=== PATIENT | female | born 1980 | race Two or more races ===

== ENCOUNTER 2024-12-07 09:32 | Emergency (ER) | payer MEDICAID, SELFPAY ==
[2024-12-07 10:05] VITALS: BP 168/99; PULSE 98; RESP 17; TEMP 36.9; O2SAT 98
--- NOTE | 2024-12-07 10:10 | EKG_ITS ---
[facility] Test Date: 2024-12-07 Pat Name: LAURA RODRIGUEZ Department: Room: - Gender: Female Hand Weaver: : 1980 Requested By: Socorro Conrad ([facility]) Sadiq Order Number: [id number] Reading MD: Socorro Conrad ([facility]) Sadiq Measurements Intervals [place] Rate: 89 P: 44 OK: 165 QRS: 20 QRSD: 88 T: 19 QT: 363 QTc: 442 Interpretive Statements SINUS RHYTHM Compared to ECG 07/22/2021 14:41:08 No significant changes /store/S0/[id number].pdf
--- NOTE | 2024-12-07 10:10 | PD.EDRME ---
Rapid Medical Screening Exam RME Arrival date/time: 12/07/24 09:32 This is a 44-year-old female history of liver cirrhosis presents to the emergency department with nausea vomiting bruising abdominal pain. History of alcohol relapse. I have greeted and performed a focused initial assessment of this patient. Initial appropriate labs ordered at this time. A comprehensive ED assessment and evaluation of the patient and analysis of all test and completion of medical decision making process will be conducted by additional ED provider. Chief Complaint: GI Bleed Time Seen by Provider: 12/07/24 09:51 Vital signs: Vital Signs Temperature 98.4 F 12/07/24 10:05 Pulse Rate 98 12/07/24 10:05 Respiratory Rate 17 12/07/24 10:05 Blood Pressure 168/99 H 12/07/24 10:05 Pulse Oximetry (%) 98 12/07/24 10:05 Oxygen Delivery Method Room Air 12/07/24 10:05
[2024-12-07] MEDS: ONDANSETRON ODT 4 MG TABRAP PO (10:16)
[2024-12-07 10:45] LABS: Basophils % (Auto) 1 % (0-2.5); Eosinophils # (Auto) 0.1 Thou/mm3 (0.0-0.5); Eosinophils % (Auto) 2 % (0-10); Hematocrit 36.6 % (36.0-46.0); Hemoglobin 12.5 g/dL (12.0-16.0); Immature Granulocytes % (Auto) 0 % (0-0); Immature Granulocytes Auto 0.01 Thou/mm3 (0.00-0.00); Lymphocytes # (Auto) 0.6 Thou/mm3 (1.0-4.8); Lymphocytes % (Auto) 15 % (10-50); Mean Corpuscular HGB Conc 34.2 g/dl (31.0-37.0); Mean Corpuscular Volume 94 fL (80-100); Monocytes # (Auto) 0.3 Thou/mm3 (0.0-0.8); Monocytes % (Auto) 8 % (0-12); Neutrophils # (Auto) 3.1 Thou/mm3 (1.8-7.7); Neutrophils % (Auto) 75 % (37-80); Nucleated Red Blood Cell % 0 /100 WBC (0); Platelet Count 94 Thou/mm3 (140-440); RDW Standard Deviation 49.6 fL (36.4-46.3); Red Blood Count 3.91 Miln/mm3 (4.00-5.20); White Blood Count 4.1 Thou/mm3 (3.6-11.0)
[2024-12-07 11:03] LABS: Alanine Aminotransferase 40 U/L (10-49); Albumin, Serum 3.8 gm/dL (3.5-5.0); Albumin/Globulin Ratio 1.1 (1.2-2.2); Alkaline Phosphatase 175 U/L (46-116); Anion Gap 12 (7-16); Aspartate Amino Transferase 85 U/L (0-34); BUN/Creatinine Ratio 8 Ratio (12-20); Bilirubin,Total 3.3 mg/dL (0.3-1.2); Blood Urea Nitrogen 6 mg/dL (9-23); Calcium 12.5 mg/dL (8.3-10.6); Calcium (Corrected) 12.7 mg/dL (8.5-10.1); Carbon Dioxide 22.4 mMol/L (20.0-31.0); Chloride 111 mMol/L (98-107); Creatinine (Component) 0.8 mg/dL (0.6-1.3); Globulin 3.4 gm/dL (2.3-3.5); Glucose 103 mg/dL (74-106); INR 1.3 (0.9-1.3); Lipase 23 U/L (12-53); Magnesium 1.6 mg/dL (1.6-2.6); Osmolality,Calculated 286 (275-295); Prothrombin Time 14.4 Seconds (9.0-12.2); Sodium 145 mMol/L (136-145); Total Protein 7.2 gm/dL (5.7-8.2); Troponin I < 0.020 ng/mL (0.0-0.045); eGFR > 60 See Note
[2024-12-07 11:25] LABS: Collection Type, Urine Clean Catch
[2024-12-07 11:38] LABS: HCG Qualitative,Urine Negative
[2024-12-07 11:39] LABS: Bacteria,Urine Rare; Bilirubin,Urine Negative (Negative); Blood,Urine Trace (Negative); Color,Urine Yellow (Lt Yel-Yel); Glucose, Urine Negative (Negative); Ketones,Urine Negative (Negative); Leukocyte Esterase,Urine Positive (Negative); Nitrite,Urine Negative (Negative); PH,Urine 7.5 (5.0-7.0); Protein,Urine Negative (Neg - Trace); RBC,Urine 6 /hpf (0-3); Specific Gravity,Urine 1.013 (1.001-1.035); Squamous Epithelial Cell,Urine 5 /hpf (0-5); WBC,Urine 6 /hpf (0-5)
[2024-12-07 11:44] LABS: Clarity,Urine Hazy (Clear/Hazy)
[2024-12-07 12:04] LABS: Amphetamine/Methamp Scrn,U Negative (Negative); Barbiturate Screen,Urine Negative (Negative); Benzodiazepines Screen,Urine Negative (Negative); Benzoylecgonine Screen, Ur Negative (Negative); Fentanyl Screen,Urine Negative (Negative); Opiate Screen,Urine Negative (Negative); THC Screen,Urine Positive (Negative)
[2024-12-07 13:03] VITALS: BP 169/92; PULSE 93; RESP 18; TEMP 37.1; O2SAT 99
--- NOTE | 2024-12-07 13:12 | PD.EDADULT ---
ED General RME/HPI General Chief complaint: GI Bleed Stated complaint: BLACK STOOL, FEELS SICK Time Seen by Provider: 12/07/24 09:51 Arrival date/time: 12/07/24 09:32 RME / HPI RME / HPI narrative: 44-year-old female patient with significant history of liver cirrhosis, currently drinking hard liquor, last drink was 4 5 days ago, came in for evaluation regarding nosebleeding. Patient has been having nosebleeding last week, last bleeding 2 days ago, severity mild. Patient told me that she might swallowed some of the blood while sleeping. Noticed dark-colored stool few days ago but not today. Patient is also complaining of on and off abdominal cramping. Patient denies any other complaints. Related Data Home Medications ?Medication ?Instructions ?Recorded ?Confirmed ferrous sulfate 325 mg (65 mg 325 mg PO QDAY 07/21/21 12/13/23 iron) tablet albuterol sulfate 90 mcg/actuation 2 puff inhalation Q6H PRN Wheezing 07/28/21 12/13/23 aerosol inhaler benzalkonium chloride 0.13 % 1 applic topical QD-BID PRN 10/11/23 12/13/23 topical solution (Merthiolate (benzalkonium)) bisacodyl 10 mg rectal suppository 10 mg OR QDAY PRN 10/11/23 12/13/23 (Dulcolax (bisacodyl)) magnesium hydroxide 400 mg/5 mL 5 ml PO QDAY PRN 10/11/23 12/13/23 oral suspension (Milk of Magnesia) montelukast 10 mg tablet 10 mg PO QDAY 10/11/23 12/13/23 (Singulair) oxycodone-acetaminophen 5 mg-325 5 ml PO QDAY 10/11/23 12/13/23 mg/5 mL oral solution paroxetine HCl 30 mg tablet (Paxil) 30 mg PO QDAY 10/11/23 12/13/23 sodium phosphates 19 gram-7 118 ml OR QDAY PRN 10/11/23 12/13/23 gram/118 mL enema (Fleet Enema) tuberculin PPD 5 tub. unit/0.1 mL intradermal 10/11/23 12/13/23 intradermal injection solution (Tubersol) Previous Rx's ?Medication ?Instructions ?Recorded meloxicam 7.5 mg tablet 7.5 mg PO QDAY #45 tabs 11/08/23 ondansetron HCl 4 mg tablet 4 mg PO Q8H PRN nausea and 12/07/24 vomiting 4 days #20 tabs pantoprazole 40 mg tablet,delayed 40 mg PO QDAY #30 tabs 12/07/24 release (Protonix) Allergies Allergy/AdvReac Type Severity Reaction Status Date / Time hydrocortisone Allergy Intermediate Swelling Verified 12/07/24 09:37 of the Eye Review of Systems Review of Systems Narrative Review of Systems: Review of system reviewed and within normal limits except mentioned in HPI ED Exam Narrative Physical exam: VITAL SIGNS: Reviewed. GENERAL APPEARANCE: Alert and interactive, follows commands, no acute distress, HEAD AND FACE: Non-traumatic. ENT: PERRL, pink conjunctivitis, eyelid no trauma, Mucous membrane moist. NECK: Supple, nontender, no nuchal rigidity. CHEST: No tenderness, no crepitus, no paradoxical movement, no retractions. LUNGS: Clear, well ventilated, symmetric, no rales, no wheezing, no ronchi, no stridor, good breath sounds bilaterally. HEART: Regular rate, regular rhythm, no murmur, no gallops. ABDOMEN: Soft, positive bowel sounds, nondistended, no guarding, nontender, no rebound, no masses, RECTAL: Deferred. GENITAL: Deferred. NEUROLOGICAL: Gross motor function intact sensory function intact, Appropriate for age. MUSCULOSKELETAL: low back nontender, full range of motion. EXTREMITIES: Nontender, full range of motion. SKIN: Color pink, dry, no rash, no lacerations, no abrasions, no contusions. LYMPHATICS: Deferred. Course Quality Measures none Orders Category Date Time Status EKG (ED ONLY) *Do not use* NOW Care 12/07/24 10:10 Completed NPO STAT Care 12/07/24 10:10 Active EKG (ED Only) Stat Exams 12/07/24 10:10 Draft CBC Stat Lab 12/07/24 10:35 Completed Comprehensive Metabolic Panel Stat Lab 12/07/24 10:35 Completed Drug Screen,Urine Stat Lab 12/07/24 11:06 Completed HCG Qualitative,Urine Stat Lab 12/07/24 11:06 Completed Lipase Stat Lab 12/07/24 10:35 Completed Magnesium Stat Lab 12/07/24 10:35 Completed Prothrombin Time with INR Stat Lab 12/07/24 10:35 Completed Troponin I Stat Lab 12/07/24 10:35 Completed Urinalysis Stat Lab 12/07/24 11:06 Completed HYDROcodone*/APAP 5/325 [[place] 5/325] Med 12/07/24 13:11 Once 1 tab PO X1 ONE Ondansetron Odt [Zofran Odt] Med 12/07/24 10:12 Discontinued 4 mg PO X1 ONE Pantoprazole [Protonix] Med 12/07/24 13:16 Discontinued 40 mg PO X1 ONE Potassium Chloride [K-Dur] Med 12/07/24 13:16 Discontinued 40 meq PO X1 ONE Vital Signs Vital signs: Vital Signs Temperature 98.4 F 12/07/24 10:05 Pulse Rate 98 12/07/24 10:05 Respiratory Rate 17 12/07/24 10:05 Blood Pressure 168/99 H 12/07/24 10:05 Pulse Oximetry (%) 98 12/07/24 10:05 Oxygen Delivery Method Room Air 12/07/24 10:05 [facility] Patient data External records reviewed:: None Clinical information provided by:: patient Social determinants that could affect healthcare access:: none Patient has the following chronic illnesses:: Alcohol liver cirrhosis How is presenting disease/condition affected by chronic disease/condition?: exacerbated by Evaluation data The following diagnostics were reviewed and interpreted by me:: lab results and EKG tracing(s) Lab and/or radiology exams considered but not ordered:: None Interpretation Summary: See results in [facility] Medications Medications considered but not ordered:: None Medication administrations:: Medication Administration History Discontinued Medications Hydrocodone Bitart/Acetaminophen (Hydrocodone/Apap 5/325 Tablet) 1 tab PO X1 ONE Stop: 12/07/24 13:12 Ondansetron HCl (Ondansetron Odt 4 Mg Tabrap) 4 mg PO X1 ONE; Protocol Stop: 12/07/24 10:13 Last Admin: 12/07/24 10:16 Dose: 4 mg Documented By: GM Pantoprazole Sodium (Pantoprazole 40 Mg Tablet) 40 mg PO X1 ONE Stop: 12/07/24 13:17 Potassium Chloride (Potassium Chloride 20 Meq Tabcr) 40 meq PO X1 ONE Stop: 12/07/24 13:17 [place] Zofran Protonix and potassium Consultations Consultation(s) initiated? (list below): No Diagnosis Differential Diagnosis ED Complaint MDM: Nosebleeding, liver cirrhosis, anemia, upper GI bleed Most likely diagnosis given after review of the tests above:: Nosebleeding, history of liver cirrhosis Admission Indicated Admission indicated?: not indicated Explain why admission is indicated or not indicated:: None Admission Request Was there a request for admission?: No Disposition Plan Disposition Plan: Discharge Discharge Attestation Discharge Attestation: The patient and all family members were given an opportunity to ask questions and understood the discharge instructions. Discharge instructions specifically effects, indications for sooner follow up or return to the emergency department, and the expected course of current diagnosis. Patient condition: Stable Medical Decision Making MDM Narrative MDM Narrative: 44-year-old female patient with significant history of liver cirrhosis, currently drinking hard liquor, last drink was 4 5 days ago, came in for evaluation regarding nosebleeding. Patient has been having nosebleeding last week, last bleeding 2 days ago, severity mild. Patient told me that she might swallowed some of the blood while sleeping. Noticed dark-colored stool few days ago but not today. Patient is also complaining of on and off abdominal cramping. Patient denies any other complaints. Patient's CBC today did not show any anemia, hemoglobin of 12.5. Except for a platelet of 94. Patient's CMP is significant for total bili of 3.3 AST of 85 alkaline phos of 175. Potassium was noted to be 3.0. Urinalysis no UTI positive for marijuana. EKG showed normal sinus rhythm, ventricular rate of 89 bpm, no ST segment elevation or depression noted. Patient's last nosebleeding was more than 2 days ago. Currently patient is not having any bleeding. Patient was advised to stop drinking alcohol and closely follow-up with liver specialist. Patient agrees with the plan. Differential Diagnosis Differential Diagnosis: Nosebleeding, liver cirrhosis, anemia, upper GI bleed Lab Data 12/07/24 10:35 12/07/24 10:35 Labs: Lab Results 12/07/24 12/07/24 Range/Units 10:35 11:06 WBC 4.1 (3.6-11.0) Thou/mm3 RBC 3.91 L (4.00-5.20) Miln/mm3 Hgb 12.5 (12.0-16.0) g/dL Hct 36.6 (36.0-46.0) % MCV 94 (80-100) fL MCH 32.0 (25.0-35.0) pg MCHC 34.2 (31.0-37.0) g/dl RDW Std Deviation 49.6 H (36.4-46.3) fL Plt Count 94 L (140-440) Thou/mm3 Neut % (Auto) 75 (37-80) % Lymph % (Auto) 15 (10-50) % [place] % (Auto) 8 (0-12) % Eos % (Auto) 2 (0-10) % Baso % (Auto) 1 (0-2.5) % Neut # (Auto) 3.1 (1.8-7.7) Thou/mm3 Lymph # (Auto) 0.6 L (1.0-4.8) Thou/mm3 [place] # (Auto) 0.3 (0.0-0.8) Thou/mm3 Eos # (Auto) 0.1 (0.0-0.5) Thou/mm3 Baso # (Auto) 0.0 (0.0-0.2) Thou/mm3 Immature Gran # (Auto) 0.01 H (0.00-0.00) Thou/mm3 Absolute Nucleated RBC 0.00 (0.00-0.00) Thou/mm3 Immature Gran % 0 (0-0) % Nucleated RBC % 0 (0) /100 WBC PT 14.4 H (9.0-12.2) Seconds INR 1.3 (0.9-1.3) Sodium 145 (136-145) mMol/L Potassium 3.0 L (3.4-5.1) mMol/L Chloride 111 H (98-107) mMol/L Carbon Dioxide 22.4 (20.0-31.0) mMol/L Anion Gap 12 (7-16) BUN 6 L (9-23) mg/dL Creatinine 0.8 (0.6-1.3) mg/dL Estim Creat Clear Calc Not Performed. eGFR > 60 (60 - ) See Note BUN/Creatinine Ratio 8 L (12-20) Ratio Glucose 103 (74-106) mg/dL Calculated Osmolality 286 (275-295) Calcium 12.5 H (8.3-10.6) mg/dL Corrected Calcium 12.7 H (8.5-10.1) mg/dL Magnesium 1.6 (1.6-2.6) mg/dL Total Bilirubin 3.3 H (0.3-1.2) mg/dL AST 85 H (0-34) U/L ALT 40 (10-49) U/L Alkaline Phosphatase 175 H (46-116) U/L Troponin I < 0.020 (0.0-0.045) ng/mL Total Protein 7.2 (5.7-8.2) gm/dL Albumin 3.8 (3.5-5.0) gm/dL Globulin 3.4 (2.3-3.5) gm/dL Albumin/Globulin Ratio 1.1 L (1.2-2.2) Lipase 23 (12-53) U/L Ur Collection Type Clean Catch Urine Color Yellow (Lt Yel-Yel) Urine Clarity Hazy (Clear/Hazy) Urine pH 7.5 H (5.0-7.0) Ur Specific [place] 1.013 (1.001-1.035) Urine Protein Negative (Neg - Trace) Urine Glucose (UA) Negative (Negative) Urine Ketones Negative (Negative) Urine Blood Trace (Negative) Urine Nitrite Negative (Negative) Urine Bilirubin Negative (Negative) Urine Urobilinogen (Auto) 8.0 (0.0-1.0) mg/dL Ur Leukocyte Esterase Positive (Negative) Urine RBC 6 H (0-3) /hpf Urine WBC 6 H (0-5) /hpf Ur Squamous Epith Cells 5 (0-5) /hpf Urine Bacteria Rare (None) Urine HCG, Qual Negative Urine Opiates Screen Negative (Negative) Urine Fentanyl Screen Negative (Negative) Ur Barbiturates Screen Negative (Negative) U Amphetamin/Meth Scrn Negative (Negative) U Benzodiazepines Scrn Negative (Negative) U Cocaine Metab Screen Negative (Negative) U Marijuana (THC) Screen Positive A (Negative) Discharge Plan Plan Patient Disposition: HOME (Self Care) Disposition Comment: Stable Prescriptions/Referrals Prescriptions/Med Rec: New pantoprazole [Protonix] 40 mg tablet,delayed release (DR/EC) 40 mg PO QDAY Qty: 30 0RF ondansetron HCl 4 mg tablet 4 mg PO Q8H PRN (Reason: nausea and vomiting) 4 Days Qty: 20 0RF No Action bisacodyl [Dulcolax (bisacodyl)] 10 mg suppository 10 mg OR QDAY PRN Fleet Enema 19-7 gram/118 mL enema 118 ml OR QDAY PRN Merthiolate (benzalkonium) 0.13 % solution 1 applic topical QD-BID PRN magnesium hydroxide [Milk of Magnesia] 400 mg/5 mL suspension 5 ml PO QDAY PRN oxycodone-acetaminophen 5-325 mg/5 mL solution 5 ml PO QDAY paroxetine HCl [Paxil] 30 mg tablet 30 mg PO QDAY montelukast [Singulair] 10 mg tablet 10 mg PO QDAY Tubersol 5 tub. unit /0.1 mL solution intradermal meloxicam 7.5 mg tablet 7.5 mg PO QDAY Qty: 45 3RF albuterol sulfate 90 mcg/actuation Hfa Aerosol Inhaler 2 puff INHALATION Q6H PRN (Reason: Wheezing) ferrous sulfate 325 mg (65 mg iron) Tablet 325 mg PO QDAY Referrals: No Primary/Family,Physician [Primary Care Provider] - In 1 week Problem List Clinical Impression: Liver cirrhosis, alcoholic, Bleeding nose Patient/Caregiver Discharge Instructions Discharge Activity: activity as tolerated Education Materials: ED Cirrhosis, ED Epistaxis (Adult) Additional Instructions: Thank you for the opportunity for serving you today. You are stable for discharged . You are advised to: Follow-up with your PCP in 1 to 2 days Return to ED for worsening of symptoms Increase oral fluids Take medication as prescribed As your PCP to refer you to a liver specialist or GI specialist. Please stop drinking alcohol. Print Language: Macanese Stand Alone Forms: Nicole Award Info., Patient Portal Info Letter
[2024-12-07] MEDS: POTASSIUM CHLORIDE 20 mEq TABCR 40 MEQ PO (13:51)
[2024-12-07] MEDS: HYDROcodone/APAP 5/325 TABLET 1 TAB PO (13:52)
[2024-12-07] MEDS: PANTOPRAZOLE 40 MG TABLET PO (13:53)
[2024-12-07 13:56] VITALS: BP 161/90; PULSE 100; RESP 18; TEMP 36.9; O2SAT 96
== END 2024-12-07 13:58 | disposition home or self-care (01) ==
PROVIDERS: Nurse Practitioner Primary Care; Emergency Provider Emergency Medicine
DX: K70.30 Alcoholic cirrhosis of liver without ascites (principal); R04.0 Epistaxis
CPT/HCPCS: 36415; 80053; 80307; 81001; 81025; 83690; 83735; 84484; 85025; 85610; 93005; 99283; Q0162; A9270

== ENCOUNTER 2025-02-12 09:54 | Inpatient (IN) | payer MEDICAID, SELFPAY ==
[2025-02-12 09:55] VITALS: BMI 35.9
[2025-02-12 10:13] VITALS: BP 149/87; PULSE 119; RESP 18; TEMP 36.8; O2SAT 98
--- NOTE | 2025-02-12 10:24 | XR_ITS ---
Examination: CT abdomen and pelvis without contrast. Coronal 3-D reconstructions. Sagittal 2-D reconstructions. Date and time of exam:February 12, 2025 1247 hours Comparison July 08, 2018 INDICATIONS: Diagnosis cirrhosis with abdominal pain nausea vomiting one month CTDI: vol (mGy): 12.7 DLP: (mGycm): 720 Technique: Axial images of the abdomen have been obtained, 3 mm slice thickness Intravenous contrast material has not been administered. Low dose protocols were performed. One or more of the following dose reduction techniques were used; automated exposure control, adjustment of the mA and/or KV according to patient size, use of iterative reconstruction technique. Findings: Cirrhosis, liver nodular in contour Significant splenomegaly Cholelithiasis, gallbladder is contracted with mild gallbladder wall thickening No pancreatic mass 1 mm nonobstructing right renal calculus There is mild inflammation in the right abdomen, axial image 143 without definite enlarged appendix No bowel obstruction Urinary bladder intact IMPRESSION: Cirrhosis Significant splenomegaly Recommend hepatobiliary sonography follow-up to exclude gallbladder wall thickening There is inflammation in the right abdomen without definite enlarged appendix, if appendicitis is a clinical consideration recommend repeat CT scan abdomen pelvis post intravenous contrast
--- NOTE | 2025-02-12 10:24 | PD.EDRME ---
Rapid Medical Screening Exam E Arrival date/time: 02/12/25 09:54 44-year-old female with a history of liver cirrhosis, anemia presents to the emergency room with a chief complaint of 10 out of 10 diffuse abdominal pain, bruising to her abdomen and lower extremities, and fatigue that has progressively gotten worse this last week. \I have greeted and performed a focused initial assessment of this patient. A comprehensive ED assessment and evaluation of the patient, analysis of all test results, and completion of the medical decision making process will be conducted by additional ED providers. Chief Complaint: Nausea/Vomiting/Diarrhea Time Seen by Provider: 02/12/25 11:21 Vital signs: Vital Signs Temperature 98.2 F 02/12/25 10:13 Pulse Rate 119 H 02/12/25 10:13 Respiratory Rate 18 02/12/25 10:13 Blood Pressure 149/87 H 02/12/25 10:13 Pulse Oximetry (%) 98 02/12/25 10:13 Oxygen Delivery Method Room Air 02/12/25 10:13 Vital signs reviewed by provider: Yes
[2025-02-12 10:53] LABS: Basophils # (Auto) 0.1 Thou/mm3 (0.0-0.2); Basophils % (Auto) 1 % (0-2.5); Eosinophils # (Auto) 0.1 Thou/mm3 (0.0-0.5); Eosinophils % (Auto) 2 % (0-10); Hematocrit 35.4 % (36.0-46.0); Immature Granulocytes % (Auto) 0 % (0-0); Immature Granulocytes Auto 0.01 Thou/mm3 (0.00-0.00); Lymphocytes # (Auto) 1.1 Thou/mm3 (1.0-4.8); Lymphocytes % (Auto) 21 % (10-50); Mean Corpuscular HGB Conc 33.9 g/dl (31.0-37.0); Mean Corpuscular Hemoglobin 31.5 pg (25.0-35.0); Mean Corpuscular Volume 93 fL (80-100); Monocytes # (Auto) 0.6 Thou/mm3 (0.0-0.8); Monocytes % (Auto) 10 % (0-12); Neutrophils # (Auto) 3.4 Thou/mm3 (1.8-7.7); Neutrophils % (Auto) 65 % (37-80); Nucleated Red Blood Cell % 0 /100 WBC (0); Platelet Count 105 Thou/mm3 (140-440); RDW Standard Deviation 51.3 fL (36.4-46.3); Red Blood Count 3.81 Miln/mm3 (4.00-5.20); White Blood Count 5.3 Thou/mm3 (3.6-11.0)
[2025-02-12 12:04] LABS: Collection Type, Urine Clean Catch
[2025-02-12 12:06] LABS: Alanine Aminotransferase 44 U/L (10-49); Albumin/Globulin Ratio 1.2 (1.2-2.2); Alkaline Phosphatase 158 U/L (46-116); Anion Gap 13 (7-16); Aspartate Amino Transferase 79 U/L (0-34); BUN/Creatinine Ratio 6 Ratio (12-20); Bilirubin,Total 3.5 mg/dL (0.3-1.2); Blood Urea Nitrogen 5 mg/dL (9-23); Calcium 11.4 mg/dL (8.3-10.6); Calcium (Corrected) 11.4 mg/dL (8.5-10.1); Carbon Dioxide 23.2 mMol/L (20.0-31.0); Chloride 107 mMol/L (98-107); Creatinine (Component) 0.8 mg/dL (0.6-1.3); Estimated Creatinine Clearance 89.5 mL/min (>60); Globulin 3.3 gm/dL (2.3-3.5); Glucose 102 mg/dL (74-106); Lipase 26 U/L (12-53); Osmolality,Calculated 282 (275-295); Potassium 2.8 mMol/L (3.4-5.1); Sodium 143 mMol/L (136-145); Total Protein 7.3 gm/dL (5.7-8.2); eGFR > 60 See Note
[2025-02-12 12:16] LABS: HCG Qualitative,Urine Negative
[2025-02-12 12:21] LABS: Bacteria,Urine Rare; Bilirubin,Urine Negative (Negative); Blood,Urine 1+ (Negative); Color,Urine Yellow (Lt Yel-Yel); Glucose, Urine Negative (Negative); Hyaline Casts,Urine < 1 /hpf (0-1); Ketones,Urine Negative (Negative); Leukocyte Esterase,Urine Negative (Negative); Nitrite,Urine Negative (Negative); PH,Urine 6.5 (5.0-7.0); Protein,Urine Trace (Neg - Trace); RBC,Urine 2 /hpf (0-3); Specific Gravity,Urine 1.017 (1.001-1.035); Squamous Epithelial Cell,Urine < 1 /hpf (0-5); WBC,Urine 3 /hpf (0-5)
[2025-02-12 12:25] LABS: Clarity,Urine Hazy (Clear/Hazy)
--- NOTE | 2025-02-12 12:36 | EDNOTE_ITS ---
ED Abdominal Pain RME/HPI General Chief Complaint: Nausea/Vomiting/Diarrhea Stated complaint: N/V, BODY ACHES [id number] HX CIRRHOSIS Time seen by provider: 02/12/25 11:21 Arrival date/time: 02/12/25 09:54 This is a case of 44-year-old female with a history of liver cirrhosis, anemia presents to the emergency room with a chief complaint of 10 out of 10 diffuse abdominal pain, bruising to her abdomen and lower extremities, and fatigue that has progressively gotten worse this last week. Limitations: no limitations RME / HPI RME / HPI narrative: 02/12/25 09:54 44-year-old female with a history of liver cirrhosis, anemia presents to the emergency room with a chief complaint of 10 out of 10 diffuse abdominal pain, bruising to her abdomen and lower extremities, and fatigue that has progressively gotten worse this last week. \I have greeted and performed a focused initial assessment of this patient. A comprehensive ED assessment and evaluation of the patient, analysis of all test results, and completion of the medical decision making process will be conducted by additional ED providers. Related Data Home Medications ?Medication ?Instructions ?Recorded ?Confirmed ferrous sulfate 325 mg (65 mg 325 mg PO QDAY 07/21/21 12/13/23 iron) tablet albuterol sulfate 90 mcg/actuation 2 puff inhalation Q 6H PRN Wheezing 07/28/21 12/13/23 aerosol inhaler benzalkonium chloride 0.13 % 1 applic topical QD-BID P RN 10/11/23 12/13/23 topical solution (Merthiolate (benzalkonium)) bisacodyl 10 mg rectal suppository 10 mg SD QDAY PRN 0 10/11/23 12/13/23 (Dulcolax (bisacodyl)) magnesium hydroxide 400 mg/5 mL 5 ml PO QDAY PRN 10/1112/13/23 oral suspension (Milk of Magnesia) montelukast 10 mg tablet 10 mg PO QDAY 10/11/2312/12 (Singulair) oxycodone-acetaminophen 5 mg-325 5 ml PO QDAY 10/11/23 12/13/23 mg/5 mL oral solution paroxetine HCl 30 mg tablet (Paxil) 30 mg PO QDAY 09/2012/13/23 sodium phosphates 19 gram-7 118 ml SD QDAY PRN 4 12/13/23 gram/118 mL enema (Fleet Enema) tuberculin PPD 5 tub. unit/0.1 mL intradermal 10/11/23 12/13/23 intradermal injection solution (Tubersol) Previous Rx's ?Medication ?Instructions ?Recorded meloxicam 7.5 mg tablet 7.5 mg PO QDAY #45 tabs 10/21 pantoprazole 40 mg tablet,delayed 40 mg PO QDAY #30 ta bs 12/07/24 release (Protonix) Allergies Allergy/AdvReac Type Severity Reaction Status Date / Time hydrocortisone Allergy Intermediate Swelling Verified 02/12/25 09:59 of the Eye Review of Systems Review of Systems Systems Reviewed: All systems reviewed, normal except as documented Constitutional Constitutional: Reports system reviewed and no additional complaints, except as documented and Reports as per HPI Cardiovascular Cardiovascular: Reports system reviewed and no additional complaints, except as documented and Reports as per HPI Gastrointestinal Gastrointestinal: Reports system reviewed and no additional complaints, except as documented, Reports as per HPI, Reports abdominal pain, Denies change in bowel habits, Denies change in stool character, Denies constipation, Denies cramping, Denies diarrhea, Denies hematemesis, Denies loose stools, Reports nausea and Reports vomiting Genitourinary Genitourinary: Reports system reviewed and no additional complaints, except as documented and Denies dysuria Musculoskeletal Musculoskeletal: Reports system reviewed and no additional complaints, except as documented and Reports as per HPI Neurologic Neurologic: Reports system reviewed and no additional complaints, except as documented and Reports as per HPI Psychiatric Psychiatric: Reports system reviewed and no additional complaints, except as documented and Reports as per HPI Past Medical History Past Medical History NEUROLOGIC: Negative Neurological Disorders or Seizures CARDIAC: Positive Cardiac Disorders and Heart Murmur; Negative Hypercholesterolemia, Congestive Heart Failure, Edema, Cellulitis (SLIGHT REDDENED FACE STATED HAD ALLERGIC RESPONSE TO HYDROCORTISE HOSP), Hypertension or Varicose Veins RESPIRATORY: Positive Asthma (HAS INHALER) and Pneumonia (2019 HOSP); Negative Chronic Obstructive Pulmonary Disease (COPD), Tuberculosis or Sleep Apnea GASTROINTESTINAL: Positive Gastrointestinal Disorders, Cirrhosis (end stage liver disease from obesity per pt HOSP), Gall Bladder Disease, Hemorrhoids (NO SURGERY) and Obesity; Negative Hepatitis, Gastrointestinal Bleed, Esophageal Varices, Colorectal Cancer or Gastroesophageal Reflux Disease GENITOURINARY: Negative Genitourinary Disorders or Renal Disease REPRODUCTIVE: Positive Previous Pregnancies (x4 first 3 and 4th ); Negative Breast Cancer, Endometriosis or Pelvic Inflammatory Disease MUSCULOSKELETAL: Positive Musculoskeletal Disorders; Negative Bone Cancer or Arthritis ENDOCRINE: Negative Endocrine Disorders, Diabetes Mellitus Type 1, Diabetes Mellitus Type 2 or Hyperthyroidism HEMATOLOGIC: Positive Blood Disorders, Anemia (iron deficiency) and Clotting Problems; Negative Sickle Cell Disease PSYCHO/SOCIAL: Positive Depression and Anxiety OTHER HISTORY: Positive Hospitalization (HOSP DUE TO HYDROCORTISONE REACTION 07/22/21) and Blood Transfusions; Negative Autoimmune Disease, Down Syndrome, Developmental Delay, Shingles, Falls, Blood Transfusion Reaction, Anesthesia Reactions, Organ Transplant, MRSA, VRSA, Vancomycin-Resistant Enterococci, Human Immunodeficiency Virus (HIV), Chicken Pox, Measles, Mumps, Rubella ([place] Measles), Pertussis, Clostridium Difficile, Breast Cancer, Cervical Cancer, Colorectal Cancer, Lung Cancer or Ovarian Cancer Family History FAMILY HISTORY: Positive Family Respiratory Disorders (BROTHER (ASTHMA)) and Family Surgery (MOTHER,SISTER); Negative Family Psychiatric Problems, Family Cardiac Disorders, Family Gastrointestinal Problems, Family Cancer or Family Anesthesia Reaction Surgical History SURGICAL: Positive Abdominal Surgery, Tubal Ligation and Section (X1); Negative Cardiac Surgery, Pacemaker, Endocrine Surgery, Ear Surgery, Nephrectomy, Joint Replacement, Neurologic Surgery, Mastectomy, Lumpectomy, Hysterectomy or Organ Transplant Social History SMOKING STATUS: Never smoker SECOND HAND EXPOSURE: No (quit 2013) SUBSTANCE USE: does not use ED Exam General Limitations: Present no limitations General appearance: Present alert and in no apparent distress Head Head exam: Present atraumatic, normocephalic and normal inspection Eye Eye exam: Present normal appearance, PERRL and EOMI ENT ENT exam: Present normal exam, normal oropharynx and mucous membranes moist Neck Neck exam: Present normal inspection, full ROM and trachea midline; Absent tenderness, meningismus or lymphadenopathy Chest Chest inspection: Present normal inspection and symmetric chest wall rise Respiratory Respiratory exam: Present normal lung sounds bilaterally; Absent respiratory distress, wheezes, stridor, accessory muscle use or prolonged expiratory phase Cardiovascular Cardiovascular exam: Present regular rate, normal rhythm and normal heart sounds Abdominal Exam Abdominal exam: Present soft, tenderness and normal bowel sounds; Absent distention, guarding, rebound, rigidity, diminished bowel sounds, hyperactive bowel sounds, organomegaly, trauma, incision, psoas sign, obturator sign, heel tap sign, Watson's sign, Rovsing's sign, tenderness at McBurney's Point, ascites, mass or pulsatile mass Abdominal tenderness: Present RUQ, LUQ and mild External exam: Present normal external exam and other (no cva tenderness) Extremities Exam Extremities exam: Present normal inspection and full ROM Back Exam Back exam: Present normal inspection and full ROM Neurological Exam Neurological exam: Present alert, oriented X3, CN II-XII intact, normal gait and reflexes normal; Absent motor sensory deficit Psychiatric Psychiatric exam: Present normal affect and normal mood Skin Skin exam: Present warm, dry, intact and normal color Course Quality Measures none Orders Category Date Time Status Admit to Inpatient Status Routine Admission 02/12/25 18:34 Active Patient Condition Routine Admission 02/12/25 18:34 Ordered Insert IV NOW Care 02/12/25 16:09 Active Notify provider NEEDED Care 02/12/25 18:34 Active Sequential Compression Device QSHIFT Care 02/12/25 18:34 Active Consult to Gastroenterology Stat Cons 02/12/25 18:39 Ordered Consult to General Surgery Stat Cons 02/12/25 18:38 Ordered Diet Clear Liquid Diet 02/13/[address] abdomen pelvis wo con Stat Exams 02/12/25 10:24 Completed US abdomen limited Stat Exams 02/12/25 14:03 Completed US gall bladder Stat Exams 02/12/25 13:52 Completed CBC AM DRAW Lab 02/13/25 05:00 Ordered CBC AM DRAW Lab 02/14/25 05:00 Ordered CBC AM DRAW Lab 02/15/25 05:00 Ordered CBC Stat Lab 02/12/25 10:41 Completed CMP [Comprehensive Metabolic Panel] Stat Lab 02/12/25 10:41 Completed Comprehensive Metabolic Panel AM DRAW Lab 02/13/25 05:00 Ordered Comprehensive Metabolic Panel AM DRAW Lab 02/14/25 05:00 Ordered Comprehensive Metabolic Panel AM DRAW Lab 02/15/25 05:00 Ordered HCG Qualitative,Urine Stat Lab 02/12/25 11:56 Completed Lipase Stat Lab 02/12/25 10:41 Completed Magnesium AM DRAW Lab 02/13/25 05:00 Ordered Magnesium AM DRAW Lab 02/14/25 05:00 Ordered Magnesium AM DRAW Lab 02/15/25 05:00 Ordered UA [Urinalysis] Stat Lab 02/12/25 11:56 Completed Urine Culture Stat Lab 02/12/25 11:56 Received Acetaminophen Tab [Tylenol Tab] Med 02/12/25 18:34 Active 650 mg PO Q6H PRN Albuterol/Ipratr Rt Valerie [Duoneb Rt Valerie] Med 02/12/25 18:37 Active 3 ml INH Q4H PRN KCL 20 mEq/L in D5-1/2NS Med 02/12/25 18:45 Active 20 meq in 1,000 ml IV 100 mls/hr Morphine Inj Med 02/12/25 18:34 Active 1 mg IVP Q4H PRN Morphine Inj Med 02/12/25 18:14 Active 4 mg IVP Q1H PRN Ondansetron Inj [Zofran Inj] Med 02/12/25 18:34 Active 4 mg IVP Q6H PRN Ondansetron Inj [Zofran Inj] Med 02/12/25 11:50 Discontinued 4 mg IVP X1 ONE PARoxetine HCL [Paxil] Med 02/13/25 09:00 Active 30 mg PO QDAY POTASSIUM CHL 10 mEq IVPB [Kcl Ivpb] Med 02/12/25 13:53 Discontinued 10 meq in 100 ml IV Q1H Pantoprazole Inj [Protonix Inj] Med 02/13/25 09:00 Active 40 mg IVP QDAY Piper/Tazo 3.375 gm Premix [Zosyn] Med 02/13/25 06:00 Active 3.375 gm in 50 ml IV Q8HR Piper/Tazo 3.375 gm Premix [Zosyn] Med 02/12/25 19:00 Active 3.375 gm in 50 ml IV X1 Potassium Chloride [K-Dur] Med 02/12/25 13:52 Discontinued 40 meq PO X1 ONE Sodium Chloride 0.9% 1000 ml [Ns] 1,000 ml Med 02/12/25 11:51 Discontinued IV 999 mls/hr oxyCODONE/APAP 5/325 [Percocet 5/325] Med 02/12/25 18:34 Active 1 tab PO Q6H PRN Code Status Routine Oth 02/12/25 18:34 Ordered Vital Signs Vital signs: Vital Signs Temperature 98.2 F 02/12/25 10:13 Pulse Rate 119 H 02/12/25 10:13 Respiratory Rate 18 02/12/25 10:13 Blood Pressure 149/87 H 02/12/25 10:13 Pulse Oximetry (%) 98 02/12/25 10:13 Oxygen Delivery Method Room Air 02/12/25 10:13 Oxygen saturation 98% in the room air wnl Abdominal Pain MDM MDM Narrative MDM Narrative:: 9:54 This is a case of 44-year-old female with a history of liver cirrhosis, anemia presents to the emergency room with a chief complaint of 10 out of 10 diffuse abdominal pain, bruising to her abdomen and lower extremities, and fatigue that has progressively gotten worse this last week Physical examination patient is awake alert oriented not in distress not toxic looking well-hydrated well-nourished abdominal exam noted mild to moderate tenderness on the right upper and left upper quadrant with mild distention no guarding no rebound no rigidity negative psoas negative obturator negative Rovsing's negative McBurney's negative Watson sign negative CVA tenderness patient is not jaundiced excellent skin turgor the rest of the physical examination and neurological exam is normal and unremarkable Patient vital signs stable BP stable not tachycardic not tachypneic afebrile nonhypoxic Patient blood test showed no leukocytosis no anemia patient kidney function is normal potassium noted to be 2.8 hypokalemic K rider 20 mEq and K-Dur 40 mEq oral was ordered and given patient liver function noted to be elevated AST and ALT with hyperbilirubinemia of 3.[address] scan showed cirrhosis and sple nomegaly ultrasound showed a cholelithiasis no cholecystitis patient ultrasound of the appendix is normal Based on my physical examination patient is hypokalemic with elevated liver enzyme and hyperbilirubinemia decision to be admitted was made and discussed with the patient and agreed I spoke to Dr. Nichols hospitalist discussed patient condition history and physical examination relayed the results of the blood test CT scan and ultrasound and agreed that the patient need to be admitted and accept patient admission Patient data External records reviewed:: [facility] previous records Clinical information provided by:: patient Social determinants that could affect healthcare access:: none Patient has the following chronic illnesses:: None How is presenting disease/condition affected by chronic disease/condition?: no chronic disease Evaluation data The following diagnostics were reviewed and interpreted by me:: lab results and radiology exam(s) Lab and/or radiology exams considered but not ordered:: Reviewed Interpretation Summary: Reviewed Medications / Prescriptions Medications or Prescriptions considered but not ordered:: Given Medication administrations:: Medication Administration History Acetaminophen (Acetaminophen 325 Mg Tablet) 650 mg PO Q6H PRN PRN Reason: Fever >101.5 Stop: 03/14/25 18:33 Albuterol/Ipratropium (Albuterol/Ipratropium (Duoneb) Rt Valerie 3 Ml Nebu) 3 ml INH Q4H PRN PRN Reason: SHORTNESS OF BREATH OR WHEEZE Stop: 03/14/25 18:36 Potassium Chloride/Dextrose/Sod Cl (Kcl 20 Meq/L In D5-1/2ns) 20 meq in 1,000 mls @ 100 mls/hr IV .Q10H TYRONE Stop: 03/14/25 18:44 Piperacillin/Tazobactam/Dextrose (Zosyn) 3.375 gm in 50 mls @ 100 mls/hr IV X1 ONE Stop: 02/12/25 19:29 Piperacillin/Tazobactam/Dextrose (Zosyn) 3.375 gm in 50 mls @ 12.5 mls/hr IV Q8HR TYRONE Stop: 02/20/25 05:59 Morphine Sulfate (Morphine Sulf Inj 10 Mg/Ml Vial) 4 mg IVP Q1H PRN PRN Reason: ABDOMINAL CRAMPING Last Admin: 02/12/25 18:30 Dose: 4 mg Documented By: BARBRA Morphine Sulfate (Morphine Sulf Inj 10 Mg/Ml Vial) 1 mg IVP Q4H PRN PRN Reason: PAIN SCALE 7-10 (Severe Stop: 02/17/25 18:33 Ondansetron HCl (Ondansetron Inj 2 Mg/Ml Inj 2 Ml) 4 mg IVP Q6H PRN; Protocol PRN Reason: NAUSEA OR VOMITING Stop: 03/14/25 18:33 Oxycodone/Acetaminophen (Oxycodone/Apap 5/325 Tablet) 1 tab PO Q6H PRN PRN Reason: PAIN SCALE 4-6 (Moderate Stop: 02/17/25 18:33 Pantoprazole Sodium (Pantoprazole Inj 40 Mg Vial) 40 mg IVP QDAY TYRONE Stop: 03/15/25 08:59 Paroxetine HCl (Paroxetine Hcl 10 Mg Tablet) 30 mg PO QDAY TYRONE Stop: 03/15/25 08:59 Discontinued Medications Sodium Chloride (Ns) 1,000 mls @ 999 mls/hr IV .Q1H1M ONE Stop: 02/12/25 12:51 Last Admin: 02/12/25 16:24 Dose: 999 mls/hr Documented By: RENEA Potassium Chloride (Kcl Ivpb) 10 meq in 100 mls @ 100 mls/hr IV Q1H TYRONE Stop: 02/12/25 15:52 Last Admin: 02/12/25 18:02 Dose: 100 mls/hr Documented By: Infusion: 02/12/25 17:24 Dose: Infused Documented By: Admin: 02/12/25 16:24 Dose: 100 mls/hr Documented By: RENEA Ondansetron HCl (Ondansetron Inj 2 Mg/Ml Inj 2 Ml) 4 mg IVP X1 ONE; Protocol Stop: 02/12/25 11:51 Last Admin: 02/12/25 16:20 Dose: 4 mg Documented By: RENEA Potassium Chloride (Potassium Chloride 20 Meq Tabcr) 40 meq PO X1 ONE Stop: 02/12/25 13:53 Last Admin: 02/12/25 16:22 Dose: 40 meq Documented By: RENEA Given Consultations Consultation(s) initiated? (list below): Yes Consultation #1 (Physician, Specialty, Details): dr betts please see my MDM narrative Time: 17:00 Consultation #2 (Physician, Specialty, Details): dr daly not appendicitis this time no further order Time: 18:13 Diagnosis Differential diagnosis abdominal pain: abdominal pain, acute appendicitis, calculus of kidney, diverticulitis, gastroenteritis, pancreatitis and small bowel obstruction Most likely diagnosis given after review of the tests above:: Cholelithiasis hyperbilirubinemia cirrhosis hyperkalemia Admission Indicated Admission indicated?: indicated Explain why admission is indicated or not indicated:: Cholelithiasis cirrhosis splenomegaly hyperbilirubinemia elevated liver enzymes Admission Request Was there a request for admission?: Yes Admission Attestation Admission request attestation: Discussed case with [] from Hospitalist service regarding admission. Discussed patients ED course, exam findings, labs, and radiology results. The Hospitalist [agrees,declines] to accept the patient for admission. Disposition Plan Disposition Plan: Admit Discharge Plan Plan Patient Disposition: Admit Acute Care w/in Hospital Patient condition on transfer: Stable Prescriptions/Referrals Prescriptions/Med Rec: No Action bisacodyl [Dulcolax (bisacodyl)] 10 mg suppository 10 mg SD QDAY PRN Fleet Enema 19-7 gram/118 mL enema 118 ml SD QDAY PRN Merthiolate (benzalkonium) 0.13 % solution 1 applic topical QD-BID PRN magnesium hydroxide [Milk of Magnesia] 400 mg/5 mL suspension 5 ml PO QDAY PRN oxycodone-acetaminophen 5-325 mg/5 mL solution 5 ml PO QDAY paroxetine HCl [Paxil] 30 mg tablet 30 mg PO QDAY montelukast [Singulair] 10 mg tablet 10 mg PO QDAY Tubersol 5 tub. unit /0.1 mL solution intradermal meloxicam 7.5 mg tablet 7.5 mg PO QDAY Qty: 45 3RF albuterol sulfate 90 mcg/actuation Hfa Aerosol Inhaler 2 puff INHALATION Q6H PRN (Reason: Wheezing) ferrous sulfate 325 mg (65 mg iron) Tablet 325 mg PO QDAY pantoprazole [Protonix] 40 mg tablet,delayed release (DR/EC) 40 mg PO QDAY Qty: 30 0RF Referrals: Mohsen Chavis MD [Primary Care Provider] - In 1 week Problem List Clinical Impression: Abdominal pain, Cirrhosis, Cholelithiasis, Acute hypokalemia, Hyperbilirubinemia, Splenomegaly, Elevated liver enzymes Patient/Caregiver Discharge Instructions Print Language: Croatian Stand Alone Forms: Nicole Award Info., Patient Portal Info Letter PA/INDIVIDUAL PENSION CONSULTANT Supervising Physician PA/INDIVIDUAL PENSION CONSULTANT Supervising Physician: dr olivier
--- NOTE | 2025-02-12 13:52 | XR_ITS ---
Examination: Abdomen sonogram, Limited Date and time of exam: February 12, 2025 1417 hours INDICATIONS: Abdominal pain with nausea mild pneumonia beginning 2 months ago Technique: Real-time doe scale transabdominal sonographic images of the upper abdomen obtained. Findings: Cholelithiasis, normal gallbladder wall Common bile duct 0.5 cm Pancreatic head 2.6 cm 13.6 cm liver lobular contour no focal liver lesions Normal hepatopedal portal venous flow Patent IVC IMPRESSION: Cholelithiasis, negative for cholecystitis Primary hepatocellular disease
--- NOTE | 2025-02-12 14:03 | XR_ITS ---
Examination: Abdomen sonogram, Limited Date and time of exam: February 12, 2025 1431 hours INDICATIONS: Abdominal pain with nausea beginning 2 days ago Technique: Real-time doe scale transabdominal sonographic images of the abdomen obtained. Findings: No sonographic visualization appendix IMPRESSION: No sonographic visualization appendix
[2025-02-12 16:09] VITALS: BP 144/87; PULSE 101; RESP 19; TEMP 37.3; O2SAT 98
[2025-02-12] MEDS: ONDANSETRON INJ 2 MG/ML INJ 2 ML 4 MG IVP (16:20)
[2025-02-12] MEDS: POTASSIUM CHLORIDE 20 mEq TABCR 40 MEQ PO (16:22)
[2025-02-12] MEDS: POTASSIUM CHL 10 mEq IVPB 10 MEQ/100 ML BAG 100 MEQ IV ×2 (16:24→18:02)
[2025-02-12] MEDS: SODIUM CHLORIDE 0.9% 1000 ML 1,000 ML 999 ML IV (16:24)
[2025-02-12 18:30] VITALS: BP 126/76; PULSE 94; RESP 19; TEMP 37; O2SAT 99
[2025-02-12] MEDS: MORPHINE SULF INJ 10 MG/ML VIAL 4 MG IVP (18:30)
--- NOTE | 2025-02-12 18:42 | PD.HHHP ---
Documentation for date of: 02/12/25 HPI - Hospitalist History of Present Illness History of present illness: Patient is a 44-year-old female with history of liver cirrhosis, likely due to combination of alcohol use and fatty liver disease, compensated for many years, anxiety/depression, asthma, migraine headaches, and shoulder arthritis, who presented with a chief complaint of abdominal pain. She was in her usual state of health until about 1 week prior to admission. She started to complain of abdominal pain that is generalized but mainly in the periumbilical and right side. She also reported nausea and several episodes of vomiting. She mentioned that she cannot tolerate her p.o. intake. She did report acid reflux symptoms. Patient does take ibuprofen as needed for her migraines and shoulder pain. Patient did report subjective fever. She did report dizziness. No other reported symptoms. In the ED, she was febrile. Her vital signs were stable. Labs showed hypokalemia. No leukocytosis. Her U-Tox is positive for marijuana. CT scan of the abdomen/pelvis showed cirrhosis picture as well as possible acute appendicitis. Patient was given IV fluids. IV Zosyn ordered. Asked ED to contact surgery. She was admitted for further management. Past medical history as above Medications: Reported taking paroxetine 30 mg daily for her anxiety/depression. Reported taking some asthma inhalers. Reported taking a Profen as needed for migraine headaches. Social history: Reported no tobacco use. Reported remote history of alcohol use. Reported occasional use of marijuana which she said it helps with her anxiety next Review of Systems Review of Systems Narrative Review of Systems: General: Positive fevers, no chills, no weight loss, no sweating, positive generalized weakness. Eyes: No changes in vision from baseline. HEENT: No head trauma, no neck trauma, no difficulty swallowing, no nasal congestion, no sore throat. Respiratory: No cough, no sputum production, no shortness of breath. Cardiovascular: No chest pain, no palpitations, no extremity swelling. Abdomen: Positive abdominal pain, positive nausea, positive vomiting, no diarrhea, no constipation. Genitourinary: No dysuria, no changes in urine appearance, no changes in urine amount and frequency from baseline Skin: No new rash reported. Musculoskeletal: No muscle pain, no muscle weakness. Neuro: Positive weakness, no numbness, no facial deviation, positive dizziness. Psych: No current depressive symptoms. Positive for anxiety/depression however her mood is stable currently Meds Home Medications and Allergies Home Medications ?Medication ?Instructions ?Recorded ?Confirmed ?Type ferrous sulfate 325 mg (65 mg 325 mg PO QDAY 07/21/21 12/13/23 History iron) tablet albuterol sulfate 90 mcg/actuation 2 puff inhalation Q6H PRN Wheezing 07/28/21 12/13/23 History aerosol inhaler benzalkonium chloride 0.13 % 1 applic topical QD-BID PRN 10/11/23 12/13/23 History topical solution (Merthiolate (benzalkonium)) bisacodyl 10 mg rectal suppository 10 mg NV QDAY PRN 10/11/23 12/13/23 History (Dulcolax (bisacodyl)) magnesium hydroxide 400 mg/5 mL 5 ml PO QDAY PRN 10/11/23 12/13/23 History oral suspension (Milk of Magnesia) montelukast 10 mg tablet 10 mg PO QDAY 10/11/23 12/13/23 History (Singulair) oxycodone-acetaminophen 5 mg-325 5 ml PO QDAY 10/11/23 12/13/23 History mg/5 mL oral solution paroxetine HCl 30 mg tablet (Paxil) 30 mg PO QDAY 10/11/23 12/13/23 History sodium phosphates 19 gram-7 118 ml NV QDAY PRN 10/11/23 12/13/23 History gram/118 mL enema (Fleet Enema) tuberculin PPD 5 tub. unit/0.1 mL intradermal 10/11/23 12/13/23 History intradermal injection solution (Tubersol) Allergies Allergy/AdvReac Type Severity Reaction Status Date / Time hydrocortisone Allergy Intermediate Swelling Verified 02/12/25 09:59 of the Eye Exam Vital Signs Temp Pulse Resp BP Pulse Ox O2 Del Method 98.6 F 94 19 126/76 99 Room Air 02/12/25 18:30 02/12/25 18:30 02/12/25 18:30 02/12/25 18:30 02/12/25 18:30 02/12/25 18:30 Narrative General: Alert and oriented x3. In no acute distress. Eyes: Pupils are equal and reactive to light bilaterally. HEENT: Atraumatic, normocephalic. No JVD noted. Cardiovascular: Normal S1 and S2. Normal rate and regular rhythm. No murmurs appreciated. No peripheral pitting edema noted. No JVD noted. Respiratory: No respiratory distress. Lungs are clear to auscultation bilaterally. No wheezing or crackles heard. Abdomen: Soft, generalized tenderness to palpation. Mild hepatomegaly. No shifting dullness Skin: No rash. Pale. Warm. Musculoskeletal: No gross injuries. Able to move all 4 extremities. Neuro: Alert and oriented x3. Sensation is intact throughout. Strength is 5/5 and symmetric. No focal neuro deficits. Psych: Normal affect and mood. Results - Hospitalist Labs Diagrams: 02/12/25 10:41 02/12/25 10:41 Labs: Short CBC 02/12/25 Range/Units 10:41 WBC 5.3 (3.6-11.0) Thou/mm3 Hgb 12.0 (12.0-16.0) g/dL Hct 35.4 L (36.0-46.0) % Plt Count 105 L (140-440) Thou/mm3 BMP 02/12/25 10:41 Sodium 143 Potassium 2.8 L Chloride 107 Carbon Dioxide 23.2 BUN 5 L Creatinine 0.8 Glucose 102 Calcium 11.4 H Liver Function 02/12/25 Range/Units 10:41 Total Bilirubin 3.5 H (0.3-1.2) mg/dL AST 79 H (0-34) U/L ALT 44 (10-49) U/L Alkaline Phosphatase 158 H (46-116) U/L Albumin 4.0 (3.5-5.0) gm/dL Urine 02/12/25 Range/Units 11:56 Urine Color Yellow (Lt Yel-Yel) Urine Clarity Hazy (Clear/Hazy) Urine pH 6.5 (5.0-7.0) Ur Specific [place] 1.017 (1.001-1.035) Urine Protein Trace (Neg - Trace) Urine Glucose (UA) Negative (Negative) Assessment & Plan -Hospitalist Patient Synopsis 44-year-old female with history of liver cirrhosis and migraine headaches who presented with a chief complaint of abdominal pain, nausea, and vomiting Abdominal pain Nausea and vomiting Decreased oral intake Differential diagnosis includes acute appendicitis versus acute gastritis CT scan did show possible acute appendicitis however this is not confirmed Plan: IV fluids Management of pain with opiates as needed Avoid NSAID use in the setting of possible gastritis/peptic ulcer disease Management of nausea/vomiting with IV Zofran as needed Started IV Zosyn Trend WBC Clear liquid diet Consulted general surgery for CT review for possible appendicitis Consulted GI given the concern for peptic ulcer disease for possible EGD Avoid marijuana use Hypokalemia Likely in setting of nausea/vomiting and decreased oral intake. Replete potassium as needed and monitor BMP Liver cirrhosis Secondary to alcohol use and fatty liver disease. Compensated. Plan: Monitor LFTs. Continue alcohol abstinence. Outpatient follow-up with hepatology Marijuana use Counseled the patient regarding importance of avoiding marijuana use which can contribute to her nausea/vomiting Thrombocytopenia Chronic. Likely in setting of liver cirrhosis. No signs of active bleed. Will use SCDs for DVT prophylaxis instead of heparin Anxiety/depression Resumed home paroxetine 30 mg daily Asthma without exacerbation DuoNebs as needed CODE STATUS is full code DVT prophylaxis with SCDs Diet is clear liquid diet Quality Measures Quality Measures VTE prophylaxis (SCDs)
[2025-02-12] MEDS: KCL 20 mEq/L in D5-1/2NS 20 MEQ/1,000 ML BAG 100 MEQ IV (19:50)
[2025-02-12 20:08] VITALS: BP 167/78; PULSE 87; RESP 18; TEMP 37; O2SAT 95
[2025-02-12] MEDS: PIPER/TAZO 3.375 GM PREMIX 3.375 GM/50 ML BAG IV (20:26)
[2025-02-12 20:56] VITALS: PULSE 92; RESP 16; O2SAT 97
[2025-02-12 22:39] LABS: Anion Gap 9 (7-16); BUN/Creatinine Ratio 6 Ratio (12-20); Blood Urea Nitrogen < 5 mg/dL (9-23); Calcium 12.1 mg/dL (8.3-10.6); Carbon Dioxide 23.7 mMol/L (20.0-31.0); Chloride 108 mMol/L (98-107); Creatinine (Component) 0.8 mg/dL (0.6-1.3); Estimated Creatinine Clearance 89.5 mL/min (>60); Glucose 105 mg/dL (74-106); Osmolality,Calculated 278 (275-295); Potassium 3.7 mMol/L (3.4-5.1); Sodium 141 mMol/L (136-145); eGFR > 60 See Note
[2025-02-12 23:55] VITALS: BP 156/81; PULSE 74; RESP 18; TEMP 36.9; O2SAT 100
[2025-02-13] VITALS (9 sets, daily range): BP systolic 126–161; BP diastolic 77–97; PULSE 73–104; RESP 13–19; TEMP 36.2–36.5; O2SAT 95–100; BMI 36.8
[2025-02-13] MEDS: MORPHINE SULF INJ 10 MG/ML VIAL 4 MG IVP ×2 (00:45→08:07)
--- NOTE | 2025-02-13 02:24 | PC.NURSE ---
REPORT CALLED AT THIS TIME TO JOSEPH GRIGSBY.
[2025-02-13] MEDS: KCL 20 mEq/L in D5-1/2NS 20 MEQ/1,000 ML BAG 100 MEQ IV (04:52)
[2025-02-13] MEDS: PIPER/TAZO 3.375 GM PREMIX 3.375 GM/50 ML BAG IV (05:03)
[2025-02-13 06:03] LABS: Basophils % (Auto) 1 % (0-2.5); Eosinophils # (Auto) 0.1 Thou/mm3 (0.0-0.5); Eosinophils % (Auto) 4 % (0-10); Hematocrit 30.5 % (36.0-46.0); Hemoglobin 10.4 g/dL (12.0-16.0); Immature Granulocytes % (Auto) 0 % (0-0); Immature Granulocytes Auto 0.01 Thou/mm3 (0.00-0.00); Lymphocytes # (Auto) 1.1 Thou/mm3 (1.0-4.8); Lymphocytes % (Auto) 30 % (10-50); Mean Corpuscular HGB Conc 34.1 g/dl (31.0-37.0); Mean Corpuscular Hemoglobin 31.7 pg (25.0-35.0); Mean Corpuscular Volume 93 fL (80-100); Monocytes # (Auto) 0.4 Thou/mm3 (0.0-0.8); Monocytes % (Auto) 11 % (0-12); Neutrophils % (Auto) 55 % (37-80); Nucleated Red Blood Cell % 0 /100 WBC (0); Platelet Count 80 Thou/mm3 (140-440); RDW Standard Deviation 52.7 fL (36.4-46.3); Red Blood Count 3.28 Miln/mm3 (4.00-5.20); White Blood Count 3.7 Thou/mm3 (3.6-11.0)
[2025-02-13 06:32] LABS: Alanine Aminotransferase 40 U/L (10-49); Albumin, Serum 3.3 gm/dL (3.5-5.0); Albumin/Globulin Ratio 1.1 (1.2-2.2); Alkaline Phosphatase 136 U/L (46-116); Anion Gap 10 (7-16); Aspartate Amino Transferase 78 U/L (0-34); BUN/Creatinine Ratio 7 Ratio (12-20); Bilirubin,Total 2.8 mg/dL (0.3-1.2); Blood Urea Nitrogen < 5 mg/dL (9-23); Calcium 12.2 mg/dL (8.3-10.6); Calcium (Corrected) 12.8 mg/dL (8.5-10.1); Carbon Dioxide 24.3 mMol/L (20.0-31.0); Chloride 107 mMol/L (98-107); Creatinine (Component) 0.7 mg/dL (0.6-1.3); Estimated Creatinine Clearance 103.7 mL/min (>60); Globulin 3.1 gm/dL (2.3-3.5); Glucose 100 mg/dL (74-106); Osmolality,Calculated 278 (275-295); Potassium 3.3 mMol/L (3.4-5.1); Sodium 141 mMol/L (136-145); Total Protein 6.4 gm/dL (5.7-8.2); eGFR > 60 See Note
[2025-02-13 06:48] LABS: Magnesium 1.7 mg/dL (1.6-2.6)
[2025-02-13] MEDS: ONDANSETRON INJ 2 MG/ML INJ 2 ML 4 MG IVP (08:06)
[2025-02-13] MEDS: PARoxetine HCL 10 MG TABLET 30 MG PO (08:07)
[2025-02-13] MEDS: PANTOPRAZOLE INJ 40 MG VIAL IVP (08:07)
--- NOTE | 2025-02-13 09:27 | PC.SS ---
Follow up note: On IV antibiotic. Pending surgical and GI recommendations.
[2025-02-13] MEDS: POTASSIUM CHL 10 mEq IVPB 10 MEQ/100 ML BAG 100 MEQ IV ×4 (09:29→13:29)
[2025-02-13] MEDS: SODIUM CHLORIDE 0.9% 500 ML 500 ML 999 ML IV (09:30)
--- NOTE | 2025-02-13 11:54 | XR_ITS ---
Examination: Thyroid sonography complete TECHNIQUE: Grayscale sonographic images thyroid lobes with color flow analysis Date and time: 05/08/2025 1425 hours INDICATIONS: Diagnosis hypercalcemia on laboratory examination today FINDINGS: Right thyroid 4.1 cm Left thyroid 3.7 cm No nodules noted IMPRESSION: Negative examination If parathyroid adenoma is a clinical consideration, consider nuclear medicine parathyroid scan follow-up
[2025-02-13] MEDS: SODIUM CHLORIDE 0.9% 1000 ML 1,000 ML 75 ML IV (11:59)
--- NOTE | 2025-02-13 12:37 | PD.SURCONS ---
HPI Consult details Consult date: 02/13/25 Reason for consultation narrative: Cholelithiasis History of present illness: 44-year-old female with history of anxiety, asthma, liver cirrhosis with ascites has had multiple paracentesis in the past. She was admitted with 2 weeks history of diffuse abdominal pain. She has been having nausea and vomiting and has not been able to eat or tolerate any food. CT scan revealed some unspecified right mid abdominal inflammation, gallstones, liver cirrhosis and significant splenomegaly. Ultrasound revealed gallstones without evidence of gallbladder wall thickening or inflammation. Review of Systems Constitutional Constitutional: Denies chills and Denies fever(s) Cardiovascular Cardiovascular: Denies chest pain Respiratory Respiratory: Denies cough Gastrointestinal Gastrointestinal: Reports abdominal pain, Reports nausea and Reports vomiting Neurologic Neurologic: Reports system reviewed and no additional complaints, except as documented and Reports as per HPI Hematologic/Lymphatic Hematologic/Lymphatic: Denies easy bleeding and Denies easy bruising Past Medical History Surgical History OTHER SURGICAL HX: MIKE with left salpingo-oophorectomy and right salpingectomy Social History SMOKING STATUS: Never smoker SUBSTANCE USE: does not use ALCOHOL: Former Meds Home Medications and Allergies Home Medications ?Medication ?Instructions ?Recorded ?Confirmed ?Type albuterol sulfate 90 mcg/actuation 2 puff inhalation Q6H PRN Wheezing 07/28/21 02/13/25 History aerosol inhaler montelukast 10 mg tablet 10 mg PO QDAY 10/11/23 02/13/25 History (Singulair) paroxetine HCl 30 mg tablet (Paxil) 30 mg PO QDAY 10/11/23 02/13/25 History Allergies Allergy/AdvReac Type Severity Reaction Status Date / Time hydrocortisone Allergy Intermediate Swelling Verified 02/12/25 09:59 of the Eye Exam Vital Signs Temp Pulse Resp BP Pulse Ox O2 Del Method 97.2 F 98 16 150/97 H 98 Room Air 02/13/25 08:00 02/13/25 08:00 02/13/25 08:00 02/13/25 08:00 02/13/25 08:00 02/13/25 08:00 Constitutional Constitutional: no acute distress Routine Abdominal Exam Comments: Abdomen is soft and nondistended. She has epigastric and right upper quadrant tenderness to deep palpation, no rebound tenderness or peritonitis. She does not have right lower quadrant tenderness at this time Results Results: Imaging CT scan - abdomen: report reviewed and image reviewed CT scan - pelvis: report reviewed and image reviewed US - abdomen: report reviewed and image reviewed Assessment & Plan Additional Assessment Additional comments: Abdominal pain with gallstones, history of ascites with significant splenomegaly. Patient does not have clinical evidence of appendicitis. Plan She will need a HIDA scan to rule out cholecystitis. If HIDA scan positive she will require percutaneous cholecystostomy tube, if negative no further intervention indicated. Patient is not a candidate for surgical intervention
--- NOTE | 2025-02-13 13:14 | ESPR_ITS ---
<Statement entered by Brannon Ignacio MD - 02/13/25 22:12> Patient was seen and examined at bedside. I agree on the assessment and plan on this note. - Patient's plan and care discussed with my attending, Dr. Debra Ignacio MD Internal Medicine PGY-2 Documentation for date of: 02/13/25 Subjective Subjective Interval history: Pt examined at bedside today. No acute overnight events. Patient still reports she is having abdominal pain. She said it is localized in her abdomen. She says that she was unaware of maybe hypercalcemia before. She is feels nauseous and has vomited this morning. No other complaints at this time Exam Vital Signs Temp Pulse Resp BP Pulse Ox O2 Del Method 97.2 F 98 16 150/97 H 98 Room Air 02/13/25 08:00 02/13/25 08:00 02/13/25 08:00 02/13/25 08:00 02/13/25 08:00 02/13/25 08:00 Narrative Exam General: AAOx3, in mild distress, obese female, a bit unkempt, lying down HEENT: Dry mucous membranes, conjunctiva clear, EOMI, PERRLA, Cardiovascular: S1, S2, radial pulses +2 bilat, RRR Pulmonary: CTAB bilat no cough, no wheezing GI: Tenderness to palpitation, no abd distension, bowel sounds present in quadrants Extremities: No presence of trace or pitting edema in lower extremities bilaterally, dorsalis pedis pulses +2 bilaterally Neuro: AAOx3, no focal motor or sensory deficits in the UE or LE bilat Psych: Good judgement, thought and behavior. Cooperative Objective Labs 02/14/25 05:16 02/14/25 05:16 Labs: Laboratory Results - last 24 hr 02/12/25 02/13/25 22:16 04:34 WBC 3.7 RBC 3.28 L Hgb 10.4 L Hct 30.5 L MCV 93 MCH 31.7 MCHC 34.1 RDW Std Deviation 52.7 H Plt Count 80 L D Neut % (Auto) 55 Lymph % (Auto) 30 Grant % (Auto) 11 Eos % (Auto) 4 Baso % (Auto) 1 Neut # (Auto) 2.0 Lymph # (Auto) 1.1 Grant # (Auto) 0.4 Eos # (Auto) 0.1 Baso # (Auto) 0.0 Immature Gran # (Auto) 0.01 H Absolute Nucleated RBC 0.00 Immature Gran % 0 Nucleated RBC % 0 Sodium 141 141 Potassium 3.7 D 3.3 L Chloride 108 H 107 Carbon Dioxide 23.7 24.3 Anion Gap 9 10 BUN < 5 L < 5 L Creatinine 0.8 0.7 Estim Creat Clear Calc 89.5 103.7 eGFR > 60 > 60 BUN/Creatinine Ratio 6 L 7 L Glucose 105 100 Calculated Osmolality 278 278 Calcium 12.1 H 12.2 H Corrected Calcium 12.8 H Magnesium 1.7 Total Bilirubin 2.8 H D AST 78 H ALT 40 Alkaline Phosphatase 136 H D Total Protein 6.4 Albumin 3.3 L D Globulin 3.1 Albumin/Globulin Ratio 1.1 L PTH Intact 189.0 H Quality Measures Quality Measures VTE prophylaxis (SCDs) Assessment & Plan Assessment Current Active Medications: Generic Name Dose Route Start Last Admin Trade Name Freq PRN Reason Stop Dose Admin Acetaminophen 650 mg 02/12/25 18:34 Acetaminophen 325 Mg Tablet PO 03/14/25 18:33 Q6H PRN Fever >101.5 Albuterol/Ipratropium 3 ml 02/12/25 18:37 Albuterol/Ipratropium (Duoneb) Rt Valerie 3 Ml Nebu INH 03/14/25 18:36 Q4H PRN SHORTNESS OF BREATH OR WHEEZE Potassium Chloride/Dextrose/Sod Cl 20 meq in 1,000 mls @ 100 mls/hr 02/12/25 18:45 02/13/25 04:52 Kcl 20 Meq/L In D5-1/2ns IV 03/14/25 18:44 100 mls/hr .Q10H TYRONE Administration Potassium Chloride 10 meq in 100 mls @ 100 mls/hr 02/13/25 09:16 02/13/25 11:57 Kcl Ivpb IV 02/13/25 13:15 100 mls/hr Q1H TYRONE Administration Sodium Chloride 1,000 mls @ 75 mls/hr 02/13/25 11:45 02/13/25 11:59 Ns IV 03/15/25 11:44 75 mls/hr .[id number] TYRONE Administration Morphine Sulfate 1 mg 02/12/25 18:34 Morphine Sulf Inj 10 Mg/Ml Vial IVP 02/17/25 18:33 Q4H PRN PAIN SCALE 7-10 (Severe Ondansetron HCl 4 mg 02/12/25 18:34 02/13/25 08:06 Ondansetron Inj 2 Mg/Ml Inj 2 Ml IVP 03/14/25 18:33 4 mg Q6H PRN Administration NAUSEA OR VOMITING Protocol Oxycodone/Acetaminophen 1 tab 02/12/25 18:34 Oxycodone/Apap 5/325 Tablet PO 02/17/25 18:33 Q6H PRN PAIN SCALE 4-6 (Moderate Pantoprazole Sodium 40 mg 02/13/25 09:00 02/13/25 08:07 Pantoprazole Inj 40 Mg Vial IVP 03/15/25 08:59 40 mg QDAY TYRONE Administration Paroxetine HCl 30 mg 02/13/25 09:00 02/13/25 08:07 Paroxetine Hcl 10 Mg Tablet PO 03/15/25 08:59 30 mg QDAY TYRONE Administration Plan Assessment 44-year-old female with history of liver cirrhosis and migraine headaches who is admitted for evaluation of abdominal pain, nausea and vomiting. #Abdominal pain #Nausea and vomiting #Decreased oral intake DDx: Abdominal pain related to hypercalcemia, acalculous cholecystitis, gastritis General surgery does not think it is appendicitis, however recommends HIDA for rule out cholecystitis Patient's white count is stable at this point, fevers have not been present Patient's abdominal pain could be related to hypercalcemia as it is 12.8 currently Patient could also have gastritis, may require EGD as patient has recently use NSAIDs and has cirrhosis history T bili is increasing, could represent infection, however will monitor due to patients cirrhosis hx Plan: ? IV fluids with normal saline ? Management of pain with opiates as needed ? Avoid NSAID use in the setting of possible gastritis/peptic ulcer disease ? Management of nausea/vomiting with IV Zofran as needed ? Discontinue antibiotics at this point ? Clear liquid diet ? General Surgery consulted, appreciate recs ? GI consulted, appreciate recs ? Avoid marijuana use ? Consider HIDA scan #Primary hyperparathyroidism #Hypercalcemia Corrected calcium at 12.8 Parathyroid hormone 189 Patient has had longstanding hypercalcemia, patient was unaware of this This could be attributing to patient's abdominal pain Will need to further evaluate with imaging and other labs, while treating hypercalcemia as pt will likely be lost to follow up Will curbside Endocrinology Plan: ? IV fluids NS 75 cc/hour ? TSH ? Thyroid ultrasound ? Vitamin D #Elevated T bilirubin #Elevated transaminases AST 78; ALT 40 2-1 elevation likely related to alcohol use Elevated T bili could be related to cirrhosis, however will trend due to possible infection Plan: ? Trend with CMP #Hypokalemia Potassium 3.3 today Related to GI losses with no acidosis Plan: ? Replete with IV K+ #Chronic normocytic anemia Likely related to patient cirrhosis Patient does have splenomegaly now Plan: ? Trend CBC ? Iron studies panel ? Ferritin, LDH and reticulocyte count ? Peripheral blood smear ? Transfusion protocol hemoglobin below 7 ? Avoiding any NSAIDs ? SCDs ? Protonix 40 mg daily #Liver cirrhosis #Splenomegaly Secondary to alcohol use and fatty liver disease. Compensated at this time Splenomegaly seen on CT imaging Plan: ? Continue alcohol abstinence ? Outpatient follow-up with hepatology ? Trend coagulation markers, T. bili, LFTs #Marijuana use Counseled the patient regarding importance of avoiding marijuana use which can contribute to her nausea/vomiting #Thrombocytopenia Chronic. Likely in setting of liver cirrhosis. No signs of active bleed. Will use SCDs for DVT prophylaxis instead of heparin #Anxiety/depression Resumed home paroxetine 30 mg daily #Asthma without exacerbation DuoNebs as needed #Health Maintenance Disposition: MedTele DVT prophylaxis: SCDs GI prophylaxis: Protonix Diet: CLD CODE STATUS: Full Patient seen and care discussed with my senior resident, Dr. Ignacio, and my attending physician, Dr. Debra Arvizu, PGY-1 Attending Provider Attestation/Addendum I reviewed labs, imaging, EKG, home medications and prior available records. Face to face evaluation was performed by me. I have personally examined the patient and discussed assessment and plan with the IM team. I reviewed the resident note and agree with the plan with exceptions as below. Intractable nausea and vomiting Abdominal pain: Epigastric and right-sided Liver cirrhosis: Alcoholic versus fatty liver disease Hypercalcemia Acute appendicitis, ruled out Consulted surgery: Recommended no surgical intervention. Less likely acute appendicitis. Ordered HIDA scan Continue IV fluids Management of nausea/vomiting/pain as needed Consulted GI for possible EGD. Started IV Protonix Ordered PTH: Elevated. Consulted endocrinology. Ordered vitamin D level and TSH. Monitor calcium level Outpatient follow-up with hepatology
--- NOTE | 2025-02-13 13:42 | EKG_ITS ---
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
[2025-02-13] MEDS: oxyCODONE/APAP 5/325 TABLET 1 TAB PO (18:23)
--- NOTE | 2025-02-13 18:56 | PC.RT ---
med pulled for tx but pt was prn and refused tx. pt in no distress.
--- NOTE | 2025-02-13 19:21 | PD.IMCONS ---
HPI Data of Consult Requesting Physician: Kayden Richardson MD Primary Care Provider: Mohsen Chavis MD Consult Narrative Reason for consult: Nausea vomiting pain abdomen History of present illness: 44-year-old female presented to hospital with nausea vomiting and severe abdominal pain CT scan of the abdomen pelvis without contrast showed cirrhosis splenomegaly and inflammation right lower abdomen possibility of an appendicitis Gallbladder ultrasound showed cholelithiasis Thyroid ultrasound is negative for any adenoma as patient's calcium was 12.8 with an elevated PTH of 189.0 suggestive of hyperparathyroidism and possible parathyroid adenoma Patient does have a history of cirrhotic liver disease due to combination of alcohol and fatty liver she does smoke marijuana Patient also dropped her hemoglobin from baseline 12.0 and 35.4-210.4 and 30.5 with a platelet count of 80,000 and a INR 1.3 Total bilirubin 2.8 AST ALT 1740 and alk phos of 136 cc:: cc: Kayden Richardson MD Review of Systems Review of Systems Systems Reviewed: All systems reviewed, normal except as documented Past Medical History Surgical History OTHER SURGICAL HX: As in the history of present illness Meds Home Medications and Allergies Home Medications ?Medication ?Instructions ?Recorded ?Confirmed ?Type albuterol sulfate 90 mcg/actuation 2 puff inhalation Q6H PRN Wheezing 07/28/21 02/13/25 History aerosol inhaler montelukast 10 mg tablet 10 mg PO QDAY 10/11/23 02/13/25 History (Singulair) paroxetine HCl 30 mg tablet (Paxil) 30 mg PO QDAY 10/11/23 02/13/25 History Allergies Allergy/AdvReac Type Severity Reaction Status Date / Time hydrocortisone Allergy Intermediate Swelling Verified 02/12/25 09:59 of the Eye Exam Vital Signs Temp Pulse Resp BP Pulse Ox O2 Del Method 97.6 F 73 18 126/77 98 Room Air 02/13/25 16:00 02/13/25 18:55 02/13/25 18:55 02/13/25 16:00 02/13/25 18:55 02/13/25 16:00 Constitutional Comments: Chronically ill-appearing Routine Respiratory Exam Comments: Normal to auscultation Routine Abdominal Exam Comments: Soft nontender Results Labs 02/15/25 04:42 02/15/25 04:42 Labs: Short CBC 02/13/25 Range/Units 04:34 WBC 3.7 (3.6-11.0) Thou/mm3 Hgb 10.4 L (12.0-16.0) g/dL Hct 30.5 L (36.0-46.0) % Plt Count 80 L D (140-440) Thou/mm3 BMP 02/12/25 02/13/25 22:16 04:34 Sodium 141 141 Potassium 3.7 D 3.3 L Chloride 108 H 107 Carbon Dioxide 23.7 24.3 BUN < 5 L < 5 L Creatinine 0.8 0.7 Glucose 105 100 Calcium 12.1 H 12.2 H Liver Function 02/13/25 Range/Units 04:34 Total Bilirubin 2.8 H D (0.3-1.2) mg/dL AST 78 H (0-34) U/L ALT 40 (10-49) U/L Alkaline Phosphatase 136 H D (46-116) U/L Albumin 3.3 L D (3.5-5.0) gm/dL Assessment and Plan Additional Assessment & Plan Additional Plan: # Nausea vomiting with drop in hemoglobin hematocrit in the setting of cirrhotic liver disease Plan N.p.o. midnight tonight except p.o. meds Consent obtained for fiberoptic esophagogastroduodenoscopy with possible biopsy possible therapeutic intervention under intravenous moderate sedation # Although patient has cholelithiasis but her abdominal pain is not consistent with acute cholecystitis And she is very high risk for any surgical intervention in the setting of cirrhotic liver disease # Marijuana use this may be part of the problem is the cyclical hyperemesis syndrome # Hypercalcemia of 12.8 PTH of 189.0 suggestive of hyperparathyroidism Recommend nuclear medicine parathyroid scan Thank you very much for the opportunity to participate in care of this patient
[2025-02-14] VITALS (17 sets, daily range): BP systolic 113–158; BP diastolic 71–102; PULSE 74–118; RESP 10–25; TEMP 36.2–36.6; O2SAT 92–100; BMI 36.8
[2025-02-14] MEDS: SODIUM CHLORIDE 0.9% 1000 ML 1,000 ML 75 ML IV ×2 (00:18→14:39)
[2025-02-14] MEDS: MORPHINE SULF INJ 10 MG/ML VIAL 2 MG IVP (06:10)
[2025-02-14 06:13] LABS: Basophils % (Auto) 1 % (0-2.5); Eosinophils # (Auto) 0.1 Thou/mm3 (0.0-0.5); Eosinophils % (Auto) 4 % (0-10); Hematocrit 29.1 % (36.0-46.0); Hemoglobin 9.8 g/dL (12.0-16.0); Immature Granulocytes % (Auto) 0 % (0-0); Immature Granulocytes Auto 0.01 Thou/mm3 (0.00-0.00); Immature Reticulocyte Fraction 15.7 % (3.0-15.9); Lymphocytes # (Auto) 0.7 Thou/mm3 (1.0-4.8); Lymphocytes % (Auto) 25 % (10-50); Mean Corpuscular HGB Conc 33.7 g/dl (31.0-37.0); Mean Corpuscular Hemoglobin 31.9 pg (25.0-35.0); Mean Corpuscular Volume 95 fL (80-100); Monocytes # (Auto) 0.3 Thou/mm3 (0.0-0.8); Monocytes % (Auto) 11 % (0-12); Neutrophils # (Auto) 1.7 Thou/mm3 (1.8-7.7); Neutrophils % (Auto) 59 % (37-80); Nucleated Red Blood Cell % 0 /100 WBC (0); RDW Standard Deviation 53.1 fL (36.4-46.3); Red Blood Count 3.07 Miln/mm3 (4.00-5.20); Reticulocyte % (Auto) 2.9 % (0.5-1.5); Reticulocyte Absolute Auto 89.6 Biln/L (25.0-75.0); Reticulocyte Hgb Content 37.1 pg (28.0-35.0)
[2025-02-14 06:14] LABS: Platelet Count 75 Thou/mm3 (140-440)
[2025-02-14 06:15] LABS: Vitamin D 25 Hydroxy Total 55.1 ng/mL (7.3-40.2)
[2025-02-14 06:16] LABS: White Blood Count 2.8 Thou/mm3 (3.6-11.0)
[2025-02-14 06:17] LABS: Slide Review Platelets confirmed
[2025-02-14 06:23] LABS: Ferritin 103 ng/mL (7.3-270.7); Iron 69 mcg/dL (50-170); Percent Iron Saturation 30 % (20-55); Total Iron Binding Capacity 225 mcg/dL (250-425); Unsaturated Iron Binding 156 (225-295)
[2025-02-14 06:28] LABS: Alanine Aminotransferase 47 U/L (10-49); Albumin/Globulin Ratio 1.2 (1.2-2.2); Alkaline Phosphatase 136 U/L (46-116); Anion Gap 9 (7-16); Aspartate Amino Transferase 102 U/L (0-34); BUN/Creatinine Ratio 8 Ratio (12-20); Bilirubin,Total 2.8 mg/dL (0.3-1.2); Blood Urea Nitrogen < 5 mg/dL (9-23); Calcium 10.6 mg/dL (8.3-10.6); Calcium (Corrected) 11.4 mg/dL (8.5-10.1); Carbon Dioxide 22.2 mMol/L (20.0-31.0); Chloride 113 mMol/L (98-107); Creatinine (Component) 0.6 mg/dL (0.6-1.3); Globulin 2.6 gm/dL (2.3-3.5); Glucose 82 mg/dL (74-106); LDH (Lactate Dehydrogenase) 176 U/L (120-246); Magnesium 1.6 mg/dL (1.6-2.6); Osmolality,Calculated 283 (275-295); Phosphorous 2.3 mg/dL (2.4-5.1); Potassium 3.8 mMol/L (3.4-5.1); Sodium 144 mMol/L (136-145); Thyroid Stimulating Hormone 0.41 uIU/mL (0.55-4.78); Total Protein 5.6 gm/dL (5.7-8.2); eGFR > 60 See Note
--- NOTE | 2025-02-14 07:35 | CHAP ---
Patient was asleep. Prayed quietly in room.
--- NOTE | 2025-02-14 08:00 | XR_ITS ---
Examination: BECKY, hepatobiliary radioisotope scan Gallbladder ejection fraction study. Date and time of exam: February 152024 1407 hours INDICATIONS: Upper abdominal pain and elevated total bilirubin on laboratory examination today Technique: 5.9 mCi of 99M Hepatolite administered. Serial imaging then obtained from immediate through 60 minutes. 1.8 mcg selective catheter Kinevac administered for gallbladder ejection fraction study. Findings: Radioisotope activity within the liver is reasonably homogenous. Gallbladder, common bile duct small bowel activity noted Impression: Gallbladder activity. Gallbladder ejection fraction low normal, 38%, normal greater than 35%
--- NOTE | 2025-02-14 08:37 | SUR.PHASEI ---
pt received from OR in recovery bay 5. pt asleep but responds to voice, breathing unlabored on 4l nc. v/s stable. report received from Rosa GRIGSBY.
--- NOTE | 2025-02-14 08:50 | PC.SS ---
Addendum entered by Amaya Corona 02/14/25 09:26: Correction. SS offered pt an advance directive and pt was receptive. Advance directive was provided. Original Note: Late note 02-13-25: SS met with patient regarding her d/c plan. Pt is alert/oriented. Pt was admitted for Abdominal Pain. Pt confirmed demographic and contact information is correct on facesheet. Pt resides with her 3 daughters. Pt ambulates independently without assistance or DME. Pt is ok with all ADLs. Pt named her dad, Darrin Bucio medical decision maker if she is unable. Patient?s choice is to return home upon d/c. Pt does not have an advance directive, SS offered, and pt declined. Pt states not diabetic and is not on dialysis. Pt states she had an appointment with PCP Tuesday but was unable to attend due to being hospitalized. D/C plan: Return home Next of Kin: Darrin Bucio, jeniffer, phone# [phone] PCP: Dr. Mohsen Chavis from [facility] Address: Correct on facesheet
--- NOTE | 2025-02-14 09:07 | SUR.PHASEI ---
pt awake and alert, breathing unlabored on room air. v/s stable. report called to Kalpesh GRIGSBY. pt will be transferred to room at this time.
[2025-02-14 09:29] LABS: Free T4 (Free Thyroxine) 1.01 ng/dL (0.89-1.76)
[2025-02-14] MEDS: PARoxetine HCL 10 MG TABLET 30 MG PO (10:58)
[2025-02-14] MEDS: PANTOPRAZOLE INJ 40 MG VIAL IVP (10:58)
[2025-02-14 11:24] LABS: Path Review Blood Smear Sent to Pathologist
--- NOTE | 2025-02-14 13:55 | PD.RESPRO ---
Documentation for date of: 02/14/25 Subjective Subjective Interval history: Patient examined at bedside today. No acute overnight events. Patient wondering is when she can get her HIDA scan. She reports her pain is slightly improving. She does feel little nauseous. She has no other complaints at this time. Exam Vital Signs Temp Pulse Resp BP Pulse Ox O2 Del Method O2 Flow Rate 97.4 F 96 18 134/81 H 95 Room Air 2 02/14/25 09:05 02/14/25 12:00 02/14/25 09:05 02/14/25 09:05 02/14/25 09:05 02/14/25 08:00 02/14/25 08:45 Narrative Exam General: AAOx3, in mild distress, obese female, a bit unkempt, lying down HEENT: Dry mucous membranes, conjunctiva clear, EOMI, PERRLA, Cardiovascular: S1, S2, radial pulses +2 bilat, RRR Pulmonary: CTAB bilat no cough, no wheezing GI: Tenderness to palpitation, no abd distension, bowel sounds present in quadrants Extremities: No presence of trace or pitting edema in lower extremities bilaterally, dorsalis pedis pulses +2 bilaterally Neuro: AAOx3, no focal motor or sensory deficits in the UE or LE bilat Psych: Good judgement, thought and behavior. Cooperative Objective Labs 02/15/25 04:42 02/15/25 04:42 Labs: Laboratory Results - last 24 hr 02/14/25 05:16 WBC 2.8 L RBC 3.07 L Hgb 9.8 L Hct 29.1 L MCV 95 MCH 31.9 MCHC 33.7 RDW Std Deviation 53.1 H Plt Count 75 L Neut % (Auto) 59 Lymph % (Auto) 25 [place] % (Auto) 11 Eos % (Auto) 4 Baso % (Auto) 1 Neut # (Auto) 1.7 L Lymph # (Auto) 0.7 L [place] # (Auto) 0.3 Eos # (Auto) 0.1 Baso # (Auto) 0.0 Immature Gran # (Auto) 0.01 H Absolute Nucleated RBC 0.00 Immature Gran % 0 Nucleated RBC % 0 Smear Path Review Sent to Pathologist Retic Count (auto) 2.9 H Absolute Retic 89.6 H Immature Retic Fraction 15.7 Retic Hgb Content CHr 37.1 H Sodium 144 Potassium 3.8 D Chloride 113 H Carbon Dioxide 22.2 Anion Gap 9 BUN < 5 L Creatinine 0.6 Estim Creat Clear Calc 121.0 eGFR > 60 BUN/Creatinine Ratio 8 L Glucose 82 Calculated Osmolality 283 Calcium 10.6 D Corrected Calcium 11.4 H Phosphorus 2.3 L Magnesium 1.6 Iron 69 TIBC 225 L Iron Saturation 30 Unsat Iron Binding 156 L Ferritin 103 Total Bilirubin 2.8 H AST 102 H ALT 47 Alkaline Phosphatase 136 H Lactate Dehydrogenase 176 Total Protein 5.6 L Albumin 3.0 L Globulin 2.6 Albumin/Globulin Ratio 1.2 25-OH Vitamin D Total 55.1 H TSH 0.41 L Free T4 1.01 Misc Test Result Platelets confirmed Quality Measures Quality Measures VTE prophylaxis (SCDs) Assessment & Plan Assessment Current Active Medications: Generic Name Dose Route Start Last Admin Trade Name Freq PRN Reason Stop Dose Admin Acetaminophen 650 mg 02/12/25 18:34 Acetaminophen 325 Mg Tablet PO 03/14/25 18:33 Q6H PRN Fever >101.5 Albuterol/Ipratropium 3 ml 02/12/25 18:37 Albuterol/Ipratropium (Duoneb) Rt Valerie 3 Ml Nebu INH 03/14/25 18:36 Q4H PRN SHORTNESS OF BREATH OR WHEEZE Carvedilol 3.125 mg 02/14/25 17:30 Carvedilol 3.125 Mg Tablet PO 03/16/25 17:29 BIDWM TYRONE Sodium Chloride 1,000 mls @ 75 mls/hr 02/13/25 11:45 02/14/25 00:18 Ns IV 03/15/25 11:44 75 mls/hr .[id number] TYRONE Administration Morphine Sulfate 1 mg 02/12/25 18:34 Morphine Sulf Inj 10 Mg/Ml Vial IVP 02/17/25 18:33 Q4H PRN PAIN SCALE 7-10 (Severe Ondansetron HCl 4 mg 02/12/25 18:34 02/13/25 08:06 Ondansetron Inj 2 Mg/Ml Inj 2 Ml IVP 03/14/25 18:33 4 mg Q6H PRN Administration NAUSEA OR VOMITING Protocol Oxycodone/Acetaminophen 1 tab 02/12/25 18:34 02/13/25 18:23 Oxycodone/Apap 5/325 Tablet PO 02/17/25 18:33 1 tab Q6H PRN Administration PAIN SCALE 4-6 (Moderate Pantoprazole Sodium 40 mg 02/13/25 09:00 02/14/25 10:58 Pantoprazole Inj 40 Mg Vial IVP 03/15/25 08:59 40 mg QDAY TYRONE Administration Paroxetine HCl 30 mg 02/13/25 09:00 02/14/25 10:58 Paroxetine Hcl 10 Mg Tablet PO 03/15/25 08:59 30 mg QDAY TYRONE Administration Plan Assessment 44-year-old female with history of liver cirrhosis and migraine headaches who is admitted for evaluation of abdominal pain, nausea and vomiting. #Abdominal pain #Nausea and vomiting #Decreased oral intake DDx: Abdominal pain related to hypercalcemia, acalculous cholecystitis, gastritis General surgery does not think it is appendicitis, however recommends HIDA for rule out cholecystitis Patient to get EGD and HIDA scan which was recommended by GI and general surgery respectively Plan: ? IV fluids with normal saline ? Management of pain with opiates as needed ? Avoid NSAID use in the setting of possible gastritis/peptic ulcer disease ? Management of nausea/vomiting with IV Zofran as needed ? Discontinue antibiotics at this point ? N.p.o. ? General Surgery consulted, appreciate recs ? GI consulted, appreciate recs ? Avoid marijuana use ? HIDA today #Primary hyperparathyroidism #Hypercalcemia #Subclinical hyperthyroidism Corrected calcium at 12.8 -> 11.4 Today Parathyroid hormone 189 Patient has had longstanding hypercalcemia, patient was unaware of this This could be attributing to patient's abdominal pain Spoke with Endo who recommends urinary calcium 24-hour collection Patient would likely need ENT referral outpatient for evaluation of parathyroidectomy In addition, will consider starting patient on bisphosphonate outpatient, however will give one dose now IV Vitamin D 55 (above normal limit) TSH low; free thyroxine at 1 Thyroid ultrasound unremarkable Plan: ? Continue IV fluids NS 75 cc/hour ? Reclast 4 mg IV piggyback x1 ? Trend with CMP ? Follow-up TSH within 4 to 6 weeks #Elevated T bilirubin #Elevated transaminases AST 102; ALT 47 2-1 elevation likely related to alcohol use Elevated T bili could be related to cirrhosis, however will trend due to possible infection Plan: ? Trend with CMP #Hypokalemia, resolved #Hypophosphatemia Phosphorus 2.3 Could be related to poor oral intake Plan: ? Neutra-Phos 2 packets #Chronic normocytic anemia Likely related to patient cirrhosis Patient does have splenomegaly now Ferritin, iron, LDH unremarkable, TIBC low (226) Plan: ? Trend CBC ? F/u Peripheral blood smear ? Transfusion protocol hemoglobin below 7 ? Avoiding any NSAIDs ? SCDs ? Protonix 40 mg daily #Liver cirrhosis #Splenomegaly Secondary to alcohol use and fatty liver disease. Compensated at this time Splenomegaly seen on CT imaging Plan: ? Continue alcohol abstinence ? Outpatient follow-up with hepatology ? Trend coagulation markers, T. bili, LFTs #Thrombocytopenia, worsening Chronic. Likely in setting of liver cirrhosis. No signs of active bleed. Plan: ? SCDs ? Trend with CBC #Marijuana use Can worsen vomiting symptoms, pt to benefit on cessation Plan: ? Patient education on cessation #Anxiety/depression Plan: ?Continue paroxetine 30 mg daily #Asthma without exacerbation Plan: ? DuoNebs as needed #Health Maintenance Disposition: [facility]Tele DVT prophylaxis: SCDs GI prophylaxis: Protonix Diet: NPO CODE STATUS: Full Patient seen and care discussed with my senior resident, Dr. Ignacio, and my attending physician, Dr. Debra Arvizu, PGY-1 Attending Provider Attestation/Addendum I reviewed labs, imaging, EKG, home medications and prior available records. Face to face evaluation was performed by me. I have personally examined the patient and discussed assessment and plan with the IM team. I reviewed the resident note and agree with the plan with exceptions as below. Intractable nausea and vomiting Abdominal pain: Epigastric and right-sided Liver cirrhosis: Alcoholic versus fatty liver disease Hypercalcemia Acute appendicitis, ruled out Consulted surgery: Recommended no surgical intervention. Less likely acute appendicitis. Ordered HIDA scan Continue IV fluids Management of nausea/vomiting/pain as needed Consulted GI: Status post EGD that showed gastritis and esophageal varices grade 2. Started Coreg Ordered PTH: Elevated. Consulted endocrinology. Gave biphosphonate. Ordered 24-hour calcium. Monitor calcium level Outpatient follow-up with hepatology
[2025-02-14] MEDS: MORPHINE SULF INJ 10 MG/ML VIAL IVP ×2 (14:37→22:54)
[2025-02-14] MEDS: carVEDILOL 3.125 MG TABLET PO (17:35)
[2025-02-14] MEDS: ZOLEDRONIC ACID 4 MG IVPB 4 MG/100 ML BAG 200 MG IV (17:36)
--- NOTE | 2025-02-14 18:42 | PC.NURSE ---
RN made MD aware that the 24 hour urine collection order was ordered incorrectly. The order was placed under care instead of a lab order. RN called lab to try to determine which order needed to be placed. However lab did not know either. MD wants 24 hr urine collection for calcium, but there is not order set option for that. MD ordered to keep urine on ice overnight for now. MD to place new orders for the urine sample. Once RN receives new orders, the urine sample will be sent to the lab.
[2025-02-15] VITALS (8 sets, daily range): BP systolic 126–153; BP diastolic 73–96; PULSE 74–105; RESP 16–19; TEMP 36.2–37; O2SAT 93–99
[2025-02-15] MEDS: SODIUM CHLORIDE 0.9% 1000 ML 1,000 ML 75 ML IV ×2 (03:34→16:46)
[2025-02-15 05:11] LABS: Basophils % (Auto) 0 % (0-2.5); Eosinophils # (Auto) 0.2 Thou/mm3 (0.0-0.5); Eosinophils % (Auto) 5 % (0-10); Hematocrit 28.9 % (36.0-46.0); Immature Granulocytes % (Auto) 0 % (0-0); Immature Granulocytes Auto 0.01 Thou/mm3 (0.00-0.00); Lymphocytes # (Auto) 0.5 Thou/mm3 (1.0-4.8); Lymphocytes % (Auto) 18 % (10-50); Mean Corpuscular HGB Conc 34.6 g/dl (31.0-37.0); Mean Corpuscular Hemoglobin 32.5 pg (25.0-35.0); Mean Corpuscular Volume 94 fL (80-100); Monocytes # (Auto) 0.3 Thou/mm3 (0.0-0.8); Monocytes % (Auto) 11 % (0-12); Neutrophils # (Auto) 1.9 Thou/mm3 (1.8-7.7); Neutrophils % (Auto) 66 % (37-80); Nucleated Red Blood Cell % 0 /100 WBC (0); RDW Standard Deviation 53.4 fL (36.4-46.3); Red Blood Count 3.08 Miln/mm3 (4.00-5.20)
[2025-02-15 05:17] LABS: Platelet Count 76 Thou/mm3 (140-440); White Blood Count 2.9 Thou/mm3 (3.6-11.0)
[2025-02-15 06:04] LABS: Slide Review Platelets confirmed
[2025-02-15 06:16] LABS: Alanine Aminotransferase 47 U/L (10-49); Albumin, Serum 3.1 gm/dL (3.5-5.0); Albumin/Globulin Ratio 1.1 (1.2-2.2); Alkaline Phosphatase 160 U/L (46-116); Anion Gap 8 (7-16); Aspartate Amino Transferase 95 U/L (0-34); BUN/Creatinine Ratio 7 Ratio (12-20); Bilirubin,Total 2.8 mg/dL (0.3-1.2); Blood Urea Nitrogen < 5 mg/dL (9-23); Calcium 10.8 mg/dL (8.3-10.6); Calcium (Corrected) 11.5 mg/dL (8.5-10.1); Carbon Dioxide 23.9 mMol/L (20.0-31.0); Chloride 110 mMol/L (98-107); Creatinine (Component) 0.7 mg/dL (0.6-1.3); Estimated Creatinine Clearance 103.7 mL/min (>60); Globulin 2.7 gm/dL (2.3-3.5); Glucose 100 mg/dL (74-106); Magnesium 1.5 mg/dL (1.6-2.6); Osmolality,Calculated 280 (275-295); Potassium 3.8 mMol/L (3.4-5.1); Sodium 142 mMol/L (136-145); Total Protein 5.8 gm/dL (5.7-8.2); eGFR > 60 See Note
--- NOTE | 2025-02-15 06:48 | PC.NURSE ---
pt refusing bed alarm and yellow gown, pt educated about the protocol we have on fall risks but still refused. Pt educated to use call light to get assistance to use the restroom and about fall prevention measures, pt verbalizes understanding.
[2025-02-15] MEDS: PANTOPRAZOLE INJ 40 MG VIAL IVP (09:09)
[2025-02-15] MEDS: Magnesium Sulfate 1 gm Ivpb 1 GM/100 ML BAG IV (09:10)
--- NOTE | 2025-02-15 09:12 | PC.SS ---
Follow up note: Pt will have Hida Scan after 12pm today. Pt will return home upon dc.
[2025-02-15] MEDS: MORPHINE SULF INJ 10 MG/ML VIAL IVP ×2 (09:57→16:45)
[2025-02-15 11:21] LABS: Misc Send Out* See Sep Rpt
--- NOTE | 2025-02-15 13:23 | ESPR_ITS ---
Documentation for date of: 02/15/25 Subjective Subjective Interval history: HIDA scan with Dr. Sow was ordered 2 days ago still not done Patient still has abdominal pain Exam Vital Signs Temp Pulse Resp BP Pulse Ox O2 Del Method O2 Flow Rate 97.4 F 101 H 17 153/96 H 99 Room Air 2 02/15/25 12:00 02/15/25 12:00 02/15/25 12:00 02/15/25 12:00 02/15/25 12:00 02/15/25 12:00 02/14/25 08:45 Objective Labs 02/15/25 04:42 02/15/25 04:42 Labs: Laboratory Results - last 24 hr 02/15/25 04:42 WBC 2.9 L RBC 3.08 L Hgb 10.0 L Hct 28.9 L MCV 94 MCH 32.5 MCHC 34.6 RDW Std Deviation 53.4 H Plt Count 76 L Neut % (Auto) 66 Lymph % (Auto) 18 [place] % (Auto) 11 Eos % (Auto) 5 Baso % (Auto) 0 Neut # (Auto) 1.9 Lymph # (Auto) 0.5 L [place] # (Auto) 0.3 Eos # (Auto) 0.2 Baso # (Auto) 0.0 Immature Gran # (Auto) 0.01 H Absolute Nucleated RBC 0.00 Immature Gran % 0 Nucleated RBC % 0 Sodium 142 Potassium 3.8 Chloride 110 H Carbon Dioxide 23.9 Anion Gap 8 BUN < 5 L Creatinine 0.7 Estim Creat Clear Calc 103.7 eGFR > 60 BUN/Creatinine Ratio 7 L Glucose 100 Calculated Osmolality 280 Calcium 10.8 H Corrected Calcium 11.5 H Magnesium 1.5 L Total Bilirubin 2.8 H AST 95 H ALT 47 Alkaline Phosphatase 160 H D Total Protein 5.8 Albumin 3.1 L Globulin 2.7 Albumin/Globulin Ratio 1.1 L Misc Test Result Platelets confirmed Impressions Impression: Gastritis Esophagitis Cholelithiasis pain abdomen Awaiting HIDA scan Assessment & Plan A&P Narrative # Nausea vomiting with drop in hemoglobin hematocrit in the setting of cirrhotic liver disease Plan N.p.o. midnight tonight except p.o. meds Consent obtained for fiberoptic esophagogastroduodenoscopy with possible biopsy possible therapeutic intervention under intravenous moderate sedation # Although patient has cholelithiasis but her abdominal pain is not consistent with acute cholecystitis And she is very high risk for any surgical intervention in the setting of cirrhotic liver disease # Marijuana use this may be part of the problem is the cyclical hyperemesis syndrome # Hypercalcemia of 12.8 PTH of 189.0 suggestive of hyperparathyroidism Recommend nuclear medicine parathyroid scan Thank you very much for the opportunity to participate in care of this patient Time Spent With Patient Time: Total time spent is greater than 50% in coordination of care (as documented) at patient's floor/unit and/or counseling patient:
[2025-02-15] MEDS: carVEDILOL 3.125 MG TABLET PO (16:45)
--- NOTE | 2025-02-15 17:14 | PD.RESDS ---
Planned Discharge Date 02/15/25 DS: Providers Provider Date of admission: 02/12/25 18:34 Primary care physician: Mohsen Chavis MD Admitting Provider: Kayden Richardson MD Attending Provider on Admission: Kayden Richardson MD Consults: 02/12/25 18:38 Consult to General Surgery Stat Comment: Possible acute appendicitis Consulting Provider: George Barnes 02/12/25 18:39 Consult to Gastroenterology Stat Comment: Possible peptic ulcer disease Consulting Provider: Elena Ward Attending Provider on DC: Kayden Richardson MD Discharging Provider: Kayden Richardson MD DS: Diagnosis Problem List Completed Was Problem List Reviewed/Reconciled?: Yes Hospital Course Hospital Course Hospital course: Raj is a 44-year-old female with history of liver cirrhosis, likely due to combination of alcohol use and fatty liver disease, compensated for many years, anxiety/depression, asthma, migraine headaches, and shoulder arthritis, who was admitted to [facility] on 02/12/2025 for cholecystitis rule out and intractable abdominal pain. She arrived to the ED febrile, however other vital signs were stable. She was worked up was found to have labs showed hypokalemia, no leukocytosis,U-Tox is positive for marijuana. CT scan of the abdomen/pelvis was done and showed showed cirrhosis picture as well as possible acute appendicitis. Patient was given IV fluids, Zosyn, and general surgery was consulted for further management. Medicine was consulted and pt was admitted to the floors. While on the floors, general surgery, Dr Barnes had evaluated patient who removed out appendicitis, and recommended HIDA scan. GI also seen the patient who also recommended HIDA scan for the patient in addition to EGD for evaluation of nausea and vomiting. EGD was done by Dr. Ward and patient was found to have grade 2 esophageal varices in addition to gastritis. HIDA scan was also performed which showed normal ejection fraction of gallbladder, 38%, and no cholecystitis. Patient was also found to have hypercalcemia as high as 12.8 which was managed with IV fluids and 1 dose of zoledronic acid. Endocrinology was consulted who had recommended patient to be referred to ENT for surgical consult of parathyroidectomy as patient has primary hyperparathyroidism. There was discussion of starting patient on bisphosphonates outpatient, however, it was recommended for patient to have urgent referral to ENT. Patient was discussed about these findings of primary hyperparathyroidism in addition to additional risks of getting kidney stones. Patient was agreeable for outpatient follow-up with ENT. Patient was then discharged with the following instructions. Discharge Instructions: Follow-up with your PCP within 1 week Have your PCP refer you to a GI doctor for management of your cirrhosis Take your medicines as prescribed Have your PCP refer you to an ENT surgeon for consultation about her hyperparathyroidism and possible surgery Discussed with your PCP if you need to be on a medicine for hypercalcemia Caution with fluid intake as you do have history of cirrhosis Repeat TSH lab within 4 to 6 weeks as this was abnormal while you are in the hospital Follow up with your PCP in regards to your low platelet levels Return to ER if your symptoms worsen or return Problem List: #Cholecystitis, ruled out #Cholelithiasis #Intractable Abdominal pain #Nausea and vomiting #Decreased oral intake #Primary hyperparathyroidism #Hypercalcemia #Subclinical hyperthyroidism #Elevated T bilirubin #Elevated transaminases #Hypokalemia, resolved #Hypophosphatemia #Chronic normocytic anemia #Liver cirrhosis #Grade 2 esophageal varices #Gastritis #Splenomegaly #Thrombocytopenia #Marijuana use #Anxiety/depression #Asthma without exacerbation Discharge summary was reviewed with my attending Dr. Debra Arvizu, PGY-1 Time Spent with Patient Time attestation: Total time spent providing and/or coordinating discharge services: Time spent: Greater than 30 minutes Exam Vital Signs Temp Pulse Resp BP Pulse Ox O2 Del Method O2 Flow Rate 97.4 F 95 18 141/86 H 97 Room Air 2 02/15/25 12:00 02/15/25 16:45 02/15/25 16:10 02/15/25 16:45 02/15/25 16:10 02/15/25 12:00 02/14/25 08:45 Narrative Exam General: AAOx3, in mild distress, obese female, a bit unkempt, lying down HEENT: Moist mucous membranes, conjunctiva clear, EOMI, PERRLA, Cardiovascular: S1, S2, radial pulses +2 bilat, RRR Pulmonary: CTAB bilat no cough, no wheezing GI: Slight tenderness to palpitation, no abd distension, bowel sounds present in quadrants Extremities: No presence of trace or pitting edema in lower extremities bilaterally, dorsalis pedis pulses +2 bilaterally Neuro: AAOx3, no focal motor or sensory deficits in the UE or LE bilat Psych: Good judgement, thought and behavior. Cooperative Discharge Plan Plan Patient Disposition: HOME (Self Care) Patient condition on transfer: Stable Care Plan Goals: Discharge Instructions: Follow-up with your PCP within 1 week Take Coreg for the esophageal varices Take pantoprazole for the stomach inflammation Have your PCP refer you to a GI doctor for management of your cirrhosis Take your medicines as prescribed Have your PCP refer you to an ENT surgeon for consultation about her hyperparathyroidism and possible surgery Discussed with your PCP if you need to be on a medicine for hypercalcemia Caution with fluid intake as you do have history of cirrhosis Repeat TSH lab within 4 to 6 weeks as this was abnormal while you are in the hospital Follow up with your PCP in regards to your low platelet levels Return to ER if your symptoms worsen or return Prescriptions/Referrals Prescriptions/Med Rec: New pantoprazole 40 mg tablet,delayed release (DR/EC) 40 mg PO QDAY Qty: 60 0RF carvedilol 3.125 mg Tablet 3.125 mg PO BIDWM 30 Days Qty: 60 0RF Continued paroxetine HCl [Paxil] 30 mg tablet 30 mg PO QDAY montelukast [Singulair] 10 mg tablet 10 mg PO QDAY albuterol sulfate 90 mcg/actuation Hfa Aerosol Inhaler 2 puff INHALATION Q6H PRN (Reason: Wheezing) Referrals: Mohsen Chavis MD [Primary Care Provider] - Patient/Caregiver Discharge Instructions Discharge Activity: activity as tolerated Education Materials: Parathyroid Hormone, Having Parathyroid Surgery, Abdominal Pain, Hypercalcemia Dc, ED Ascites Print Language: Croatian Stand Alone Forms: Nicole Award Info., Patient Portal Info Letter Discharge Order Discharge Orders: Discharge (Routine); Ordered 02/15/25 Ordered By: Daniel Arvizu Quality Discharge Quality Measures VTE prophylaxis (SCDs) Attestestation Attestation I reviewed labs, imaging, EKG, home medications and prior available records. Face to face evaluation was performed by me. I have personally examined the patient and discussed assessment and plan with the IM team. I reviewed the resident note and agree with the plan with exceptions as below. Intractable nausea and vomiting Abdominal pain: Epigastric and right-sided Liver cirrhosis: Alcoholic versus fatty liver disease Hypercalcemia Acute appendicitis, ruled out Consulted surgery: Recommended no surgical intervention. Less likely acute appendicitis. Ordered HIDA scan: Showed normal ejection fraction Consulted GI: Status post EGD that showed gastritis and esophageal varices grade 2. Started Coreg for esophageal varices bleed prophylaxis Ordered PTH: Elevated. Consulted endocrinology. Gave biphosphonate as inpatient. Avoid vitamin D supplements/calcium for now. Outpatient follow-up with ENT for evaluation for parathyroidectomy Outpatient follow-up with hepatology Avoid alcohol use Time spent is 40 minutes. More than 50% of the time was spent on patient education and coordination of care.
--- NOTE | 2025-02-15 18:10 | PC.NURSE ---
Pt ate tolerated well. Per MD Arvizu pt is clear to dc.
[2025-02-19 06:33] LABS: Vitamin D,1,25 (OH)2,Total 78 pg/mL (18-72); Vitamin D2, 1,25 (OH)2 62 pg/mL; Vitamin D3, 1,25 (OH)2 16 pg/mL
== END 2025-02-15 18:11 | disposition home or self-care (01) | DRG 280 ==
LOC: SERX 17:25 → SERHOLD 19:39 → S3SX 02-13 02:40
PROVIDERS: Nurse Practitioner Family; Specialist; Student in an Organized Health Care Education/Training Program; Admitting Provider Student in an Organized Health Care Education/Training Program; Emergency Provider Emergency Medicine; PCP Family Medicine; Visit Provider Student in an Organized Health Care Education/Training Program
PROC: 0DB48ZX Excision of Esophagogastric Junction, Via Natural or Artificial Opening Endoscopic, Diagnostic (ICD-10-PCS; CPT 43239; principal; 2025-02-14 08:30)
DX: K70.30 Alcoholic cirrhosis of liver without ascites (principal); E87.6 Hypokalemia; F32.A Depression, unspecified; F41.9 Anxiety disorder, unspecified; G43.909 Migraine, unspecified, not intractable, without status migrainosus; F12.90 Cannabis use, unspecified, uncomplicated; K76.0 Fatty (change of) liver, not elsewhere classified; D69.59 Other secondary thrombocytopenia; J45.909 Unspecified asthma, uncomplicated; K29.70 Gastritis, unspecified, without bleeding; E21.0 Primary hyperparathyroidism; R16.1 Splenomegaly, not elsewhere classified; K80.20 Calculus of gallbladder without cholecystitis without obstruction; D64.9 Anemia, unspecified; E05.90 Thyrotoxicosis, unspecified without thyrotoxic crisis or storm; E87.5 Hyperkalemia; I85.10 Secondary esophageal varices without bleeding; K21.00 Gastro-esophageal reflux disease with esophagitis, without bleeding; Z79.899 Other long term (current) drug therapy; Z88.8 Allergy status to other drugs, medicaments and biological substances
CPT/HCPCS: 36415; 74176; 76536; 76705; 78227; 80048; 80053; 81001; 81025; 82306; 82652; 82728; 83540; 83550; 83615; 83690; 83735; 83970; 84100; 84439; 84443; 85025; 85046; 87086; 87811; 93005; 93225; 94664; 96361; 96365; 96375; 99285; A9270; A9537; J1200; J2250; J2270; J2405; J2470; J2543; J2805; J3010; J3475; J3480; J3489; J7030; J7040

== ENCOUNTER 2025-03-01 12:18 | Emergency (ER) | payer MEDICAID, SELFPAY ==
[2025-03-01 12:22] VITALS: BP 168/64; PULSE 56; RESP 17; TEMP 37.2; O2SAT 98; BMI 27.3
[2025-03-01 12:26] VITALS: PULSE 58; RESP 18; O2SAT 99
--- NOTE | 2025-03-01 12:32 | EKG_ITS ---
[facility] ([facility]) Test Date: 2025-03-01 Pat Name: LAURA RODRIGUEZ Department: Room: - Gender: Female [place] Rider: : 1980 Requested By: Alexei Benson Order Number: [id number] Reading MD: Alexei Benson Measurements Intervals [place] Rate: 53 P: 26 TN: 154 QRS: 45 QRSD: 104 T: 63 QT: 448 QTc: 423 Interpretive Statements SINUS BRADYCARDIA Compared to ECG 02/13/2025 14:02:36 Sinus rhythm no longer present Sinus arrhythmia no longer present /[id number]/[id number]
--- NOTE | 2025-03-01 12:57 | EDNOTE_ITS ---
ED General RME/HPI General Chief complaint: Syncope / Near Syncope Stated complaint: SYNCOPE, N/V Time Seen by Provider: 03/01/25 12:31 Arrival date/time: 03/01/25 12:18 Limitations: no limitations RME / HPI RME / HPI narrative: DR. BETANCOURT MAIN ED EVALUATION: 44 year old female presents to the Emergency Department [facility] with complaint of a syncopal episode prior to arrival. Patient was walking with her daughter, laughing, and then had a syncopal episode. The daughter was able to grab her so she did not fall to the ground, so no injuries reported. Patient lost consciousness for a few seconds. Patient remembers the fall, no loss of memory. Patient does have a history of light-headedness. Other PMHx include primary pituitary adenoma causing hypoglycemia and liver cirrhosis. Related Data Home Medications ?Medication ?Instructions ?Recorded ?Confirmed albuterol sulfate 90 mcg/actuation 2 puff inhalation Q 6H PRN Wheezing 07/28/21 02/13/25 aerosol inhaler montelukast 10 mg tablet 10 mg PO QDAY 10/11/2302/13 (Singulair) paroxetine HCl 30 mg tablet (Paxil) 30 mg PO QDAY 09/2002/13/25 Previous Rx's ?Medication ?Instructions ?Recorded carvedilol 3.125 mg tablet 3.125 mg PO BIDWM 30 days # 60 tabs 02/15/25 pantoprazole 40 mg tablet,delayed 40 mg PO QDAY #60 ta bs 02/15/25 release Allergies Allergy/AdvReac Type Severity Reaction Status Date / Time hydrocortisone Allergy Intermediate Swelling Verified 02/12/25 09:59 of the Eye Review of Systems Review of Systems Systems Reviewed: All systems reviewed, normal except as documented Past Medical History Past Medical History CARDIAC: Positive Cardiac Disorders, Heart Murmur and Cellulitis RESPIRATORY: Positive Asthma and Pneumonia GASTROINTESTINAL: Positive Gastrointestinal Disorders, Hemorrhoids and Obesity MUSCULOSKELETAL: Positive Musculoskeletal Disorders and Fractures (Left foot) HEMATOLOGIC: Positive Blood Disorders, Anemia and Clotting Problems PSYCHO/SOCIAL: Positive Depression and Anxiety OTHER HISTORY: Positive Hospitalization, Falls (Last 02/12/2025) and Blood Transfusions Family History FAMILY HISTORY: Positive Family Respiratory Disorders and Family Surgery Surgical History SURGICAL: Positive Abdominal Surgery, Tubal Ligation and Section Social History SMOKING STATUS: Never smoker SECOND HAND EXPOSURE: No (quit 2013) SUBSTANCE USE: does not use ALCOHOL: Never ED Exam General Limitations: Present no limitations General appearance: Present alert and in no apparent distress Head Head exam: Present atraumatic, normocephalic and normal inspection Eye Eye exam: Present normal appearance, PERRL and EOMI ENT ENT exam: Present normal exam, normal oropharynx and mucous membranes moist Neck Neck exam: Present normal inspection, full ROM and trachea midline Chest Chest inspection: Present normal inspection and symmetric chest wall rise Respiratory Respiratory exam: Present normal lung sounds bilaterally Cardiovascular Cardiovascular exam: Present regular rate, normal rhythm and normal heart sounds Abdominal Exam Abdominal exam: Present soft and normal bowel sounds Extremities Exam Extremities exam: Present normal inspection and full ROM Back Exam Back exam: Present normal inspection and full ROM Neurological Exam Neurological exam: Present alert, oriented X3 and CN II-XII intact Psychiatric Psychiatric exam: Present normal affect and normal mood Skin Skin exam: Present warm, dry, intact and normal color Course Quality Measures none Orders Category Date Time Status CT Screening NOW Care 03/01/25 13:28 Active EKG (ED ONLY) *Do not use* NOW Care 03/01/25 12:32 Completed Insert IV NOW Care 03/01/25 13:[address] angio carotid w head w Stat Exams 03/01/25 13:27 Completed EKG (ED Only) Stat Exams 03/01/25 12:32 Draft CBC Stat Lab 03/01/25 13:40 Completed CMP [Comprehensive Metabolic Panel] Stat Lab 03/01/25 13:40 Completed Calcium, Ionized Stat Lab 03/01/25 13:40 Completed Magnesium Stat Lab 03/01/25 13:40 Completed TSH [Thyroid Stimulating Hormone] Stat Lab 03/01/25 13:40 Completed Troponin I Stat Lab 03/01/25 13:40 Completed HYDROmorphone INJ [Dilaudid Inj] Med 03/01/25 13:31 Discontinued 1 mg IVP X1 ONE Vital Signs Vital signs: Vital Signs Temperature 99.0 F 03/01/25 12:22 Pulse Rate 56 L 03/01/25 12:22 Respiratory Rate 17 03/01/25 12:22 Blood Pressure 168/64 H 03/01/25 12:22 Pulse Oximetry (%) 98 03/01/25 12:22 Oxygen Delivery Method Room Air 03/01/25 12:22 Critical Care Time Critical Care Time Critical Care Time: Yes Total Critical Care Time (min.): 35 Attestation: See document Discharge Plan Plan Patient Disposition: HOME (Self Care) Discharge Disposition comment: Suggest referral to a tertiary care center. Prescriptions/Referrals Prescriptions/Med Rec: No Action paroxetine HCl [Paxil] 30 mg tablet 30 mg PO QDAY montelukast [Singulair] 10 mg tablet 10 mg PO QDAY albuterol sulfate 90 mcg/actuation Hfa Aerosol Inhaler 2 puff INHALATION Q6H PRN (Reason: Wheezing) pantoprazole 40 mg tablet,delayed release (DR/EC) 40 mg PO QDAY Qty: 60 0RF carvedilol 3.125 mg Tablet 3.125 mg PO BIDWM 30 Days Qty: 60 0RF Referrals: Elena Ward MD [Primary Care Provider] - In 1 week Problem List Clinical Impression: Syncope Patient/Caregiver Discharge Instructions Discharge Activity: activity as tolerated Education Materials: Causes of Syncope, Dizziness Balance Probs Fainting, ED Fainting, Uncertain Cause Print Language: Luxembourgish Stand Alone Forms: Nicole Award Info., Patient Portal Info Letter MDM Narrative MDM hospital course: Patient had experienced multiple falls and lightheadedness. It appears that her autonomic regulation system is malfunctioning, as the patient was laughing while walking, had global low perfusion of the brain, causing a syncopal episode with out any injuries. I encouraged the patient to see her primary care provider for referral to a tertiary care center such as [facility] or [facility] for better evaluation of her lightheadedness and falls with appeared to be from neurogenic source. Her total calcium is 11.1, which is acceptable for her condition. Clinical Information Provided by patient, EMS and family (daughter) Medical Records Reviewed EMS Meds/Rx Considered, not Ordered None Labs/Rad/Tests considered, not Ordered None Chronic Illness/Social Conditions Add or document further as needed: Patient does have a history of light-headedness. Other PMHx include primary pituitary adenoma causing hypoglycemia and liver cirrhosis. EKG EKG Interpretation narrative: My interpretation: EKG performed at 1246 hours, sinus bradycardia, rate 53, no STEMI Medication Administration(s) Medication Administration History Discontinued Medications Hydromorphone HCl (Hydromorphone Inj 2 Mg/Ml Vial) 1 mg IVP X1 ONE Stop: 03/01/25 13:32 Last Admin: 06/13/25 13:48 Dose: 1 mg Documented By: RENEA Diagnosis Differential diagnosis: syncopal episode, light-headedness, thyroid problems
--- NOTE | 2025-03-01 13:27 | XR_ITS ---
Examination: CTA carotids with intravenous contrast CTA brain, head with intravenous contrast. 2-D sagittal, coronal reconstructions. 3-D reconstructions. Exam date and time: March 01, 2025 at 1443 hours INDICATIONS: Syncopal episodes today CTDI: vol (mGy) 11.4 DLP: (mGycm) 124 Technique: Multiple CTA axial brain, head carotid images post intravenous contrast injection 75 cc, Isovue-370. 2-D sagittal, coronal reconstructions. 3-D reconstructions, 3-D post processing including vascular maximum intensity projection images. Low dose protocols were performed. One or more of the following dose reduction techniques were used; automated exposure control, adjustment of the mA and/or KV according to patient size, use of iterative reconstruction technique. Findings: No common carotid carotid bifurcation or internal carotid artery stenoses Dominant left vertebral artery with no stenoses Intracranial vertebral arteries basilar artery posterior cerebral branches fill Juxtasellar supraclinoid portions both internal carotid arteries unremarkable M1 segments middle cerebral arteries middle cerebral artery trifurcation vessels anterior cerebral vessels show no no large vessel occlusions IMPRESSION: No significant neck arterial stenoses No cerebral large vessel arterial occlusions or thrombus
[2025-03-01 13:48] LABS: Basophils % (Auto) 0 % (0-2.5); Eosinophils # (Auto) 0.1 Thou/mm3 (0.0-0.5); Eosinophils % (Auto) 2 % (0-10); Hematocrit 33.1 % (36.0-46.0); Hemoglobin 11.3 g/dL (12.0-16.0); Immature Granulocytes % (Auto) 0 % (0-0); Lymphocytes # (Auto) 0.6 Thou/mm3 (1.0-4.8); Lymphocytes % (Auto) 24 % (10-50); Mean Corpuscular HGB Conc 34.1 g/dl (31.0-37.0); Mean Corpuscular Hemoglobin 31.9 pg (25.0-35.0); Mean Corpuscular Volume 94 fL (80-100); Monocytes # (Auto) 0.2 Thou/mm3 (0.0-0.8); Monocytes % (Auto) 8 % (0-12); Neutrophils # (Auto) 1.5 Thou/mm3 (1.8-7.7); Neutrophils % (Auto) 65 % (37-80); Nucleated Red Blood Cell % 0 /100 WBC (0); Platelet Count 91 Thou/mm3 (140-440); RDW Standard Deviation 58.4 fL (36.4-46.3); Red Blood Count 3.54 Miln/mm3 (4.00-5.20)
[2025-03-01] MEDS: HYDROmorphone INJ 2 MG/ML VIAL 1 MG IVP (13:48)
[2025-03-01 14:02] LABS: White Blood Count 2.3 Thou/mm3 (3.6-11.0)
[2025-03-01 14:06] LABS: Alanine Aminotransferase 49 U/L (10-49); Albumin, Serum 3.4 gm/dL (3.5-5.0); Albumin/Globulin Ratio 1.1 (1.2-2.2); Alkaline Phosphatase 154 U/L (46-116); Anion Gap 8 (7-16); Aspartate Amino Transferase 84 U/L (0-34); BUN/Creatinine Ratio 7 Ratio (12-20); Bilirubin,Total 2.4 mg/dL (0.3-1.2); Blood Urea Nitrogen < 5 mg/dL (9-23); Calcium 10.6 mg/dL (8.3-10.6); Calcium (Corrected) 11.1 mg/dL (8.5-10.1); Chloride 114 mMol/L (98-107); Creatinine (Component) 0.7 mg/dL (0.6-1.3); Globulin 3.2 gm/dL (2.3-3.5); Glucose 93 mg/dL (74-106); Osmolality,Calculated 284 (275-295); Potassium 3.6 mMol/L (3.4-5.1); Sodium 144 mMol/L (136-145); Thyroid Stimulating Hormone 0.63 uIU/mL (0.55-4.78); Total Protein 6.6 gm/dL (5.7-8.2); Troponin I < 0.002 ng/mL (0.0-0.045); eGFR > 60 See Note
[2025-03-01 14:54] VITALS: BP 140/77; PULSE 57; RESP 20; TEMP 36.6; O2SAT 99
[2025-03-01 16:05] VITALS: BP 117/60; PULSE 59; RESP 15; TEMP 36.7; O2SAT 100
--- NOTE | 2025-03-01 16:53 | PC.CC ---
Karly DAVIS was consulted by bedside RN Renzo to set up transportation for patient back home. ASW set up transportation for patient using [facility].
[2025-03-01 17:05] VITALS: BP 151/88; PULSE 54; RESP 16; TEMP 36.9; O2SAT 99
== END 2025-03-01 17:05 | disposition home or self-care (01) ==
PROVIDERS: Emergency Provider Emergency Medicine; PCP Specialist
DX: R55 Syncope and collapse (principal); R00.1 Bradycardia, unspecified
CPT/HCPCS: 36415; 70496; 70498; 80053; 82330; 83735; 84443; 84484; 85025; 93005; 96374; 99291; A4649; J1171; Q9967

== ENCOUNTER 2025-03-04 23:19 | Emergency (ER) | payer MEDICAID, SELFPAY ==
[2025-03-04 23:28] VITALS: BP 108/64; PULSE 58; RESP 16; TEMP 36.9; O2SAT 98; BMI 34.0
[2025-03-04 23:42] VITALS: PULSE 64; RESP 20; O2SAT 100
--- NOTE | 2025-03-04 23:44 | XR_ITS ---
Examination: CT abdomen with intravenous contrast CT pelvis with intravenous contrast 2-D coronal reconstructions 2-D sagittal reconstructions Date and time of exam:March 05, 2025 0124 hours Comparison February 12, 2025 INDICATIONS: Chest and epigastric pain beginning 4 days ago. CTDI: vol (mGy) 11.5 DLP: (mGycm) 588 Technique: Multiple axial sections of the abdomen and pelvis have been obtained. 64 slice high-resolution scanner used. 3 mm axial sections have been obtained, post intravenous injection 60 cc Isovue 370 2-D sagittal, coronal reconstructions obtained. Low dose protocols were performed. One or more of the following dose reduction techniques were used; automated exposure control, adjustment of the mA and/or KV according to patient size, use of iterative reconstruction technique. Findings: Cirrhosis, liver nodular in contour Prominent splenomegaly with 6 mm defect in the spleen Cholelithiasis Gallbladder wall is thickened, enlarged common bile duct 10 mm No pancreatic or adrenal mass Portosystemic collateral vessels medial to the spleen Esophageal varices No hydronephrosis 2 mm right renal calculus No bowel obstruction Urinary bladder is intact Absent uterus Intact osseous structures IMPRESSION: Cirrhosis Significant splenomegaly, recommend splenic ultrasound to exclude lesion in the spleen Esophageal varices Recommend hepatobiliary sonography to exclude calculus cholecystitis Enlarged common bile duct 10 mm, consider MRCP follow-up to exclude common bile duct stones Esophageal varices 2 mm nonobstructing right renal calculus
[2025-03-04 23:45] VITALS: BP 124/58; PULSE 74; RESP 13; TEMP 36.8; O2SAT 99
--- NOTE | 2025-03-04 23:49 | PD.EDCHEST ---
ED Chest Pain RME/HPI General Chief Complaint: Chest Pain Stated Complaint: CHEST PAIN Time Seen by Provider: 03/04/25 23:24 Arrival date/time: 03/04/25 23:19 RME / HPI RME / HPI narrative: Dr. Dueñas?s Main ED Evaluation: 44yo female KARON from home presents to the ED for a chief complaint of epigastric pain x 3-4 days. Patient states she was seen here on Tuesday and was diagnosed with constipation (even though she states she's had normal bowel movements). Patient states her epigastric pain has been persistent since and won't resolve, so she came back in for further evaluation. Patient repors associated nausea, vomiting, and shortness of breath. Patient denies any black/bloody stools, diarrhea, fever, chills or any other associated symptoms. PSH includes tubal litigation, partial hysterectomy, and . Denies any tobacco, alcohol or illicit drug use. Related Data Home Medications ?Medication ?Instructions ?Recorded ?Confirmed albuterol sulfate 90 mcg/actuation 2 puff inhalation Q6H PRN Wheezing 07/28/21 02/13/25 aerosol inhaler montelukast 10 mg tablet 10 mg PO QDAY 10/11/23 02/13/25 (Singulair) paroxetine HCl 30 mg tablet (Paxil) 30 mg PO QDAY 10/11/23 02/13/25 Previous Rx's ?Medication ?Instructions ?Recorded carvedilol 3.125 mg tablet 3.125 mg PO BIDWM 30 days #60 tabs 02/15/25 pantoprazole 40 mg tablet,delayed 40 mg PO QDAY #60 tabs 02/15/25 release polyethylene glycol 3350 17 gram 17 g PO QDAY #100 ea 03/01/25 oral powder packet (ClearLax) Allergies Allergy/AdvReac Type Severity Reaction Status Date / Time hydrocortisone Allergy Intermediate Swelling Verified 03/04/25 23:42 of the Eye Review of Systems Review of Systems Systems Reviewed: All systems reviewed, normal except as documented Past Medical History Past Medical History NEUROLOGIC: Negative Neurological Disorders or Seizures CARDIAC: Positive Heart Murmur and Cellulitis; Negative Cardiac Disorders, Hypercholesterolemia, Congestive Heart Failure, Edema, Hypertension or Varicose Veins RESPIRATORY: Positive Asthma and Pneumonia; Negative Chronic Obstructive Pulmonary Disease (COPD), Tuberculosis or Sleep Apnea GASTROINTESTINAL: Positive Gastrointestinal Disorders, Cirrhosis, Hemorrhoids and Obesity; Negative Hepatitis, Gall Bladder Disease, Gastrointestinal Bleed, Esophageal Varices, Colorectal Cancer or Gastroesophageal Reflux Disease GENITOURINARY: Negative Genitourinary Disorders or Renal Disease REPRODUCTIVE: Positive Previous Pregnancies; Negative Breast Cancer, Endometriosis or Pelvic Inflammatory Disease MUSCULOSKELETAL: Positive Musculoskeletal Disorders and Fractures; Negative Bone Cancer or Arthritis ENDOCRINE: Negative Endocrine Disorders, Diabetes Mellitus Type 1, Diabetes Mellitus Type 2 or Hyperthyroidism HEMATOLOGIC: Positive Blood Disorders, Anemia and Clotting Problems; Negative Sickle Cell Disease PSYCHO/SOCIAL: Positive Depression and Anxiety OTHER HISTORY: Positive Hospitalization, Falls and Blood Transfusions; Negative Autoimmune Disease, Down Syndrome, Developmental Delay, Shingles, Blood Transfusion Reaction, Anesthesia Reactions, Organ Transplant, MRSA, VRSA, Vancomycin-Resistant Enterococci, Human Immunodeficiency Virus (HIV), Chicken Pox, Measles, Mumps, Rubella (E[place]ian Measles), Pertussis, Clostridium Difficile, Cancer, Breast Cancer, Cervical Cancer, Colorectal Cancer, Lung Cancer or Ovarian Cancer Family History FAMILY HISTORY: Positive Family Respiratory Disorders and Family Surgery; Negative Family Psychiatric Problems, Family Cardiac Disorders, Family Gastrointestinal Problems, Family Cancer or Family Anesthesia Reaction Surgical History SURGICAL: Positive Abdominal Surgery, Tubal Ligation and Section; Negative Cardiac Surgery, Pacemaker, Endocrine Surgery, Ear Surgery, Nephrectomy, Joint Replacement, Neurologic Surgery, Mastectomy, Lumpectomy, Hysterectomy or Organ Transplant Social History SMOKING STATUS: Never smoker SECOND HAND EXPOSURE: No (quit 2013) SUBSTANCE USE: does not use ED Exam Narrative Physical exam: GEN. APPEARANCE: The patient is alert awake oriented X-3 in no distress, lying down comfortably, does not look ill/toxic. Patient has good eye contact. Patient is cooperative. VITALS: All vitals were reviewed and the pulse ox is 99% on room air which is normal according to my interpretation. HEENT: Normocephalic, atraumatic. Pupils are equal and reactive. Oral mucosa is moist. Patent Nares NECK: Supple, nontender, no thyromegaly, no meningismus, no JVD CHEST: Symmetrical, atraumatic, and with equal expansion , Nontender on palpation no deformity and no crepitus. CARDIOVASCULAR: Heart regular rhythm no murmur or gallop rub or extra beats. LUNGS: Clear to auscultation bilaterally with symmetrical chest rise. No laboring tachypnea or wheezing. No intercostal subcostal retraction. No rales and no rhonchi. ABDOMEN: Soft, flat, left flank and mild epigastric tenderness to palpation, no guarding or rebound tenderness. There are no abnormal masses palpated. Active and normal bowel sounds. EXTREMITIES: Nontender. No edema. No cyanosis. Patient is able to move all 4 extremities well, with full ROM and good CSM. SKIN: Warm and dry, no jaundice or rashes noted. MUSCULOSKELETAL: No lumbar or midline bony tenderness. There is no CVA tenderness. No paraspinal muscle spasm or tenderness. NEURO: Patient is PIEDRA x 4, Cranial nerves II through XII grossly intact. There is no focal neurologic deficits noted. GCS is 15, PNS and [employer] appear grossly intact. PSYCHIATRIC: Patient is in normal mood and affect. Course Quality Measures none Orders Category Date Time Status CT Screening NOW Care 03/04/25 23:44 Active EKG (ED ONLY) *Do not use* NOW Care 03/04/25 23:28 Completed IV [Insert IV] STAT Care 03/04/25 23:48 Active MRI Screening NOW Care 03/05/25 04:[address] abdomen pelvis w con Stat Exams 03/04/25 23:44 Taken EKG (ED Only) Stat Exams 03/04/25 23:28 Ordered MR MRCP Stat Exams 03/05/25 Ordered US abdomen limited Stat Exams 03/05/25 02:41 Taken Blood Culture (Lab) Stat Lab 03/05/25 04:40 Received CBC Stat Lab 03/04/25 23:45 Completed CK [Creatine Kinase] Stat Lab 03/04/25 23:45 Completed CMP [Comprehensive Metabolic Panel] Stat Lab 03/04/25 23:45 Completed HCG,Qualitative Serum Stat Lab 03/04/25 23:45 Completed Lactate (Lactic Acid) Stat Lab 03/05/25 05:20 Received Lipase Stat Lab 03/04/25 23:45 Completed Troponin I Stat Lab 03/04/25 23:45 Completed Urinalysis, C/S if Indicated Stat Lab 03/05/25 01:47 Completed Ketorolac Inj [Toradol Inj] Med 03/05/25 02:36 Discontinued 15 mg IVP X1 ONE Morphine Inj Med 03/05/25 05:09 Discontinued 2 mg IVP X1 ONE Piper/Tazo Inj [Zosyn Inj] 4.5 gm Med 03/05/25 04:41 Discontinued Sodium Chloride 0.9% (Pop) [NS 0.9% mini bag] 100 ml IV NOW Potassium Chloride [K-Dur] Med 03/05/25 01:54 Discontinued 40 meq PO X1 ONE Ringers Lactated 1000 ml [Lactated Ringers] 1,000 ml Med 03/05/25 04:39 Discontinued IV 999 mls/hr Vital Signs Vital signs: Vital Signs Temperature 98.4 F 03/04/25 23:28 Pulse Rate 58 L 03/04/25 23:28 Respiratory Rate 16 03/04/25 23:28 Blood Pressure 108/64 03/04/25 23:28 Pulse Oximetry (%) 98 03/04/25 23:28 Oxygen Delivery Method Room Air 03/04/25 23:28 Chest Pain MDM Narrative MDM Narrative:: Scribe Attestation: 03/04/25 Lianna Gaspar am scribing for and in the presence of Dr. Dueñas. Patient presenting with multiple months of epigastric pain worsening. Labs with evidence of hyperbilirubinemia however at patient's baseline. Patient does have a history of cirrhosis. CT abdomen pelvis with evidence of possible cholecystitis and choledocholithiasis. Broad-spectrum antibiotics provided. Patient is pending results of her ultrasound report as well as MRCP. Also would benefit from a nephrology consult or endocrinology given her symptomatic hypercalcemia. MDM Narrative:: Scribe Attestation: 03/04/25 Lianna Gaspar am scribing for and in the presence of Dr. Dueñas. 0551: Attempted to call Dr. Kraus, orthopedic surgeon, to see if the patient's ankle hardware is compatible for MRCP, but he did not answer. 0600: Care signed out to Dr. Vela (emergency physician). Past medical, surgical, social and family history reviewed. Vitals and home medications reviewed. Results and treatment plan discussed. They will assume the care of the patient at this time and will follow the patient, pending US results and MRCP. 03/05/25 5:52 am Lianna Dalton Patient data External records reviewed:: [facility] previous records (Per chart review, patient was seen here on 03/01/25 for constipation.) and EMS form Clinical information provided by:: patient Social determinants that could affect healthcare access:: none Patient has the following chronic illnesses:: hyperparathyroidism How is presenting disease/condition affected by chronic disease/condition?: uneffected by Evaluation data The following diagnostics were reviewed and interpreted by me:: lab results and radiology exam(s) Lab and/or radiology exams considered but not ordered:: none Interpretation Summary: CBC normal, Potassium 3.3 (which was replaced), Total Bilirubin 2.4, AST 87, Alkaline Phosphatase 151, Troponin normal, Lipase normal, HCG negative, UA shows amorphous crystals and rare bacteria, according to my interpretation. -------- [employer] Preliminary Report Draft Patient: LAURA RODRIGUEZ [facility]. Record#: [id number] Birthdate: 1980 Age/Sex: 44 / F Location: [facility] Attending Dr: Ordering Physician: Date of Service: Procedure(s): Accession Number(s): cc: ~ CT scan of the abdomen and pelvis with intravenous contrast (axial sections with sagittal and coronal reformats) March 05, 2025 0124 hours Clinical History: obstruction Comparison: CT of March 25, 2018. Findings: The lung bases are clear. The pancreas, kidneys and adrenals are unremarkable. Irregular liver margins. The portal vein is patent. Gallstones and prominent gallbladder wall. Dilated CBD measuring up to 1.1 cm. Splenomegaly with anteroposterior diameter of 15.7 cm. No evidence of bowel obstruction. No evidence of appendicitis. No pelvic masses. There is no mesenteric or retroperitoneal adenopathy. The urinary bladder is unremarkable. There is no free air. Trace of ascites. The osseous structures are unremarkable. Impression: Possible acute cholecystitis. Cirrhosis associated with splenomegaly. No evidence of bowel obstruction. Dilated CBD suspicious for choledocholithiasis. Report Electronically Signed By: Jesús Shepherd 03/05/2025 3:05:00 AM [employer] Preliminary Report Draft Patient: LAURA RODRIGUEZ [facility]. Record#: [id number] Birthdate: 1980 Age/Sex: 44 / F Location: [facility] Attending Dr: Ordering Physician: Date of Service: Procedure(s): Accession Number(s): cc: ~ CT scan of the abdomen and pelvis with intravenous contrast (axial sections with sagittal and coronal reformats) March 05, 2025 0124 hours Clinical History: obstruction Comparison: CT of March 25, 2018. Findings: The lung bases are clear. The pancreas, kidneys and adrenals are unremarkable. Irregular liver margins. The portal vein is patent. Gallstones and prominent gallbladder wall. Dilated CBD measuring up to 1.1 cm. Splenomegaly with anteroposterior diameter of 15.7 cm. No evidence of bowel obstruction. No evidence of appendicitis. No pelvic masses. There is no mesenteric or retroperitoneal adenopathy. The urinary bladder is unremarkable. There is no free air. Trace of ascites. The osseous structures are unremarkable. Impression: Possible acute cholecystitis. Cirrhosis associated with splenomegaly. No evidence of bowel obstruction. Dilated CBD suspicious for choledocholithiasis. Report Electronically Signed By: Jesús Shepherd 03/05/2025 3:05:00 AM [EST] Medications / Prescriptions Medications or Prescriptions considered but not ordered:: none Medication administrations:: Medication Administration History Discontinued Medications Lactated Ringer's (Lactated Ringers) 1,000 mls @ 999 mls/hr IV .Q1H1M ONE Stop: 03/05/25 05:39 Last Admin: 03/05/25 05:11 Dose: 999 mls/hr Documented By: SCOOBY Piperacillin Sod/Tazobactam (Sod 4.5 gm/ Sodium Chloride) 100 mls @ 200 mls/hr IV NOW ONE Stop: 03/05/25 05:10 Last Admin: 03/05/25 05:35 Dose: 200 mls/hr Documented By: SCOOBY Ketorolac Tromethamine (Ketorolac Inj 30 Mg/Ml Vial) 15 mg IVP X1 ONE Stop: 03/05/25 02:37 Last Admin: 03/05/25 02:41 Dose: 15 mg Documented By: SCOOBY Morphine Sulfate (Morphine Sulf Inj 10 Mg/Ml Vial) 2 mg IVP X1 ONE Stop: 03/05/25 05:10 Last Admin: 03/05/25 05:32 Dose: 2 mg Documented By: SCOOBY Potassium Chloride (Potassium Chloride 20 Meq Tabcr) 40 meq PO X1 ONE Stop: 03/05/25 01:55 Last Admin: 03/05/25 02:41 Dose: 40 meq Documented By: SCOOBY see above Consultations Consultation(s) initiated? (list below): No Diagnosis Chest Pain Differential Diagnosis: other (cholelithiasis, cholecystitis, choledocholithiasis, fatty liver, pancreatitis, hypercalcemia) Most likely diagnosis given after review of the tests above:: dx pending at signout Admission Indicated Admission indicated?: not indicated Admission Request Was there a request for admission?: No Disposition Plan Disposition Plan: other (specify) (Signed out to Dr. Vela at 0600 pending US results and MRCP.) Discharge Plan Prescriptions/Referrals Prescriptions/Med Rec: No Action paroxetine HCl [Paxil] 30 mg tablet 30 mg PO QDAY montelukast [Singulair] 10 mg tablet 10 mg PO QDAY albuterol sulfate 90 mcg/actuation Hfa Aerosol Inhaler 2 puff INHALATION Q6H PRN (Reason: Wheezing) pantoprazole 40 mg tablet,delayed release (DR/EC) 40 mg PO QDAY Qty: 60 0RF carvedilol 3.125 mg Tablet 3.125 mg PO BIDWM 30 Days Qty: 60 0RF polyethylene glycol 3350 [ClearLax] 17 gram powder in packet 17 g PO QDAY Qty: 100 0RF Referrals: No Primary/Family,Physician [Referring Provider] - In 1 week Problem List Clinical Impression: Epigastric pain Patient/Caregiver Discharge Instructions Print Language: Setswana
[2025-03-05] VITALS (8 sets, daily range): BP systolic 95–152; BP diastolic 56–87; PULSE 58–73; RESP 15–18; TEMP 36.6–37.2; O2SAT 97–99
--- NOTE | 2025-03-05 | XR_ITS ---
MRI abdomen, without contrast. MRCP Date and time of exam: March 05, 2025 0814 hours INDICATIONS: Cirrhosis, epigastric pain 4 days, cholelithiasis on ultrasound study today Technique: Multiple axial and coronal images of the abdomen have been obtained with the Siemens 1.5T MRI scanner. Images obtained included T1 weighted transverse images, T2-weighted transverse images, T2-weighted transverse images fat-suppressed, T2 weighted haste fat suppressed transverse images, T1 weighted images, in and out of phase images, T2-weighted coronal images, breath hold, T2 weighted haze coronal images as well as T2 weighted coronal thick slab images, MRCP. Findings: Cirrhosis, liver nodular in contour Cholelithiasis Common bile duct is enlarged 10 mm, findings consistent with impacted 4 mm stone in the distal common bile duct, coronal image 14 Splenomegaly No pancreatic edema No hydronephrosis IMPRESSION: Extrahepatic biliary tract dilatation with 4 mm stone in the distal common bile duct, recommend ERCP follow-up
[2025-03-05 00:16] LABS: Basophils % (Auto) 1 % (0-2.5); Eosinophils # (Auto) 0.1 Thou/mm3 (0.0-0.5); Eosinophils % (Auto) 1 % (0-10); Hematocrit 35.9 % (36.0-46.0); Hemoglobin 12.1 g/dL (12.0-16.0); Immature Granulocytes % (Auto) 0 % (0-0); Lymphocytes # (Auto) 0.7 Thou/mm3 (1.0-4.8); Lymphocytes % (Auto) 17 % (10-50); Mean Corpuscular HGB Conc 33.7 g/dl (31.0-37.0); Mean Corpuscular Hemoglobin 31.9 pg (25.0-35.0); Mean Corpuscular Volume 95 fL (80-100); Monocytes # (Auto) 0.4 Thou/mm3 (0.0-0.8); Monocytes % (Auto) 10 % (0-12); Neutrophils # (Auto) 2.9 Thou/mm3 (1.8-7.7); Neutrophils % (Auto) 71 % (37-80); Nucleated Red Blood Cell % 0 /100 WBC (0); Platelet Count 92 Thou/mm3 (140-440); RDW Standard Deviation 58.9 fL (36.4-46.3); Red Blood Count 3.79 Miln/mm3 (4.00-5.20); White Blood Count 4.1 Thou/mm3 (3.6-11.0)
[2025-03-05 00:27] LABS: HCG,Qualitative Serum Negative
[2025-03-05 00:37] LABS: Alanine Aminotransferase 48 U/L (10-49); Albumin, Serum 3.5 gm/dL (3.5-5.0); Albumin/Globulin Ratio 1.1 (1.2-2.2); Alkaline Phosphatase 151 U/L (46-116); Anion Gap 10 (7-16); Aspartate Amino Transferase 87 U/L (0-34); BUN/Creatinine Ratio 7 Ratio (12-20); Bilirubin,Total 2.4 mg/dL (0.3-1.2); Blood Urea Nitrogen < 5 mg/dL (9-23); Calcium 11.2 mg/dL (8.3-10.6); Calcium (Corrected) 11.6 mg/dL (8.5-10.1); Carbon Dioxide 22.5 mMol/L (20.0-31.0); Chloride 111 mMol/L (98-107); Creatine Kinase 58 U/L (34-171); Creatinine (Component) 0.7 mg/dL (0.6-1.3); Estimated Creatinine Clearance 99.3 mL/min (>60); Globulin 3.3 gm/dL (2.3-3.5); Glucose 86 mg/dL (74-106); Lipase 24 U/L (12-53); Osmolality,Calculated 281 (275-295); Potassium 3.3 mMol/L (3.4-5.1); Sodium 143 mMol/L (136-145); Total Protein 6.8 gm/dL (5.7-8.2); Troponin I < 0.002 ng/mL (0.0-0.045); eGFR > 60 See Note
[2025-03-05 01:52] LABS: Collection Type, Urine Clean Catch
[2025-03-05 01:58] LABS: Amorphous Crystals,Urine Present (Absent); Bacteria,Urine Rare; Bilirubin,Urine Negative (Negative); Blood,Urine Negative (Negative); Clarity,Urine Clear (Clear/Hazy); Color,Urine Lt-Yellow (Lt Yel-Yel); Culture Indicated,Urine Not Indicated; Glucose, Urine Negative (Negative); Ketones,Urine Negative (Negative); Leukocyte Esterase,Urine Negative (Negative); Nitrite,Urine Negative (Negative); Protein,Urine Negative (Neg - Trace); RBC,Urine 1 /hpf (0-3); Specific Gravity,Urine 1.014 (1.001-1.035); Squamous Epithelial Cell,Urine 2 /hpf (0-5); WBC,Urine 1 /hpf (0-5)
[2025-03-05] MEDS: KETOROLAC INJ 30 MG/ML VIAL 15 MG IVP ×2 (02:41→12:19)
[2025-03-05] MEDS: POTASSIUM CHLORIDE 20 mEq TABCR 40 MEQ PO (02:41)
--- NOTE | 2025-03-05 02:41 | XR_ITS ---
Examination: Abdomen sonogram, Limited Date and time of exam: March 05, 2025 0424 hours INDICATIONS: Upper abdominal pain beginning 2 days ago Technique: Real-time doe scale transabdominal sonographic images of the upper abdomen obtained. Findings: Cholelithiasis, normal gallbladder wall Common bile duct 0.3 cm Pancreatic tail 3.2 cm Liver 12.1 cm fatty rotation irregular contour Normal hepatopedal portal venous on Patent IVC IMPRESSION: Cholelithiasis, negative for cholecystitis Cirrhosis, no focal liver lesions
--- NOTE | 2025-03-05 03:06 | PRELIM_ITS ---
CT scan of the abdomen and pelvis with intravenous contrast (axial sections with sagittal and coronal reformats) March 05, 2025 0124 hours Clinical History: obstruction Comparison: CT of March 25, 2018. Findings: The lung bases are clear. The pancreas, kidneys and adrenals are unremarkable. Irregular liver margins. The portal vein is patent. Gallstones and prominent gallbladder wall. Dilated CBD measuring up to 1.1 cm. Splenomegaly with anteroposterior diameter of 15.7 cm. No evidence of bowel obstruction. No evidence of appendicitis. No pelvic masses. There is no mesenteric or retroperitoneal adenopathy. The urinary bladder is unremarkable. There is no free air. Trace of ascites. The osseous structures are unremarkable. Impression: Possible acute cholecystitis. Cirrhosis associated with splenomegaly. No evidence of bowel obstruction. Dilated CBD suspicious for choledocholithiasis. Report Electronically Signed By: Jesús Shepherd 03/05/2025 3:05:00 AM [EST]
[2025-03-05] MEDS: RINGERS LACTATED 1000 ML 1,000 ML 999 ML IV (05:11)
[2025-03-05] MEDS: MORPHINE SULF INJ 10 MG/ML VIAL 2 MG IVP (05:32)
[2025-03-05] MEDS: PIPER/TAZO INJ 4.5 GM in SODIUM CHLORIDE 0.9% (POP) 100 ML IV (05:35)
[2025-03-05 05:38] LABS: Lactate (Lactic Acid) 1.5 mMol/L (0.4-2.0)
--- NOTE | 2025-03-05 05:41 | PC.NURSE ---
PT REPORTS HAD BILATERAL ANKLE SURGERY IIN YEAR 2022 AT [facility] AND HAS METAL PLATES IN BOTH ANKLES. DR. RABAGO MADE AWARE
--- NOTE | 2025-03-05 07:15 | PD.EDADDENDU ---
Emergency Room Addendum Addendum Narrative: 0600: Care assumed from Dr. Dueñas, the previous shift emergency physician. Past medical, surgical, social and family history reviewed. Vitals and home medications reviewed. I will assume the care of the patient at this time, pending ultrasound report and callback from ortho Dr. Kraus to confirm orthopedic hardware is compatible for MRI. Please refer to the emergency department record for history and examination from initial visit.?The following addendum documentation note is intended to reflect any pending information, findings, or radiology results not included in the patient?s initial chart. 0715: I spoke with ortho Dr. Kraus. States any hardware placed within the last 20 years is compatible for MRI. 1034: MRCP shows a 4mm stone in the CBD. Plan to transfer for ERCP. Patient made aware of the results, analysis, and treatment plans. She is amenable to transfer. 1255: I spoke with transfer nurse and GI Dr. Guzman at [facility]. Discussed patients PMHx, HPI, ED course, exam findings, labs, and radiology results. Patient has been accepted for transfer. 1511: EMS here to transfer patient. She has remained stable through ED course. RADIOLOGY Ordering Physician: Date of Service: Procedure(s): Accession Number(s): cc: ~ Right upper quadrant abdominal ultrasound with Doppler and wave Doppler spectral analysis. March 05, 2025 at 0424 hours Clinical history: Cholecystitis. Technique: Grayscale and color flow images of the right upper quadrant are provided. Hepatic and portal veins were also imaged with color flow images. Correlated with the prior CT study dated March 05, 2025. Findings: The liver demonstrates increased echogenicity. Heterogenous liver. Mild irregular liver margins. No intrahepatic biliary ductal dilatation. Gallstones. Watson sign is negative. No gallbladder wall thickening or pericholecystic fluid is demonstrated. The common bile duct is normal in caliber at 3.1 mm. The pancreas is heterogenous. The portal vein is patent with hepatopetal flow and normal with Doppler spectral analysis. Impression: 1. Gallstones without evidence of acute cholecystitis. 2. Possible pancreatitis. 3. Cirrhosis. Report Electronically Signed By: Jesús Shepherd 03/05/2025 7:14:50 AM [EST] Ordering Physician: Trudi Dueñas MD Date of Service: 03/05/25 Procedure(s): MR MRCP Accession Number(s): [id number] cc: Mohsen Chavis MD; Seng Van MD; Trudi Dueñas MD~ MRI abdomen, without contrast. MRCP Date and time of exam: March 05, 2025 0814 hours INDICATIONS: Cirrhosis, epigastric pain 4 days, cholelithiasis on ultrasound study today Technique: Multiple axial and coronal images of the abdomen have been obtained with the Siemens 1.5T MRI scanner. Images obtained included T1 weighted transverse images, T2-weighted transverse images, T2-weighted transverse images fat-suppressed, T2 weighted haste fat suppressed transverse images, T1 weighted images, in and out of phase images, T2-weighted coronal images, breath hold, T2 weighted haze coronal images as well as T2 weighted coronal thick slab images, MRCP. Findings: Cirrhosis, liver nodular in contour Cholelithiasis Common bile duct is enlarged 10 mm, findings consistent with impacted 4 mm stone in the distal common bile duct, coronal image 14 Splenomegaly No pancreatic edema No hydronephrosis IMPRESSION: Extrahepatic biliary tract dilatation with 4 mm stone in the distal common bile duct, recommend ERCP follow-up Dictated By:Seng Van MD Signed By:<Electronically signed by Seng Van MD in OV>03/05/25 1002
[2025-03-05] MEDS: FUROSEMIDE INJ 10 MG/ML 4ML VIAL 40 MG IVP (07:43)
--- NOTE | 2025-03-05 07:44 | PC.NURSE ---
Patient lying in gurney quietly, awake, aleet and oriented x 3, skin warm dry and pink, patient to er last pm for c/o upper mid chest pain and abd. pain, medication given by pm nurse, patient states relief and denies pain at this time, MRI check list complete, patient awaiting MRI exam. Called pharmacist to bring Pamodronate iv medication, not in our ER pyxis, call light within reach, patient has no other needs at this time.
[2025-03-05] MEDS: PAMIDRONATE IV (09:02)
[2025-03-05] MEDS: SODIUM CHLORIDE 0.9% IV (09:02)
--- NOTE | 2025-03-05 10:32 | PC.CC ---
Addendum entered by aJke Shaikh RN 03/05/25 14:04: [address] [facility] through [facility]. [facility], spoke to [facility] and setup the transport. 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 1335 transfer packet is complete with CD inside including all signatures. Notified charge nurse of the transfer packet and number to call for report is on tracker. Addendum entered by Jake Shaikh RN 03/05/25 13:04: 1257 Got accepting information from Mirna, pt is going to [facility] for ED to ED transfer. Accepted by Dr. Guzman. Report can be called at [phone]. 1251 Called [facility], spoke to Mirna and connected her with Dr. Vela on conference call. She then connected her GI Dr. Guzman on the line for peer to peer. Dr. Guzman accepted th pt for ER to ER. 1224 received call from Mirna at [facility] TC wants to speak with Dr. Vela, unable to connect with ER. Addendum entered by Jake Shaikh RN 03/05/25 11:30: 1129 called [facility] to initiate the transfer, left VM. Original Note: 1045 clinicals faxed to [facility]. [address] Vela that pt needs to be transferred for ERCP, pt has 4mm stone in distal CBD.
[2025-03-05] MEDS: ONDANSETRON INJ 2 MG/ML INJ 2 ML 4 MG IVP (12:19)
[2025-03-05] MEDS: MORPHINE SULF INJ 10 MG/ML VIAL 4 MG IVP (12:20)
--- NOTE | 2025-03-05 14:58 | PC.NURSE ---
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
== END 2025-03-05 15:12 | disposition short-term general hospital (02) ==
PROVIDERS: Emergency Provider Emergency Medicine; PCP Family Medicine
DX: K80.10 Calculus of gallbladder with chronic cholecystitis without obstruction (principal); K74.60 Unspecified cirrhosis of liver; R16.1 Splenomegaly, not elsewhere classified; I85.10 Secondary esophageal varices without bleeding; N20.0 Calculus of kidney
CPT/HCPCS: 36415; 74177; 76705; 80053; 81001; 82550; 83605; 83690; 84484; 84703; 85025; 87040; 93005; 96361; 96365; 96366; 96367; 96375; 96376; 99285; A4649; J1885; J1938; J2270; J2405; J2430; J2543; J7040; J7120; Q9967; S8037; 74181; A9270

== ENCOUNTER 2025-04-01 20:28 | Emergency (ER) | payer MEDICAID, SELFPAY ==
[2025-04-01 20:31] VITALS: BMI 32.5
[2025-04-01 21:49] VITALS: BP 147/79; PULSE 107; RESP 18; TEMP 37.2; O2SAT 100
--- NOTE | 2025-04-01 21:56 | XR_ITS ---
Examination: CT abdomen and pelvis without contrast. Coronal 3-D reconstructions. Sagittal 2-D reconstructions. Date and time of exam:April 01, 2025 11:51 PM INDICATIONS: Abdominal pain today CTDI: vol (mGy): 11.1 DLP: (mGycm): 592 Technique: Axial images of the abdomen have been obtained, 3 mm slice thickness Intravenous contrast material has not been administered. Low dose protocols were performed. One or more of the following dose reduction techniques were used; automated exposure control, adjustment of the mA and/or KV according to patient size, use of iterative reconstruction technique. Findings: Cirrhosis, liver nodular in contour 8 mm low density liver lesion axial image 30 Splenomegaly AP dimension 15 cm Cholelithiasis Common bile duct 11 mm No pancreatic mass Esophageal and perigastric varices No hydronephrosis Trace ascites Normal appendix No bowel obstruction Mild thickening of the urinary bladder wall No pelvic mass Moderate osteopenia IMPRESSION: Cirrhosis 8 mm solid appearing lesion of the right lobe of the liver, consider MRI abdomen liver followed by pre and postcontrast to confirm the region Cholelithiasis Enlarged common bile duct 11 mm, consider repeat abdomen sonogram to exclude common bile duct stones Minimal ascites Esophageal and perigastric varices Mild cystitis pattern
--- NOTE | 2025-04-01 21:56 | EKG_ITS ---
[facility] Test Date: 2025-04-01 Pat Name: LAURA RODRIGUEZ Department: Room: - Gender: Female Certified Pathology Assistant: : 1980 Requested By: Jagdish Maldonado Order Number: [id number] Reading MD: Jagdish Maldonado Measurements Intervals [place] Rate: 101 P: 15 MO: 159 QRS: 3 QRSD: 88 T: -8 QT: 355 QTc: 462 Interpretive Statements SINUS TACHYCARDIA ABNORMAL RHYTHM ECG Compared to ECG 03/05/2025 00:01:49 Sinus bradycardia no longer present /store/S0/[id number]/ecg/[id number].pdf
--- NOTE | 2025-04-01 21:56 | XR_ITS ---
Examination: AP chest single view TECHNIQUE: AP portable upright chest single view Date and time: April 01, 2025, 10:31 PM INDICATIONS: Abdominal distention nausea vomiting shortness of breath today. FINDINGS: Normal heart size Lungs are clear. The osseous structures are intact IMPRESSION: No active disease
--- NOTE | 2025-04-01 21:56 | PD.EDRME ---
Rapid Medical Screening Exam RME Arrival date/time: 04/01/25 20:28 This is a case of 44-year-old female with history of cirrhosis came into the emergency room due to shortness of breath abdominal pain abdominal distention nausea and vomiting worsening of the symptoms this patient decided to start consult here in the emergency room Chief Complaint: Shortness of Breath/Dyspnea Time Seen by Provider: 04/01/25 21:23 Vital signs: Vital Signs Temperature 98.9 F 04/01/25 21:49 Pulse Rate 107 H 04/01/25 21:49 Respiratory Rate 18 04/01/25 21:49 Blood Pressure 147/79 H 04/01/25 21:49 Pulse Oximetry (%) 100 04/01/25 21:49 Oxygen Delivery Method Nasal Cannula 04/01/25 21:49 Oxygen Flow Rate 2 04/01/25 21:49
[2025-04-01 22:21] VITALS: BP 155/92; PULSE 98; RESP 20; TEMP 36.8; O2SAT 98
--- NOTE | 2025-04-01 22:29 | PD.EDABDPN ---
ED Abdominal Pain RME/HPI General Chief Complaint: Shortness of Breath/Dyspnea Stated complaint: DYSPNEA, ABD PAIN Time seen by provider: 04/01/25 21:23 Arrival date/time: 04/01/25 20:28 RME / HPI RME / HPI narrative: 04/01/25 20:28 This is a case of 44-year-old female with history of cirrhosis came into the emergency room due to shortness of breath abdominal pain abdominal distention nausea and vomiting worsening of the symptoms this patient decided to start consult here in the emergency room DR. WEBBER MAIN ED EVALUATION: 44 y/o female with Hx of Cirrhosis, Obesity, and Anxiety presents to ED c/o right-sided abdominal pain and intermittent cramping x 1.5 months with vomiting (x3) and diarrhea x 1 day. Patient states that she was sent to [facility] to have her gallbladder removed, but the provider decided against the cholecystectomy. Denies fever and chills. Denies bloody or coffee ground emesis. Denies constipation, bloody and tarry stool. Related Data Home Medications ?Medication ?Instructions ?Recorded ?Confirmed albuterol sulfate 90 mcg/actuation 2 puff inhalation Q6H PRN Wheezing 07/28/21 02/13/25 aerosol inhaler montelukast 10 mg tablet 10 mg PO QDAY 10/11/23 02/13/25 (Singulair) paroxetine HCl 30 mg tablet (Paxil) 30 mg PO QDAY 10/11/23 02/13/25 Previous Rx's ?Medication ?Instructions ?Recorded pantoprazole 40 mg tablet,delayed 40 mg PO QDAY #60 tabs 02/15/25 release polyethylene glycol 3350 17 gram 17 g PO QDAY #100 ea 03/01/25 oral powder packet (ClearLax) Allergies Allergy/AdvReac Type Severity Reaction Status Date / Time hydrocortisone Allergy Intermediate Swelling Verified 04/01/25 20:30 of the Eye Review of Systems Review of Systems Systems Reviewed: All systems reviewed, normal except as documented Past Medical History Past Medical History CARDIAC: Positive Heart Murmur and Cellulitis RESPIRATORY: Positive Asthma and Pneumonia GASTROINTESTINAL: Positive Gastrointestinal Disorders, Cirrhosis, Hemorrhoids and Obesity REPRODUCTIVE: Positive Previous Pregnancies MUSCULOSKELETAL: Positive Musculoskeletal Disorders and Fractures HEMATOLOGIC: Positive Blood Disorders, Anemia and Clotting Problems PSYCHO/SOCIAL: Positive Depression and Anxiety OTHER HISTORY: Positive Hospitalization, Falls and Blood Transfusions Family History FAMILY HISTORY: Positive Family Surgery Surgical History SURGICAL: Positive Abdominal Surgery and Section ED Exam Narrative Physical exam: GENERAL APPEARANCE: alert and oriented x 4, well-developed, well-nourished, no acute distress VITALS: All vitals were reviewed and the pulse ox is 98% on room air, which is normal according to my interpretation. HEENT: Normocephalic, atraumatic; pupils equal, round, reactive to light; EOMI; mucous membranes pink, moist; oropharynx clear NECK: Supple LUNGS: CTABL; no wheezes, no rales, no rhonchi HEART: Regular rate, regular rhythm; normal S1, S2; no murmurs ABDOMEN: moderately distended; normal BS; soft, right-sided abdominal tenderness, no guarding, no rebound; no masses, no organomegaly, no hernia BACK: no CVA tenderness EXTREMITIES: atraumatic; no edema NEUROLOGIC: awake; alert and oriented x4; cranial nerves II-XII grossly intact; no focal sensory or motor deficits PSYCHIATRIC: appropriate mood and affect SKIN: warm, dry, normal color; no rashes Course Course Course Narrative: CXR is ordered for determining the etiology of shortness of breath. Quality Measures none Orders Category Date Time Status Bedside COVID-19 Antigen Test NOW Care 04/01/25 22:01 Active Bedside Influenza A&B Antigen Test NOW Care 04/01/25 22:02 Completed EKG (ED ONLY) *Do not use* NOW Care 04/01/25 21:56 Completed MRI Screening NOW Care 04/02/25 02:[address] abdomen pelvis wo con Stat Exams 04/01/25 21:56 Taken EKG (ED Only) Stat Exams 04/01/25 21:56 Draft MR MRCP Stat Exams 04/02/25 Ordered US abdomen limited Stat Exams 04/02/25 01:19 Taken XR chest 1V portable Stat Exams 04/01/25 21:56 Completed CBC Stat Lab 04/01/25 22:35 Completed Comprehensive Metabolic Panel Stat Lab 04/01/25 22:35 Completed HCG Qualitative,Urine Stat Lab 04/01/25 22:32 Completed Lipase Stat Lab 04/01/25 22:35 Completed Troponin I Stat Lab 04/01/25 22:35 Completed Urinalysis Stat Lab 04/01/25 22:32 Completed Morphine Inj Med 04/01/25 23:13 Discontinued 5 mg IVP X1 ONE Ondansetron Inj [Zofran Inj] Med 04/01/25 23:13 Discontinued 4 mg IVP X1 ONE POTASSIUM CHL 10 mEq IVPB [Kcl Ivpb] Med 04/02/25 01:21 Active 10 meq in 100 ml IV Q1H Sodium Chloride 0.9% 1000 ml [Ns] 1,000 ml Med 04/02/25 01:20 Discontinued IV 999 mls/hr Vital Signs Vital signs: Vital Signs Temperature 98.9 F 04/01/25 21:49 Pulse Rate 107 H 04/01/25 21:49 Respiratory Rate 18 04/01/25 21:49 Blood Pressure 147/79 H 04/01/25 21:49 Pulse Oximetry (%) 100 04/01/25 21:49 Oxygen Delivery Method Nasal Cannula 04/01/25 21:49 Oxygen Flow Rate 2 04/01/25 21:49 Abdominal Pain MDM MDM Narrative MDM Narrative:: Scribe Attestation: ICarina, am scribing for and in the presence of Dr. Webber. Provider Notation: Although this document has been carefully reviewed, there may still be some phonetic and other typographical errors.? These errors are purely grammatical due to imperfections in the software program and should not be construed in any way to? compromise the substance of the patient's medical care during this visit. 0600: [facility] Patient signed out to Dr. Kinney. Patient data External records reviewed:: [facility] previous records (Reviewed prior ED records from 03/05/25. Patient was seen for Epigastric pain.) Clinical information provided by:: patient Social determinants that could affect healthcare access:: none Patient has the following chronic illnesses:: Heart Murmur, Cellulitis, Asthma, Pneumonia, Gastrointestinal Disorders, Cirrhosis, Hemorrhoids, Obesity, Anemia, Depression and Anxiety How is presenting disease/condition affected by chronic disease/condition?: exacerbated by Evaluation data The following diagnostics were reviewed and interpreted by me:: lab results, radiology exam(s) and EKG tracing(s) (EKG manual reading, my interpretation: sinus tachycardia, rate: 101 bpm, no ST elevation, no acute ischemic changes, interpreted as normal) Lab and/or radiology exams considered but not ordered:: None Interpretation Summary: RADIOLOGY Chest X-Ray: FINDINGS: Normal heart size Lungs are clear. The osseous structures are intact IMPRESSION: No active disease Abdomen/Pelvis CT: Abdomen/Pelvis US: Findings: The liver measures 13.3 cm. Liver is echogenic and heterogeneous with lobulated contour, likely representing cirrhosis. No intrahepatic biliary ductal dilatation. The main portal vein is patent and demonstrates hepatopetal flow. There are portal venous varices. Echogenic foci are seen in the gallbladder, which may represent small calculi. No wall thickening or pericholecystic fluid is demonstrated. The common bile duct is mildly dilated measuring 5.6 mm. The pancreas is unremarkable to the extent visualized. The inferior vena cava is unremarkable to the extent visualized. Impression: Cholelithiasis. No wall thickening or pericholecystic fluid Mildly dilated common bile duct. No ductal calculus is demonstrated sonographically. Recommend clinical correlation and further evaluation with MRCP, if clinically indicated. Hepatic cirrhosis. Medications / Prescriptions Medications or Prescriptions considered but not ordered:: None Medication administrations:: Medication Administration History Potassium Chloride (Kcl Ivpb) 10 meq in 100 mls @ 100 mls/hr IV Q1H TYRONE Stop: 04/02/25 05:20 Last Admin: 04/02/25 04:20 Dose: 100 mls/hr Documented By: Infusion: 04/02/25 04:16 Dose: Infused Documented By: Admin: 04/02/25 03:16 Dose: 100 mls/hr Documented By: Infusion: 04/02/25 03:04 Dose: Infused Documented By: Admin: 04/02/25 02:04 Dose: 100 mls/hr Documented By: EE Discontinued Medications Sodium Chloride (Ns) 1,000 mls @ 999 mls/hr IV .Q1H1M ONE Stop: 04/02/25 02:20 Last Infusion: 04/02/25 03:14 Dose: Infused Documented By: Admin: 04/02/25 02:03 Dose: 999 mls/hr Documented By: SHELL Morphine Sulfate (Morphine Sulf Inj 10 Mg/Ml Vial) 5 mg IVP X1 ONE Stop: 04/01/25 23:14 Last Admin: 04/01/25 23:22 Dose: 5 mg Documented By: CB Ondansetron HCl (Ondansetron Inj 2 Mg/Ml Inj 2 Ml) 4 mg IVP X1 ONE Stop: 04/01/25 23:14 Last Admin: 04/01/25 23:21 Dose: 4 mg Documented By: MARILEE See above Consultations Consultation(s) initiated? (list below): No Diagnosis Differential diagnosis abdominal pain: abdominal pain, calculus of kidney, gastroenteritis, pancreatitis and other (Cholecystitis, Cholelithiasis) Most likely diagnosis given after review of the tests above:: Hyperbilirubinemia, RUQ abdominal pain, Cholelithiasis Admission Indicated Admission indicated?: not indicated Explain why admission is indicated or not indicated:: Pending MRCP. Admission Request Was there a request for admission?: No Disposition Plan Disposition Plan: other (specify) (Sign out to Dr. Kinney at 6 AM.) Discharge Plan Prescriptions/Referrals Prescriptions/Med Rec: No Action paroxetine HCl [Paxil] 30 mg tablet 30 mg PO QDAY montelukast [Singulair] 10 mg tablet 10 mg PO QDAY albuterol sulfate 90 mcg/actuation Hfa Aerosol Inhaler 2 puff INHALATION Q6H PRN (Reason: Wheezing) pantoprazole 40 mg tablet,delayed release (DR/EC) 40 mg PO QDAY Qty: 60 0RF polyethylene glycol 3350 [ClearLax] 17 gram powder in packet 17 g PO QDAY Qty: 100 0RF Referrals: Roseanna Palomo MD [Primary Care Provider] - In 1 week Problem List Clinical Impression: Hyperbilirubinemia, Cholelithiasis, Right upper quadrant abdominal pain Patient/Caregiver Discharge Instructions Print Language: Welsh
[2025-04-01 22:47] LABS: Collection Type, Urine Clean Catch
[2025-04-01 22:58] LABS: Basophils # (Auto) 0.0 Thou/mm3 (0.0-0.2); Basophils % (Auto) 1 % (0-2.5); Eosinophils # (Auto) 0.0 Thou/mm3 (0.0-0.5); Eosinophils % (Auto) 1 % (0-10); Hematocrit 34.9 % (36.0-46.0); Hemoglobin 11.8 g/dL (12.0-16.0); Immature Granulocytes Auto 0.02 Thou/mm3 (0.00-0.00); Lymphocytes # (Auto) 0.6 Thou/mm3 (1.0-4.8); Lymphocytes % (Auto) 9 % (10-50); Mean Corpuscular HGB Conc 33.8 g/dl (31.0-37.0); Mean Corpuscular Hemoglobin 33.0 pg (25.0-35.0); Mean Corpuscular Volume 98 fL (80-100); Monocytes # (Auto) 0.8 Thou/mm3 (0.0-0.8); Monocytes % (Auto) 12 % (0-12); Neutrophils # (Auto) 4.9 Thou/mm3 (1.8-7.7); Neutrophils % (Auto) 78 % (37-80); Nucleated Red Blood Cell # 0.00 Thou/mm3 (0.00-0.00); Nucleated Red Blood Cell % 0 /100 WBC (0); Platelet Count 123 Thou/mm3 (140-440); RDW Standard Deviation 58.4 fL (36.4-46.3); Red Blood Count 3.58 Miln/mm3 (4.00-5.20); White Blood Count 6.3 Thou/mm3 (3.6-11.0)
[2025-04-01 23:00] LABS: HCG Qualitative,Urine Negative
[2025-04-01 23:04] LABS: Bacteria,Urine Rare; Bilirubin,Urine 1+ (Negative); Blood,Urine 1+ (Negative); Clarity,Urine Turbid (Clear/Hazy); Color,Urine Drk-Yellow (Lt Yel-Yel); Glucose, Urine Trace (Negative); Hyaline Casts,Urine 1 /hpf (0-1); Ketones,Urine Trace (Negative); Leukocyte Esterase,Urine Positive (Negative); Nitrite,Urine Negative (Negative); PH,Urine 6.0 (5.0-7.0); Protein,Urine 1+ (Neg - Trace); RBC,Urine 15 /hpf (0-3); Specific Gravity,Urine 1.022 (1.001-1.035); Squamous Epithelial Cell,Urine 42 /hpf (0-5); Urobilinogen,Urine 12 mg/dL (0.0-1.0); WBC,Urine 9 /hpf (0-5)
[2025-04-01 23:16] LABS: Alanine Aminotransferase 46 U/L (10-49); Albumin, Serum 3.6 gm/dL (3.5-5.0); Albumin/Globulin Ratio 1.0 (1.2-2.2); Alkaline Phosphatase 151 U/L (46-116); Anion Gap 12 (7-16); Aspartate Amino Transferase 96 U/L (0-34); BUN/Creatinine Ratio 6 Ratio (12-20); Bilirubin,Total 6.0 mg/dL (0.3-1.2); Blood Urea Nitrogen 5 mg/dL (9-23); Calcium 11.6 mg/dL (8.3-10.6); Calcium (Corrected) 11.9 mg/dL (8.5-10.1); Carbon Dioxide 20.8 mMol/L (20.0-31.0); Chloride 108 mMol/L (98-107); Creatinine (Component) 0.8 mg/dL (0.6-1.3); Estimated Creatinine Clearance 84.8 mL/min (>60); Globulin 3.7 gm/dL (2.3-3.5); Glucose 94 mg/dL (74-106); Lipase 35 U/L (12-53); Osmolality,Calculated 278 (275-295); Potassium 3.0 mMol/L (3.4-5.1); Sodium 141 mMol/L (136-145); Total Protein 7.3 gm/dL (5.7-8.2); Troponin I < 0.002 ng/mL (0.0-0.045); eGFR > 60 See Note
[2025-04-01] MEDS: ONDANSETRON INJ 2 MG/ML INJ 2 ML 4 MG IVP (23:21)
[2025-04-01] MEDS: MORPHINE SULF INJ 10 MG/ML VIAL 5 MG IVP (23:22)
--- NOTE | 2025-04-02 | XR_ITS ---
MRI abdomen, without contrast. MRCP Date and time of exam: April 02, 2025 0652 hours, comparison March 05, 2025 INDICATIONS: Elevated bili ribbon on laboratory examination today, abdominal pain and cramping beginning 6 weeks ago, vomiting beginning 3 days ago, cirrhosis history, common bile duct enlargement 6 mm on ultrasound examination today Technique: Multiple axial and coronal images of the abdomen have been obtained with the Siemens 1.5T MRI scanner. Images obtained included T1 weighted transverse images, T2-weighted transverse images, T2-weighted transverse images fat-suppressed, T2 weighted haste fat suppressed transverse images, T1 weighted images, in and out of phase images, T2-weighted coronal images, breath hold, T2 weighted haze coronal images as well as T2 weighted coronal thick slab images, MRCP. Findings: Cirrhosis, liver nodular in contour with significant splenomegaly Cholelithiasis, negative for cholecystitis Enlarged common bile duct 15 mm, suspicious for impacted stone in the distal common bile duct, coronal image 15, measuring 5 mm No ascites No pancreatic mass No hydronephrosis IMPRESSION: Cirrhosis. Prominent splenomegaly Cholelithiasis, negative for cholecystitis Significant enlargement, bile duct, 15 mm Suspicious for 5 mm impacted stone in the distal common bile duct, recommend ERCP follow-up
--- NOTE | 2025-04-02 01:19 | XR_ITS ---
Examination: Abdomen sonogram, Limited Date and time of exam: April 02, 2025 0132 hours INDICATIONS: Elevated liver function tests on laboratory examination today Technique: Real-time doe scale transabdominal sonographic images of the upper abdomen obtained. Findings: Cholelithiasis. Normal gallbladder wall. Common bile duct 0.6 cm however incomplete visualization common bile duct Liver 13.3 cm fatty infiltration Normal hepatopedal portal venous flow Patent IVC IMPRESSION: Cholelithiasis, negative for cholecystitis Limited assessment of the common bile duct
[2025-04-02] MEDS: SODIUM CHLORIDE 0.9% 1000 ML 1,000 ML 999 ML IV (02:03)
[2025-04-02] MEDS: POTASSIUM CHL 10 mEq IVPB 10 MEQ/100 ML BAG 100 MEQ IV ×4 (02:04→05:32)
[2025-04-02 02:07] VITALS: BP 136/65; PULSE 95; RESP 18; TEMP 36.8; O2SAT 97
--- NOTE | 2025-04-02 02:22 | PRELIM_ITS ---
Right upper quadrant abdominal ultrasound. April 02, 2025 0132 hours Clinical history: RUQ pain, elevated LFTs Compared with prior study dated March 05, 2025 Findings: The liver measures 13.3 cm. Liver is echogenic and heterogeneous with lobulated contour, likely representing cirrhosis. No intrahepatic biliary ductal dilatation. The main portal vein is patent and demonstrates hepatopetal flow. There are portal venous varices. Echogenic foci are seen in the gallbladder, which may represent small calculi. No wall thickening or pericholecystic fluid is demonstrated. The common bile duct is mildly dilated measuring 5.6 mm. The pancreas is unremarkable to the extent visualized. The inferior vena cava is unremarkable to the extent visualized. Impression: Cholelithiasis. No wall thickening or pericholecystic fluid Mildly dilated common bile duct. No ductal calculus is demonstrated sonographically. Recommend clinical correlation and further evaluation with MRCP, if clinically indicated. Hepatic cirrhosis. Report Electronically Signed By: Eduardo Maza 04/02/2025 2:20:19 AM [EST]
[2025-04-02 05:20] VITALS: BP 126/70; PULSE 98; RESP 18; TEMP 37.2; O2SAT 98
--- NOTE | 2025-04-02 08:24 | PD.EDADDENDU ---
Emergency Room Addendum Addendum Narrative: 0600: Care assumed from Dr. Webber, the previous shift emergency physician. Past medical, surgical, social and family history reviewed. Vitals and home medications reviewed. I will assume the care of the patient at this time, pending MRCP and final disposition. Please refer to the emergency department record for history and examination from initial visit.?The following addendum documentation note is intended to reflect any pending information, findings, or radiology results not included in the patient?s initial chart. 0944: I spoke with GI Dr Sweeney. States he is not available. 1140: I spoke with transfer nurse at [facility]. Discussed patients PMHx, HPI, ED course, exam findings, labs, and radiology results. States [facility] is at capacity. 1145: I spoke with transfer nurse and GI Dr. Guzman at [facility]. Discussed patients PMHx, HPI, ED course, exam findings, labs, and radiology results. Patient has been accepted for transfer, ED to ED. RADIOLOGY Ordering Physician: Sherry Webber MD Date of Service: 04/02/25 Procedure(s): MR MRCP Accession Number(s): [id number] cc: Roseanna Palomo MD; Seng Van MD; Sherry Webber MD~ MRI abdomen, without contrast. MRCP Date and time of exam: April 02, 2025 0652 hours, comparison March 05, 2025 INDICATIONS: Elevated bili ribbon on laboratory examination today, abdominal pain and cramping beginning 6 weeks ago, vomiting beginning 3 days ago, cirrhosis history, common bile duct enlargement 6 mm on ultrasound examination today Technique: Multiple axial and coronal images of the abdomen have been obtained with the Siemens 1.5T MRI scanner. Images obtained included T1 weighted transverse images, T2-weighted transverse images, T2-weighted transverse images fat-suppressed, T2 weighted haste fat suppressed transverse images, T1 weighted images, in and out of phase images, T2-weighted coronal images, breath hold, T2 weighted haze coronal images as well as T2 weighted coronal thick slab images, MRCP. Findings: Cirrhosis, liver nodular in contour with significant splenomegaly Cholelithiasis, negative for cholecystitis Enlarged common bile duct 15 mm, suspicious for impacted stone in the distal common bile duct, coronal image 15, measuring 5 mm No ascites No pancreatic mass No hydronephrosis IMPRESSION: Cirrhosis. Prominent splenomegaly Cholelithiasis, negative for cholecystitis Significant enlargement, bile duct, 15 mm Suspicious for 5 mm impacted stone in the distal common bile duct, recommend ERCP follow-up Dictated By: Seng Van MD Signed By: <Electronically signed by Seng Van MD in [place]>04/02/25 0756
[2025-04-02 08:44] VITALS: BP 113/71; PULSE 88; RESP 20; TEMP 36.6; O2SAT 98
[2025-04-02] MEDS: MORPHINE SULF INJ 10 MG/ML VIAL 4 MG IVP (08:54)
[2025-04-02 09:48] VITALS: BP 108/80; PULSE 96; RESP 18; TEMP 36.9; O2SAT 97
--- NOTE | 2025-04-02 10:44 | PC.CC ---
Addendum entered by Itzel Oliveira RN 04/02/25 13:02: 1259: called [facility], left VM with Transport ETA for vegetable picker. transfer packet W/ X1 CD left with ED Charge nurse Derrick. Addendum entered by Itzel Oliveira RN 04/02/25 12:31: 1229: transport ETA is 1330 for vegetable picker. Informed bedside nurse Immanuel. ED track updated with transfer information Addendum entered by Itzel Oliveira RN 04/02/25 12:03: 1148: Called [facility], informed [facility] to cancel transfer request. transfer packet and x1 CD created. 1142: received call from [facility], requested to speak to Dr. Kinney. Call initiated. Dr Guzman will accept patient. 1135: Received call for Mini w/ [facility], requested to speak to Dr. Kinney. Call initiated. Mini to reach out to [facility] and call back. Addendum entered by Itzel Oliveira RN 04/02/25 11:24: 1113:called [facility], initiated transfer request w/ [facility]. Clinicals and imaging sent. Addendum entered by Itzel Oliveira RN 04/02/25 11:04: 1103: called [facility] to f/u, left VM. Original Note: 1045: Clinicals sent to [facility], x1 CD created. 1037: Received call from Dr. Fly Kinney ED, MD to request transfer. Informed, gathering clinicals currently and will send to [facility] as he requested. 1029: received transfer order timed at 1020. Called [facility] to confirm they have GI services, Maya stated they do but not sure if they can do ERCP. Request clinicals to review.
[2025-04-02 10:53] LABS: Potassium 3.7 mMol/L (3.4-5.1)
--- NOTE | 2025-04-02 11:41 | PC.NURSE ---
PATIENT SLEEPING AT TIME OF REASSESSMENT. FAMILY REMAINS AT BEDSIDE. PATIENT AND FAMILY MADE AWARE OF PLAN OF CARE.
[2025-04-02 12:12] VITALS: BP 141/92; PULSE 97; RESP 18; TEMP 36.9; O2SAT 97
== END 2025-04-02 13:30 | disposition short-term general hospital (02) ==
PROVIDERS: Emergency Medicine; Nurse Practitioner Family; Emergency Provider Emergency Medicine; PCP Internal Medicine
DX: K80.20 Calculus of gallbladder without cholecystitis without obstruction (principal); K74.60 Unspecified cirrhosis of liver; R16.1 Splenomegaly, not elsewhere classified; R94.31 Abnormal electrocardiogram [ECG] [EKG]; R06.02 Shortness of breath; K83.8 Other specified diseases of biliary tract; R18.8 Other ascites; I85.10 Secondary esophageal varices without bleeding
CPT/HCPCS: 36415; 71045; 74176; 76705; 80053; 81001; 81025; 83690; 84132; 84484; 85025; 87400; 87811; 93005; 96365; 96375; 96376; 99284; J2270; J2405; J3480; J7030; S8037; 74181

== ENCOUNTER 2025-04-18 23:34 | Emergency (ER) | payer MEDICAID, SELFPAY ==
[2025-04-18 23:35] VITALS: BMI 32.2
[2025-04-18 23:45] VITALS: BP 122/69; PULSE 77; RESP 18; TEMP 37.2; O2SAT 95
[2025-04-19] VITALS (9 sets, daily range): BP systolic 90–147; BP diastolic 51–80; PULSE 74–90; RESP 16–20; TEMP 36.5–37.2; O2SAT 95–100
--- NOTE | 2025-04-19 00:02 | PD.EDRME ---
Rapid Medical Screening Exam RME Arrival date/time: 04/18/25 23:34 44F with history of cirrhosis presents to ED with ab fullness from ascites and would like to be tapped. Patient is okay waiting here until the morning for IR to get here. Chief Complaint: Abdominal Pain Vital signs: Vital Signs Temperature 99 F 04/18/25 23:45 Pulse Rate 77 04/18/25 23:45 Respiratory Rate 18 04/18/25 23:45 Blood Pressure 122/69 04/18/25 23:45 Pulse Oximetry (%) 95 04/18/25 23:45 Oxygen Delivery Method Room Air 04/18/25 23:45
[2025-04-19 00:24] LABS: Basophils # (Auto) 0.0 Thou/mm3 (0.0-0.2); Basophils % (Auto) 1 % (0-2.5); Eosinophils # (Auto) 0.1 Thou/mm3 (0.0-0.5); Eosinophils % (Auto) 2 % (0-10); Hematocrit 34.5 % (36.0-46.0); Hemoglobin 10.8 g/dL (12.0-16.0); Immature Granulocytes Auto 0.01 Thou/mm3 (0.00-0.00); Lymphocytes # (Auto) 0.7 Thou/mm3 (1.0-4.8); Lymphocytes % (Auto) 15 % (10-50); Mean Corpuscular HGB Conc 31.3 g/dl (31.0-37.0); Mean Corpuscular Hemoglobin 33.1 pg (25.0-35.0); Mean Corpuscular Volume 106 fL (80-100); Monocytes # (Auto) 0.5 Thou/mm3 (0.0-0.8); Monocytes % (Auto) 10 % (0-12); Neutrophils # (Auto) 3.2 Thou/mm3 (1.8-7.7); Neutrophils % (Auto) 71 % (37-80); Nucleated Red Blood Cell # 0.00 Thou/mm3 (0.00-0.00); Nucleated Red Blood Cell % 0 /100 WBC (0); RDW Standard Deviation 61.8 fL (36.4-46.3); Red Blood Count 3.26 Miln/mm3 (4.00-5.20); White Blood Count 4.5 Thou/mm3 (3.6-11.0)
[2025-04-19 00:30] LABS: Platelet Count 36 Thou/mm3 (140-440)
[2025-04-19 00:39] LABS: INR 1.5 (0.9-1.3); Partial Thromboplastin Time 22.0 Seconds (22.0-36.0); Prothrombin Time 16.3 Seconds (9.0-12.2)
[2025-04-19 00:55] LABS: Alanine Aminotransferase 36 U/L (10-49); Albumin, Serum 3.3 gm/dL (3.5-5.0); Albumin/Globulin Ratio 0.9 (1.2-2.2); Alkaline Phosphatase 121 U/L (46-116); Anion Gap 8 (7-16); Aspartate Amino Transferase 101 U/L (0-34); BUN/Creatinine Ratio 8 Ratio (12-20); Bilirubin,Total 2.9 mg/dL (0.3-1.2); Blood Urea Nitrogen < 5 mg/dL (9-23); Calcium 12.0 mg/dL (8.3-10.6); Calcium (Corrected) 12.6 mg/dL (8.5-10.1); Carbon Dioxide 22.0 mMol/L (20.0-31.0); Chloride 109 mMol/L (98-107); Creatinine (Component) 0.6 mg/dL (0.6-1.3); Estimated Creatinine Clearance 108.1 mL/min (>60); Globulin 3.5 gm/dL (2.3-3.5); Glucose 84 mg/dL (74-106); Osmolality,Calculated 273 (275-295); Potassium 4.4 mMol/L (3.4-5.1); Sodium 139 mMol/L (136-145); Total Protein 6.8 gm/dL (5.7-8.2); eGFR > 60 See Note
[2025-04-19 01:40] LABS: Slide Review Platelets confirmed
[2025-04-19 02:21] LABS: Collection Type, Urine Voided
[2025-04-19 02:32] LABS: Amorphous Crystals,Urine Present (Absent); Bacteria,Urine Rare; Bilirubin,Urine Negative (Negative); Blood,Urine Negative (Negative); Clarity,Urine Turbid (Clear/Hazy); Color,Urine Yellow (Lt Yel-Yel); Culture Indicated,Urine Not Indicated; Glucose, Urine Negative (Negative); Ketones,Urine Negative (Negative); Leukocyte Esterase,Urine Negative (Negative); Nitrite,Urine Negative (Negative); PH,Urine 7.0 (5.0-7.0); Protein,Urine Negative (Neg - Trace); RBC,Urine 2 /hpf (0-3); Specific Gravity,Urine 1.010 (1.001-1.035); Squamous Epithelial Cell,Urine 3 /hpf (0-5); Urobilinogen,Urine 2.0 mg/dL (0.0-1.0); WBC,Urine 3 /hpf (0-5)
[2025-04-19] MEDS: ONDANSETRON INJ 2 MG/ML INJ 2 ML 4 MG IVP ×2 (03:12→08:10)
[2025-04-19] MEDS: MORPHINE SULF INJ 10 MG/ML VIAL 4 MG IVP (03:13)
--- NOTE | 2025-04-19 03:22 | EDNOTE_ITS ---
ED Abdominal Pain RME/HPI General Chief Complaint: Abdominal Pain Stated complaint: ABD PAIN Arrival date/time: 04/18/25 23:34 Limitations: no limitations RME / HPI RME / HPI narrative: 04/18/25 23:34 44F with history of cirrhosis presents to ED with ab fullness from ascites and would like to be tapped. Patient is okay waiting here until the morning for IR to get here. ----- Dr. Ansari's Main ED Evaluation: 44yo female with a history of cirrhosis, gallstones presents to the ED for a chief complaint of abdominal fullness. Patient reports associated nausea, but no vomiting. Patient last at [facility] at 1600 before walking here to the ED. She states she feels her symptoms are similar to when she last needed a paracentesis. No fever, chills, or any other associated symptoms. Related Data Home Medications ?Medication ?Instructions ?Recorded ?Confirmed albuterol sulfate 90 mcg/actuation 2 puff inhalation Q 6H PRN Wheezing 07/28/21 02/13/25 aerosol inhaler montelukast 10 mg tablet 10 mg PO QDAY 10/11/2302/13 (Singulair) paroxetine HCl 30 mg tablet (Paxil) 30 mg PO QDAY 09/2002/13/25 Previous Rx's ?Medication ?Instructions ?Recorded pantoprazole 40 mg tablet,delayed 40 mg PO QDAY #60 ta bs 02/15/25 release polyethylene glycol 3350 17 gram 17 g PO QDAY #100 ea 03/01/25 oral powder packet (ClearLax) Allergies Allergy/AdvReac Type Severity Reaction Status Date / Time hydrocortisone Allergy Intermediate Swelling Verified 04/01/25 20:30 of the Eye Review of Systems Review of Systems Systems Reviewed: All systems reviewed, normal except as documented Past Medical History Past Medical History NEUROLOGIC: Negative Neurological Disorders or Seizures CARDIAC: Positive Heart Murmur and Cellulitis; Negative Cardiac Disorders, Hypercholesterolemia, Congestive Heart Failure, Edema, Hypertension or Varicose Veins RESPIRATORY: Positive Asthma and Pneumonia; Negative Chronic Obstructive Pulmonary Disease (COPD), Tuberculosis or Sleep Apnea GASTROINTESTINAL: Positive Gastrointestinal Disorders, Cirrhosis, Hemorrhoids and Obesity; Negative Hepatitis, Gall Bladder Disease, Gastrointestinal Bleed, Esophageal Varices, Colorectal Cancer or Gastroesophageal Reflux Disease GENITOURINARY: Negative Genitourinary Disorders or Renal Disease REPRODUCTIVE: Positive Previous Pregnancies; Negative Breast Cancer, Endometriosis or Pelvic Inflammatory Disease MUSCULOSKELETAL: Positive Musculoskeletal Disorders and Fractures; Negative Bone Cancer or Arthritis ENDOCRINE: Negative Endocrine Disorders, Diabetes Mellitus Type 1, Diabetes Mellitus Type 2 or Hyperthyroidism HEMATOLOGIC: Positive Blood Disorders, Anemia and Clotting Problems; Negative Sickle Cell Disease PSYCHO/SOCIAL: Positive Depression and Anxiety OTHER HISTORY: Positive Hospitalization, Falls and Blood Transfusions; Negative Autoimmune Disease, Down Syndrome, Developmental Delay, Shingles, Blood Transfusion Reaction, Anesthesia Reactions, Organ Transplant, MRSA, VRSA, Vancomycin-Resistant Enterococci, Human Immunodeficiency Virus (HIV), Chicken Pox, Measles, Mumps, Rubella (Urdu Measles), Pertussis, Clostridium Difficile, Cancer, Breast Cancer, Cervical Cancer, Colorectal Cancer, Lung Cancer or Ovarian Cancer Family History FAMILY HISTORY: Positive Family Respiratory Disorders and Family Surgery; Negative Family Psychiatric Problems, Family Cardiac Disorders, Family Gastrointestinal Problems, Family Cancer or Family Anesthesia Reaction Surgical History SURGICAL: Positive Abdominal Surgery, Tubal Ligation and Section; Negative Cardiac Surgery, Pacemaker, Endocrine Surgery, Ear Surgery, Nephrectomy, Joint Replacement, Neurologic Surgery, Mastectomy, Lumpectomy, Hysterectomy or Organ Transplant Social History SMOKING STATUS: Never smoker SECOND HAND EXPOSURE: No (quit 2013) SUBSTANCE USE: does not use ED Exam General Limitations: Present no limitations General appearance: Present alert, in no apparent distress and obese Head Head exam: Present atraumatic Eye Eye exam: Present normal appearance, PERRL and EOMI ENT ENT exam: Present normal exam, normal oropharynx and mucous membranes moist Neck Neck exam: Present normal inspection, full ROM and trachea midline Chest Chest inspection: Present normal inspection and symmetric chest wall rise Respiratory Respiratory exam: Present normal lung sounds bilaterally Cardiovascular Cardiovascular exam: Present regular rate, normal rhythm and normal heart sounds Abdominal Exam Abdominal exam: Present soft; Absent tenderness or rebound Extremities Exam Extremities exam: Present normal inspection and full ROM Back Exam Back exam: Present normal inspection and full ROM Neurological Exam Neurological exam: Present alert, oriented X3 and CN II-XII intact Psychiatric Psychiatric exam: Present normal affect and normal mood Skin Skin exam: Present warm, dry, intact and normal color Course Quality Measures none Orders Category Date Time Status Insert IV NOW Care 04/19/25 00:51 Active US abdomen limited Stat Exams 04/19/25 07:00 Ordered US gall bladder Stat Exams 04/19/25 03:38 Taken US paracentesis abd w/image Stat Exams 04/19/25 07:00 Ordered CBC Stat Lab 04/19/25 00:08 Completed CMP [Comprehensive Metabolic Panel] Stat Lab 04/19/25 00:08 Completed INR [Prothrombin Time with INR] Stat Lab 04/19/25 00:08 Completed PLATELETS [Pheresis Platelets] Stat Lab 04/19/25 02:10 Results PTT [Partial Thromboplastin Time] Stat Lab 04/19/25 00:08 Completed Type and Screen Stat Lab 04/19/25 02:10 Results Urinalysis, C/S if Indicated Stat Lab 04/19/25 02:15 Completed Morphine Inj Med 04/19/25 02:54 Discontinued 4 mg IVP X1 ONE Ondansetron Inj [Zofran Inj] Med 04/19/25 02:54 Discontinued 4 mg IVP X1 ONE Vital Signs Vital signs: Vital Signs Temperature 99 F 04/18/25 23:45 Pulse Rate 77 04/18/25 23:45 Respiratory Rate 18 04/18/25 23:45 Blood Pressure 122/69 04/18/25 23:45 Pulse Oximetry (%) 95 04/18/25 23:45 Oxygen Delivery Method Room Air 04/18/25 23:45 Abdominal Pain MDM MDM Narrative MDM Narrative:: Scribe Attestation: 04/19/25 - Lianna Cheung am scribing for and in the presence of Dr. Ansari. Patient data External records reviewed:: [facility] previous records (Per chart review, patient was seen here on 04/01/25 for cholelithiasis.) Clinical information provided by:: patient Social determinants that could affect healthcare access:: none Patient has the following chronic illnesses:: cirrhosis How is presenting disease/condition affected by chronic disease/condition?: caused by Evaluation data The following diagnostics were reviewed and interpreted by me:: lab results and radiology exam(s) Lab and/or radiology exams considered but not ordered:: none Interpretation Summary: WBC normal, Platelets 36, Total Bilirubin 2.9, UA unremarkable. ------ Telerad Preliminary Report Draft Patient: LAURA RODRIGUEZ [facility]. Record#: [id number] Birthdate: 1980 Age/Sex: 44 / F Location: [facility] Attending Dr: Ordering Physician: Date of Service: Procedure(s): Accession Number(s): cc: ~ Gallbladder ultrasound. April 19, 2025 0342 hours Clinical history: RUQ pain hx gallstones . stent in place Comparison: March 05, 2025. Findings: The visualized liver demonstrates heterogeneous echotexture and increased in echogenicity. There is no hepatic mass or ductal dilatation. The main portal vein is patent and demonstrates hepatopetal flow. There are calculi in the gallbladder with posterior acoustic shadowing. The gallbladder wall thickness measures 3 mm. No pericholecystic fluid is demonstrated. The common duct is normal in caliber at 4 mm. The pancreas is unremarkable to the extent visualized . The inferior vena cava is patent to the extent visualized. No evidence of ascites. Impression: Cholelithiasis without definite sonographic evidence of acute cholecystitis. Findings suggestive of hepatic parenchymal disease. Recommend clinical correlation. Report Electronically Signed By: Radha Ramey 04/19/2025 5:03:51 AM Medications / Prescriptions Medications or Prescriptions considered but not ordered:: none Medication administrations:: Medication Administration History Discontinued Medications Morphine Sulfate (Morphine Sulf Inj 10 Mg/Ml Vial) 4 mg IVP X1 ONE Stop: 04/19/25 02:55 Last Admin: 04/19/25 03:13 Dose: 4 mg Documented By: DORIS Ondansetron HCl (Ondansetron Inj 2 Mg/Ml Inj 2 Ml) 4 mg IVP X1 ONE; Protocol Stop: 04/19/25 02:55 Last Admin: 04/19/25 03:12 Dose: 4 mg Documented By: DORIS see above Consultations Consultation(s) initiated? (list below): No Diagnosis Differential diagnosis abdominal pain: other (NSTEMI, gallstones, cystic duct stone, CBD stone) Most likely diagnosis given after review of the tests above:: pending at sign out Admission Indicated Admission indicated?: not indicated Admission Request Was there a request for admission?: No Disposition Plan Disposition Plan: other (specify) (Signed out to Dr. Vela at 0600.) Discharge Plan Prescriptions/Referrals Prescriptions/Med Rec: No Action paroxetine HCl [Paxil] 30 mg tablet 30 mg PO QDAY montelukast [Singulair] 10 mg tablet 10 mg PO QDAY albuterol sulfate 90 mcg/actuation Hfa Aerosol Inhaler 2 puff INHALATION Q6H PRN (Reason: Wheezing) pantoprazole 40 mg tablet,delayed release (DR/EC) 40 mg PO QDAY Qty: 60 0RF polyethylene glycol 3350 [ClearLax] 17 gram powder in packet 17 g PO QDAY Qty: 100 0RF Referrals: Mohsen Chavis MD [Primary Care Provider] - In 1 week Problem List Clinical Impression: Abdominal pain Patient/Caregiver Discharge Instructions Print Language: Uzbek
--- NOTE | 2025-04-19 03:38 | XR_ITS ---
Examination: Abdomen sonogram, Limited Date and time of exam: April 19, 2025 0342 hours INDICATIONS: Abdominal pain and swelling several years Technique: Real-time doe scale transabdominal sonographic images of the upper abdomen obtained. Findings: Gallstones Gallbladder wall 0.32 cm no edema Common bile duct showed 0.4 cm no stones Pancreatic head 1.9 cm Liver 15 cm fatty infiltration no focal liver lesions Normal hepatopedal portal venous flow Patent IVC IMPRESSION: Cholelithiasis, no findings diagnostic for cholecystitis
--- NOTE | 2025-04-19 05:04 | PRELIM_ITS ---
Gallbladder ultrasound. April 19, 2025 0342 hours Clinical history: RUQ pain hx gallstones . stent in place Comparison: March 05, 2025. Findings: The visualized liver demonstrates heterogeneous echotexture and increased in echogenicity. There is no hepatic mass or ductal dilatation. The main portal vein is patent and demonstrates hepatopetal flow. There are calculi in the gallbladder with posterior acoustic shadowing. The gallbladder wall thickness measures 3 mm. No pericholecystic fluid is demonstrated. The common duct is normal in caliber at 4 mm. The pancreas is unremarkable to the extent visualized. The inferior vena cava is patent to the extent visualized. No evidence of ascites. Impression: Cholelithiasis without definite sonographic evidence of acute cholecystitis. Findings suggestive of hepatic parenchymal disease. Recommend clinical correlation. Report Electronically Signed By: Radha Ramey 04/19/2025 5:03:51 AM [EST]
--- NOTE | 2025-04-19 07:00 | XR_ITS ---
Examination: Abdomen sonogram, Limited Date and time of exam: April 19, 2025 1258 hours INDICATIONS: Abdominal distention increasing ascites this week. TECHNIQUE:: Real-time ode scale transabdominal sonographic images of the upper abdomen obtained. Findings: Minimal ascitic fluid IMPRESSION: Minimal ascitic fluid
--- NOTE | 2025-04-19 07:07 | PD.EDADDENDU ---
Emergency Room Addendum Addendum Narrative: 0600: Care assumed from Dr. Jenkins, the previous shift emergency physician. Past medical, surgical, social and family history reviewed. Vitals and home medications reviewed. I will assume the care of the patient at this time, pending paracentesis and final disposition. Please refer to the emergency department record for history and examination from initial visit.?The following addendum documentation note is intended to reflect any pending information, findings, or radiology results not included in the patient?s initial chart. Ultrasound showed minimal ascitic fluids and did not have a paracentesis performed. We reviewed all the results, analysis, and treatment plans. Patient is amenable to discharge. Strict return precautions were outlined. RADIOLOGY Ordering Physician: Shaheen Snow PA-C Date of Service: 04/19/25 Procedure(s): US abdomen limited Accession Number(s): [id number] cc: Mohsen Chavis MD; Seng Van MD; Shaheen Snow PA-C~ Examination: Abdomen sonogram, Limited Date and time of exam: April 19, 2025 1258 hours INDICATIONS: Abdominal distention increasing ascites this week. TECHNIQUE:: Real-time doe scale transabdominal sonographic images of the upper abdomen obtained. Findings: Minimal ascitic fluid IMPRESSION: Minimal ascitic fluid Dictated By: Seng Van MD Signed By: <Electronically signed by Seng Van MD in [place]> 04/19/25 1144
[2025-04-19] MEDS: MORPHINE SULF INJ 10 MG/ML VIAL 2 MG IVP (08:11)
--- NOTE | 2025-04-19 08:19 | PC.NURSE ---
Upon assumption of care pt had 10/10 pain, this RN requested pain med from . Pt has platelets due, consent has not been obtained, will administer after consent is obtained.
--- NOTE | 2025-04-19 13:38 | PC.NURSE ---
pt tolerated transfusion well w/no adverse effects.
== END 2025-04-19 13:40 | disposition home or self-care (01) ==
PROVIDERS: Emergency Medicine; Physician Assistant; Emergency Provider Family Medicine; PCP Family Medicine
DX: K80.20 Calculus of gallbladder without cholecystitis without obstruction (principal); K74.60 Unspecified cirrhosis of liver; R18.8 Other ascites
CPT/HCPCS: 36415; 76705; 80053; 81001; 85025; 85610; 85730; 86850; 86900; 86901; 86965; 96374; 96375; 96376; 99283; J2270; J2405; P9035

== ENCOUNTER 2025-05-01 16:34 | Emergency (ER) | payer MEDICAID, SELFPAY ==
[2025-05-01 17:23] VITALS: BP 119/82; PULSE 88; RESP 18; TEMP 36.8; O2SAT 99; BMI 35.2
--- NOTE | 2025-05-01 17:44 | PD.EDRME ---
Rapid Medical Screening Exam RME Arrival date/time: 05/01/25 16:34 Chief Complaint: Abdominal Pain Vital signs: Vital Signs Temperature 98.2 F 05/01/25 17:23 Pulse Rate 88 05/01/25 17:23 Respiratory Rate 18 05/01/25 17:23 Blood Pressure 119/82 05/01/25 17:23 Pulse Oximetry (%) 99 05/01/25 17:23 Oxygen Delivery Method Room Air 05/01/25 17:23 Pulse ox is 99% room air Vital signs reviewed by provider: Yes RME Narrative: 44-year-old female presents to the ED with a complaint of abdominal bleeding. Patient tells me send she has has had numerous problems with the abdomen and she was admitted to [facility], a stent was inserted and her gallbladder was to have been removed. Today she tells me that she recently had started vomiting up to 3-4 times a day times the last 3 days.
--- NOTE | 2025-05-01 17:46 | XR_ITS ---
Examination: CT abdomen with intravenous contrast CT pelvis with intravenous contrast 2-D coronal reconstructions 2-D sagittal reconstructions Date and time of exam:May 01 72,025, 2027 hours, comparison April 01, 2025 INDICATIONS: Right-sided abdominal pain several years, diagnosis cirrhosis. CTDI: vol (mGy) 13.3 DLP: (mGycm) 691 Technique: Multiple axial sections of the abdomen and pelvis have been obtained. 64 slice high-resolution scanner used. 3 mm axial sections have been obtained, post intravenous injection 60 cc [id number] 2-D sagittal, coronal reconstructions obtained. Low dose protocols were performed. One or more of the following dose reduction techniques were used; automated exposure control, adjustment of the mA and/or KV according to patient size, use of iterative reconstruction technique. Findings: Cirrhosis, liver nodular in contour, 8 mm solid lesion upper right lobe of the liver image 32 Esophageal varices Trace pericardial effusion Splenomegaly Mild to moderate ascites Biliary stent satisfactory position Contracted gallbladder, cholelithiasis No pancreatic mass Perigastric varices No hydronephrosis No bowel obstruction Intact urinary bladder Moderate osteopenia IMPRESSION: Cirrhosis, esophageal and perigastric varices [id number] ascites Biliary stent in satisfactory position 8 mm right lobe liver lesion, consider MRI liver follow up and postcontrast Cholelithiasis No bowel obstruction
[2025-05-01 18:29] LABS: Basophils # (Auto) 0.0 Thou/mm3 (0.0-0.2); Basophils % (Auto) 0 % (0-2.5); Eosinophils # (Auto) 0.1 Thou/mm3 (0.0-0.5); Eosinophils % (Auto) 2 % (0-10); Hematocrit 31.8 % (36.0-46.0); Hemoglobin 10.2 g/dL (12.0-16.0); Immature Granulocytes Auto 0.01 Thou/mm3 (0.00-0.00); Lymphocytes # (Auto) 0.6 Thou/mm3 (1.0-4.8); Lymphocytes % (Auto) 23 % (10-50); Mean Corpuscular HGB Conc 32.1 g/dl (31.0-37.0); Mean Corpuscular Hemoglobin 32.5 pg (25.0-35.0); Mean Corpuscular Volume 101 fL (80-100); Monocytes # (Auto) 0.2 Thou/mm3 (0.0-0.8); Monocytes % (Auto) 7 % (0-12); Neutrophils # (Auto) 1.7 Thou/mm3 (1.8-7.7); Neutrophils % (Auto) 67 % (37-80); Nucleated Red Blood Cell # 0.00 Thou/mm3 (0.00-0.00); Nucleated Red Blood Cell % 0 /100 WBC (0); Platelet Count 89 Thou/mm3 (140-440); RDW Standard Deviation 55.4 fL (36.4-46.3); Red Blood Count 3.14 Miln/mm3 (4.00-5.20); White Blood Count 2.5 Thou/mm3 (3.6-11.0)
[2025-05-01 18:54] LABS: Alanine Aminotransferase 36 U/L (10-49); Albumin, Serum 3.3 gm/dL (3.5-5.0); Albumin/Globulin Ratio 1.0 (1.2-2.2); Alkaline Phosphatase 127 U/L (46-116); Anion Gap 10 (7-16); Aspartate Amino Transferase 80 U/L (0-34); BUN/Creatinine Ratio 7 Ratio (12-20); Bilirubin,Total 2.9 mg/dL (0.3-1.2); Blood Urea Nitrogen < 5 mg/dL (9-23); Calcium 12.3 mg/dL (8.3-10.6); Calcium (Corrected) 12.9 mg/dL (8.5-10.1); Carbon Dioxide 23.5 mMol/L (20.0-31.0); Chloride 108 mMol/L (98-107); Creatinine (Component) 0.7 mg/dL (0.6-1.3); Estimated Creatinine Clearance 97.1 mL/min (>60); Globulin 3.4 gm/dL (2.3-3.5); Glucose 92 mg/dL (74-106); Osmolality,Calculated 278 (275-295); Potassium 3.2 mMol/L (3.4-5.1); Procalcitonin 0.12 ng/ml (0.0-0.49); Sodium 141 mMol/L (136-145); Total Protein 6.7 gm/dL (5.7-8.2); eGFR > 60 See Note
[2025-05-01 19:01] LABS: Sed Rate (ESR) 20 mm/hr (0-20)
[2025-05-01 19:42] LABS: Collection Type, Urine Clean Catch; RBC,Urine 0 /hpf (0-3); WBC,Urine 0 /hpf (0-5)
[2025-05-01 20:03] LABS: Bilirubin,Urine 1+ (Negative); Blood,Urine Negative (Negative); Clarity,Urine Turbid (Clear/Hazy); Color,Urine Drk-Yellow (Lt Yel-Yel); Glucose, Urine Negative (Negative); Hyaline Casts,Urine < 1 /hpf (0-1); Ketones,Urine Negative (Negative); Leukocyte Esterase,Urine Negative (Negative); Nitrite,Urine Negative (Negative); PH,Urine 6.5 (5.0-7.0); Protein,Urine Trace (Neg - Trace); Specific Gravity,Urine 1.020 (1.001-1.035); Squamous Epithelial Cell,Urine 8 /hpf (0-5); Urobilinogen,Urine OVER mg/dL (0.0-1.0)
[2025-05-01 21:01] LABS: LDH (Lactate Dehydrogenase) 176 U/L (120-246); Lipase 21 U/L (12-53)
--- NOTE | 2025-05-01 23:59 | PD.EDABDPN ---
ED Abdominal Pain RME/HPI General Chief Complaint: Abdominal Pain Stated complaint: ABD PAIN, N/V Arrival date/time: 05/01/25 16:34 RME / HPI RME / HPI narrative: Dr. Kinney?s Main ED Evaluation: 44yo female with a history of cirrhosis presents to the ED for a chief complaint of upper abdominal pain x months . Patient has been sober from alcohol for 6-7 months and has had intermittent upper abdominal pain since, reporting it's progressively gotten worse over the last 2 days, so she came in for evaluation. She reports associated nausea, but no vomiting. Denies any other associated symptoms. Related Data Home Medications ?Medication ?Instructions ?Recorded ?Confirmed albuterol sulfate 90 mcg/actuation 2 puff inhalation Q6H PRN Wheezing 07/28/21 02/13/25 aerosol inhaler montelukast 10 mg tablet 10 mg PO QDAY 10/11/23 02/13/25 (Singulair) paroxetine HCl 30 mg tablet (Paxil) 30 mg PO QDAY 10/11/23 02/13/25 Previous Rx's ?Medication ?Instructions ?Recorded pantoprazole 40 mg tablet,delayed 40 mg PO QDAY #60 tabs 02/15/25 release polyethylene glycol 3350 17 gram 17 g PO QDAY #100 ea 03/01/25 oral powder packet (ClearLax) dicyclomine 20 mg tablet 20 mg PO QID PRN abdominal pain 05/02/25 #30 tabs Allergies Allergy/AdvReac Type Severity Reaction Status Date / Time hydrocortisone Allergy Intermediate Swelling Verified 04/01/25 20:30 of the Eye Review of Systems Review of Systems Systems Reviewed: All systems reviewed, normal except as documented Past Medical History Past Medical History NEUROLOGIC: Negative Neurological Disorders or Seizures CARDIAC: Positive Heart Murmur and Cellulitis; Negative Cardiac Disorders, Hypercholesterolemia, Congestive Heart Failure, Edema, Hypertension or Varicose Veins RESPIRATORY: Positive Asthma and Pneumonia; Negative Chronic Obstructive Pulmonary Disease (COPD), Tuberculosis or Sleep Apnea GASTROINTESTINAL: Positive Gastrointestinal Disorders, Cirrhosis, Hemorrhoids and Obesity; Negative Hepatitis, Gall Bladder Disease, Gastrointestinal Bleed, Esophageal Varices, Colorectal Cancer or Gastroesophageal Reflux Disease GENITOURINARY: Negative Genitourinary Disorders or Renal Disease REPRODUCTIVE: Positive Previous Pregnancies; Negative Breast Cancer, Endometriosis or Pelvic Inflammatory Disease MUSCULOSKELETAL: Positive Musculoskeletal Disorders and Fractures; Negative Bone Cancer or Arthritis ENDOCRINE: Negative Endocrine Disorders, Diabetes Mellitus Type 1, Diabetes Mellitus Type 2 or Hyperthyroidism HEMATOLOGIC: Positive Blood Disorders, Anemia and Clotting Problems; Negative Sickle Cell Disease PSYCHO/SOCIAL: Positive Depression and Anxiety OTHER HISTORY: Positive Hospitalization, Falls and Blood Transfusions; Negative Autoimmune Disease, Down Syndrome, Developmental Delay, Shingles, Blood Transfusion Reaction, Anesthesia Reactions, Organ Transplant, MRSA, VRSA, Vancomycin-Resistant Enterococci, Human Immunodeficiency Virus (HIV), Chicken Pox, Measles, Mumps, Rubella (Polish Measles), Pertussis, Clostridium Difficile, Cancer, Breast Cancer, Cervical Cancer, Colorectal Cancer, Lung Cancer or Ovarian Cancer Family History FAMILY HISTORY: Positive Family Respiratory Disorders and Family Surgery; Negative Family Psychiatric Problems, Family Cardiac Disorders, Family Gastrointestinal Problems, Family Cancer or Family Anesthesia Reaction Surgical History SURGICAL: Positive Abdominal Surgery, Tubal Ligation and Section; Negative Cardiac Surgery, Pacemaker, Endocrine Surgery, Ear Surgery, Nephrectomy, Joint Replacement, Neurologic Surgery, Mastectomy, Lumpectomy, Hysterectomy or Organ Transplant Social History SMOKING STATUS: Never smoker SECOND HAND EXPOSURE: No (quit 2013) SUBSTANCE USE: does not use ED Exam Narrative Physical exam: Generally patient is alert and in no obvious distress, heart regular rate and rhythm, lungs clear to auscultation equal bilaterally, abdomen shows it to be obese, diffusely tender without rebound, evidence for diastases recti, extremities show no pitting edema, neurologic exam no focal motor or sensory deficits, [place] Coma Scale 15 Course Quality Measures none Orders Category Date Time Status CT Screening NOW Care 05/01/25 17:[address] Screening X1 Care 05/01/25 17:[address] abdomen pelvis w con Stat Exams 05/01/25 17:46 Completed CBC Stat Lab 05/01/25 18:10 Completed Comprehensive Metabolic Panel Stat Lab 05/01/25 18:10 Completed LDH (Lactate Dehydrogenase) Stat Lab 05/01/25 18:10 Completed Lipase Stat Lab 05/01/25 18:10 Completed Procalcitonin Stat Lab 05/01/25 18:10 Completed Sed Rate (ESR) Stat Lab 05/01/25 18:10 Completed Urinalysis Stat Lab 05/01/25 18:30 Completed Vital Signs Vital signs: Vital Signs Temperature 98.2 F 05/01/25 17:23 Pulse Rate 88 05/01/25 17:23 Respiratory Rate 18 05/01/25 17:23 Blood Pressure 119/82 05/01/25 17:23 Pulse Oximetry (%) 99 05/01/25 17:23 Oxygen Delivery Method Room Air 05/01/25 17:23 Abdominal Pain MDM MDM Narrative MDM Narrative:: Scribe Attestation: 05/01/25 - Lianna Cheung am scribing for and in the presence of Dr. Kinney. I reviewed the patient's workup including CT scan. I do not believe this patient to have spontaneous bacterial peritonitis. She does have gallstones without Stefan cholecystic fluid or wall thickening. Calcium is high. It was high on her last visit approximately 1 week ago. She will need to keep an eye on this and this was stressed to the patient. Patient also has a right liver lobe mass and that was brought to the attention of the patient as well. Patient may be having pain from her gallstones. She is an alcoholic and last drink 7 months ago. She is to continue to refrain from drinking alcohol. She is in the process of finding a primary care physician. Patient will be referred to the [facility] for follow-up. Patient data External records reviewed:: [facility] previous records (Per chart review, patient was seen here on 01/17/25 for abdominal pain.) Clinical information provided by:: patient Social determinants that could affect healthcare access:: none Patient has the following chronic illnesses:: cirrhosis How is presenting disease/condition affected by chronic disease/condition?: uneffected by Evaluation data The following diagnostics were reviewed and interpreted by me:: lab results and radiology exam(s) Lab and/or radiology exams considered but not ordered:: none Interpretation Summary: [facility] Report Signed Patient: LAURA RODRIGUEZ [facility] Record#: [id number] Birthdate: 1980 Age/Sex: 44 / F Location: [facility] Attending Dr: Ordering Physician: Nikolai Dey PA-C Date of Service: 05/01/25 Procedure(s): CT abdomen pelvis w con Accession Number(s): [id number] cc: Seng Van MD; Nikolai Dey PA-C; NO PRIMARY/FAMILY,PHYSICIAN~ Examination: CT abdomen with intravenous contrast CT pelvis with intravenous contrast 2-D coronal reconstructions 2-D sagittal reconstructions Date and time of exam:May 01 72,025, 2027 hours, comparison April 01, 2025 INDICATIONS: Right-sided abdominal pain several years, diagnosis cirrhosis. CTDI: vol (mGy) 13.3 DLP: (mGycm) 691 Technique: Multiple axial sections of the abdomen and pelvis have been obtained. 64 slice high-resolution scanner used. 3 mm axial sections have been obtained, post intravenous injection 60 cc [id number] 2-D sagittal, coronal reconstructions obtained. Low dose protocols were performed. One or more of the following dose reduction techniques were used; automated exposure control, adjustment of the mA and/or KV according to patient size, use of iterative reconstruction technique. Findings: Cirrhosis, liver nodular in contour, 8 mm solid lesion upper right lobe of the liver image 32 Esophageal varices Trace pericardial effusion Splenomegaly Mild to moderate ascites Biliary stent satisfactory position Contracted gallbladder, cholelithiasis No pancreatic mass Perigastric varices No hydronephrosis No bowel obstruction Intact urinary bladder Moderate osteopenia IMPRESSION: Cirrhosis, esophageal and perigastric varices [id number] ascites Biliary stent in satisfactory position 8 mm right lobe liver lesion, consider MRI liver follow up and postcontrast Cholelithiasis No bowel obstruction Dictated By: Seng Van MD Signed By: <Electronically signed by Seng Van MD in OV> 05/01/25 1436 Medications / Prescriptions Medications or Prescriptions considered but not ordered:: none Medication administrations:: see above, if any Consultations Consultation(s) initiated? (list below): No Diagnosis Differential diagnosis abdominal pain: other (See MDM.) Most likely diagnosis given after review of the tests above:: see clinical impression below Admission Indicated Admission indicated?: not indicated Admission Request Was there a request for admission?: No Disposition Plan Disposition Plan: Discharge Discharge Attestation Discharge Attestation: The patient and all family members were given an opportunity to ask questions and understood the discharge instructions. Discharge instructions specifically effects, indications for sooner follow up or return to the emergency department, and the expected course of current diagnosis. Patient condition: Stable Discharge Plan Plan Patient Disposition: HOME (Self Care) Prescriptions/Referrals Prescriptions/Med Rec: New dicyclomine 20 mg tablet 20 mg PO QID PRN (Reason: abdominal pain) Qty: 30 0RF No Action paroxetine HCl [Paxil] 30 mg tablet 30 mg PO QDAY montelukast [Singulair] 10 mg tablet 10 mg PO QDAY albuterol sulfate 90 mcg/actuation Hfa Aerosol Inhaler 2 puff INHALATION Q6H PRN (Reason: Wheezing) pantoprazole 40 mg tablet,delayed release (DR/EC) 40 mg PO QDAY Qty: 60 0RF polyethylene glycol 3350 [ClearLax] 17 gram powder in packet 17 g PO QDAY Qty: 100 0RF Referrals: No Primary/Family,Physician [Primary Care Provider] - In 1 week Problem List Clinical Impression: Abdominal pain, Cholelithiasis, Lesion of liver, Hypercalcemia Patient/Caregiver Discharge Instructions Education Materials: Abdominal Pain, Hypercalcemia Dc, ED Gallstones with Biliary Colic Additional Instructions: Obtain a primary care physician. Bentyl as prescribed. Refrain from drinking alcohol. Print Language: Occitan Stand Alone Forms: Nicole Award Info., Patient Portal Info Letter
[2025-05-02 00:07] VITALS: BP 124/52; PULSE 66; RESP 24; TEMP 37.2; O2SAT 100
== END 2025-05-02 01:23 | disposition home or self-care (01) ==
PROVIDERS: Physician Assistant; Emergency Provider Family Medicine
DX: K80.70 Calculus of gallbladder and bile duct without cholecystitis without obstruction (principal); K74.60 Unspecified cirrhosis of liver; E83.52 Hypercalcemia; R18.8 Other ascites
CPT/HCPCS: 36415; 74177; 80053; 81001; 83615; 83690; 84145; 85025; 85652; 99283; A4649; Q9967

== ENCOUNTER 2025-05-14 14:15 | Emergency (ER) | payer MEDICAID, SELFPAY ==
[2025-05-14 14:17] VITALS: PULSE 98; RESP 16; O2SAT 97
[2025-05-14 15:15] VITALS: BP 119/80; PULSE 86; RESP 16; TEMP 37.1; O2SAT 100
--- NOTE | 2025-05-14 15:21 | EKG_ITS ---
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
--- NOTE | 2025-05-14 15:21 | XR_ITS ---
Examination: CT brain head without contrast. 2-D sagittal coronal reconstructions Date and time of exam:May 14 thousand 25, 1700 hours, comparison September 01, 2023 INDICATIONS: Injury to the head today, head pain CTDI: vol (mGy):48 DLP: (mGycm):1016 Technique: Multiple CT axial sections of the brain have been obtained, 5 mm slice thickness. Contrast has not been administered. 2-D sagittal, coronal reconstructions have been obtained Low dose protocols were performed. One or more of the following dose reduction techniques were used; automated exposure control, adjustment of the mA and/or KV according to patient size, use of iterative reconstruction technique. Findings: No significant ventricular enlargement. Intra-axial or extra-axial hemorrhage density is not seen. No mass effect or midline shift Basal cisterns are not remarkable. Fourth ventricle is midline. Cranial vault intact. Impression: Negative for acute hemorrhage, mass effect or midline shift
--- NOTE | 2025-05-14 15:21 | EDNOTE_ITS ---
ED Dizzyness RME/HPI General Chief Complaint: Dizziness Stated Complaint: DIZZY, FALL, NOT SURE IF SHE HIT HER HEAD Time Seen by Provider: 05/14/25 15:16 Source: patient Arrival date/time: 05/14/25 14:15 44-year-old female with a history of end-stage liver disease, presents to the emergency room with a chief complaint of a ground-level fall that occurred this morning while trying to cross the road. Patient states she hit her head and since the incident she has had a headache as well as some dizziness. Mode of arrival: ambulatory Limitations: no limitations Related Data Home Medications ?Medication ?Instructions ?Recorded ?Confirmed albuterol sulfate 90 mcg/actuation 2 puff inhalation Q 6H PRN Wheezing 07/28/21 02/13/25 aerosol inhaler montelukast 10 mg tablet 10 mg PO QDAY 10/11/2302/13 (Singulair) paroxetine HCl 30 mg tablet (Paxil) 30 mg PO QDAY 09/2002/13/25 Previous Rx's ?Medication ?Instructions ?Recorded pantoprazole 40 mg tablet,delayed 40 mg PO QDAY #60 ta bs 02/15/25 release polyethylene glycol 3350 17 gram 17 g PO QDAY #100 ea 03/01/25 oral powder packet (ClearLax) dicyclomine 20 mg tablet 20 mg PO QID PRN abdominal p ain 05/02/25 #30 tabs Allergies Allergy/AdvReac Type Severity Reaction Status Date / Time hydrocortisone Allergy Intermediate Swelling Verified 05/14/25 14:20 of the Eye Review of Systems Review of Systems Systems Reviewed: All systems reviewed, normal except as documented Constitutional Constitutional: Reports system reviewed and no additional complaints, except as documented, Denies fatigue, Denies fever(s), Reports headache(s) and Reports weakness Eyes Eyes: Reports system reviewed and no additional complaints, except as documented, Denies blurry vision and Denies change in vision ENT Ears, Nose, Mouth, and Throat: Reports system reviewed and no additional complaints, except as documented, Reports dizziness, Denies otalgia, Reports headache(s), Denies nasal congestion, Denies throat swelling and Denies vertigo Cardiovascular Cardiovascular: Reports system reviewed and no additional complaints, except as documented, Denies chest pain, Denies dyspnea and Denies dyspnea on exertion Respiratory Respiratory: Reports system reviewed and no additional complaints, except as documented, Denies chest congestion, Denies cough, Denies dyspnea, Denies dyspnea on exertion and Denies wheezing Gastrointestinal Gastrointestinal: Reports system reviewed and no additional complaints, except as documented, Denies abdominal pain, Denies cramping, Denies nausea and Denies vomiting Genitourinary Genitourinary: Reports system reviewed and no additional complaints, except as documented Musculoskeletal Musculoskeletal: Reports system reviewed and no additional complaints, except as documented and Denies back pain Integumentary/Breasts Skin/Breast: Reports system reviewed and no additional complaints, except as documented and Denies wounds Neurologic Neurologic: Reports system reviewed and no additional complaints, except as documented, Denies confusion, Reports dizziness, Reports headache(s), Denies lack of coordination, Denies vertigo and Reports weakness Psychiatric Psychiatric: Reports system reviewed and no additional complaints, except as documented, Denies anxiety, Denies confusion, Denies depression, Denies paranoia, Denies suicidal ideation and Denies tactile hallucinations Endocrine Endocrine: Reports system reviewed and no additional complaints, except as documented and Denies fatigue Hematologic/Lymphatic Hematologic/Lymphatic: Reports system reviewed and no additional complaints, except as documented and Denies lymphadenopathy Allergic/Immunologic Allergic/Immunologic: Reports system reviewed and no additional complaints, except as documented, Denies throat swelling, Denies urticaria and Denies wheezing Past Medical History Past Medical History NEUROLOGIC: Negative Neurological Disorders or Seizures CARDIAC: Positive Heart Murmur and Cellulitis; Negative Cardiac Disorders, Hypercholesterolemia, Congestive Heart Failure, Edema, Hypertension or Varicose Veins RESPIRATORY: Positive Asthma and Pneumonia; Negative Chronic Obstructive Pulmonary Disease (COPD), Tuberculosis or Sleep Apnea GASTROINTESTINAL: Positive Gastrointestinal Disorders, Cirrhosis, Hemorrhoids and Obesity; Negative Hepatitis, Gall Bladder Disease, Gastrointestinal Bleed, Esophageal Varices, Colorectal Cancer or Gastroesophageal Reflux Disease GENITOURINARY: Negative Genitourinary Disorders or Renal Disease REPRODUCTIVE: Positive Previous Pregnancies; Negative Breast Cancer, Endometriosis or Pelvic Inflammatory Disease MUSCULOSKELETAL: Positive Musculoskeletal Disorders and Fractures; Negative Bone Cancer or Arthritis ENDOCRINE: Negative Endocrine Disorders, Diabetes Mellitus Type 1, Diabetes Mellitus Type 2 or Hyperthyroidism HEMATOLOGIC: Positive Blood Disorders, Anemia and Clotting Problems; Negative Sickle Cell Disease PSYCHO/SOCIAL: Positive Depression and Anxiety OTHER HISTORY: Positive Hospitalization, Falls and Blood Transfusions; Negative Autoimmune Disease, Down Syndrome, Developmental Delay, Shingles, Blood Transfusion Reaction, Anesthesia Reactions, Organ Transplant, MRSA, VRSA, Vancomycin-Resistant Enterococci, Human Immunodeficiency Virus (HIV), Chicken Pox, Measles, Mumps, Rubella ([place] Measles), Pertussis, Clostridium Difficile, Cancer, Breast Cancer, Cervical Cancer, Colorectal Cancer, Lung Cancer or Ovarian Cancer Family History FAMILY HISTORY: Positive Family Respiratory Disorders and Family Surgery; Negative Family Psychiatric Problems, Family Cardiac Disorders, Family Gastrointestinal Problems, Family Cancer or Family Anesthesia Reaction Surgical History SURGICAL: Positive Abdominal Surgery, Tubal Ligation and Section; Negative Cardiac Surgery, Pacemaker, Endocrine Surgery, Ear Surgery, Nephrectomy, Joint Replacement, Neurologic Surgery, Mastectomy, Lumpectomy, Hysterectomy or Organ Transplant Social History SMOKING STATUS: Former smoker SECOND HAND EXPOSURE: No (quit 2013) SUBSTANCE USE: does not use ED Exam General Limitations: Present no limitations General appearance: Present alert and in no apparent distress Head Head exam: Present atraumatic Eye Eye exam: Present normal appearance, PERRL and EOMI ENT ENT exam: Present normal exam, normal oropharynx and mucous membranes moist Neck Neck exam: Present normal inspection, full ROM and trachea midline Chest Chest inspection: Present normal inspection and symmetric chest wall rise Respiratory Respiratory exam: Present normal lung sounds bilaterally Cardiovascular Cardiovascular exam: Present regular rate, normal rhythm and normal heart sounds Abdominal Exam Abdominal exam: Present soft and normal bowel sounds Extremities Exam Extremities exam: Present normal inspection and full ROM Back Exam Back exam: Present normal inspection and full ROM Neurological Exam Neurological exam: Present alert, oriented X3 and CN II-XII intact Psychiatric Psychiatric exam: Present normal affect and normal mood Skin Skin exam: Present warm, dry, intact and normal color Course Quality Measures none Orders Category Date Time Status EKG (ED ONLY) *Do not use* NOW Care 05/14/25 15:[address] head/brain wo con Stat Exams 05/14/25 15:21 Completed EKG (ED Only) Stat Exams 05/14/25 15:21 Draft B-Type Natriuretic Peptide Stat Lab 05/14/25 15:38 Completed CBC Stat Lab 05/14/25 15:38 Completed Comprehensive Metabolic Panel Stat Lab 05/14/25 15:38 Completed Magnesium Stat Lab 05/14/25 15:38 Completed Troponin I Stat Lab 05/14/25 15:38 Completed Vital Signs Vital signs: Vital Signs Temperature 98.8 F 05/14/25 15:15 Pulse Rate 86 05/14/25 15:15 Respiratory Rate 16 05/14/25 15:15 Blood Pressure 119/80 05/14/25 15:15 Pulse Oximetry (%) 100 05/14/25 15:15 Oxygen Delivery Method Room Air 05/14/25 15:15 O2 saturation 100% within normal limits Dizziness MDM Narrative MDM Narrative:: 44-year-old female with a history of end-stage liver disease, presents to the emergency room with a chief complaint of a ground-level fall that occurred this morning while trying to cross the road. Patient states she hit her head and since the incident she has had a headache as well as some dizziness. Patient is hemodynamically stable and in no apparent distress Physical examination shows a normal neurological exam. Pupils are PERRLA EOMs are intact the patient is a GCS of 15 alert and oriented x 3. Patient has a normal steady gait CT of the head and brain was completed and was negative for any acute findings. CBC CMP was within normal limits. Troponin was negative EKG was within normal limits Patient was discharged and educated to follow-up with primary care provider in the next 24 to 48 hours and return to the emergency room for any evidence of worsening signs or symptoms Patient data External records reviewed:: [facility] previous records Clinical information provided by:: patient Social determinants that could affect healthcare access:: none Patient has the following chronic illnesses:: No chronic illness How is presenting disease/condition affected by chronic disease/condition?: no chronic disease Evaluation data The following diagnostics were reviewed and interpreted by me:: lab results and radiology exam(s) Lab and/or radiology exams considered but not ordered:: Labs and radiology exams considered and ordered Interpretation Summary: Findings: No significant ventricular enlargement. Intra-axial or extra-axial hemorrhage density is not seen. No mass effect or midline shift Basal cisterns are not remarkable. Fourth ventricle is midline. Cranial vault intact. Impression: Negative for acute hemorrhage, mass effect or midline shift Medications / Prescriptions Medications or Prescriptions considered but not ordered:: no medication give Medication administrations:: no medication given Consultations Consultation(s) initiated? (list below): No Diagnosis Dizziness Differential Diagnosis: adverse reaction to drug, benign paroxysmal positional vertigo, orthostatic hypotension and other (dizziness) Most likely diagnosis given after review of the tests above:: dizziness Admission Indicated Admission indicated?: not indicated Admission Request Was there a request for admission?: No Disposition Plan Disposition Plan: Discharge Discharge Attestation Discharge Attestation: The patient and all family members were given an opportunity to ask questions and understood the discharge instructions. Discharge instructions specifically effects, indications for sooner follow up or return to the emergency department, and the expected course of current diagnosis. Patient condition: Stable Discharge Plan Plan Patient Disposition: HOME (Self Care) Discharge Disposition comment: Stable Prescriptions/Referrals Prescriptions/Med Rec: No Action paroxetine HCl [Paxil] 30 mg tablet 30 mg PO QDAY montelukast [Singulair] 10 mg tablet 10 mg PO QDAY albuterol sulfate 90 mcg/actuation Hfa Aerosol Inhaler 2 puff INHALATION Q6H PRN (Reason: Wheezing) pantoprazole 40 mg tablet,delayed release (DR/EC) 40 mg PO QDAY Qty: 60 0RF polyethylene glycol 3350 [ClearLax] 17 gram powder in packet 17 g PO QDAY Qty: 100 0RF dicyclomine 20 mg tablet 20 mg PO QID PRN (Reason: abdominal pain) Qty: 30 0RF Referrals: Mohsen Chavis MD [Primary Care Provider] - In 1 week Problem List Clinical Impression: Dizziness Patient/Caregiver Discharge Instructions Education Materials: Dizziness Balance Probs Fainting Additional Instructions: Please follow-up with your primary care provider in the next 24 to 48 hours Your cardiac examination was within normal limits. Your EKG was within normal limits. For any evidence of worsening signs or symptoms return to the emergency room immediately Print Language: Jordanian Stand Alone Forms: Nicole Award Info., Patient Portal Info Letter PA/FRETTED INSTRUMENT INSPECTOR Supervising Physician PA/FRETTED INSTRUMENT INSPECTOR Supervising Physician: Dr. Dueñas
[2025-05-14 16:02] LABS: Basophils # (Auto) 0.0 Thou/mm3 (0.0-0.2); Basophils % (Auto) 0 % (0-2.5); Eosinophils # (Auto) 0.1 Thou/mm3 (0.0-0.5); Eosinophils % (Auto) 1 % (0-10); Hematocrit 36.9 % (36.0-46.0); Hemoglobin 12.1 g/dL (12.0-16.0); Immature Granulocytes Auto 0.01 Thou/mm3 (0.00-0.00); Lymphocytes # (Auto) 0.7 Thou/mm3 (1.0-4.8); Lymphocytes % (Auto) 14 % (10-50); Mean Corpuscular HGB Conc 32.8 g/dl (31.0-37.0); Mean Corpuscular Hemoglobin 32.3 pg (25.0-35.0); Mean Corpuscular Volume 98 fL (80-100); Monocytes # (Auto) 0.6 Thou/mm3 (0.0-0.8); Monocytes % (Auto) 12 % (0-12); Neutrophils # (Auto) 3.6 Thou/mm3 (1.8-7.7); Neutrophils % (Auto) 73 % (37-80); Nucleated Red Blood Cell # 0.00 Thou/mm3 (0.00-0.00); Nucleated Red Blood Cell % 0 /100 WBC (0); Platelet Count 107 Thou/mm3 (140-440); RDW Standard Deviation 52.1 fL (36.4-46.3); Red Blood Count 3.75 Miln/mm3 (4.00-5.20); White Blood Count 5.0 Thou/mm3 (3.6-11.0)
[2025-05-14 16:18] LABS: B-Type Natriuretic Peptide < 20 pg/mL (0-100)
[2025-05-14 16:20] LABS: Alanine Aminotransferase 37 U/L (10-49); Albumin, Serum 3.5 gm/dL (3.5-5.0); Albumin/Globulin Ratio 1.0 (1.2-2.2); Alkaline Phosphatase 162 U/L (46-116); Anion Gap 11 (7-16); Aspartate Amino Transferase 84 U/L (0-34); BUN/Creatinine Ratio 6 Ratio (12-20); Bilirubin,Total 4.9 mg/dL (0.3-1.2); Blood Urea Nitrogen < 5 mg/dL (9-23); Carbon Dioxide 22.9 mMol/L (20.0-31.0); Chloride 106 mMol/L (98-107); Creatinine (Component) 0.8 mg/dL (0.6-1.3); Globulin 3.6 gm/dL (2.3-3.5); Glucose 83 mg/dL (74-106); Magnesium 1.7 mg/dL (1.6-2.6); Osmolality,Calculated 275 (275-295); Potassium 3.1 mMol/L (3.4-5.1); Sodium 140 mMol/L (136-145); Total Protein 7.1 gm/dL (5.7-8.2); Troponin I < 0.020 ng/mL (0.0-0.045); eGFR > 60 See Note
[2025-05-14 16:23] LABS: Calcium 11.9 mg/dL (8.3-10.6); Calcium (Corrected) 12.3 mg/dL (8.5-10.1)
[2025-05-14 17:54] VITALS: BP 147/69; PULSE 90; RESP 16; TEMP 36.8; O2SAT 95
== END 2025-05-14 18:01 | disposition home or self-care (01) ==
PROVIDERS: Nurse Practitioner Family; Emergency Provider Emergency Medicine; PCP Family Medicine
DX: R42 Dizziness and giddiness (principal); S09.90XA Unspecified injury of head, initial encounter; W18.30XA Fall on same level, unspecified, initial encounter
CPT/HCPCS: 36415; 70450; 80053; 80307; 81001; 83735; 83880; 84484; 85025; 93005; 99283

== ENCOUNTER 2025-05-26 13:24 | Emergency (ER) | payer MEDICAID, SELFPAY ==
[2025-05-26 13:26] VITALS: BMI 33.2
[2025-05-26 13:35] VITALS: BP 144/91; PULSE 100; RESP 18; TEMP 37.3; O2SAT 97
--- NOTE | 2025-05-26 14:51 | XR_ITS ---
Examination: Lumbar spine 3 views Technique: AP lateral coned lateral lower lumbar spine 3 views Date and time: May 26, 2025, 1705 hrs. Indications: Injury to lower back one week ago with lower back pain. Findings: Biliary stent satisfactory position. Satisfactory alignment lumbar vertebral bodies. No lumbar fracture. Mild to moderate disc narrowing L4-L5 Impression: No lumbar fracture
--- NOTE | 2025-05-26 14:51 | XR_ITS ---
Examination: Thoracic spine 3 views Technique : AP lateral coned lateral upper dorsal spine 3 views Date and time: May 26, 2025, 07 0204 hrs. Indications: Injury to the upper back one week ago, upper back pain. Findings: No fracture or dislocation. No foreign body Impression: No acute fracture
--- NOTE | 2025-05-26 14:53 | PD.EDRME ---
Rapid Medical Screening Exam E Arrival date/time: 05/26/25 13:24 This is a 44-year-old female that comes into the emergency room with multiple complaints. Patient states she feels off. Patient states she feels lethargic. Patient reports pain everywhere but particularly more to her right upper quadrant that radiates to her back she also complains of left flank pain. Patient states that she was seen here recently because of a fall that happened in the middle of the street. Patient states she fell and hurt her upper and lower back. Patient complains of nausea vomiting denies diarrhea. Patient has a history of gallstones, cirrhosis. I have greeted and performed a focused initial assessment of this patient. Initial appropriate labs ordered at this time. A comprehensive ED assessment and evaluation of the patient and analysis of all test and completion of medical decision making process will be conducted by additional ED provider. Chief Complaint: General Adult/Misc Complain Time Seen by Provider: 05/26/25 14:13 Vital signs: Vital Signs Temperature 99.1 F 05/26/25 13:35 Pulse Rate 100 05/26/25 13:35 Respiratory Rate 18 05/26/25 13:35 Blood Pressure 144/91 H 05/26/25 13:35 Pulse Oximetry (%) 97 05/26/25 13:35 Oxygen Delivery Method Room Air 05/26/25 13:35
[2025-05-26 15:23] LABS: Basophils # (Auto) 0.0 Thou/mm3 (0.0-0.2); Basophils % (Auto) 1 % (0-2.5); Eosinophils # (Auto) 0.1 Thou/mm3 (0.0-0.5); Eosinophils % (Auto) 1 % (0-10); Hematocrit 33.2 % (36.0-46.0); Hemoglobin 10.8 g/dL (12.0-16.0); Immature Granulocytes Auto 0.02 Thou/mm3 (0.00-0.00); Lymphocytes # (Auto) 0.7 Thou/mm3 (1.0-4.8); Lymphocytes % (Auto) 12 % (10-50); Mean Corpuscular HGB Conc 32.5 g/dl (31.0-37.0); Mean Corpuscular Hemoglobin 32.4 pg (25.0-35.0); Mean Corpuscular Volume 100 fL (80-100); Monocytes # (Auto) 0.6 Thou/mm3 (0.0-0.8); Monocytes % (Auto) 10 % (0-12); Neutrophils # (Auto) 4.3 Thou/mm3 (1.8-7.7); Neutrophils % (Auto) 76 % (37-80); Nucleated Red Blood Cell # 0.00 Thou/mm3 (0.00-0.00); Nucleated Red Blood Cell % 0 /100 WBC (0); Platelet Count 103 Thou/mm3 (140-440); RDW Standard Deviation 50.9 fL (36.4-46.3); Red Blood Count 3.33 Miln/mm3 (4.00-5.20); White Blood Count 5.7 Thou/mm3 (3.6-11.0)
[2025-05-26 15:58] LABS: Alanine Aminotransferase 27 U/L (10-49); Albumin, Serum 3.5 gm/dL (3.5-5.0); Albumin/Globulin Ratio 1.0 (1.2-2.2); Alkaline Phosphatase 165 U/L (46-116); Anion Gap 15 (7-16); Aspartate Amino Transferase 70 U/L (0-34); BUN/Creatinine Ratio 5 Ratio (12-20); Bilirubin,Total 4.7 mg/dL (0.3-1.2); Blood Urea Nitrogen 5 mg/dL (9-23); Calcium 12.6 mg/dL (8.3-10.6); Calcium (Corrected) 13.0 mg/dL (8.5-10.1); Carbon Dioxide 22.1 mMol/L (20.0-31.0); Chloride 103 mMol/L (98-107); Creatinine (Component) 1.0 mg/dL (0.6-1.3); Estimated Creatinine Clearance 65.9 mL/min (>60); Globulin 3.5 gm/dL (2.3-3.5); Glucose 104 mg/dL (74-106); Osmolality,Calculated 276 (275-295); Potassium 2.8 mMol/L (3.4-5.1); Sodium 140 mMol/L (136-145); Total Protein 7.0 gm/dL (5.7-8.2); eGFR > 60 See Note
[2025-05-26 16:09] LABS: Collection Type, Urine Voided
[2025-05-26 16:25] LABS: Bilirubin,Urine 1+ (Negative); Blood,Urine Negative (Negative); Color,Urine Drk-Yellow (Lt Yel-Yel); Culture Indicated,Urine Not Indicated; Glucose, Urine Negative (Negative); Hyaline Casts,Urine 1 /hpf (0-1); Ketones,Urine Negative (Negative); Leukocyte Esterase,Urine Positive (Negative); Nitrite,Urine Negative (Negative); PH,Urine 6.0 (5.0-7.0); Protein,Urine 1+ (Neg - Trace); RBC,Urine 3 /hpf (0-3); Specific Gravity,Urine 1.020 (1.001-1.035); Squamous Epithelial Cell,Urine 4 /hpf (0-5); Urobilinogen,Urine OVER mg/dL (0.0-1.0); WBC,Urine 9 /hpf (0-5)
[2025-05-26 16:34] LABS: Amphetamine/Methamp Scrn,U Negative (Negative); Barbiturate Screen,Urine Negative (Negative); Benzodiazepines Screen,Urine Negative (Negative); Benzoylecgonine Screen, Ur Negative (Negative); Fentanyl Screen,Urine Negative (Negative); Opiate Screen,Urine Negative (Negative); THC Screen,Urine Positive (Negative)
[2025-05-26 16:39] LABS: Clarity,Urine Hazy (Clear/Hazy)
[2025-05-26 16:56] LABS: HCG Qualitative,Urine Negative
--- NOTE | 2025-05-26 20:53 | EDNOTE_ITS ---
ED General RME/HPI General Chief complaint: General Adult/Misc Complain Stated complaint: GENERALIZED PAIN x 1 WEEK Time Seen by Provider: 05/26/25 14:13 Arrival date/time: 05/26/25 13:24 CC: Upper abdominal pain ongoing for the past 2 days. The patient also stating that most of her medications including her paroxetine need to be refilled. The patient states she has not follow-up with her PCP. Patient denies any vomiting but states she is nauseated although the patient is resting comfortably with stable vital signs. Patient denies chest pain fever chills or shortness of breath. No other complaints at this time. RME / HPI RME / HPI narrative: 05/26/25 13:24 This is a 44-year-old female that comes into the emergency room with multiple complaints. Patient states she feels off. Patient states she feels lethargic. Patient reports pain everywhere but particularly more to her right upper quadrant that radiates to her back she also complains of left flank pain. Patient states that she was seen here recently because of a fall that happened in the middle of the street. Patient states she fell and hurt her upper and lower back. Patient complains of nausea vomiting denies diarrhea. Patient has a history of gallstones, cirrhosis. I have greeted and performed a focused initial assessment of this patient. Initial appropriate labs ordered at this time. A comprehensive ED assessment and evaluation of the patient and analysis of all test and completion of medical decision making process will be conducted by additional ED provider. Related Data Home Medications ?Medication ?Instructions ?Recorded ?Confirmed albuterol sulfate 90 mcg/actuation 2 puff inhalation Q 6H PRN Wheezing 07/28/21 02/13/25 aerosol inhaler montelukast 10 mg tablet 10 mg PO QDAY 10/11/2302/13 (Singulair) paroxetine HCl 30 mg tablet (Paxil) 30 mg PO QDAY 09/2002/13/25 Previous Rx's ?Medication ?Instructions ?Recorded pantoprazole 40 mg tablet,delayed 40 mg PO QDAY #60 ta bs 02/15/25 release polyethylene glycol 3350 17 gram 17 g PO QDAY #100 ea 03/01/25 oral powder packet (ClearLax) dicyclomine 20 mg tablet 20 mg PO QID PRN abdominal p ain 05/02/25 #30 tabs ondansetron 4 mg disintegrating 4 mg PO Q8H #10 tabs 0 05/26/25 tablet Allergies Allergy/AdvReac Type Severity Reaction Status Date / Time hydrocortisone Allergy Severe Swelling Verified 05/26/25 13:28 of the Eye Review of Systems Review of Systems Narrative Review of Systems: GEN: No fever, no chills, no weight loss EYES: No discharge, no visual changes, no pain HEENT: No ear pain, no congestion, no sore throat PULM: No shortness of breath, no cough, no congestion CV: No chest pain, no dyspnea on exertion, no palpitations GI: No nausea, no vomiting, no diarrhea, + pain, no constipation : No frequency, no urgency, no dysuria MUSC/SKEL: No joint pain, no back pain SKIN: No rash PSYCH: No hallucinations, no depression HEME/LYMPH: No easy bleeding or bruising tendencies NEURO: No weakness, no headache Past Medical History Past Medical History NEUROLOGIC: Negative Neurological Disorders or Seizures CARDIAC: Positive Heart Murmur and Cellulitis; Negative Cardiac Disorders, Hypercholesterolemia, Congestive Heart Failure, Edema, Hypertension or Varicose Veins RESPIRATORY: Positive Asthma and Pneumonia; Negative Chronic Obstructive Pulmonary Disease (COPD), Tuberculosis or Sleep Apnea GASTROINTESTINAL: Positive Gastrointestinal Disorders, Cirrhosis, Hemorrhoids and Obesity; Negative Hepatitis, Gall Bladder Disease, Gastrointestinal Bleed, Esophageal Varices, Colorectal Cancer or Gastroesophageal Reflux Disease GENITOURINARY: Negative Genitourinary Disorders or Renal Disease REPRODUCTIVE: Positive Previous Pregnancies; Negative Breast Cancer, Endometriosis or Pelvic Inflammatory Disease MUSCULOSKELETAL: Positive Musculoskeletal Disorders and Fractures; Negative Bone Cancer or Arthritis ENDOCRINE: Negative Endocrine Disorders, Diabetes Mellitus Type 1, Diabetes Mellitus Type 2 or Hyperthyroidism HEMATOLOGIC: Positive Blood Disorders, Anemia and Clotting Problems; Negative Sickle Cell Disease PSYCHO/SOCIAL: Positive Depression and Anxiety OTHER HISTORY: Positive Hospitalization, Falls and Blood Transfusions; Negative Autoimmune Disease, Down Syndrome, Developmental Delay, Shingles, Blood Transfusion Reaction, Anesthesia Reactions, Organ Transplant, MRSA, VRSA, Vancomycin-Resistant Enterococci, Human Immunodeficiency Virus (HIV), Chicken Pox, Measles, Mumps, Rubella (Algerian Measles), Pertussis, Clostridium Difficile, Cancer, Breast Cancer, Cervical Cancer, Colorectal Cancer, Lung Cancer or Ovarian Cancer Family History FAMILY HISTORY: Positive Family Respiratory Disorders and Family Surgery; Negative Family Psychiatric Problems, Family Cardiac Disorders, Family Gastrointestinal Problems, Family Cancer or Family Anesthesia Reaction Surgical History SURGICAL: Positive Abdominal Surgery, Tubal Ligation and Section; Negative Cardiac Surgery, Pacemaker, Endocrine Surgery, Ear Surgery, Nephrectomy, Joint Replacement, Neurologic Surgery, Mastectomy, Lumpectomy, Hysterectomy or Organ Transplant Social History SMOKING STATUS: Never smoker SECOND HAND EXPOSURE: No (quit 2013) SUBSTANCE USE: does not use ED Exam Narrative Physical exam: [General: Obese not in any acute distress Head normocephalic HEENT: Within acceptable limits Neck is supple nontender Chest equal chest rise nontender to palpation Respiratory: Clear to auscultation no wheezes crackles or rubs CV: Rate rhythm is regular no murmurs rubs or clicks Abdomen is distended secondary to body habitus soft nontender no masses positive bowel sounds all 4 quadrants Back: No CVA tenderness no spinous process tenderness from cervical spine thoracic and lumbar spine Skin: Intact no petechiae rash induration ulceration or crepitus Extremities: Moving all extremity against resistance cap refill less than 2 seconds neurosensory intact Neuro: Awake alert oriented x3 Glascow coma 15 no focal deficits] Course Quality Measures none Orders Category Date Time Status Bedside COVID-19 Antigen Test NOW Care 05/26/25 14:52 Active Bedside Influenza A&B Antigen Test NOW Care 05/26/25 14:52 Completed XR lumbar spine 2-3V Stat Exams 05/26/25 14:51 Completed XR thoracic spine 2V Stat Exams 05/26/25 14:51 Completed CBC Stat Lab 05/26/25 14:58 Completed Comprehensive Metabolic Panel Stat Lab 05/26/25 14:58 Results Drug Screen,Urine Stat Lab 05/26/25 15:33 Completed HCG Qualitative,Urine Stat Lab 05/26/25 15:33 Completed Lipase Stat Lab 05/26/25 14:58 Results Urinalysis, C/S if Indicated Stat Lab 05/26/25 15:33 Completed Vital Signs Vital signs: Vital Signs Temperature 99.1 F 05/26/25 13:35 Pulse Rate 100 05/26/25 13:35 Respiratory Rate 18 05/26/25 13:35 Blood Pressure 144/91 H 05/26/25 13:35 Pulse Oximetry (%) 97 05/26/25 13:35 Oxygen Delivery Method Room Air 05/26/25 13:35 Discharge Plan Plan Patient Disposition: HOME (Self Care) Patient condition on transfer: Stable Prescriptions/Referrals Prescriptions/Med Rec: New ondansetron 4 mg tablet,disintegrating 4 mg PO Q8H Qty: 10 0RF No Action paroxetine HCl [Paxil] 30 mg tablet 30 mg PO QDAY montelukast [Singulair] 10 mg tablet 10 mg PO QDAY albuterol sulfate 90 mcg/actuation Hfa Aerosol Inhaler 2 puff INHALATION Q6H PRN (Reason: Wheezing) pantoprazole 40 mg tablet,delayed release (DR/EC) 40 mg PO QDAY Qty: 60 0RF polyethylene glycol 3350 [ClearLax] 17 gram powder in packet 17 g PO QDAY Qty: 100 0RF dicyclomine 20 mg tablet 20 mg PO QID PRN (Reason: abdominal pain) Qty: 30 0RF Referrals: Mohsen Chavis MD [Primary Care Provider, [facility]] - In 1 week Problem List Clinical Impression: Abdominal pain, Nausea Patient/Caregiver Discharge Instructions Other Activity Instructions:: Take the medication as prescribed if there is a worsening of symptoms return the emergency room immediately for further evaluation. Follow-up with the primary care doctor listed above for medication refill Education Materials: Abdominal Pain Print Language: Georgian Stand Alone Forms: [employer] Info., Patient Portal Info Letter PA/ASSOCIATE SCHOOL PSYCHOLOGIST Supervising Physician PA/ASSOCIATE SCHOOL PSYCHOLOGIST Supervising Physician: Bakari Curran ENP [facility] Clinical Information Provided by patient Medical Records Reviewed [facility] Meds/Rx Considered, not Ordered None Chronic Illness/Social Conditions Add or document further as needed: Cirrhosis depression Lab Interpretation Lab(s) interpretation(s): CBC shows no leukocytosis there is a mild anemia with a hemoglobin of 10.8 and hematocrit of 33.2 note: This is relatively unchanged from previous lab draws. Platelets 103 thrombocytopenia. CMP shows a potassium of 2.8 calcium of 12.6 T. bili of 4.7. Note: Potassium has been low in the past, T. bili is unchanged from last visit in April 2025. Alk phos at 185 AST at 70 ALT at 27. Urine shows 1+ protein 1+ bilirubin 9 WBCs no bacteria. UDS is positive for marijuana. Imaging Provider imaging interpretation(s): Thoracic and lumbar x-rays are negative for any acute finding. Radiology reports / interpretation(s): I suspect this is mostly a request for medication refill, patient is advised to follow-up with [facility] will give the patient nausea medicine. Lipase is pending at this time as we have not had any lipase is throughout the day secondary to mechanical malfunction. The patient is nontoxic-appearing not in any acute distress uncomfortable discharging this patient home. Medication Administration(s) none Diagnosis Differential diagnosis: Cirrhosis electrolyte imbalances transaminitis Most likely dx, and/or detailed dx discussion: Nausea cirrhosis Dispositon Disposition: Discharge Home
[2025-05-26 21:04] VITALS: RESP 18
[2025-05-26 22:02] LABS: Lipase 25 U/L (12-53)
== END 2025-05-26 21:05 | disposition home or self-care (01) ==
PROVIDERS: Nurse Practitioner Family; Emergency Provider Emergency Medicine; PCP Family Medicine
DX: R10.9 Unspecified abdominal pain (principal)
CPT/HCPCS: 36415; 72070; 72100; 80053; 80307; 81001; 81025; 83690; 85025; 87400; 87811; 99283

== ENCOUNTER 2025-06-05 10:45 | Emergency (ER) | payer MEDICAID, SELFPAY ==
[2025-06-05 11:03] VITALS: BP 134/73; PULSE 98; RESP 16; TEMP 36.9; O2SAT 100; BMI 29.7
--- NOTE | 2025-06-05 11:27 | XR_ITS ---
Examination: CT abdomen and pelvis without contrast. Coronal 3-D reconstructions. Sagittal 2-D reconstructions. Date and time of exam:June 05, 2025 1351 hours, comparison May 01, 2025 INDICATIONS: Right-sided flank pain today, history cirrhosis, esophageal varices, ascites, biliary stent, 8mm right lobe liver lesion on CT study May 01, 2025 CTDI: vol (mGy): 8.26 DLP: (mGycm): 162 Technique: Axial images of the abdomen have been obtained, 3 mm slice thickness Intravenous contrast material has not been administered. Low dose protocols were performed. One or more of the following dose reduction techniques were used; automated exposure control, adjustment of the mA and/or KV according to patient size, use of iterative reconstruction technique. Findings: Cirrhosis, liver nodular in contour 8mm upper right lobe liver lesion image 45 Significant splenomegaly Esophageal and perigastric varices Portosystemic collateral vessels medial to the spleen Small pancreatic calcification Cholelithiasis Biliary stent satisfactory position with no extra hepatic biliary tract dilatation No hydronephrosis Trace ascites Mild thickening of urinary bladder wall Prominent osteopenia IMPRESSION: Cirrhosis 8mm right lobe liver lesion Esophageal and perigastric varices Prominent splenomegaly Cholelithiasis Biliary stent satisfactory position with no current extrahepatic biliary tract dilatation No renal or ureteral calculi, no hydronephrosis Trace ascites Thickening of urinary bladder wall, consider cystitis
--- NOTE | 2025-06-05 11:28 | PD.EDRME ---
Rapid Medical Screening Exam RME Arrival date/time: 06/05/25 10:45 44-year-old female presents to the emergency department today for complaints of abdominal pain Chief Complaint: Abdominal Pain Vital signs: Vital Signs Temperature 98.4 F 06/05/25 11:03 Pulse Rate 98 06/05/25 11:03 Respiratory Rate 16 06/05/25 11:03 Blood Pressure 134/73 H 06/05/25 11:03 Pulse Oximetry (%) 100 06/05/25 11:03 Oxygen Delivery Method Room Air 06/05/25 11:03
[2025-06-05 11:51] LABS: Basophils # (Auto) 0.0 Thou/mm3 (0.0-0.2); Basophils % (Auto) 1 % (0-2.5); Eosinophils # (Auto) 0.1 Thou/mm3 (0.0-0.5); Eosinophils % (Auto) 1 % (0-10); Hematocrit 33.3 % (36.0-46.0); Hemoglobin 11.2 g/dL (12.0-16.0); Immature Granulocytes Auto 0.02 Thou/mm3 (0.00-0.00); Lymphocytes # (Auto) 0.9 Thou/mm3 (1.0-4.8); Lymphocytes % (Auto) 14 % (10-50); Mean Corpuscular HGB Conc 33.6 g/dl (31.0-37.0); Mean Corpuscular Hemoglobin 33.0 pg (25.0-35.0); Mean Corpuscular Volume 98 fL (80-100); Monocytes # (Auto) 0.5 Thou/mm3 (0.0-0.8); Monocytes % (Auto) 9 % (0-12); Neutrophils # (Auto) 4.6 Thou/mm3 (1.8-7.7); Neutrophils % (Auto) 76 % (37-80); Nucleated Red Blood Cell # 0.00 Thou/mm3 (0.00-0.00); Nucleated Red Blood Cell % 0 /100 WBC (0); Platelet Count 148 Thou/mm3 (140-440); RDW Standard Deviation 56.3 fL (36.4-46.3); Red Blood Count 3.39 Miln/mm3 (4.00-5.20); White Blood Count 6.1 Thou/mm3 (3.6-11.0)
[2025-06-05 12:14] LABS: Alanine Aminotransferase 37 U/L (10-49); Albumin, Serum 3.5 gm/dL (3.5-5.0); Albumin/Globulin Ratio 0.9 (1.2-2.2); Alkaline Phosphatase 183 U/L (46-116); Amylase 44 U/L (30-118); Anion Gap 15 (7-16); Aspartate Amino Transferase 92 U/L (0-34); BUN/Creatinine Ratio 6 Ratio (12-20); Bilirubin,Total 6.9 mg/dL (0.3-1.2); Blood Urea Nitrogen 7 mg/dL (9-23); Calcium 12.5 mg/dL (8.3-10.6); Calcium (Corrected) 12.9 mg/dL (8.5-10.1); Carbon Dioxide 20.4 mMol/L (20.0-31.0); Chloride 104 mMol/L (98-107); Creatinine (Component) 1.1 mg/dL (0.6-1.3); Estimated Creatinine Clearance 56.5 mL/min (>60); Globulin 3.7 gm/dL (2.3-3.5); Glucose 85 mg/dL (74-106); Osmolality,Calculated 274 (275-295); Potassium 2.9 mMol/L (3.4-5.1); Sodium 139 mMol/L (136-145); Total Protein 7.2 gm/dL (5.7-8.2); eGFR > 60 See Note
[2025-06-05 12:59] LABS: Collection Type, Urine Clean Catch
[2025-06-05 13:11] LABS: Bacteria,Urine Rare; Bilirubin,Urine 1+ (Negative); Blood,Urine Negative (Negative); Clarity,Urine Turbid (Clear/Hazy); Color,Urine Drk-Yellow (Lt Yel-Yel); Glucose, Urine Negative (Negative); Hyaline Casts,Urine < 1 /hpf (0-1); Ketones,Urine 1+ (Negative); Leukocyte Esterase,Urine Negative (Negative); Nitrite,Urine Negative (Negative); PH,Urine 6.5 (5.0-7.0); Protein,Urine Trace (Neg - Trace); RBC,Urine 4 /hpf (0-3); Specific Gravity,Urine 1.019 (1.001-1.035); Squamous Epithelial Cell,Urine 6 /hpf (0-5); Urobilinogen,Urine OVER mg/dL (0.0-1.0); WBC,Urine 11 /hpf (0-5)
[2025-06-05 13:19] LABS: Culture Indicated,Urine Yes
[2025-06-05 15:36] VITALS: BP 164/78; PULSE 61; RESP 18; TEMP 37.2; O2SAT 99
--- NOTE | 2025-06-05 16:04 | EDNOTE_ITS ---
<Statement entered by Sherry Webber MD - 06/24/25 06:07> As co-signing physician, I was present and available for consult prn. I concur with the plan and care as documented by the midlevel provider. ED Abdominal Pain RME/HPI General Chief Complaint: Abdominal Pain Stated complaint: ABDOMINAL PAIN Time seen by provider: 06/05/25 15:54 Arrival date/time: 06/05/25 10:45 RME / HPI RME / HPI narrative: 44-year-old female patient with significant history of alcoholic liver cirrhosis, came in for evaluation regarding upper abdominal pain, that comes and goes, for several weeks, severity mild. Patient denies any fever denies any vomiting denies any diarrhea or constipation. Patient is awaiting to be seen by GI specialist. Patient also denies any vomiting blood or blood in the stool. No medication was taken prior to ER visit Related Data Home Medications ?Medication ?Instructions ?Recorded ?Confirmed albuterol sulfate 90 mcg/actuation 2 puff inhalation Q 6H PRN Wheezing 07/28/21 02/13/25 aerosol inhaler montelukast 10 mg tablet 10 mg PO QDAY 10/11/2302/13 (Singulair) paroxetine HCl 30 mg tablet (Paxil) 30 mg PO QDAY 09/2002/13/25 Previous Rx's ?Medication ?Instructions ?Recorded pantoprazole 40 mg tablet,delayed 40 mg PO QDAY #60 ta bs 02/15/25 release polyethylene glycol 3350 17 gram 17 g PO QDAY #100 ea 03/01/25 oral powder packet (ClearLax) dicyclomine 20 mg tablet 20 mg PO QID PRN abdominal p ain 05/02/25 #30 tabs ondansetron 4 mg disintegrating 4 mg PO Q8H #10 tabs 0 05/26/25 tablet dicyclomine 20 mg tablet 20 mg PO QID PRN abdominal p ain 06/05/25 #30 tabs pantoprazole 40 mg tablet,delayed 40 mg PO QDAY #30 ta bs 06/05/25 release (Protonix) potassium chloride 20 mEq 20 meq PO QDAY #7 tabs 06/05 tablet,extended release Allergies Allergy/AdvReac Type Severity Reaction Status Date / Time hydrocortisone Allergy Severe Swelling Verified 05/26/25 13:28 of the Eye Review of Systems Review of Systems Narrative Review of Systems: Review of system reviewed and within normal limits except mentioned in HPI ED Exam Narrative Physical exam: VITAL SIGNS: Reviewed. GENERAL APPEARANCE: Alert and interactive, follows commands, no acute distress, HEAD AND FACE: Non-traumatic. ENT: PERRL, icteric sclerae, eyelid no trauma, Mucous membrane moist. NECK: Supple, nontender, no nuchal rigidity. CHEST: No tenderness, no crepitus, no paradoxical movement, no retractions. LUNGS: Clear, well ventilated, symmetric, no rales, no wheezing, no ronchi, no stridor, good breath sounds bilaterally. HEART: Regular rate, regular rhythm, no murmur, no gallops. ABDOMEN: Soft, positive bowel sounds, nondistended, no guarding, nontender, no rebound, no masses, RECTAL: Deferred. GENITAL: Deferred. NEUROLOGICAL: Gross motor function intact sensory function intact, Appropriate for age. MUSCULOSKELETAL: low back nontender, full range of motion. EXTREMITIES: Nontender, full range of motion. SKIN: Color pink, dry, no rash, no lacerations, no abrasions, no contusions. LYMPHATICS: Deferred. Course Quality Measures none Orders Category Date Time Status CT abdomen pelvis wo con Stat Exams 06/05/25 11:27 Completed Amylase Stat Lab 06/05/25 11:35 Completed CBC Stat Lab 06/05/25 11:35 Completed Comprehensive Metabolic Panel Stat Lab 06/05/25 11:35 Completed UA, C/S IF [Urinalysis, C/S if Indicated] Stat Lab 06/05/25 12:46 Completed Urine Culture Stat Lab 06/05/25 12:46 Received Potassium Chloride [K-Dur] Med 06/05/25 16:09 Discontinued 40 meq PO X1 ONE Vital Signs Vital signs: Vital Signs Temperature 98.4 F 06/05/25 11:03 Pulse Rate 98 06/05/25 11:03 Respiratory Rate 16 06/05/25 11:03 Blood Pressure 134/73 H 06/05/25 11:03 Pulse Oximetry (%) 100 06/05/25 11:03 Oxygen Delivery Method Room Air 06/05/25 11:03 Abdominal Pain MDM MDM Narrative MDM Narrative:: 44-year-old female patient with significant history of alcoholic liver cirrhosis, came in for evaluation regarding upper abdominal pain, that comes and goes, for several weeks, severity mild. Patient denies any fever denies any vomiting denies any diarrhea or constipation. Patient is awaiting to be seen by GI specialist. Patient also denies any vomiting blood or blood in the stool. No medication was taken prior to ER visit Patient CBC showed no leukocytosis. Potassium was noted to be 2.9 total bili 6.9, has been elevated chronically. AST of 92, alkaline phos of 183. Urinalysis negative for UTI CT scan of the abdomen pelvis showed Cirrhosis 8mm right lobe liver lesion Esophageal and perigastric varices Prominent splenomegaly Cholelithiasis Biliary stent satisfactory position with no current extrahepatic biliary tract dilatation No renal or ureteral calculi, no hydronephrosis Trace ascites Thickening of urinary bladder wall, consider cystitis Patient was given potassium replacement in the emergency room. Was also given Bentyl and Protonix. Patient was advised to follow-up with referral to Dr. Ward, regarding chronic liver cirrhosis and chronic elevated total bili. Patient told me that she already stopped drinking alcohol a year ago. Stable for discharge home Patient data External records reviewed:: None Clinical information provided by:: patient Social determinants that could affect healthcare access:: none Patient has the following chronic illnesses:: Liver cirrhosis How is presenting disease/condition affected by chronic disease/condition?: exacerbated by Evaluation data The following diagnostics were reviewed and interpreted by me:: lab results and radiology exam(s) Lab and/or radiology exams considered but not ordered:: None Interpretation Summary: See results [facility] Medications / Prescriptions Medications or Prescriptions considered but not ordered:: None Medication administrations:: Medication Administration History Discontinued Medications Potassium Chloride (Potassium Chloride 20 Meq Tabcr) 40 meq PO X1 ONE Stop: 06/05/25 16:10 See [facility] Consultations Consultation(s) initiated? (list below): No Diagnosis Differential diagnosis abdominal pain: abdominal pain and other (Cholelithiasis, hypokalemia, liver cirrhosis) Most likely diagnosis given after review of the tests above:: Cholelithiasis, no sign of acute cholecystitis, hypokalemia, liver cirrhosis Admission Indicated Admission indicated?: not indicated Admission Request Was there a request for admission?: No Disposition Plan Disposition Plan: Discharge Discharge Attestation Discharge Attestation: The patient and all family members were given an opportunity to ask questions and understood the discharge instructions. Discharge instructions specifically effects, indications for sooner follow up or return to the emergency department, and the expected course of current diagnosis. Patient condition: Stable Discharge Plan Plan Patient Disposition: HOME (Self Care) Discharge Disposition comment: stable Prescriptions/Referrals Prescriptions/Med Rec: New pantoprazole [Protonix] 40 mg tablet,delayed release (DR/EC) 40 mg PO QDAY Qty: 30 0RF dicyclomine 20 mg tablet 20 mg PO QID PRN (Reason: abdominal pain) Qty: 30 0RF potassium chloride 20 mEq tablet extended release 20 meq PO QDAY Qty: 7 0RF No Action paroxetine HCl [Paxil] 30 mg tablet 30 mg PO QDAY montelukast [Singulair] 10 mg tablet 10 mg PO QDAY albuterol sulfate 90 mcg/actuation Hfa Aerosol Inhaler 2 puff INHALATION Q6H PRN (Reason: Wheezing) pantoprazole 40 mg tablet,delayed release (DR/EC) 40 mg PO QDAY Qty: 60 0RF polyethylene glycol 3350 [ClearLax] 17 gram powder in packet 17 g PO QDAY Qty: 100 0RF dicyclomine 20 mg tablet 20 mg PO QID PRN (Reason: abdominal pain) Qty: 30 0RF ondansetron 4 mg tablet,disintegrating 4 mg PO Q8H Qty: 10 0RF Referrals: Mohsen Chavis MD [Primary Care Provider, Family [facility]] - In 1 week Problem List Clinical Impression: Cholelithiasis, Alcoholic cirrhosis of liver, Hyperbilirubinemia Patient/Caregiver Discharge Instructions Discharge Activity: activity as tolerated Education Materials: ED Cirrhosis Additional Instructions: Thank you for the opportunity for serving you today. You are stable for discharged . You are advised to: Follow-up with your PCP in 1 to 2 days Return to ED for worsening of symptoms Increase oral fluids Take medication as prescribed Follow-up on your referral to Dr. Ward GI specialist Print Language: Cameroonian Stand Alone Forms: Nicole Award Info., Patient Portal Info Letter PA/MISHA Supervising Physician ISABEL/MISHA Supervising Physician: MD Lawanda
[2025-06-05 16:48] VITALS: BP 164/78; PULSE 100; RESP 16; TEMP 36.9; O2SAT 99
== END 2025-06-05 16:50 | disposition home or self-care (01) ==
PROVIDERS: Nurse Practitioner Primary Care; Emergency Provider Emergency Medicine; PCP Family Medicine
DX: K80.20 Calculus of gallbladder without cholecystitis without obstruction (principal); K70.31 Alcoholic cirrhosis of liver with ascites
CPT/HCPCS: 36415; 74176; 80053; 81001; 82150; 85025; 87086; 99283; A9270

== ENCOUNTER 2025-07-05 09:23 | Inpatient (IN) | payer MEDICAID, SELFPAY ==
[2025-07-05] VITALS (15 sets, daily range): BP systolic 121–148; BP diastolic 65–82; PULSE 72–104; RESP 16–100; TEMP 36.4–37.1; O2SAT 97–100; BMI 24.9
--- NOTE | 2025-07-05 09:34 | EKG_ITS ---
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
--- NOTE | 2025-07-05 09:51 | XR_ITS ---
Examination: CT brain head without contrast. 2-D sagittal coronal reconstructions Date and time of exam: July 05, 2025, 1030 hours COMPARISON: May 14, 2025 INDICATIONS: Altered mental status today. CTDI: vol (mGy): 48.9 DLP: (mGycm): 1056 Technique: Multiple CT axial sections of the brain have been obtained, 5 mm slice thickness. Contrast has not been administered. 2-D sagittal, coronal reconstructions have been obtained Low dose protocols were performed. One or more of the following dose reduction techniques were used; automated exposure control, adjustment of the mA and/or KV according to patient size, use of iterative reconstruction technique. Findings: No significant ventricular enlargement. Intra-axial or extra-axial hemorrhage density is not seen. No mass effect or midline shift Basal cisterns are not remarkable. Fourth ventricle is midline. Cranial vault intact. Impression: Negative for acute hemorrhage, mass effect or midline shift Advise clinical correlation and follow-up accordingly
--- NOTE | 2025-07-05 10:04 | PD.EDAMS ---
Altered Mental Status RME/HPI General Chief Complaint: Altered Mental Status Stated Complaint: ALTERED Time Seen by Provider: 07/05/25 09:49 Arrival date/time: 07/05/25 09:23 Limitations: no limitations RME / HPI RME / HPI narrative: 44 year old female with history of liver cirrhosis, anemia requiring blood transfusion before presents to the ED BIBA from home for evaluation of altered mental status. Per medics, daughter on scene reported the patient is not acting right in the last week though appears more confused this morning. In the ED, patient reports feeling confused, shaky, globally weak, and slightly short of breath. Also states she is sleeping more than her normal. Denies any difficulty walking. Related Data Home Medications ?Medication ?Instructions ?Recorded ?Confirmed albuterol sulfate 90 mcg/actuation 2 puff inhalation Q6H PRN Wheezing 07/28/21 02/13/25 aerosol inhaler montelukast 10 mg tablet 10 mg PO QDAY 10/11/23 02/13/25 (Singulair) paroxetine HCl 30 mg tablet (Paxil) 30 mg PO QDAY 10/11/23 02/13/25 Previous Rx's ?Medication ?Instructions ?Recorded pantoprazole 40 mg tablet,delayed 40 mg PO QDAY #60 tabs 02/15/25 release polyethylene glycol 3350 17 gram 17 g PO QDAY #100 ea 03/01/25 oral powder packet (ClearLax) dicyclomine 20 mg tablet 20 mg PO QID PRN abdominal pain 05/02/25 #30 tabs ondansetron 4 mg disintegrating 4 mg PO Q8H #10 tabs 05/26/25 tablet dicyclomine 20 mg tablet 20 mg PO QID PRN abdominal pain 06/05/25 #30 tabs pantoprazole 40 mg tablet,delayed 40 mg PO QDAY #30 tabs 06/05/25 release (Protonix) potassium chloride 20 mEq 20 meq PO QDAY #7 tabs 06/05/25 tablet,extended release Allergies Allergy/AdvReac Type Severity Reaction Status Date / Time hydrocortisone Allergy Severe Swelling Verified 05/26/25 13:28 of the Eye Review of Systems Review of Systems Systems Reviewed: All systems reviewed, normal except as documented Past Medical History Past Medical History CARDIAC: Positive Heart Murmur and Cellulitis RESPIRATORY: Positive Asthma and Pneumonia GASTROINTESTINAL: Positive Gastrointestinal Disorders, Cirrhosis, Hemorrhoids and Obesity REPRODUCTIVE: Positive Previous Pregnancies MUSCULOSKELETAL: Positive Musculoskeletal Disorders and Fractures HEMATOLOGIC: Positive Blood Disorders, Anemia and Clotting Problems PSYCHO/SOCIAL: Positive Depression and Anxiety OTHER HISTORY: Positive Hospitalization, Falls and Blood Transfusions Family History FAMILY HISTORY: Positive Family Respiratory Disorders and Family Surgery Surgical History SURGICAL: Positive Abdominal Surgery, Tubal Ligation and Section Social History SMOKING STATUS: Smoker, status unknown SECOND HAND EXPOSURE: No (quit 2013) SUBSTANCE USE: does not use ED Exam General Limitations: Present no limitations General appearance: Present alert (Awake, alert, oriented x2, mildly confused, jaundice ) Head Head exam: Present atraumatic, normocephalic and normal inspection Eye Eye exam: Present PERRL, EOMI and scleral icterus ENT ENT exam: Present normal exam, normal oropharynx and mucous membranes dry Neck Neck exam: Present normal inspection, full ROM and trachea midline Chest Chest inspection: Present normal inspection and symmetric chest wall rise Respiratory Respiratory exam: Present normal lung sounds bilaterally Cardiovascular Cardiovascular exam: Present regular rate, normal rhythm and normal heart sounds Abdominal Exam Abdominal exam: Present soft, distention (minimally distended, no fluid shift ) and normal bowel sounds; Absent tenderness, guarding, rebound or rigidity Extremities Exam Extremities exam: Present normal inspection and full ROM; Absent pedal edema Back Exam Back exam: Present normal inspection and full ROM Neurological Exam Neurological exam: Present alert (oriented x2, short term memory appears impaired), CN II-XII intact and other Psychiatric Psychiatric exam: Present normal affect and normal mood Skin Skin exam: Present warm, dry, intact and normal color Course Quality Measures none Orders Category Date Time Status Bedside Blood Glucose NOW Care 07/05/25 09:51 Active COVID-19 Screening Questionnaire NOW Care 07/05/25 12:44 Active COVID-19 Screening Questionnaire NOW Care 07/05/25 13:37 Active Product Tester Fiberglass NOW Care 07/05/25 09:51 Active Continuous Pulse Oximetry NOW Care 07/05/25 09:51 Completed Decision to Admit X1 Care 07/05/25 12:44 Completed EKG (ED ONLY) *Do not use* NOW Care 07/05/25 09:34 Completed In and Out Catheter X1 Care 07/05/25 09:51 Active Insert IV NOW Care 07/05/25 09:51 Active NPO NOW Care 07/05/25 09:[address] head/brain wo con Stat Exams 07/05/25 09:51 Completed EKG (ED Only) Stat Exams 07/05/25 09:34 Draft Acetaminophen Stat Lab 07/05/25 10:00 Completed Alcohol, Blood Medical Stat Lab 07/05/25 10:00 Completed Ammonia Stat Lab 07/05/25 10:00 Completed Arterial Blood Gas Stat Lab 07/05/25 10:15 Completed Blood Culture (Lab) Stat Lab 07/05/25 09:55 Received CBC Stat Lab 07/05/25 10:00 Completed Comprehensive Metabolic Panel Stat Lab 07/05/25 10:00 Completed Drug Screen,Urine Stat Lab 07/05/25 09:51 Ordered Magnesium Stat Lab 07/05/25 10:00 Completed Path Review Blood Smear Stat Lab 07/05/25 10:00 Completed Prothrombin Time with INR Stat Lab 07/05/25 10:00 Completed Salicylate Stat Lab 07/05/25 10:00 Completed Thyroid Stimulating Hormone Stat Lab 07/05/25 10:00 Completed Troponin I Stat Lab 07/05/25 10:00 Completed Lactulose Syrup [Enulose Syrup] Med 07/05/25 11:43 Discontinued 20 gm PO X1 ONE POTASSIUM CHL 10 mEq IVPB [Kcl Ivpb] Med 07/05/25 11:43 Active 10 meq in 100 ml IV Q1H Potassium Chloride [K-Dur] Med 07/05/25 11:43 Discontinued 40 meq PO X1 ONE Sodium Chloride 0.9% 1000 ml [Ns] 1,000 ml Med 07/05/25 09:51 Active IV 100 mls/hr Oxygen Delivery NOW RT 07/05/25 09:51 Active Vital Signs Vital signs: Vital Signs Pulse Rate 97 07/05/25 09:28 Respiratory Rate 24 H 07/05/25 09:28 Blood Pressure 139/69 H 07/05/25 09:28 Pulse Oximetry (%) 100 07/05/25 09:28 Pulse ox is 100% on room air which is adequate. Altered Mental Status MDM Narrative MDM Narrative:: IEvy, corin scribing for and in the presence of Dr. Vela. 1235: I spoke with hospitalist Dr. Huitron. Discussed patients PMHx, HPI, ED course, exam findings, labs, and radiology results. The hospitalist agree to accept the patient for admission. Patient data External records reviewed:: [facility] previous records and EMS form Clinical information provided by:: patient and EMS Social determinants that could affect healthcare access:: none Patient has the following chronic illnesses:: liver cirrhosis, anemia requiring blood transfusion before How is presenting disease/condition affected by chronic disease/condition?: exacerbated by Evaluation data The following diagnostics were reviewed and interpreted by me:: lab results and EKG tracing(s) (EKG @ 09:52 AM. NSR, rate 86, no STEMI. ) Lab and/or radiology exams considered but not ordered:: None Interpretation Summary: Ordering Physician: Donavan Vela MD Date of Service: 07/05/25 Procedure(s): CT head/brain wo con Accession Number(s): [id number] cc: Donavan Vela MD; Seng Van MD; NO PRIMARY/FAMILY,PHYSICIAN~ Examination: CT brain head without contrast. 2-D sagittal coronal reconstructions Date and time of exam: July 05, 2025, 1030 hours COMPARISON: May 14, 2025 INDICATIONS: Altered mental status today. CTDI: vol (mGy): 48.9 DLP: (mGycm): 1056 Technique: Multiple CT axial sections of the brain have been obtained, 5 mm slice thickness. Contrast has not been administered. 2-D sagittal, coronal reconstructions have been obtained Low dose protocols were performed. One or more of the following dose reduction techniques were used; automated exposure control, adjustment of the mA and/or KV according to patient size, use of iterative reconstruction technique. Findings: No significant ventricular enlargement. Intra-axial or extra-axial hemorrhage density is not seen. No mass effect or midline shift Basal cisterns are not remarkable. Fourth ventricle is midline. Cranial vault intact. Impression: Negative for acute hemorrhage, mass effect or midline shift Advise clinical correlation and follow-up accordingly Dictated By: Seng Van MD Signed By: <Electronically signed by Seng Van MD in OV> 07/05/25 1054 Medications / Prescriptions Medications or Prescriptions considered but not ordered:: None Medication administrations:: Medication Administration History Sodium Chloride (Ns) 1,000 mls @ 100 mls/hr IV .Q10H ONE Stop: 07/05/25 19:50 Last Admin: 07/05/25 10:11 Dose: 100 mls/hr Documented By: RENEA Potassium Chloride (Kcl Ivpb) 10 meq in 100 mls @ 100 mls/hr IV Q1H TYRONE Stop: 07/05/25 17:42 Last Admin: 07/05/25 12:54 Dose: 100 mls/hr Documented By: Infusion: 07/05/25 12:54 Dose: Infused Documented By: Admin: 07/05/25 11:57 Dose: 100 mls/hr Documented By: RENEA Discontinued Medications Lactulose (Lactulose Syrup 20 Gm/30 Ml Udc) 20 gm PO X1 ONE; Protocol Stop: 07/05/25 11:44 Last Admin: 07/05/25 11:54 Dose: 20 gm Documented By: RENEA Potassium Chloride (Potassium Chloride 20 Meq Tabcr) 40 meq PO X1 ONE Stop: 07/05/25 11:44 Last Admin: 07/05/25 11:54 Dose: 40 meq Documented By: RENEA See above Consultations Consultation(s) initiated? (list below): Yes Consultation #1 (Physician, Specialty, Details): See above Diagnosis Differential diagnosis altered mental status: altered mental status, hypoglycemia, hyponatremia, sepsis and other (hepatic encephalopathy ) Most likely diagnosis given after review of the tests above:: Altered mental status Hepatic encephalopathy Elevated ammonia Hypokalemia Hypercalcemia Prolonged INR Respiratory alkalosis Admission Indicated Admission indicated?: indicated Admission Request Was there a request for admission?: Yes Admission Attestation Admission request attestation: Discussed case with [] from Hospitalist service regarding admission. Discussed patients ED course, exam findings, labs, and radiology results. The Hospitalist [agrees,declines] to accept the patient for admission. Disposition Plan Disposition Plan: Admit Discharge Plan Plan Patient Disposition: Admit Acute Care w/in Hospital Prescriptions/Referrals Prescriptions/Med Rec: No Action paroxetine HCl [Paxil] 30 mg tablet 30 mg PO QDAY montelukast [Singulair] 10 mg tablet 10 mg PO QDAY albuterol sulfate 90 mcg/actuation Hfa Aerosol Inhaler 2 puff INHALATION Q6H PRN (Reason: Wheezing) pantoprazole 40 mg tablet,delayed release (DR/EC) 40 mg PO QDAY Qty: 60 0RF polyethylene glycol 3350 [ClearLax] 17 gram powder in packet 17 g PO QDAY Qty: 100 0RF dicyclomine 20 mg tablet 20 mg PO QID PRN (Reason: abdominal pain) Qty: 30 0RF ondansetron 4 mg tablet,disintegrating 4 mg PO Q8H Qty: 10 0RF pantoprazole [Protonix] 40 mg tablet,delayed release (DR/EC) 40 mg PO QDAY Qty: 30 0RF dicyclomine 20 mg tablet 20 mg PO QID PRN (Reason: abdominal pain) Qty: 30 0RF potassium chloride 20 mEq tablet extended release 20 meq PO QDAY Qty: 7 0RF Referrals: No Primary/Family,Physician [Primary Care Provider] - In 1 week Problem List Clinical Impression: Altered mental status, HE (hepatic encephalopathy), Hyperammonemia, Hypokalemia, Hypercalcemia, Prolonged INR, Respiratory alkalosis Patient/Caregiver Discharge Instructions Print Language: Burmese Stand Alone Forms: Nicole Award Info., Patient Portal Info Letter
[2025-07-05] MEDS: SODIUM CHLORIDE 0.9% 1000 ML 1,000 ML 100 ML IV (10:11)
[2025-07-05 10:12] LABS: Basophils # (Auto) 0.0 Thou/mm3 (0.0-0.2); Basophils % (Auto) 1 % (0-2.5); Eosinophils # (Auto) 0.1 Thou/mm3 (0.0-0.5); Eosinophils % (Auto) 1 % (0-10); Hematocrit 27.9 % (36.0-46.0); Hemoglobin 9.3 g/dL (12.0-16.0); Immature Granulocytes Auto 0.02 Thou/mm3 (0.00-0.00); Lymphocytes # (Auto) 0.8 Thou/mm3 (1.0-4.8); Lymphocytes % (Auto) 13 % (10-50); Mean Corpuscular HGB Conc 33.3 g/dl (31.0-37.0); Mean Corpuscular Hemoglobin 37.3 pg (25.0-35.0); Mean Corpuscular Volume 112 fL (80-100); Monocytes # (Auto) 0.4 Thou/mm3 (0.0-0.8); Monocytes % (Auto) 7 % (0-12); Neutrophils # (Auto) 4.7 Thou/mm3 (1.8-7.7); Neutrophils % (Auto) 78 % (37-80); Nucleated Red Blood Cell # 0.00 Thou/mm3 (0.00-0.00); Nucleated Red Blood Cell % 0 /100 WBC (0); Platelet Count 87 Thou/mm3 (140-440); RDW Standard Deviation 74.8 fL (36.4-46.3); Red Blood Count 2.49 Miln/mm3 (4.00-5.20); White Blood Count 6.0 Thou/mm3 (3.6-11.0)
--- NOTE | 2025-07-05 10:17 | PC.NURSE ---
PER DR. HENNING NO STROKE ALERT
[2025-07-05 10:20] LABS: Base Excess 4 (-3-3); HCO3 24 mEq/L (20-26); Inspired Oxygen, FIO2 21 %; O2 Saturation 100 % (91-98); PCO2 23 mmHg (32.0-48.0); PO2 109 mmHg (83-108); pH, Arterial 7.64 (7.35-7.45)
[2025-07-05 10:23] LABS: Allen Test Performed/OK; Puncture Site Left Radial
[2025-07-05 10:32] LABS: INR 1.7 (0.9-1.3); Prothrombin Time 17.2 Seconds (9.0-12.2)
[2025-07-05 10:38] LABS: Acetaminophen 2.5 mcg/mL (10.0-20.0); Alanine Aminotransferase 28 U/L (10-49); Albumin, Serum 3.3 gm/dL (3.5-5.0); Albumin/Globulin Ratio 0.8 (1.2-2.2); Alcohol, Blood Medical < 3.0 mg/dL (0-10.0); Alkaline Phosphatase 139 U/L (46-116); Ammonia 92 uMol/L (11-32); Anion Gap 15 (7-16); Aspartate Amino Transferase 80 U/L (0-34); BUN/Creatinine Ratio 6 Ratio (12-20); Bilirubin,Total 11.8 mg/dL (0.3-1.2); Blood Urea Nitrogen 6 mg/dL (9-23); Calcium 12.2 mg/dL (8.3-10.6); Calcium (Corrected) 12.8 mg/dL (8.5-10.1); Carbon Dioxide 25.0 mMol/L (20.0-31.0); Chloride 98 mMol/L (98-107); Creatinine (Component) 1.0 mg/dL (0.6-1.3); Estimated Creatinine Clearance 67.0 mL/min (>60); Globulin 4.1 gm/dL (2.3-3.5); Glucose 82 mg/dL (74-106); Magnesium 1.9 mg/dL (1.6-2.6); Osmolality,Calculated 272 (275-295); Salicylate < 3.0 mg/dL; Sodium 138 mMol/L (136-145); Thyroid Stimulating Hormone 1.13 uIU/mL (0.55-4.78); Total Protein 7.4 gm/dL (5.7-8.2); Troponin I < 0.020 ng/mL (0.0-0.045); eGFR > 60 See Note
[2025-07-05 11:02] LABS: Potassium 2.2 mMol/L (3.4-5.1)
[2025-07-05 11:23] LABS: Path Review Blood Smear Sent to Pathologist
[2025-07-05] MEDS: LACTULOSE SYRUP 20 GM/30 ML UDC PO ×3 (11:54→20:23)
[2025-07-05] MEDS: POTASSIUM CHL 10 mEq IVPB 10 MEQ/100 ML BAG 100 MEQ IV ×7 (11:57→22:49)
[2025-07-05] MEDS: SODIUM CHLORIDE 0.9% 1000 ML 1,000 ML 150 ML IV ×2 (14:00→18:19)
[2025-07-05] MEDS: POTASSIUM CHL 10 mEq IVPB 10 MEQ/100 ML BAG 80 MEQ IV (14:16)
--- NOTE | 2025-07-05 14:27 | PD.HHHP ---
Documentation for date of: 07/05/25 HPI - Hospitalist History of Present Illness History of present illness: 45-year-old female with history of liver cirrhosis (EtOH and fatty liver compensated for many years) with liver lesion, Hypercalcemia, asthma, migraine, anxiety/depression noncompliant with prior hx of GIB, HE and peritonitis with frequent ED visits presented to ED with altered mental status brought to ED with AMS, daughter reports that patient has not been acting herself and has been more disoriented tired for the past few days. Patient complains of abdominal pain going on for the past few days however unable to explain the details due to her confusion. Denies chest pain, shortness of breath. Detailed history and ROS could not be obtained due to patient's mentation. She is awake alert however AO x 1 only. Reports a history of smoking and EtOH use in the past however quit. Previously admitted to internal medicine service in January 2025. Patient was also found to have hypercalcemia as high as 12.8 which was managed with IV fluids and 1 dose of zoledronic acid. Endocrinology was consulted who had recommended patient to be referred to ENT for surgical consult of parathyroidectomy as patient has primary hyperparathyroidism. There was discussion of starting patient on bisphosphonates outpatient, however, it was recommended for patient to have urgent referral to ENT. Patient was discussed about these findings of primary hyperparathyroidism in addition to additional risks of getting kidney stones. Patient was agreeable for outpatient follow-up with ENT. Consulted surgery: Recommended no surgical intervention. Less likely acute appendicitis. Ordered HIDA scan: Showed normal ejection fraction Consulted GI: Status post EGD that showed gastritis and esophageal varices grade 2. Started Coreg for esophageal varices bleed prophylaxis Ordered PTH: Elevated. Consulted endocrinology. Gave biphosphonate as inpatient. Avoid vitamin D supplements/calcium for now. Outpatient follow-up with ENT for evaluation for parathyroidectomy Discharge Prescriptions: New pantoprazole 40 mg tablet,delayed release (DR/EC) 40 mg PO QDAY Qty: 60 0RF carvedilol 3.125 mg Tablet 3.125 mg PO BIDWM 30 Days Qty: 60 0RF Continued paroxetine HCl [Paxil] 30 mg tablet 30 mg PO QDAY montelukast [Singulair] 10 mg tablet 10 mg PO QDAY albuterol sulfate 90 mcg/actuation Hfa Aerosol Inhaler 2 puff INHALATION Q6H PRN (Reason: Wheezing) Review of Systems Review of Systems Narrative Review of Systems: Unable to obtain due to patient's mentation Meds Home Medications and Allergies Home Medications ?Medication ?Instructions ?Recorded ?Confirmed ?Type albuterol sulfate 90 mcg/actuation 2 puff inhalation Q6H PRN Wheezing 07/28/21 02/13/25 History aerosol inhaler montelukast 10 mg tablet 10 mg PO QDAY 10/11/23 02/13/25 History (Singulair) paroxetine HCl 30 mg tablet (Paxil) 30 mg PO QDAY 10/11/23 02/13/25 History Allergies Allergy/AdvReac Type Severity Reaction Status Date / Time hydrocortisone Allergy Severe Swelling Verified 05/26/25 13:28 of the Eye Exam Vital Signs Temp Pulse Resp BP Pulse Ox O2 Del Method 98.5 F 88 19 141/82 H 100 Room Air 07/05/25 14:05 07/05/25 14:05 07/05/25 14:05 07/05/25 14:05 07/05/25 14:05 07/05/25 14:05 Additional findings Additional findings: Physical Exam: General: AO x 1, No distress. Pale and jaundiced HEENT: PERRL, No JVD, Neck supple. Resp: CTA bilaterally, no wheezing or crackles/rhonchii Card: Regular Rhythm, tachycardic No audible murmur Gatro: Soft diffusely tender no guarding or rigidity. nondistended, no organomegaly. Extr: No LE edema, ROM intact, Neuro: AO x1No focal neruological deficits. Results - Hospitalist Labs Diagrams: 07/05/25 10:00 07/05/25 10:00 Labs: Short CBC 07/05/25 Range/Units 10:00 WBC 6.0 (3.6-11.0) Thou/mm3 Hgb 9.3 L (12.0-16.0) g/dL Hct 27.9 L (36.0-46.0) % Plt Count 87 L D (140-440) Thou/mm3 BMP 07/05/25 10:00 Sodium 138 Potassium 2.2 L* Chloride 98 Carbon Dioxide 25.0 BUN 6 L Creatinine 1.0 Glucose 82 Calcium 12.2 H Cardiac Enzymes 07/05/25 Range/Units 10:00 Troponin I < 0.020 (0.0-0.045) ng/mL Liver Function 07/05/25 Range/Units 10:00 Total Bilirubin 11.8 H (0.3-1.2) mg/dL AST 80 H (0-34) U/L ALT 28 (10-49) U/L Alkaline Phosphatase 139 H (46-116) U/L Albumin 3.3 L (3.5-5.0) gm/dL ABG Interpretation ABG results: 07/05/25 10:15 ABG pH 7.64 H* ABG pCO2 23 L ABG pO2 109 H ABG HCO3 24 ABG O2 Saturation 100 H ABG Base Excess 4 H Assessment & Plan -Hospitalist Patient Synopsis A 44-year-old female with Hx of decompensated liver cirrhosis presented to the ED with AMS, noted to have metabolic alkalosis, severe hypokalemia, severe hypercalcemia, hyperbilirubinemia, thrombocytopenia with significantly elevated ammonia levels consistent with acute worsening of chronic decompensation of liver cirrhosis with hepatic encephalopathy. CT abdomen did reveal 8 mm liver elevation along with cirrhosis, CBD stent in appropriate position EKG did reveal. Sinus tachycardia with significantly prolonged QTc > 500. -Continue maintenance IV NS at 150 mL an hour - Administered total of 140 mEq of KCl over next 12 to 14 hours -Administer calcitonin subcutaneously to 60 units x 1 - Started empirically on Rocephin for SBP prophylaxis. - Repeat CT abdomen/pelvis for evaluation of potential infectious etiology - Start on Protonix 40 mg IV twice daily - Give lactulose 20 mg twice daily here - Hold on spironolactone and Lasix as patient is significantly dehydrated - Holding paroxetine due to significantly prolonged QTc - Will start on metoprolol 25 mg twice daily for tachycardia and QTc prolongation - Repeat labs every 12 hours, will get CXR, blood cultures. Other Chronic problem List: #Primary hyperparathyroidism #Hypercalcemia #Subclinical hyperthyroidism #Elevated T bilirubin #Elevated transaminases #Hypokalemia, #Hypophosphatemia #Chronic normocytic anemia # Decompensated liver cirrhosis #Splenomegaly #Thrombocytopenia #Anxiety/depression #Asthma without exacerbation Quality Measures Quality Measures none
--- NOTE | 2025-07-05 14:53 | EKG_ITS ---
[facility] Test Date: 2025-07-05 Pat Name: LAURA RODRIGUEZ Department: Room: - Gender: Female Scientist Immunology: : 1980 Requested By: Aramis Blackmon Order Number: [id number] Reading MD: Aramis Blackmon Measurements Intervals [place] Rate: 94 P: 20 TN: 118 QRS: 32 QRSD: 94 T: 20 QT: 401 QTc: 503 Interpretive Statements SINUS RHYTHM WITH SHORT TN INTERVAL NONSPECIFIC T-WAVE ABNORMALITY Compared to ECG 07/05/2025 09:52:21 Short TN interval now present Intraventricular conduction delay no longer present Possible ischemia no longer present T-wave abnormality still present /store/S0/[id number]/ecg/[id number].pdf
--- NOTE | 2025-07-05 14:57 | XR_ITS ---
EXAMINATION: AP chest single view TECHNIQUE: AP portable upright chest single view Date and time: July 05, 2025, 1508 hours INDICATIONS: Altered mental status with shortness of breath today. FINDINGS: Mild prominence cardiac contour. No pneumonia or pulmonary edema. The osseous structures are intact IMPRESSION: Mild prominence cardiac contour No pneumonia or pulmonary edema
--- NOTE | 2025-07-05 15:15 | XR_ITS ---
Examination: CT abdomen with intravenous contrast CT pelvis with intravenous contrast 2-D coronal reconstructions 2-D sagittal reconstructions Date and time of exam: June, 2000 hours, comparison 06/05/2025 INDICATIONS: Onset generalized abdominal pain today, cirrhosis diagnosis, post biliary stent placement. CTDI: vol (mGy) 8.37 DLP: (mGycm) 523 Technique: Multiple axial sections of the abdomen and pelvis have been obtained. 64 slice high-resolution scanner used. 3 mm axial sections have been obtained, post intravenous injection 60 cc Isovue 370 2-D sagittal, coronal reconstructions obtained. Low dose protocols were performed. One or more of the following dose reduction techniques were used; automated exposure control, adjustment of the mA and/or KV according to patient size, use of iterative reconstruction technique. Findings: Cirrhosis, liver nodular in contour Again noted 8 mm right lobe liver lesion Moderate ascites Gallbladder sludge versus stones Biliary stent satisfactory position Esophageal and perigastric varices Prominent splenomegaly No pancreatic or adrenal mass No renal or ureteral calculi, no hydronephrosis Anasarca No bowel obstruction Normal appendix Intact urinary bladder, mild wall thickening Absent uterus No pelvic mass Moderate osteopenia IMPRESSION: Cirrhosis, 8 mm right lobe liver lesion Moderate ascites Significant splenomegaly Esophageal and perigastric varices, anasarca Biliary stent in satisfactory position with no extrahepatic biliary ductal rotation
--- NOTE | 2025-07-05 15:20 | PC.NURSE ---
UNABLE TO DUE CT SCREEN DUE TO PT NOT ABLE TO RECALL MEDICAL HISTORY
[2025-07-05] MEDS: cefTRIAXone/D5w 1gm IV premix 1 GM/50 ML BAG IV (15:28)
--- NOTE | 2025-07-05 15:50 | PC.CC ---
Plastic Welding Machine Operator attempted to conduct an initial assessment. Pt asleep on gurney and unable to connect with daughter Zahida Cabral [phone] via telephone.
[2025-07-05] MEDS: CALCITONIN, SALMON SYNTH INJ 1 UNIT/0.005 ML VIAL 260 UNIT SC (15:52)
[2025-07-05] MEDS: ONDANSETRON INJ 2 MG/ML INJ 2 ML 4 MG IVP (16:31)
--- NOTE | 2025-07-05 17:04 | PC.NURSE ---
Pt has two ongoing potassium orders. Attempted to contact MD Rosas Huitron for clarification with unsucessful attempts x 2.
--- NOTE | 2025-07-05 17:48 | PC.LAC ---
Per Dr. Huitron telephone order, hold additional 3 bags of IV potassium until repeat labs are drawn at 1900. If potassium remains low per repeat results, administer the 3 bags as ordered.
[2025-07-05 18:52] LABS: Collection Type, Urine Clean Catch
[2025-07-05 19:16] LABS: Amphetamine/Methamp Scrn,U Negative (Negative); Barbiturate Screen,Urine Negative (Negative); Benzodiazepines Screen,Urine Negative (Negative); Benzoylecgonine Screen, Ur Negative (Negative); Fentanyl Screen,Urine Negative (Negative); Opiate Screen,Urine Negative (Negative); THC Screen,Urine Negative (Negative)
[2025-07-05 19:36] LABS: Bacteria,Urine Rare; Bilirubin,Urine Negative (Negative); Blood,Urine Negative (Negative); Clarity,Urine Clear (Clear/Hazy); Color,Urine Yellow (Lt Yel-Yel); Glucose, Urine Negative (Negative); Ketones,Urine Negative (Negative); Leukocyte Esterase,Urine Negative (Negative); Nitrite,Urine Negative (Negative); PH,Urine 6.5 (5.0-7.0); Protein,Urine Negative (Neg - Trace); RBC,Urine 1 /hpf (0-3); Specific Gravity,Urine 1.007 (1.001-1.035); Squamous Epithelial Cell,Urine 10 /hpf (0-5); Urobilinogen,Urine 6.0 mg/dL (0.0-1.0); WBC,Urine 1 /hpf (0-5)
[2025-07-05 20:10] LABS: Basophils # (Auto) 0.0 Thou/mm3 (0.0-0.2); Basophils % (Auto) 1 % (0-2.5); Eosinophils # (Auto) 0.0 Thou/mm3 (0.0-0.5); Eosinophils % (Auto) 1 % (0-10); Hematocrit 25.7 % (36.0-46.0); Immature Granulocytes Auto 0.02 Thou/mm3 (0.00-0.00); Lymphocytes # (Auto) 0.6 Thou/mm3 (1.0-4.8); Lymphocytes % (Auto) 10 % (10-50); Mean Corpuscular HGB Conc 32.7 g/dl (31.0-37.0); Mean Corpuscular Hemoglobin 36.8 pg (25.0-35.0); Mean Corpuscular Volume 113 fL (80-100); Monocytes # (Auto) 0.7 Thou/mm3 (0.0-0.8); Monocytes % (Auto) 10 % (0-12); Neutrophils # (Auto) 5.2 Thou/mm3 (1.8-7.7); Neutrophils % (Auto) 79 % (37-80); Nucleated Red Blood Cell # 0.02 Thou/mm3 (0.00-0.00); Nucleated Red Blood Cell % 0 /100 WBC (0); RDW Standard Deviation 75.2 fL (36.4-46.3); Red Blood Count 2.28 Miln/mm3 (4.00-5.20); White Blood Count 6.6 Thou/mm3 (3.6-11.0)
[2025-07-05 20:18] LABS: Alanine Aminotransferase 24 U/L (10-49); Albumin, Serum 3.0 gm/dL (3.5-5.0); Albumin/Globulin Ratio 0.8 (1.2-2.2); Alkaline Phosphatase 122 U/L (46-116); Anion Gap 14 (7-16); Aspartate Amino Transferase 72 U/L (0-34); BUN/Creatinine Ratio 6 Ratio (12-20); Bilirubin,Total 11.0 mg/dL (0.3-1.2); Blood Urea Nitrogen 6 mg/dL (9-23); Calcium 11.5 mg/dL (8.3-10.6); Calcium (Corrected) 12.3 mg/dL (8.5-10.1); Carbon Dioxide 22.0 mMol/L (20.0-31.0); Chloride 104 mMol/L (98-107); Creatinine (Component) 1.0 mg/dL (0.6-1.3); Estimated Creatinine Clearance 67.0 mL/min (>60); Globulin 3.6 gm/dL (2.3-3.5); Glucose 141 mg/dL (74-106); Osmolality,Calculated 279 (275-295); Potassium 2.9 mMol/L (3.4-5.1); Sodium 140 mMol/L (136-145); Total Protein 6.6 gm/dL (5.7-8.2); eGFR > 60 See Note
[2025-07-05] MEDS: METOPROLOL TARTRATE 25 MG TABLET PO (20:23)
[2025-07-05 20:31] LABS: Hemoglobin 8.4 g/dL (12.0-16.0); Platelet Count 79 Thou/mm3 (140-440)
--- NOTE | 2025-07-05 20:37 | PC.NURSE ---
Potassium level went up to 2.9 from 2.2, Kenney Galdamez was made aware. 3 bags of Potassium IV (10mEq each bag) ordered during morning shift. okayed to hang all three. Will administer meds.
[2025-07-05 21:27] LABS: Slide Review Platelets confirmed
[2025-07-06] VITALS (17 sets, daily range): BP systolic 119–144; BP diastolic 62–79; PULSE 62–81; RESP 17–98; TEMP 36.4–37.4; O2SAT 94–97; BMI 24.9; BMI 24.7
[2025-07-06] MEDS: SODIUM CHLORIDE 0.9% 1000 ML 1,000 ML 150 ML IV ×3 (05:03→23:38)
[2025-07-06 05:16] LABS: Base Excess -1 (-3-3); HCO3 22 mEq/L (20-26); Inspired Oxygen, FIO2 21 %; O2 Saturation 98 % (91-98); PCO2 30 mmHg (32.0-48.0); PO2 78 mmHg (83-108); pH, Arterial 7.48 (7.35-7.45)
[2025-07-06 05:22] LABS: Allen Test Not Performed; Puncture Site Right Radial
[2025-07-06 05:52] LABS: Basophils # (Auto) 0.1 Thou/mm3 (0.0-0.2); Basophils % (Auto) 1 % (0-2.5); Eosinophils # (Auto) 0.1 Thou/mm3 (0.0-0.5); Eosinophils % (Auto) 1 % (0-10); Hematocrit 26.8 % (36.0-46.0); Hemoglobin 8.9 g/dL (12.0-16.0); Immature Granulocytes Auto 0.04 Thou/mm3 (0.00-0.00); Lymphocytes # (Auto) 1.0 Thou/mm3 (1.0-4.8); Lymphocytes % (Auto) 11 % (10-50); Mean Corpuscular HGB Conc 33.2 g/dl (31.0-37.0); Mean Corpuscular Hemoglobin 37.1 pg (25.0-35.0); Mean Corpuscular Volume 112 fL (80-100); Monocytes # (Auto) 0.7 Thou/mm3 (0.0-0.8); Monocytes % (Auto) 8 % (0-12); Neutrophils # (Auto) 7.2 Thou/mm3 (1.8-7.7); Neutrophils % (Auto) 79 % (37-80); Nucleated Red Blood Cell # 0.00 Thou/mm3 (0.00-0.00); Nucleated Red Blood Cell % 0 /100 WBC (0); Platelet Count 100 Thou/mm3 (140-440); RDW Standard Deviation 75.7 fL (36.4-46.3); Red Blood Count 2.40 Miln/mm3 (4.00-5.20); White Blood Count 9.1 Thou/mm3 (3.6-11.0)
[2025-07-06 06:27] LABS: Alanine Aminotransferase 27 U/L (10-49); Albumin, Serum 2.8 gm/dL (3.5-5.0); Albumin/Globulin Ratio 0.8 (1.2-2.2); Alkaline Phosphatase 124 U/L (46-116); Anion Gap 14 (7-16); Aspartate Amino Transferase 82 U/L (0-34); BUN/Creatinine Ratio 5 Ratio (12-20); Bilirubin,Total 9.8 mg/dL (0.3-1.2); Blood Urea Nitrogen < 5 mg/dL (9-23); C-Reactive Protein 0.8 mg/dL (0.0-0.9); Calcium 11.0 mg/dL (8.3-10.6); Calcium (Corrected) 12.0 mg/dL (8.5-10.1); Carbon Dioxide 20.3 mMol/L (20.0-31.0); Chloride 106 mMol/L (98-107); Creatinine (Component) 1.0 mg/dL (0.6-1.3); Estimated Creatinine Clearance 67.0 mL/min (>60); Globulin 3.5 gm/dL (2.3-3.5); Glucose 124 mg/dL (74-106); Magnesium 1.9 mg/dL (1.6-2.6); Osmolality,Calculated 277 (275-295); Phosphorous 1.0 mg/dL (2.4-5.1); Potassium 2.9 mMol/L (3.4-5.1); Sodium 140 mMol/L (136-145); Total Protein 6.3 gm/dL (5.7-8.2); eGFR > 60 See Note
[2025-07-06 06:34] LABS: INR 1.9 (0.9-1.3); Prothrombin Time 18.8 Seconds (9.0-12.2)
[2025-07-06] MEDS: LACTULOSE SYRUP 20 GM/30 ML UDC PO ×3 (08:56→21:08)
[2025-07-06] MEDS: cefTRIAXone/D5w 1gm IV premix 1 GM/50 ML BAG IV (08:56)
[2025-07-06] MEDS: METOPROLOL TARTRATE 25 MG TABLET PO ×2 (08:58→20:27)
[2025-07-06 09:21] LABS: Ammonia 34 uMol/L (11-32)
[2025-07-06] MEDS: POTASSIUM CHL 10 mEq IVPB 10 MEQ/100 ML BAG 100 MEQ IV ×6 (10:53→18:08)
--- NOTE | 2025-07-06 11:41 | XR_ITS ---
Examination: Abdomen sonogram, Limited Date and time of exam: July 06, 2025, 1115 hours INDICATIONS: Abdominal distention this week, cirrhosis Technique: Real-time doe scale transabdominal sonographic images of the upper abdomen obtained. Findings: Minimal ascitic fluid IMPRESSION: Minimal ascitic fluid
--- NOTE | 2025-07-06 11:42 | ESPR_ITS ---
Documentation for date of: 07/06/25 Subjective - Hospitalist Subjective Interval history: Remained hemodynamically stable, mentation slightly improved. Patient complained of abdominal discomfort however no nausea or vomiting since morning. Platelets improved to 98,000, potassium improved to 2.9. Ammonia significantly improved to 34. Review of Systems Review of Systems Narrative Review of Systems: Unable to obtain due to patient's Exam Vital Signs Temp Pulse Resp BP Pulse Ox O2 Del Method 97.5 F 65 17 136/62 H 96 Room Air 07/06/25 07:47 07/06/25 10:17 07/06/25 07:47 07/06/25 08:58 07/06/25 07:47 07/06/25 07:47 Additional findings Additional findings: General: AO x 1, No distress. Pale and jaundiced HEENT: PERRL, No JVD, Neck supple. Resp: CTA bilaterally, no wheezing or crackles/rhonchii Card: Regular Rhythm, tachycardic No audible murmur Gatro: Soft diffusely tender no guarding or rigidity. nondistended. Extr: No LE edema, ROM intact, Neuro: AO x1 No focal neruological deficits. Objective - Hospitalist Labs Diagram: 07/06/25 05:05 07/06/25 05:05 Labs: Laboratory Results - last 24 hr 07/05/25 07/05/25 07/06/25 18:30 19:37 05:05 WBC 6.6 9.1 RBC 2.28 L 2.40 L Hgb 8.4 L 8.9 L Hct 25.7 L 26.8 L MCV 113 H 112 H MCH 36.8 H 37.1 H MCHC 32.7 33.2 RDW Std Deviation 75.2 H 75.7 H Plt Count 79 L 100 L D Neut % (Auto) 79 79 Lymph % (Auto) 10 11 [place] % (Auto) 10 8 Eos % (Auto) 1 1 Baso % (Auto) 1 1 Neut # (Auto) 5.2 7.2 Lymph # (Auto) 0.6 L 1.0 [place] # (Auto) 0.7 0.7 Eos # (Auto) 0.0 0.1 Baso # (Auto) 0.0 0.1 Immature Gran # (Auto) 0.02 H 0.04 H Absolute Nucleated RBC 0.02 H 0.00 Immature Gran % 0 0 Nucleated RBC % 0 0 PT 18.8 H INR 1.9 H Puncture Site ABG pH ABG pCO2 ABG pO2 ABG HCO3 ABG O2 Saturation ABG Base Excess FiO2 Sodium 140 140 Potassium 2.9 L D 2.9 L Chloride 104 106 Carbon Dioxide 22.0 20.3 Anion Gap 14 14 BUN 6 L < 5 L Creatinine 1.0 1.0 Estim Creat Clear Calc 67.0 67.0 eGFR > 60 > 60 BUN/Creatinine Ratio 6 L 5 L Glucose 141 H D 124 H Calculated Osmolality 279 277 Calcium 11.5 H 11.0 H Corrected Calcium 12.3 H 12.0 H Phosphorus 1.0 L Magnesium 1.9 Total Bilirubin 11.0 H D 9.8 H D AST 72 H 82 H ALT 24 27 Alkaline Phosphatase 122 H 124 H Ammonia C-Reactive Prot, Quant 0.8 Total Protein 6.6 6.3 Albumin 3.0 L 2.8 L Globulin 3.6 H 3.5 Albumin/Globulin Ratio 0.8 L 0.8 L Ur Collection Type Clean Catch Urine Color Yellow Urine Clarity Clear Urine pH 6.5 Ur Specific [place] 1.007 Urine Protein Negative Urine Glucose (UA) Negative Urine Ketones Negative Urine Blood Negative Urine Nitrite Negative Urine Bilirubin Negative Urine Urobilinogen (Auto) 6.0 Ur Leukocyte Esterase Negative Urine RBC 1 Urine WBC 1 Ur Squamous Epith Cells 10 H Urine Bacteria Rare Urine Opiates Screen Negative Urine Fentanyl Screen Negative Ur Barbiturates Screen Negative U Amphetamin/Meth Scrn Negative U Benzodiazepines Scrn Negative U Cocaine Metab Screen Negative U Marijuana (THC) Screen Negative Misc Test Result Platelets confirmed 07/06/25 07/06/25 05:08 08:50 WBC RBC Hgb Hct MCV MCH MCHC RDW Std Deviation Plt Count Neut % (Auto) Lymph % (Auto) [place] % (Auto) Eos % (Auto) Baso % (Auto) Neut # (Auto) Lymph # (Auto) [place] # (Auto) Eos # (Auto) Baso # (Auto) Immature Gran # (Auto) Absolute Nucleated RBC Immature Gran % Nucleated RBC % PT INR Puncture Site Right Radial ABG pH 7.48 H D ABG pCO2 30 L ABG pO2 78 L D ABG HCO3 22 ABG O2 Saturation 98 ABG Base Excess -1 FiO2 21 Sodium Potassium Chloride Carbon Dioxide Anion Gap BUN Creatinine Estim Creat Clear Calc eGFR BUN/Creatinine Ratio Glucose Calculated Osmolality Calcium Corrected Calcium Phosphorus Magnesium Total Bilirubin AST ALT Alkaline Phosphatase Ammonia 34 H C-Reactive Prot, Quant Total Protein Albumin Globulin Albumin/Globulin Ratio Ur Collection Type Urine Color Urine Clarity Urine pH Ur Specific [place] Urine Protein Urine Glucose (UA) Urine Ketones Urine Blood Urine Nitrite Urine Bilirubin Urine Urobilinogen (Auto) Ur Leukocyte Esterase Urine RBC Urine WBC Ur Squamous Epith Cells Urine Bacteria Urine Opiates Screen Urine Fentanyl Screen Ur Barbiturates Screen U Amphetamin/Meth Scrn U Benzodiazepines Scrn U Cocaine Metab Screen U Marijuana (THC) Screen Misc Test Result ABG Interpretation ABG results: 07/05/25 07/06/25 10:15 05:08 ABG pH 7.64 H* 7.48 H D ABG pCO2 23 L 30 L ABG pO2 109 H 78 L D ABG HCO3 24 22 ABG O2 Saturation 100 H 98 ABG Base Excess 4 H -1 Assessment & Plan Patient Synopsis A 44-year-old female with Hx of decompensated liver cirrhosis presented to the ED with AMS, noted to have metabolic alkalosis, severe hypokalemia, severe hypercalcemia, hyperbilirubinemia, thrombocytopenia with significantly elevated ammonia levels consistent with acute worsening of chronic decompensation of liver cirrhosis with hepatic encephalopathy. CT abdomen did reveal 8 mm liver elevation along with cirrhosis, CBD stent in appropriate position EKG did reveal. Sinus tachycardia with significantly prolonged QTc > 500. Remained hemodynamically stable, mentation slightly improved, ammonia normalized, still hypokalemic with potassium 2.9. Calcium slightly decreased. Complains of abdominal discomfort and has mild diffuse tenderness without any guarding or rigidity. -Continue maintenance IV NS at 150 mL an hour - Administered additional 60 mEq of KCl over next 8 hours - Administer second dose of calcitonin subcutaneously 60 units x 1 - Continue on Rocephin, Will add metronidazole for possible SBP. - Requested IR for paracentesis, and ascitic fluid evaluation. -Continue Protonix 40 mg IV twice daily - Increase lactulose 20 mg 3 times daily here - Hold on spironolactone and Lasix as patient is significantly dehydrated - Holding paroxetine due to significantly prolonged QTc - Continue metoprolol 25 mg twice daily for tachycardia and QTc prolongation -Can use Zofran 4 mg x 1 for nausea. - Repeat labs every 24 hours, EKG. Follow-up with blood cultures and ascitic fluid studies. No need for DVT pharmacological prophylaxis due to coagulopathy. Use IPC's Other Chronic problem List: #Primary hyperparathyroidism #Hypercalcemia #Subclinical hyperthyroidism #Elevated T bilirubin #Elevated transaminases #Hypokalemia, #Hypophosphatemia #Chronic normocytic anemia # Decompensated liver cirrhosis #Splenomegaly #Thrombocytopenia #Anxiety/depression #Asthma without exacerbation Time Spent with Patient Time: Total time spent is greater than 50% in coordination of care (as documented) at patient's floor/unit and/or counseling patient: Time with patient: Greater than 35 minutes Reason for Continued Stay Reason for continued stay: further dx testing and IV antibiotics Quality Measures Quality Measures none
[2025-07-06] MEDS: metroNIDAZOLE/NS 500 MG IVPB 500 MG/100 ML BAG 200 MG IV ×2 (12:27→21:09)
[2025-07-06] MEDS: CALCITONIN, SALMON SYNTH INJ 1 UNIT/0.005 ML VIAL 260 UNIT SC (13:48)
--- NOTE | 2025-07-06 14:53 | PC.SS ---
Addendum entered by Samra Lewis 07/06/25 14:54: Pt will need ride assistance back home as family does not have a vehicle at this time. Original Note: Raj Vitale is a 44-year-old female admitted to [facility] for Hepatic Encephalopathy. SS attempted to meet with pt at bedside, pt was resting. In attempt to complete initial, assessment, SS contacted pt dtr Zahida Cabral [phone]. Zahida stated pt lives with her and other family. Pt has required more assistance in the last few weeks, pt was independent and did not require any DME but daughter is interested in a walker or wheelchair. DC options discussed and they wish for the pt to return home. Pts PCP is at [facility], they are unsure of name (last visit was 1 month ago). No further needs identified. SS will remain available for any additional needs or concerns. DC plan: Home DM: Zahida Miranda PCP: [facility]
[2025-07-06] MEDS: THIAMINE INJ 100 MG/ML VIAL 2 ML IV (15:58)
[2025-07-06] MEDS: FOLIC ACID 1 MG TABLET PO (17:35)
[2025-07-07] VITALS (12 sets, daily range): BP systolic 100–129; BP diastolic 27–73; PULSE 60–109; RESP 17–98; TEMP 36.1–36.8; O2SAT 95–100
[2025-07-07] MEDS: LACTULOSE SYRUP 20 GM/30 ML UDC PO ×3 (05:42→21:22)
[2025-07-07] MEDS: metroNIDAZOLE/NS 500 MG IVPB 500 MG/100 ML BAG 200 MG IV (05:42)
[2025-07-07 06:03] LABS: INR 2.0 (0.9-1.3); Prothrombin Time 19.8 Seconds (9.0-12.2)
[2025-07-07 06:32] LABS: Alanine Aminotransferase 27 U/L (10-49); Albumin, Serum 2.6 gm/dL (3.5-5.0); Albumin/Globulin Ratio 0.8 (1.2-2.2); Alkaline Phosphatase 112 U/L (46-116); Anion Gap 11 (7-16); Aspartate Amino Transferase 87 U/L (0-34); BUN/Creatinine Ratio 6 Ratio (12-20); Bilirubin,Total 7.9 mg/dL (0.3-1.2); Blood Urea Nitrogen < 5 mg/dL (9-23); Calcium 10.4 mg/dL (8.3-10.6); Calcium (Corrected) 11.5 mg/dL (8.5-10.1); Carbon Dioxide 19.2 mMol/L (20.0-31.0); Chloride 114 mMol/L (98-107); Creatinine (Component) 0.9 mg/dL (0.6-1.3); Estimated Creatinine Clearance 74.4 mL/min (>60); Globulin 3.3 gm/dL (2.3-3.5); Glucose 91 mg/dL (74-106); Magnesium 1.8 mg/dL (1.6-2.6); Osmolality,Calculated 284 (275-295); Phosphorous 1.3 mg/dL (2.4-5.1); Potassium 3.1 mMol/L (3.4-5.1); Sodium 144 mMol/L (136-145); Total Protein 5.9 gm/dL (5.7-8.2); eGFR > 60 See Note
[2025-07-07] MEDS: SODIUM CHLORIDE 0.9% 1000 ML 1,000 ML 150 ML IV (07:24)
[2025-07-07] MEDS: METOPROLOL TARTRATE 25 MG TABLET PO ×2 (09:19→20:34)
[2025-07-07 09:20] LABS: Basophils # (Auto) 0.1 Thou/mm3 (0.0-0.2); Basophils % (Auto) 1 % (0-2.5); Eosinophils # (Auto) 0.1 Thou/mm3 (0.0-0.5); Eosinophils % (Auto) 1 % (0-10); Hematocrit 28.2 % (36.0-46.0); Hemoglobin 8.9 g/dL (12.0-16.0); Immature Granulocytes Auto 0.04 Thou/mm3 (0.00-0.00); Lymphocytes # (Auto) 0.9 Thou/mm3 (1.0-4.8); Lymphocytes % (Auto) 11 % (10-50); Mean Corpuscular HGB Conc 31.6 g/dl (31.0-37.0); Mean Corpuscular Hemoglobin 37.4 pg (25.0-35.0); Mean Corpuscular Volume 119 fL (80-100); Monocytes # (Auto) 0.7 Thou/mm3 (0.0-0.8); Monocytes % (Auto) 8 % (0-12); Neutrophils # (Auto) 6.7 Thou/mm3 (1.8-7.7); Neutrophils % (Auto) 79 % (37-80); Nucleated Red Blood Cell # 0.00 Thou/mm3 (0.00-0.00); Nucleated Red Blood Cell % 0 /100 WBC (0); Platelet Count 140 Thou/mm3 (140-440); RDW Standard Deviation 83.3 fL (36.4-46.3); Red Blood Count 2.38 Miln/mm3 (4.00-5.20); White Blood Count 8.5 Thou/mm3 (3.6-11.0)
[2025-07-07] MEDS: cefTRIAXone/D5w 1gm IV premix 1 GM/50 ML BAG IV (09:20)
[2025-07-07] MEDS: FOLIC ACID 1 MG TABLET PO (09:20)
[2025-07-07] MEDS: THIAMINE 100 MG TABLET PO (09:20)
[2025-07-07] MEDS: POTASSIUM CHL 10 mEq IVPB 10 MEQ/100 ML BAG 100 MEQ IV ×4 (09:22→13:01)
[2025-07-07 09:25] LABS: Folate 6.60 ng/mL (>5.38); Vitamin B12 895 pg/mL (211-911)
[2025-07-07] MEDS: NAPH,KPH MBDB 1 PACKET (1.5 GM) PO (09:28)
[2025-07-07] MEDS: Magnesium Sulfate 2 GM Ivpb 2 GM/50 ML BAG IV (11:58)
[2025-07-07 12:12] LABS: AFP Non-Pregnant 3.20 ng/mL (<8.10)
--- NOTE | 2025-07-07 13:47 | ESPR_ITS ---
<Statement entered by Estefany Payan MD - 07/07/25 15:18> 44-year-old female with past medical history of decompensated liver cirrhosis was admitted for acute metabolic encephalopathy and management #Acute encephalophay multifactorial DDx: Metabolic in a setting of hyperCalcemia vs hepatinc(hyperamonemia) vs malignancy(metastatic and/or primary) Per daughter mental status significantly declined past week upon our eval She was confused MRI w/wo contrast was ordered. #Acute on chronic decompensated liver cirrhosis with hepatic encephalopathy Labs revealed hyperbilirubinemia, thrombocytopenia, significantly elevated ammonia which has now improved CT abdomen revealed cirrhosis with mild 8 mm liver lesions, CBD stent is in place, EPAP status slightly improved after lactulose treatment next patient still pending, mild abdominal at this complex, mild diffuse tenderness none -Continue lactulose 20 3 times daily with goals of 3-4 bowel movements daily continue Protonix 40 IV twice daily Hold diuretics due to dehydration Monitor for signs of SBP DC metronidazole, increased Rocephin to 2 g daily #Hypercalcemia Most likely secondary due to primary hyperparathyroidism Will obtain PTH, previous 1 was above 150 Inpatient patient received 2 subcu injection of calcitonin, calcium level significantly improved IVF was discontinued, will give 1 dose of Lasix Will obtain ultrasound of the thyroid Patient will need outpatient ENT evaluation for possible parathyroidectomy I discussed with and supervised the internal grinder physician who took care of this patient. I personally saw and examined the patient and discussed the assessment and plan with the entire medicine team, including my attending , I agree with the assessment and plan as documented below Estefany Payan M.D. PGY-3 Disclaimer: Despite multiple revisions, due to the dictation software being used, the document bellow may not be free of grammatical errors including phonetic/typographic errors. However, this does not deter from our commitment to providing health care in the patient's best interest in mind. Documentation for date of: 07/07/25 Subjective Subjective Interval history: Patient seen at bedside. No acute overnight events. Patient denies any chest pain, shortness of breath, abdominal pain, nausea, vomiting, dizziness. Patient's vitals and labs were reviewed. Patient continues to be confused. CTX was increased to 2g qDay and stopped Metronidazole. AFP was ordered. Thyroid US was ordered. MRI brain ordered to r/o mets to brain or primary brain lesion. PT ordered. Exam Vital Signs Temp Pulse Resp BP Pulse Ox O2 Del Method 96.9 F 65 18 105/57 L 97 Room Air 07/07/25 11:37 07/07/25 11:37 07/07/25 11:37 07/07/25 11:37 07/07/25 11:37 07/07/25 11:37 Narrative Exam General: AO x 1 (person), Not in distress. Pale. Scleral icterus. HEENT: PERRL, No JVD, Neck supple. Resp: CTA bilaterally, no wheezing or crackles/rhonchii Cardio: Regular Rhythm. S1 +S2. No murmurs/rubs/gallops. GI: Soft. Non-tender. Non-distended, no organomegaly. Extr: No LE edema, ROM intact Neuro: No focal neruological deficits. Moving all 4 limbs. Objective Labs 07/07/25 04:53 07/08/25 04:55 Labs: Laboratory Results - last 24 hr 07/07/25 04:53 WBC 8.5 RBC 2.38 L Hgb 8.9 L Hct 28.2 L MCV 119 H MCH 37.4 H MCHC 31.6 RDW Std Deviation 83.3 H Plt Count 140 D Neut % (Auto) 79 Lymph % (Auto) 11 [place] % (Auto) 8 Eos % (Auto) 1 Baso % (Auto) 1 Neut # (Auto) 6.7 Lymph # (Auto) 0.9 L [place] # (Auto) 0.7 Eos # (Auto) 0.1 Baso # (Auto) 0.1 Immature Gran # (Auto) 0.04 H Absolute Nucleated RBC 0.00 Immature Gran % 1 H Nucleated RBC % 0 PT 19.8 H INR 2.0 H Sodium 144 Potassium 3.1 L Chloride 114 H Carbon Dioxide 19.2 L Anion Gap 11 BUN < 5 L Creatinine 0.9 Estim Creat Clear Calc 74.4 eGFR > 60 BUN/Creatinine Ratio 6 L Glucose 91 Calculated Osmolality 284 Calcium 10.4 Corrected Calcium 11.5 H Phosphorus 1.3 L Magnesium 1.8 Total Bilirubin 7.9 H D AST 87 H ALT 27 Alkaline Phosphatase 112 Total Protein 5.9 Albumin 2.6 L Globulin 3.3 Albumin/Globulin Ratio 0.8 L Tumor Marker AFP 3.20 Vitamin B12 895 Folate 6.60 ABG Interpretation ABG results: 07/05/25 07/06/25 10:15 05:08 ABG pH 7.64 H* 7.48 H D ABG pCO2 23 L 30 L ABG pO2 109 H 78 L D ABG HCO3 24 22 ABG O2 Saturation 100 H 98 ABG Base Excess 4 H -1 Quality Measures Quality Measures none Assessment & Plan Assessment Current Active Medications: Generic Name Dose Route Start Last Admin Trade Name Kylie PRN Reason Stop Dose Admin Folic Acid 1 mg 07/06/25 15:45 07/07/25 09:20 Folic Acid 1 Mg Tablet PO 08/05/25 15:44 1 mg QDAY TYRONE Administration Ceftriaxone Sodium 2 gm/ 50 mls @ 100 mls/hr 07/07/25 11:15 Sodium Chloride IV 07/14/25 11:14 QDAY TYRONE Lactulose 20 gm 07/06/25 14:00 07/07/25 13:03 Lactulose Syrup 20 Gm/30 Ml Udc PO 08/05/25 13:59 20 gm TID TYRONE Administration Protocol Metoprolol Tartrate 25 mg 07/05/25 21:00 07/07/25 09:19 Metoprolol Tartrate 25 Mg Tablet PO 08/04/25 20:59 25 mg BID TYRONE Administration Pantoprazole Sodium 40 mg 07/05/25 21:00 07/07/25 09:20 Pantoprazole Inj 40 Mg Vial IVP 08/04/25 20:59 40 mg Q12HR TYRONE Administration Thiamine HCl 100 mg 07/07/25 09:00 07/07/25 09:20 Thiamine 100 Mg Tablet PO 08/06/25 08:59 100 mg QDAY TYRONE Administration Plan 44-year-old female with past medical history of decompensated liver cirrhosis was admitted for acute metabolic encephalopathy and management. #Acute Encephalopathy Multifactorial DDx: Metabolic in a setting of hypercalcemia and hyperamonemia vs malignancy (metastatic and/or primary) Per daughter mental status significantly declined past week CT head neg for hemorrhage/mass effect/midline shift Patient A/O x1 AFP 3.2 Ca on presentation 12.8 --> 11.5 Ammonia on presentation 92 --> 34 Plan - MRI brain w/wo contrast ordered 07/07 #Acute on chronic decompensated liver cirrhosis #Hepatic encephalopathy Child Brito score 11 points, Class C MELD-Na score 9 points, 7-10% 90 day mortality Labs revealed hyperbilirubinemia, thrombocytopenia, significantly elevated ammonia which has now improved CT abdomen revealed cirrhosis with mild 8 mm liver lesions, CBD stent is in place, mental status slightly improved after lactulose treatment, mild abdominal diffuse tenderness Plan - Continue lactulose 20 g TID, titrate to achieve 3?4 bowel movements daily. - Consider adding rifaximin if mental status does not improve adequately or if recurrent HE. - Continue Protonix 40 mg IV twice daily. - Hold diuretics in the setting of dehydration; reassess daily for volume status. - Monitor closely for signs of SBP (fever, abdominal pain, leukocytosis); obtain diagnostic paracentesis if clinically indicated. - Discontinue metronidazole. - Increase ceftriaxone to 2 g IV daily for SBP prophylaxis. #Primary Hyperparathyroidism #Hypercalcemia #Hypophosphatemia Findings are most consistent with primary hyperparathyroidism. Common etiologies include parathyroid adenoma (most common), parathyroid hyperplasia, and less commonly, parathyroid carcinoma. Labs: PTH 296, Ca 11.5, Phos 1.3 Plan - Patient received two subcutaneous doses of calcitonin during admission with significant improvement in serum calcium. - IV fluids discontinued as calcium levels improved and patient is euvolemic. - Furosemide daily to promote calciuresis and maintain normocalcemia. - Thyroid ultrasound ordered to evaluate for parathyroid adenoma or hyperplasia. - Outpatient ENT referral for further evaluation and consideration of parathyroidectomy. - Monitor daily calcium, phosphorus, electrolytes, and renal function - MRI brain ordered to assess for possible metastatic disease or primary UNIT COORDINATOR lesion given hypercalcemia and elevated PTH. Health Maintenance: Diet: CLD GI prophylaxis: Protonix 40mg BID DVT prophylaxis: Protonix 40mg BID Antibiotics: CTX 2g daily CODE STATUS: FULL Disposition: [facility] Case discussed with my attending Dr. Ash, and senior resident, Dr. Schuyler Michel MD PGY-1 Attending Provider Attestation/Addendum I, Lauren Ash, DO, attest that I was physically present for the [place] portions of the service and evaluated the patient with the resident and I reviewed and discussed the case with the resident and agree with the resident's findings and plans of care as documented above Acute metabolic encephalopathy Hyperammonemia Decompensated liver cirrhosis, multifactorial, secondary to alcohol and [place] Suspected SBP Hypercalcemia Hyperparathyroidism Hyperbilirubinemia Hypophosphatemia Patient is a 44-year-old female with past medical history of liver cirrhosis secondary to alcohol and [place]STR[place], anxiety/shoulder arthritis, hypercalcemia who was brought due to worsening confusion for the past week. Patient is at baseline able to walk with a walker. She had stopped drinking alcohol earlier in 2024. She had previously been admitted and recommended to follow-up with ENT due to concern for hypercalcemia secondary to hyperparathyroidism. However, daughter states that patient has not been able to follow-up. Patient has a history of choledocholithiasis during which she was transferred from the emergency room and had a biliary stent placed. Patient today has been confused and repeats questions that she is being asked. She is unable to provide an accurate history. Abdomen is soft on palpation and with some mild tenderness. She is currently ANO x 1. She denies any dysuria, fevers or chills. Patient has been afebrile. Abdominal ultrasound was done yesterday showing minimal ascitic fluid. Will increase Rocephin to 2 g due to concern for SBP. Will add Lasix due to persistent hypercalcemia. IV fluids were stopped due to concern for fluid overload. Will also DC Flagyl at this time. Ultrasound of thyroid was ordered to assess for any parathyroid nodules. There is concern for possible malignancy due to elevated calcium levels and the 8 mm liver lesion noted on CT. Will order MRI of brain due to acute encephalopathy. Patient has been receiving lactulose due to elevated ammonia levels, which appears to have improved. Will order physical therapy as patient appears deconditioned
--- NOTE | 2025-07-07 14:39 | XR_ITS ---
EXAMINATION: Thyroid sonography complete TECHNIQUE: Grayscale sonographic images thyroid lobes Date and time: July 07, 2025, 1526 hours INDICATIONS: Assess parathyroids FINDINGS: Right thyroid 2.9 cm Left thyroid 2.9 cm No cystic or solid nodules IMPRESSION: Negative thyroid sonogram As clinically warranted, nuclear medicine sestamibi parathyroid scan would best assess for parathyroid adenoma
[2025-07-07] MEDS: FUROSEMIDE INJ 10 MG/ML VIAL 2 ML 20 MG IVP (15:16)
[2025-07-07] MEDS: cefTRIAXone 2 GM in SODIUM CHLORIDE 0.9% (Popper) 50 ML IV (15:16)
[2025-07-07 19:21] LABS: Parathyroid Hormone Intact 296.0 pg/ml (18.5-88.0)
[2025-07-08] VITALS (10 sets, daily range): BP systolic 98–107; BP diastolic 51–63; PULSE 61–69; RESP 15–98; TEMP 36.1–36.6; O2SAT 95–100
--- NOTE | 2025-07-08 | XR_ITS ---
Examination: MRI of brain without intravenous contrast. MRI brain with intravenous contrast. Date and time of exam: July 08, 2025, 1143 hours INDICATIONS: Onset altered mental status today Technique: Multiple axial and sagittal images of the brain to been obtained. Siemens high-resolution 1.52 Lyn short bore scanner utilized. Sagittal sections, T1 weighted images, TR 500, TE 14, are performed. Axial sections proton-density and T2-weighted images have been obtained. Inversion recovery axial images, TR 9260, TE 111, TR 2500. Diffusion weighted images, axial sections, TR 4800, TE 128, B value 1000. Axial sections, ADC map, TR 4800, TE 128. Axial and coronal images were also obtained post 13 cc gadolinium administered intravenously. Findings:: Enlargement of the sella turcica is not present. The optic chiasm and infundibular stalk are not remarkable. There is no localized enlargement of the medulla or samuel. Fourth ventricle and cerebellar tonsils appear normal in position. No subacute area of hemorrhage density is seen. Fourth ventricle is midline. Mass in the cerebellopontine angle region is not evident. 7th and 8th nerve complexes exhibit symmetry Globes are symmetrical Orbital musculature including medial lateral rectus muscles do not exhibit abnormality Increased white matter signal is evident multiple punctate foci of increased signal in the white matter Effacement of the cortical sulcal markings is not identified. Mass effect upon the ventricular system is not identified. Diffusion-weighted images demonstrate no focus of restricted diffusion Contrast images demonstrate no abnormal enhancement Impression: Demyelinating disease
[2025-07-08] MEDS: LACTULOSE SYRUP 20 GM/30 ML UDC PO ×3 (05:15→21:45)
[2025-07-08 06:33] LABS: INR 2.0 (0.9-1.3); Prothrombin Time 20.4 Seconds (9.0-12.2)
[2025-07-08 06:49] LABS: Alanine Aminotransferase 29 U/L (10-49); Albumin, Serum 2.4 gm/dL (3.5-5.0); Albumin/Globulin Ratio 0.8 (1.2-2.2); Alkaline Phosphatase 103 U/L (46-116); Anion Gap 12 (7-16); Aspartate Amino Transferase 95 U/L (0-34); BUN/Creatinine Ratio 6 Ratio (12-20); Bilirubin,Total 6.2 mg/dL (0.3-1.2); Blood Urea Nitrogen < 5 mg/dL (9-23); Calcium 11.1 mg/dL (8.3-10.6); Calcium (Corrected) 12.4 mg/dL (8.5-10.1); Carbon Dioxide 19.9 mMol/L (20.0-31.0); Chloride 112 mMol/L (98-107); Creatinine (Component) 0.9 mg/dL (0.6-1.3); Estimated Creatinine Clearance 74.4 mL/min (>60); Globulin 3.1 gm/dL (2.3-3.5); Glucose 84 mg/dL (74-106); Magnesium 1.8 mg/dL (1.6-2.6); Osmolality,Calculated 283 (275-295); Phosphorous 1.6 mg/dL (2.4-5.1); Sodium 144 mMol/L (136-145); Total Protein 5.5 gm/dL (5.7-8.2); eGFR > 60 See Note
[2025-07-08 07:00] LABS: Potassium 2.8 mMol/L (3.4-5.1)
[2025-07-08] MEDS: FOLIC ACID 1 MG TABLET PO (09:47)
[2025-07-08] MEDS: METOPROLOL TARTRATE 25 MG TABLET PO ×2 (09:47→21:44)
[2025-07-08] MEDS: cefTRIAXone 2 GM in SODIUM CHLORIDE 0.9% (Popper) 50 ML IV (09:47)
[2025-07-08] MEDS: THIAMINE 100 MG TABLET PO (09:47)
--- NOTE | 2025-07-08 09:49 | PC.SS ---
Follow up note: MRI pending. Physicians are recommending SNF.
[2025-07-08] MEDS: POT PHOS 15 mMol in NS 250 ML 15 MMOL/250 ML BAG 62.5 MMOL IV ×2 (10:26→15:42)
--- NOTE | 2025-07-08 10:49 | XR_ITS ---
EXAMINATION: Nuclear medicine parathyroid scan Date and time: July 09, 2025, 1630 hours INDICATIONS: Elevated PTH on laboratory examination elevated calcium this month on laboratory examination TECHNIQUE AND FINDINGS: Intravenous administration sestamibi, I will add the dose when it is available from the fire management technician Anterior pinhole chest images obtained to 6 hours Salivary gland uptake is present No findings diagnostic for parathyroid adenoma IMPRESSION: No findings diagnostic for parathyroid adenoma
--- NOTE | 2025-07-08 10:59 | ESPR_ITS ---
<Statement entered by Herb Quick MD - 07/08/25 16:57> I have personally seen and examined the patient. I agree with the resident's assessment and plan as documented below. Herb Quick DO PGY-2 Internal Medicine - GME Documentation for date of: 07/08/25 Subjective Subjective Interval history: Patient seen at bedside. No acute overnight events. Patient denies any chest pain, shortness of breath, abdominal pain, nausea, vomiting, dizziness. Patient's vitals and labs were reviewed. Patient continues to be confused. Rifaximin 550 mg twice daily added. Continues on CTX 2g qDay and stopped Metronidazole. AFP normal. Thyroid US was unremarkable. NM parathyroid ordered. MRI brain ordered to r/o mets to brain or primary brain lesion. PT ordered. Exam Vital Signs Temp Pulse Resp BP Pulse Ox O2 Del Method 97.2 F 67 21 H 102/60 96 Room Air 07/08/25 08:00 07/08/25 09:47 07/08/25 08:00 07/08/25 09:47 07/08/25 08:00 07/08/25 08:00 Narrative Exam General: AO x 1 (person), Not in distress. Pale. Scleral icterus. HEENT: PERRL, No JVD, Neck supple. Resp: CTA bilaterally, no wheezing or crackles/rhonchii Cardio: Regular Rhythm. S1 +S2. No murmurs/rubs/gallops. GI: Soft. Non-tender. Non-distended, no organomegaly. Extr: No LE edema, ROM intact Neuro: No focal neruological deficits. Moving all 4 limbs. Objective Labs 07/07/25 04:53 07/08/25 15:05 Labs: Laboratory Results - last 24 hr 07/07/25 07/07/25 07/08/25 04:53 16:27 04:55 PT 20.4 H INR 2.0 H Sodium 144 Potassium 2.8 L Chloride 112 H Carbon Dioxide 19.9 L Anion Gap 12 BUN < 5 L Creatinine 0.9 Estim Creat Clear Calc 74.4 eGFR > 60 BUN/Creatinine Ratio 6 L Glucose 84 Calculated Osmolality 283 Calcium 11.1 H Corrected Calcium 12.4 H Phosphorus 1.6 L Magnesium 1.8 Total Bilirubin 6.2 H D AST 95 H ALT 29 Alkaline Phosphatase 103 Total Protein 5.5 L Albumin 2.4 L Globulin 3.1 Albumin/Globulin Ratio 0.8 L Tumor Marker AFP 3.20 PTH Intact 296.0 H ABG Interpretation ABG results: 07/05/25 07/06/25 10:15 05:08 ABG pH 7.64 H* 7.48 H D ABG pCO2 23 L 30 L ABG pO2 109 H 78 L D ABG HCO3 24 22 ABG O2 Saturation 100 H 98 ABG Base Excess 4 H -1 Quality Measures Quality Measures none Assessment & Plan Assessment Current Active Medications: Generic Name Dose Route Start Last Admin Trade Name Freq PRN Reason Stop Dose Admin Folic Acid 1 mg 07/06/25 15:45 07/08/25 09:47 Folic Acid 1 Mg Tablet PO 08/05/25 15:44 1 mg QDAY TYRONE Administration Furosemide 20 mg 07/07/25 14:45 07/08/25 09:46 Furosemide Inj 10 Mg/Ml Vial 2 Ml IVP 08/06/25 14:44 Not Given On Hold: 07/08/25 09:09 QDAY TYRONE Ceftriaxone Sodium 2 gm/ 50 mls @ 100 mls/hr 07/07/25 11:15 07/08/25 09:47 Sodium Chloride IV 07/14/25 11:14 100 mls/hr QDAY TYRONE Administration Potassium Phosphate 15 mmol in 250 mls @ 62.5 mls/hr 07/08/25 09:02 07/08/25 10:26 Pot Phos 15 Mmol In Ns 250 Ml IV 07/08/25 17:01 62.5 mls/hr Q4H TYRONE Administration Lactated Ringer's 1,000 mls @ 100 mls/hr 07/08/25 10:50 Lactated Ringers IV 08/07/25 10:49 .Q10H TYRONE Potassium Chloride 10 meq in 100 mls @ 100 mls/hr 07/08/25 11:00 Kcl Ivpb IV 07/08/25 14:59 Q1H TYRONE Lactulose 20 gm 07/06/25 14:00 07/08/25 05:15 Lactulose Syrup 20 Gm/30 Ml Udc PO 08/05/25 13:59 20 gm TID TYRONE Administration Protocol Metoprolol Tartrate 25 mg 07/05/25 21:00 07/08/25 09:47 Metoprolol Tartrate 25 Mg Tablet PO 08/04/25 20:59 25 mg BID TYRONE Administration Pantoprazole Sodium 40 mg 07/05/25 21:00 07/08/25 09:48 Pantoprazole Inj 40 Mg Vial IVP 08/04/25 20:59 40 mg Q12HR TYRONE Administration Rifaximin 550 mg 07/08/25 11:00 Rifaximin 550 Mg Tablet PO 07/15/25 10:59 BID TYRONE Thiamine HCl 100 mg 07/07/25 09:00 07/08/25 09:47 Thiamine 100 Mg Tablet PO 08/06/25 08:59 100 mg QDAY TYRONE Administration Plan 44-year-old female with past medical history of decompensated liver cirrhosis was admitted for acute metabolic encephalopathy and management. #Acute Encephalopathy Multifactorial DDx: Metabolic in a setting of hypercalcemia and hyperamonemia vs malignancy (metastatic and/or primary) Per daughter mental status significantly declined past week CT head neg for hemorrhage/mass effect/midline shift Patient A/O x1 AFP 3.2 Ca on presentation 12.8 --> 11.5 Ammonia on presentation 92 --> 34 Plan - MRI brain w/wo contrast ordered 07/07 - Continue monitoring mental status - Supportive care and correction of metabolic abnormalities #Acute on chronic decompensated liver cirrhosis #Hepatic encephalopathy Child Brito score 11 points, Class C MELD-Na score 9 points, 7-10% 90 day mortality Labs revealed hyperbilirubinemia, thrombocytopenia, significantly elevated ammonia which has now improved CT abdomen revealed cirrhosis with mild 8 mm liver lesions, CBD stent is in place, mental status slightly improved after lactulose treatment, mild abdominal diffuse tenderness Plan - Continue lactulose 20 g TID, titrate to achieve 3?4 bowel movements daily. - Added rifaximin 550mg BID for non-improvement of mental status - Hold diuretics in the setting of dehydration; reassess daily for volume status. - Monitor closely for signs of SBP (fever, abdominal pain, leukocytosis); obtain diagnostic paracentesis if clinically indicated. - Continue ceftriaxone to 2 g IV daily for SBP prophylaxis, Abdo US shows min ascitic fluid, may consider stopping tomorrow #Primary Hyperparathyroidism #Hypercalcemia #Hypophosphatemia Findings are most consistent with primary hyperparathyroidism. Common etiologies include parathyroid adenoma (most common), parathyroid hyperplasia, and less commonly, parathyroid carcinoma. Patient received two subcutaneous doses of calcitonin during admission with significant improvement in serum calcium. Labs: PTH 296, Ca 12.4, Phos 1.6 Thyroid ultrasound unremarkable Plan - LR 100ml/hr - NM Parathyroid ordered to assess for parathyroid adenoma or hyperplasia. - Holding lasix - Consider starting Zoledronic acid for Ca >13 - Outpatient ENT referral for further evaluation and consideration of parathyroidectomy. - Monitor daily calcium, phosphorus, electrolytes, and renal function - MRI brain ordered to assess for possible metastatic disease or primary [employer] lesion given hypercalcemia and elevated PTH. Health Maintenance: Diet: CLD GI prophylaxis: Protonix 40mg BID DVT prophylaxis: Lovenox Antibiotics: CTX 2g daily CODE STATUS: FULL Disposition: MedTele Case discussed with my attending Dr. Ash, and senior resident, Dr. Ynes Michel MD PGY-1 Attending Provider Attestation/Addendum I, Lauren Ash DO, attest that I was physically present for the garnica portions of the service and evaluated the patient with the resident and I reviewed and discussed the case with the resident and agree with the resident's findings and plans of care as documented above Patient seen and evaluated this AM. She remains confused. A&Ox1. MRI shows concern for demyelinating disease. Will consult neurology for further recommendations. No family at bedside at time of evaluation. Mild abdominal discomfort on palpation. However, patient appears to have generalized hyperalgesia during physical exam. Rifaximin added for hepatic encephalopathy. She continues to have hypercalcemia despite lasix. Will restart IV fluids and monitor volume status closely. Consider bisphosphonates if calcium continues to uptrending >14. Thyroid US does not show any apparent masses. Will order NM sestamibi scan of parathyroids. 24h urine calcium also collected.
[2025-07-08] MEDS: RINGERS LACTATED 1000 ML 1,000 ML 100 ML IV ×2 (13:26→21:15)
[2025-07-08] MEDS: POTASSIUM CHL 10 mEq IVPB 10 MEQ/100 ML BAG 100 MEQ IV ×4 (13:27→18:13)
--- NOTE | 2025-07-08 15:12 | PC.SS ---
SS spoke to patient's dtrZahida by phone regarding patient's d/c plan. SS provided verbal options for d/c to home or SNF. Dtr states she is undecided and is requesting to speak with family about d/c options. Dtr is agreeable for SS to send inquiry to the local SNF using [facility] in case family is agreeable to SNF. Per bedside nurse, Lynne pt has hx of depression/anxiety and is on Paroxetine for depression. PASRR assessment initiated and Level II Mental Health Evaluation referral is required.
[2025-07-08 16:00] LABS: Potassium 3.3 mMol/L (3.4-5.1)
[2025-07-08] MEDS: ENOXAPARIN SOD INJ 40 MG/0.4 ML SYRINGE SC (17:01)
--- NOTE | 2025-07-08 20:56 | PC.NURSE ---
seen and examined by Dr. Faulkner.
--- NOTE | 2025-07-08 22:07 | PD.RESCONSUL ---
HPI Data of Consult Requesting Physician: Lauren Ash DO Admitting Provider: Aramis Huitron MD Attending Provider: Lauren Ash DO Primary Care Provider: Physician No Primary/Family Consult Narrative Reason for consult: AMS History of present illness: Raj Vitale is 44 yr female with PMH of liver cirrhosis, primary hyperparathyroidism, hypercalcemia, asthma, migraine, previous GI bleed who was admitted on 07/05 due to altered mental status. Patient is poor historian due to confusion. Most history was obtained per chart review. Daughter reported that patient has been acting like herself, more disoriented since past few days. Initially was complaining of abdominal pain, however on physical exam at bedside no pain on palpation. Patient is quite somnolent but arousable with continued prompting. She is alert and oriented to self and place. Per nursing, patient has been quite somnolent throughout the day. CT head negative for acute hemorrhage, mass effect. CT abdomen pelvis showed impression of cirrhosis with 8 mm liver lesion, biliary stent. MRI brain significant for increased white matter changes, multiple punctate foci, evidence of demyelinating disease. Hemoglobin 8.9, MCV 119, hypokalemia 3.3, hypophosphatemia 1.6, bilirubin 6.2. Mental status appears to be improving. Continue to monitor closely. Likely encephalopathy in setting of liver disease. cc:: cc: Lauren Ash DO Review of Systems Review of Systems ROS Unobtainable: unobtainable due to mental status Exam Vital Signs Temp Pulse Resp BP Pulse Ox O2 Del Method 97.9 F 69 15 100/63 97 Room Air 07/08/25 20:00 07/08/25 21:44 07/08/25 20:00 07/08/25 21:44 07/08/25 20:00 07/08/25 20:00 Narrative Exam General: Middle age female, No acute distress, somnolent, arousable HEENT: NCAT, No JVD noted. Mucosa moist. Pupils are equal and reactive to light bilaterally, no scleral icterus Cardiovascular: Normal S1 and S2. Regular rate and rhythm. Respiratory: Lungs are clear to auscultation bilaterally. No wheezing or crackles heard. Abdomen: Soft, nontender, not distended, normal bowel sounds. Skin: Warm to touch, dry, no rashes noted Musculoskeletal: No gross injuries. Able to move all 4 extremities. No pitting edema Neuro: Alert and oriented x2.CN grossly intact, following commands. No pronator drift noted. Deep tendon reflexes: 2+ bilaterally symmetrical. Plantar reflex: Downgoing bilaterally. Sensory system: Intact to all modalities of sensation bilaterally. no dysmetria, or dysdiadochokinesia noted. No intention tremors noted. Gait: Not tested. No signs of meningeal irritation noted. Psych: Normal affect and mood Results Labs 07/12/25 05:20 07/12/25 05:20 Labs: BMP 07/08/25 07/08/25 04:55 15:05 Sodium 144 Potassium 2.8 L 3.3 L D Chloride 112 H Carbon Dioxide 19.9 L BUN < 5 L Creatinine 0.9 Glucose 84 Calcium 11.1 H Liver Function 07/08/25 Range/Units 04:55 Total Bilirubin 6.2 H D (0.3-1.2) mg/dL AST 95 H (0-34) U/L ALT 29 (10-49) U/L Alkaline Phosphatase 103 (46-116) U/L Albumin 2.4 L (3.5-5.0) gm/dL ABG Interpretation ABG results: 07/05/25 07/06/25 10:15 05:08 ABG pH 7.64 H* 7.48 H D ABG pCO2 23 L 30 L ABG pO2 109 H 78 L D ABG HCO3 24 22 ABG O2 Saturation 100 H 98 ABG Base Excess 4 H -1 Quality Measures Quality Measures none Medications Home Medications and Allergies Home Medications ?Medication ?Instructions ?Recorded ?Confirmed ?Type albuterol sulfate 90 mcg/actuation 2 puff inhalation Q6H PRN Wheezing 07/28/21 07/08/25 History aerosol inhaler montelukast 10 mg tablet 10 mg PO QDAY 10/11/23 07/06/25 History (Singulair) paroxetine HCl 30 mg tablet (Paxil) 30 mg PO QDAY 10/11/23 07/06/25 History Allergies Allergy/AdvReac Type Severity Reaction Status Date / Time hydrocortisone Allergy Severe Swelling Verified 05/26/25 13:28 of the Eye Visit Medications Enoxaparin Sodium (Enoxaparin Sod Inj 40 Mg/0.4 Ml Syringe) 40 mg SC QDAY TYRONE Stop: 07/22/25 16:44 Last Admin: 07/08/25 17:01 Dose: 40 mg Folic Acid (Folic Acid 1 Mg Tablet) 1 mg PO QDAY TYRONE Stop: 08/05/25 15:44 Last Admin: 07/08/25 09:47 Dose: 1 mg Furosemide (Furosemide Inj 10 Mg/Ml Vial 2 Ml) 20 mg IVP QDAY TYRONE On Hold: 07/08/25 09:09 Stop: 08/06/25 14:44 Last Admin: 07/08/25 09:46 Dose: Not Given Ceftriaxone Sodium 2 gm/ (Sodium Chloride) 50 mls @ 100 mls/hr IV QDAY TYRONE Stop: 07/14/25 11:14 Last Admin: 07/08/25 09:47 Dose: 100 mls/hr Lactated Ringer's (Lactated Ringers) 1,000 mls @ 100 mls/hr IV .Q10H TYRONE Stop: 08/07/25 10:49 Last Admin: 07/08/25 21:15 Dose: 100 mls/hr Lactulose (Lactulose Syrup 20 Gm/30 Ml Udc) 20 gm PO TID TYRONE; Protocol Stop: 08/05/25 13:59 Last Admin: 07/08/25 21:45 Dose: 20 gm Metoprolol Tartrate (Metoprolol Tartrate 25 Mg Tablet) 25 mg PO BID TYRONE Stop: 08/04/25 20:59 Last Admin: 07/08/25 21:44 Dose: 25 mg Pantoprazole Sodium (Pantoprazole Inj 40 Mg Vial) 40 mg IVP Q12HR TYRONE Stop: 08/04/25 20:59 Last Admin: 07/08/25 21:44 Dose: 40 mg Rifaximin (Rifaximin 550 Mg Tablet) 550 mg PO BID TYRONE Stop: 07/15/25 10:59 Last Admin: 07/08/25 21:44 Dose: 550 mg Thiamine HCl (Thiamine 100 Mg Tablet) 100 mg PO QDAY [facility] Stop: 08/06/25 08:59 Last Admin: 07/08/25 09:47 Dose: 100 mg Discontinued Medications Calcitonin [place] (Calcitonin, [place] Spr 3.7 Ml Btl) 1 spray NASAL X1 ONE Stop: 07/05/25 15:06 Last Admin: 07/05/25 15:09 Dose: Not Given Calcitonin [place] (Calcitonin, [place] Synth Inj 1 Unit/0.005 Ml Vial) 260 unit SC X1 ONE Stop: 07/05/25 15:16 Last Admin: 07/05/25 15:52 Dose: 260 unit Calcitonin [place] (Calcitonin, [place] Synth Inj 1 Unit/0.005 Ml Vial) 260 unit SC X1 ONE Stop: 07/06/25 11:49 Last Admin: 07/06/25 13:48 Dose: 260 unit Hydromorphone HCl (Hydromorphone Inj 2 Mg/Ml Vial) 0.5 mg IVP X1 ONE Stop: 07/08/25 00:51 Last Admin: 07/08/25 07:05 Dose: Not Given Sodium Chloride (Ns) 1,000 mls @ 100 mls/hr IV .Q10H ONE Stop: 07/05/25 19:50 Last Infusion: 07/05/25 14:03 Dose: 0 mls/hr Potassium Chloride (Kcl Ivpb) 10 meq in 100 mls @ 100 mls/hr IV Q1H TYRONE Stop: 07/05/25 17:42 Last Admin: 07/05/25 17:49 Dose: Not Given Sodium Chloride (Ns) 1,000 mls @ 150 mls/hr IV .Q6H40M TYRONE Stop: 08/04/25 14:59 Last Admin: 07/08/25 07:26 Dose: Not Given Sodium Chloride (Ns) 1,000 mls @ 125 mls/hr IV .Q8H TYRONE Stop: 08/04/25 14:59 Last Admin: 07/05/25 16:40 Dose: Not Given Ceftriaxone Sodium/Dextrose (Rocephin/D5w 1gm Iv Premix) 1 gm in 50 mls @ 100 mls/hr IV DAILY TYRONE Stop: 07/12/25 15:14 Last Admin: 07/07/25 09:20 Dose: 100 mls/hr Potassium Chloride (Kcl Ivpb) 10 meq in 100 mls @ 100 mls/hr IV Q1H TYRONE Stop: 07/05/25 20:59 Potassium Chloride (Kcl Ivpb) 10 meq in 100 mls @ 100 mls/hr IV Q1H TYRONE Stop: 07/05/25 21:59 Last Admin: 07/05/25 22:49 Dose: 100 mls/hr Potassium Chloride (Kcl Ivpb) 10 meq in 100 mls @ 100 mls/hr IV Q1H TYRONE Stop: 07/06/25 16:29 Last Admin: 07/06/25 18:08 Dose: 100 mls/hr Metronidazole (Flagyl 500 Mg Iv) 500 mg in 100 mls @ 200 mls/hr IV Q8HR TYRONE Stop: 07/13/25 11:49 Last Admin: 07/07/25 05:42 Dose: 200 mls/hr Thiamine HCl 100 mg/ Sodium (Chloride) 101 mls @ 202 mls/hr IV X1 ONE Stop: 07/06/25 16:03 Last Admin: 07/08/25 07:25 Dose: Not Given Potassium Chloride (Kcl Ivpb) 10 meq in 100 mls @ 100 mls/hr IV Q1H TYRONE Stop: 07/07/25 12:52 Last Admin: 07/07/25 13:01 Dose: 100 mls/hr Magnesium Sulfate (Magnesium Sulfate Ivpb) 2 gm in 50 mls @ 25 mls/hr IV X1 ONE Stop: 07/07/25 12:54 Last Admin: 07/07/25 11:58 Dose: 25 mls/hr Potassium Phosphate (Pot Phos 15 Mmol In Ns 250 Ml) 15 mmol in 250 mls @ 62.5 mls/hr IV Q4H TYRONE Stop: 07/08/25 17:01 Last Admin: 07/08/25 15:42 Dose: 62.5 mls/hr Potassium Chloride (Kcl Ivpb) 10 meq in 100 mls @ 100 mls/hr IV Q1H TYRONE Stop: 07/08/25 21:59 Potassium Chloride (Kcl Ivpb) 10 meq in 100 mls @ 100 mls/hr IV Q1H TYRONE Stop: 07/08/25 14:59 Last Admin: 07/08/25 18:13 Dose: 100 mls/hr Lactulose (Lactulose Syrup 20 Gm/30 Ml Udc) 20 gm PO X1 ONE; Protocol Stop: 07/05/25 11:44 Last Admin: 07/05/25 11:54 Dose: 20 gm Lactulose (Lactulose Syrup 20 Gm/30 Ml Udc) 20 gm PO QDAY TYRONE; Protocol Stop: 08/04/25 14:59 Last Admin: 07/05/25 15:25 Dose: Not Given Lactulose (Lactulose Syrup 20 Gm/30 Ml Udc) 20 gm PO BID TYRONE; Protocol Stop: 08/04/25 15:14 Last Admin: 07/06/25 08:56 Dose: 20 gm Ondansetron HCl (Ondansetron Inj 2 Mg/Ml Inj 2 Ml) 4 mg IVP NOW ONE; Protocol Stop: 07/05/25 16:28 Last Admin: 07/05/25 16:31 Dose: 4 mg Potassium Chloride (Potassium Chloride 20 Meq Tabcr) 40 meq PO X1 ONE Stop: 07/05/25 11:44 Last Admin: 07/05/25 11:54 Dose: 40 meq Potassium Chloride (Potassium Chloride 20 Meq Tabcr) 40 meq PO X1 ONE Stop: 07/08/25 09:28 Last Admin: 07/08/25 09:48 Dose: 40 meq Potassium Phos/Sodium Phos (Naph,[facility] Mbdb 1 Packet (1.5 Gm)) 1 packet PO X1 ONE Stop: 07/07/25 09:17 Last Admin: 07/07/25 09:28 Dose: 1 packet Thiamine HCl (Thiamine Inj 100 Mg/Ml Vial 2 Ml) 100 mg IV X1 ONE Stop: 07/06/25 15:46 Last Admin: 07/06/25 15:58 Dose: 100 mg Assessment & Plan Plan 44-year-old female with past medical history of decompensated liver cirrhosis was admitted for acute metabolic encephalopathy and management. Neurology consulted for AMS. #Acute Encephalopathy Likely hepatic encephalopathy in setting of decompensated liver cirrhosis. Patient now able to follow simple commands. CT head neg for hemorrhage/mass effect/midline shift Patient A/O x2 AFP 3.2 Ca on presentation 12.8 --> 11.5 Ammonia on presentation 92 --> 34 MRI brain significant for increased white matter changes, multiple punctate foci, evidence of demyelinating disease. No masses noted. - Continue monitoring mental status - Supportive care and correction of metabolic abnormalities -neuro checks q4hr -continue lactulose -rifaximin 550mg BID #Acute on chronic decompensated liver cirrhosis #Hepatic encephalopathy #Primary Hyperparathyroidism #Hypercalcemia #Hypophosphatemia Primary care team to manage above conditions and ongoing care needs. The patient's management plan was discussed with my attending physician Dr. Faulkner. Francesca Navarro, PGY-2 Attending Provider Attestation/Addendum I personally have seen and examined the patient at the bedside and I agreed with resident's findings, assessment and plan of care. Presentation is from hepatic encephalopathy. MRI brain significant for increased white matter changes, multiple punctate foci, evidence of demyelinating disease. No masses noted. - Continue monitoring mental status - Supportive care and correction of metabolic abnormalities
[2025-07-09] VITALS (11 sets, daily range): BP systolic 96–116; BP diastolic 50–72; PULSE 57–72; RESP 14–18; TEMP 36.1–37; O2SAT 93–99
--- NOTE | 2025-07-09 00:10 | PC.NURSE ---
24 hour urine collection restarted at 00:10am- To complete tomorrow 07/09/25 at 00:10am.
[2025-07-09] MEDS: LACTULOSE SYRUP 20 GM/30 ML UDC PO ×2 (06:02→22:18)
[2025-07-09 07:05] LABS: Basophils # (Auto) 0.1 Thou/mm3 (0.0-0.2); Basophils % (Auto) 1 % (0-2.5); Eosinophils # (Auto) 0.1 Thou/mm3 (0.0-0.5); Eosinophils % (Auto) 2 % (0-10); Hematocrit 26.3 % (36.0-46.0); Immature Granulocytes Auto 0.02 Thou/mm3 (0.00-0.00); Lymphocytes # (Auto) 1.2 Thou/mm3 (1.0-4.8); Lymphocytes % (Auto) 21 % (10-50); Mean Corpuscular HGB Conc 32.7 g/dl (31.0-37.0); Mean Corpuscular Hemoglobin 38.1 pg (25.0-35.0); Mean Corpuscular Volume 116 fL (80-100); Monocytes # (Auto) 0.4 Thou/mm3 (0.0-0.8); Monocytes % (Auto) 8 % (0-12); Neutrophils # (Auto) 3.7 Thou/mm3 (1.8-7.7); Neutrophils % (Auto) 68 % (37-80); Nucleated Red Blood Cell # 0.00 Thou/mm3 (0.00-0.00); Nucleated Red Blood Cell % 0 /100 WBC (0); Platelet Count 98 Thou/mm3 (140-440); RDW Standard Deviation 78.6 fL (36.4-46.3); Red Blood Count 2.26 Miln/mm3 (4.00-5.20); White Blood Count 5.4 Thou/mm3 (3.6-11.0)
[2025-07-09 07:13] LABS: Hemoglobin 8.6 g/dL (12.0-16.0)
[2025-07-09 07:28] LABS: Alanine Aminotransferase 39 U/L (10-49); Albumin, Serum 2.5 gm/dL (3.5-5.0); Albumin/Globulin Ratio 0.8 (1.2-2.2); Alkaline Phosphatase 99 U/L (46-116); Anion Gap 10 (7-16); Aspartate Amino Transferase 116 U/L (0-34); BUN/Creatinine Ratio 6 Ratio (12-20); Bilirubin,Total 6.8 mg/dL (0.3-1.2); Blood Urea Nitrogen < 5 mg/dL (9-23); Calcium 11.9 mg/dL (8.3-10.6); Carbon Dioxide 20.5 mMol/L (20.0-31.0); Chloride 113 mMol/L (98-107); Creatinine (Component) 0.9 mg/dL (0.6-1.3); Estimated Creatinine Clearance 74.4 mL/min (>60); Globulin 3.3 gm/dL (2.3-3.5); Glucose 86 mg/dL (74-106); Magnesium 1.8 mg/dL (1.6-2.6); Osmolality,Calculated 281 (275-295); Phosphorous 2.4 mg/dL (2.4-5.1); Potassium 3.5 mMol/L (3.4-5.1); Sodium 143 mMol/L (136-145); Total Protein 5.8 gm/dL (5.7-8.2); eGFR > 60 See Note
[2025-07-09 07:32] LABS: Calcium (Corrected) 13.1 mg/dL (8.5-10.1)
[2025-07-09] MEDS: METOPROLOL TARTRATE 25 MG TABLET PO ×2 (09:02→22:19)
[2025-07-09] MEDS: THIAMINE 100 MG TABLET PO (09:02)
[2025-07-09] MEDS: ZOLEDRONIC ACID 4 MG IVPB 4 MG/100 ML BAG 300 MG IV (09:02)
[2025-07-09] MEDS: FOLIC ACID 1 MG TABLET PO (09:04)
[2025-07-09] MEDS: ENOXAPARIN SOD INJ 40 MG/0.4 ML SYRINGE SC (09:04)
[2025-07-09] MEDS: cefTRIAXone 2 GM in SODIUM CHLORIDE 0.9% (Popper) 50 ML IV (09:53)
--- NOTE | 2025-07-09 11:12 | ESPR_ITS ---
<Statement entered by Hallie Roman MD - 07/12/25 17:19> I reviewed above note and agree with findings and plans. I have also personally examined the patient with medicine team and went over assessment and plan with medical team including international trade compliance manager and resident physician. <Statement entered by Estefany Payan MD - 07/09/25 11:41> 44-year-old female with past medical history of decompensated liver cirrhosis was admitted for acute metabolic encephalopathy and management #Hypercalcemia Most likely secondary due to primary hyperparathyroidism PTH >200 Inpatient patient received 2 subcu injection of calcitonin today Calcium level still elevated, will increase fluid rate, will start Lasix and patient received 1 dose of zolendronic acid ultrasound of the thyroid unremarkable Patient will need outpatient ENT evaluation for possible parathyroidectomy #Acute encephalophay multifactorial DDx: Metabolic in a setting of hyperCalcemia most likely vs hepatic Per daughter mental status significantly declined past week upon our eval She was confused MRI w/wo contrast showed demielination #Acute on chronic decompensated liver cirrhosis with hepatic encephalopathy Labs revealed hyperbilirubinemia, thrombocytopenia, significantly elevated ammonia which has now improved CT abdomen revealed cirrhosis with mild 8 mm liver lesions, CBD stent is in place, EPAP status slightly improved after lactulose treatment next patient still pending, mild abdominal at this complex, mild diffuse tenderness none -decreased lactulose 10 3 times daily with goals of 3-4 bowel movements daily continue Protonix 40 IV twice daily Monitor for signs of SBP continue Rocephin I discussed with and supervised the international trade compliance manager physician who took care of this patient. I personally saw and examined the patient and discussed the assessment and plan with the entire medicine team, including my attending , I agree with the assessment and plan as documented below Estefany Payan M.D. PGY-3 Disclaimer: Despite multiple revisions, due to the dictation software being used, the document bellow may not be free of grammatical errors including phonetic/typographic errors. However, this does not deter from our commitment to providing health care in the patient's best interest in mind. Documentation for date of: 07/09/25 Subjective Subjective Interval history: Patient seen at bedside. No acute overnight events. Patient denies any chest pain, shortness of breath, abdominal pain, nausea, vomiting, dizziness. Patient's vitals and labs were reviewed. Patient continues to be confused. Rifaximin 550 mg twice daily added. Continues on CTX 2g qDay. NM parathyroid ordered. For hypercalcemia patient was given zoledronic acid x 1, patient continuing on lactated Ringer's 150 mL an hour, furosemide 40 mg IV x 1 given. Patient only made about 300 mL of urine today. Will BladderScan the patient tonight to see if there is any retention and if Guallpa is working, revisit in a.m. Exam Vital Signs Temp Pulse Resp BP Pulse Ox O2 Del Method 97.3 F 72 17 105/61 99 Room Air 07/09/25 08:00 07/09/25 09:02 07/09/25 08:00 07/09/25 09:02 07/09/25 08:00 07/09/25 08:00 Narrative Exam General: AO x 2, Not in distress. Pale. Scleral icterus. HEENT: PERRL, No JVD, Neck supple. Resp: CTA bilaterally, no wheezing or crackles/rhonchii Cardio: Regular Rhythm. S1 +S2. No murmurs/rubs/gallops. GI: Soft. Non-tender. Non-distended, no organomegaly. Extr: No LE edema, ROM intact Neuro: No focal neruological deficits. Moving all 4 limbs. Objective Labs 07/09/25 06:20 07/09/25 06:20 Labs: Laboratory Results - last 24 hr 07/08/25 07/09/25 15:05 06:20 WBC 5.4 RBC 2.26 L Hgb 8.6 L Hct 26.3 L MCV 116 H MCH 38.1 H MCHC 32.7 RDW Std Deviation 78.6 H Plt Count 98 L D Neut % (Auto) 68 Lymph % (Auto) 21 [place] % (Auto) 8 Eos % (Auto) 2 Baso % (Auto) 1 Neut # (Auto) 3.7 Lymph # (Auto) 1.2 [place] # (Auto) 0.4 Eos # (Auto) 0.1 Baso # (Auto) 0.1 Immature Gran # (Auto) 0.02 H Absolute Nucleated RBC 0.00 Immature Gran % 0 Nucleated RBC % 0 Sodium 143 Potassium 3.3 L D 3.5 Chloride 113 H Carbon Dioxide 20.5 Anion Gap 10 BUN < 5 L Creatinine 0.9 Estim Creat Clear Calc 74.4 eGFR > 60 BUN/Creatinine Ratio 6 L Glucose 86 Calculated Osmolality 281 Calcium 11.9 H Corrected Calcium 13.1 H* Phosphorus 2.4 Magnesium 1.8 Total Bilirubin 6.8 H D AST 116 H ALT 39 Alkaline Phosphatase 99 Total Protein 5.8 Albumin 2.5 L Globulin 3.3 Albumin/Globulin Ratio 0.8 L ABG Interpretation ABG results: 07/05/25 07/06/25 10:15 05:08 ABG pH 7.64 H* 7.48 H D ABG pCO2 23 L 30 L ABG pO2 109 H 78 L D ABG HCO3 24 22 ABG O2 Saturation 100 H 98 ABG Base Excess 4 H -1 Quality Measures Quality Measures none Assessment & Plan Assessment Current Active Medications: Generic Name Dose Route Start Last Admin Trade Name Freq PRN Reason Stop Dose Admin Enoxaparin Sodium 40 mg 07/08/25 16:45 07/09/25 09:04 Enoxaparin Sod Inj 40 Mg/0.4 Ml Syringe SC 07/22/25 16:44 40 mg QDAY TYRONE Administration Folic Acid 1 mg 07/06/25 15:45 07/09/25 09:04 Folic Acid 1 Mg Tablet PO 08/05/25 15:44 1 mg QDAY TYRONE Administration Furosemide 20 mg 07/07/25 14:45 07/08/25 09:46 Furosemide Inj 10 Mg/Ml Vial 2 Ml IVP 08/06/25 14:44 Not Given QDAY TYRONE Ceftriaxone Sodium 2 gm/ 50 mls @ 100 mls/hr 07/07/25 11:15 07/09/25 09:53 Sodium Chloride IV 07/14/25 11:14 100 mls/hr QDAY TYRONE Administration Lactated Ringer's 1,000 mls @ 150 mls/hr 07/09/25 09:31 Lactated Ringers IV 08/08/25 09:30 .[id number] TYRONE Lactulose 20 gm 07/06/25 14:00 07/09/25 06:02 Lactulose Syrup 20 Gm/30 Ml Udc PO 08/05/25 13:59 20 gm TID TYRONE Administration Protocol Metoprolol Tartrate 25 mg 07/05/25 21:00 07/09/25 09:02 Metoprolol Tartrate 25 Mg Tablet PO 08/04/25 20:59 25 mg BID TYRONE Administration Pantoprazole Sodium 40 mg 07/05/25 21:00 07/09/25 09:04 Pantoprazole Inj 40 Mg Vial IVP 08/04/25 20:59 40 mg Q12HR TYRONE Administration Rifaximin 550 mg 07/08/25 11:00 07/09/25 09:02 Rifaximin 550 Mg Tablet PO 07/15/25 10:59 550 mg BID TYRONE Administration Thiamine HCl 100 mg 07/07/25 09:00 07/09/25 09:02 Thiamine 100 Mg Tablet PO 08/06/25 08:59 100 mg QDAY TYRONE Administration Plan 44-year-old female with past medical history of decompensated liver cirrhosis was admitted for acute metabolic encephalopathy and management. #Acute Encephalopathy Multifactorial DDx: Metabolic in a setting of hypercalcemia and hyperamonemia vs malignancy (metastatic and/or primary) Per daughter mental status significantly declined past week CT head neg for hemorrhage/mass effect/midline shift Patient A/O x1 AFP 3.2 Ca on presentation 12.8 --> 11.5 Ammonia on presentation 92 --> 34 MRI brain showed potential demyelenating disease Plan - Neuro consulted, see recs - Continue monitoring mental status - Supportive care and correction of metabolic abnormalities #Acute on chronic decompensated liver cirrhosis #Hepatic encephalopathy Child Brito score 11 points, Class C MELD-Na score 9 points, 7-10% 90 day mortality Labs revealed hyperbilirubinemia, thrombocytopenia, significantly elevated ammonia which has now improved CT abdomen revealed cirrhosis with mild 8 mm liver lesions, CBD stent is in place, mental status slightly improved after lactulose treatment, mild abdominal diffuse tenderness Plan - Continue lactulose 20 g TID, titrate to achieve 3?4 bowel movements daily. - Added rifaximin 550mg BID for non-improvement of mental status - Hold diuretics in the setting of dehydration; reassess daily for volume status. - Monitor closely for signs of SBP (fever, abdominal pain, leukocytosis); obtain diagnostic paracentesis if clinically indicated. - Continue ceftriaxone to 2 g IV daily for SBP prophylaxis, Abdo US shows min ascitic fluid, may consider stopping tomorrow #Primary Hyperparathyroidism #Hypercalcemia #Hypophosphatemia Findings are most consistent with primary hyperparathyroidism. Common etiologies include parathyroid adenoma (most common), parathyroid hyperplasia, and less commonly, parathyroid carcinoma. Patient received two subcutaneous doses of calcitonin during admission with significant improvement in serum calcium. Labs: PTH 296, Ca 12.4, Phos 1.6 Thyroid ultrasound unremarkable Plan - LR 150ml/hr - NM Parathyroid ordered to assess for parathyroid adenoma or hyperplasia. - lasix 40mg x1 and lasix 20mg qday - Zoledronic acid - Outpatient ENT referral for further evaluation and consideration of parathyroidectomy. - Monitor daily calcium, phosphorus, electrolytes, and renal function - MRI brain ordered to assess for possible metastatic disease or primary ADMINISTRATIVE LIAISON lesion given hypercalcemia and elevated PTH. Health Maintenance: Diet: CLD GI prophylaxis: Protonix 40mg BID DVT prophylaxis: Lovenox Antibiotics: CTX 2g daily CODE STATUS: [facility] attending Dr. Roman, and senior resident, Dr. Schuyler Michel MD PGY-1
[2025-07-09] MEDS: RINGERS LACTATED 1000 ML 1,000 ML 150 ML IV ×2 (11:48→17:51)
[2025-07-09 14:38] LABS: Calcium 11.3 mg/dL (8.3-10.6)
[2025-07-09] MEDS: FUROSEMIDE INJ 10 MG/ML 4ML VIAL 40 MG IVP (18:27)
--- NOTE | 2025-07-09 18:34 | XR_ITS ---
Examination: Abdomen sonogram, complete Date and time of exam: July 09, 2025, 2131 hours INDICATIONS: Abdominal distention beginning 1 week ago. Technique: Multiple real-time grayscale transabdominal sonographic images of the abdomen have been obtained. Findings: Gallbladder sludge No gallstones Enlarged common bile duct with biliary stent, common bile duct 9 mm Pancreas aorta obscured by bowel gas Liver 10.7 cm lobular contour Portal vein is not visualized IVC is patent Right kidney 12.4 cm renal cortex 1.6 cm Left kidney 11.1 cm renal cortex 1.9 cm Moderate renal scar formation Spleen 12.7 cm Mild free fluid in the upper abdomen IMPRESSION: Limited study Enlarged common bile duct with biliary stent Cirrhosis No focal liver lesions Bilateral renal cortical thinning Moderate bilateral renal scar formation Mild splenomegaly Mild ascites
--- NOTE | 2025-07-09 21:33 | PD.RESPRO ---
Documentation for date of: 07/09/25 Subjective Subjective Interval history: Patient examined at bedside. Vitals stable. Calcium elevated 13, Hb 8.6, platelets downtrended 98. More arousable today. AOx2 (to self and place), follows basic commands. Continue ceftriaxone and lacutulose for hepatic encephaopathy, continue to monitor. Exam Vital Signs Temp Pulse Resp BP Pulse Ox O2 Del Method 98.0 F 71 17 116/68 99 Room Air 07/09/25 20:00 07/09/25 20:00 07/09/25 20:00 07/09/25 20:00 07/09/25 20:00 07/09/25 20:00 Narrative Exam General: Middle age female, No acute distress, somnolent, arousable HEENT: NCAT, No JVD noted. Mucosa moist. Pupils are equal and reactive to light bilaterally, no scleral icterus Cardiovascular: Normal S1 and S2. Regular rate and rhythm. Respiratory: Lungs are clear to auscultation bilaterally. No wheezing or crackles heard. Abdomen: Soft, nontender, not distended, normal bowel sounds. Skin: Warm to touch, dry, no rashes noted Musculoskeletal: No gross injuries. Able to move all 4 extremities. No pitting edema Neuro: Alert and oriented x2.CN grossly intact, following commands. No pronator drift noted. Deep tendon reflexes: 2+ bilaterally symmetrical. Plantar reflex: Downgoing bilaterally. Sensory system: Intact to all modalities of sensation bilaterally. no dysmetria, or dysdiadochokinesia noted. No intention tremors noted. Gait: Not tested. No signs of meningeal irritation noted. Psych: Normal affect and mood Objective Labs 07/12/25 05:20 07/12/25 05:20 Labs: Laboratory Results - last 24 hr 07/09/25 07/09/25 06:20 14:11 WBC 5.4 RBC 2.26 L Hgb 8.6 L Hct 26.3 L MCV 116 H MCH 38.1 H MCHC 32.7 RDW Std Deviation 78.6 H Plt Count 98 L D Neut % (Auto) 68 Lymph % (Auto) 21 [place] % (Auto) 8 Eos % (Auto) 2 Baso % (Auto) 1 Neut # (Auto) 3.7 Lymph # (Auto) 1.2 [place] # (Auto) 0.4 Eos # (Auto) 0.1 Baso # (Auto) 0.1 Immature Gran # (Auto) 0.02 H Absolute Nucleated RBC 0.00 Immature Gran % 0 Nucleated RBC % 0 Sodium 143 Potassium 3.5 Chloride 113 H Carbon Dioxide 20.5 Anion Gap 10 BUN < 5 L Creatinine 0.9 Estim Creat Clear Calc 74.4 eGFR > 60 BUN/Creatinine Ratio 6 L Glucose 86 Calculated Osmolality 281 Calcium 11.9 H 11.3 H Corrected Calcium 13.1 H* Phosphorus 2.4 Magnesium 1.8 Total Bilirubin 6.8 H D AST 116 H ALT 39 Alkaline Phosphatase 99 Total Protein 5.8 Albumin 2.5 L Globulin 3.3 Albumin/Globulin Ratio 0.8 L ABG Interpretation ABG results: 07/05/25 07/06/25 10:15 05:08 ABG pH 7.64 H* 7.48 H D ABG pCO2 23 L 30 L ABG pO2 109 H 78 L D ABG HCO3 24 22 ABG O2 Saturation 100 H 98 ABG Base Excess 4 H -1 Quality Measures Quality Measures none Assessment & Plan Assessment Current Active Medications: Generic Name Dose Route Start Last Admin Trade Name Freq PRN Reason Stop Dose Admin Enoxaparin Sodium 40 mg 07/08/25 16:45 07/09/25 09:04 Enoxaparin Sod Inj 40 Mg/0.4 Ml Syringe SC 07/22/25 16:44 40 mg QDAY TYRONE Administration Folic Acid 1 mg 07/06/25 15:45 07/09/25 09:04 Folic Acid 1 Mg Tablet PO 08/05/25 15:44 1 mg QDAY TYRONE Administration Furosemide 40 mg 07/10/25 06:00 Furosemide Inj 10 Mg/Ml Vial 2 Ml IVP 08/09/25 05:59 BIDD [facility] Ceftriaxone Sodium 2 gm/ 50 mls @ 100 mls/hr 07/07/25 11:15 07/09/25 09:53 Sodium Chloride IV 07/14/25 11:14 100 mls/hr QDAY [facility] Administration Lactulose 20 gm 07/06/25 14:00 07/09/25 14:05 Lactulose Syrup 20 Gm/30 Ml Udc PO 08/05/25 13:59 Not Given TID [facility] Protocol Metoprolol Tartrate 25 mg 07/05/25 21:00 07/09/25 09:02 Metoprolol Tartrate 25 Mg Tablet PO 08/04/25 20:59 25 mg BID TYRONE Administration Pantoprazole Sodium 40 mg 07/05/25 21:00 07/09/25 09:04 Pantoprazole Inj 40 Mg Vial IVP 08/04/25 20:59 40 mg Q12HR TYRONE Administration Rifaximin 550 mg 07/08/25 11:00 07/09/25 09:02 Rifaximin 550 Mg Tablet PO 07/15/25 10:59 550 mg BID TYRONE Administration Thiamine HCl 100 mg 07/07/25 09:00 07/09/25 09:02 Thiamine 100 Mg Tablet PO 08/06/25 08:59 100 mg QDAY TYRONE Administration Plan 44-year-old female with past medical history of decompensated liver cirrhosis was admitted for acute metabolic encephalopathy and management. Neurology consulted for AMS. #Acute Encephalopathy Likely hepatic encephalopathy in setting of decompensated liver cirrhosis. Patient now able to follow simple commands. CT head neg for hemorrhage/mass effect/midline shift Patient A/O x2 AFP 3.2 Ca on presentation 12.8. Ammonia on presentation 92 --> 34 MRI brain significant for increased white matter changes, multiple punctate foci, evidence of demyelinating disease. No masses noted. - Continue monitoring mental status - Supportive care and correction of metabolic abnormalities -neuro checks q4hr -continue lactulose -rifaximin 550mg BID #Acute on chronic decompensated liver cirrhosis #Hepatic encephalopathy #Primary Hyperparathyroidism #Hypercalcemia #Hypophosphatemia Primary care team to manage above conditions and ongoing care needs. The patient's management plan was discussed with my attending physician Dr. Faulkner. Francesca Navarro, PGY-2 Attending Provider Attestation/Addendum I personally have seen and examined the patient at the bedside and I agreed with resident's findings, assessment and plan of care. Clinical presentation: Likely hepatic encephalopathy in setting of decompensated liver cirrhosis. Patient now able to follow simple commands. MRI brain significant for increased white matter changes, multiple punctate foci, evidence of demyelinating disease. No masses noted. - Continue monitoring mental status, Supportive care and correction of metabolic abnormalities
[2025-07-10] VITALS (10 sets, daily range): BP systolic 95–110; BP diastolic 50–70; PULSE 59–74; RESP 16–20; TEMP 36.1–36.7; O2SAT 96–100; BMI 24.7
[2025-07-10 00:58] LABS: Chloride,Urine 98.7 mMol/L (55.0-125.0); Potassium,Urine 20 mMol/L (12-62); Sodium,Urine 74 mMol/L (20-110)
[2025-07-10 01:03] LABS: Chloride, 24 hr Urine 217 mEq/24hr (110-250); Chloride, Urine Volume 2200 mL/24hr (600-1800); Potassium, 24hr Urine 44 mEq/24hr (25-125); Potassium, Urine Volume 2200 mL/24hr (600-1800); Sodium, Urine Volume 2200 mL/24hr (600-1800); Sodium,24hr Urine 163 mEq/24hr (40-220)
[2025-07-10 05:48] LABS: Basophils # (Auto) 0.1 Thou/mm3 (0.0-0.2); Basophils % (Auto) 1 % (0-2.5); Eosinophils # (Auto) 0.1 Thou/mm3 (0.0-0.5); Eosinophils % (Auto) 3 % (0-10); Monocytes # (Auto) 0.6 Thou/mm3 (0.0-0.8); Monocytes % (Auto) 11 % (0-12); Nucleated Red Blood Cell # 0.00 Thou/mm3 (0.00-0.00); Nucleated Red Blood Cell % 0 /100 WBC (0)
[2025-07-10 05:50] LABS: Hematocrit 25.1 % (36.0-46.0); Immature Granulocytes Auto 0.02 Thou/mm3 (0.00-0.00); Lymphocytes # (Auto) 0.9 Thou/mm3 (1.0-4.8); Lymphocytes % (Auto) 19 % (10-50); Mean Corpuscular HGB Conc 31.9 g/dl (31.0-37.0); Mean Corpuscular Hemoglobin 37.6 pg (25.0-35.0); Mean Corpuscular Volume 118 fL (80-100); Neutrophils # (Auto) 3.2 Thou/mm3 (1.8-7.7); Neutrophils % (Auto) 66 % (37-80); Platelet Count 91 Thou/mm3 (140-440); RDW Standard Deviation 74.5 fL (36.4-46.3); Red Blood Count 2.13 Miln/mm3 (4.00-5.20); White Blood Count 4.9 Thou/mm3 (3.6-11.0)
[2025-07-10 05:59] LABS: Hemoglobin 8.0 g/dL (12.0-16.0)
[2025-07-10] MEDS: FUROSEMIDE INJ 10 MG/ML VIAL 2 ML 40 MG IVP (06:07)
[2025-07-10 06:18] LABS: Alanine Aminotransferase 36 U/L (10-49); Albumin, Serum 2.3 gm/dL (3.5-5.0); Albumin/Globulin Ratio 0.8 (1.2-2.2); Alkaline Phosphatase 86 U/L (46-116); Anion Gap 11 (7-16); Aspartate Amino Transferase 107 U/L (0-34); BUN/Creatinine Ratio 6 Ratio (12-20); Bilirubin,Total 5.7 mg/dL (0.3-1.2); Blood Urea Nitrogen < 5 mg/dL (9-23); Calcium 11.3 mg/dL (8.3-10.6); Calcium (Corrected) 12.7 mg/dL (8.5-10.1); Carbon Dioxide 20.4 mMol/L (20.0-31.0); Chloride 110 mMol/L (98-107); Creatinine (Component) 0.9 mg/dL (0.6-1.3); Estimated Creatinine Clearance 74.4 mL/min (>60); Globulin 2.8 gm/dL (2.3-3.5); Glucose 102 mg/dL (74-106); Magnesium 1.4 mg/dL (1.6-2.6); Osmolality,Calculated 278 (275-295); Phosphorous 2.3 mg/dL (2.4-5.1); Potassium 3.1 mMol/L (3.4-5.1); Sodium 141 mMol/L (136-145); Total Protein 5.1 gm/dL (5.7-8.2); eGFR > 60 See Note
--- NOTE | 2025-07-10 07:58 | PC.NURSE ---
Per MD luz continue to give Lovenox this am after making him aware of this mornings plt count at 91 and hemoglobin at 8.0
[2025-07-10] MEDS: cefTRIAXone 2 GM in SODIUM CHLORIDE 0.9% (Popper) 50 ML IV (08:21)
[2025-07-10] MEDS: FOLIC ACID 1 MG TABLET PO (08:21)
[2025-07-10] MEDS: THIAMINE 100 MG TABLET PO (08:21)
[2025-07-10] MEDS: POTASSIUM CHL 10 mEq IVPB 10 MEQ/100 ML BAG 100 MEQ IV ×4 (08:22→12:22)
[2025-07-10] MEDS: Magnesium Sulfate 4 GM Ivpb 4 GM/50 ML BAG IV ×2 (08:22→12:23)
[2025-07-10] MEDS: ENOXAPARIN SOD INJ 40 MG/0.4 ML SYRINGE SC (08:23)
[2025-07-10] MEDS: METOPROLOL TARTRATE 25 MG TABLET PO (08:25)
--- NOTE | 2025-07-10 10:07 | PC.SS ---
Follow up note: SS has sent referral to Out Patient PT using [facility].
--- NOTE | 2025-07-10 10:31 | PC.SS ---
SS spoke to dtrZahida about patient's d/c plan. SS has sent referral to Out Patient PT. SS has informed dtr pt is recommending Out Patient PT or HH. Dtr states, pt has not followed up with PCP, [facility] for months and pt is not established with Primary Physician. SS informed dtr for Home Health Services pt requires to be established with Primary Care Physician. has provided dtr with Out Patient PT phone # & address, [facility] phone#, and [employer]'s phone#. Dtr is requesting transportation home for pt upon dc.
[2025-07-10 11:31] LABS: Vitamin D 25 Hydroxy Total 53.8 ng/mL (7.3-40.2)
--- NOTE | 2025-07-10 11:43 | ESPR_ITS ---
<Statement entered by Hallie Roman MD - 07/15/25 08:35> I reviewed above note and agree with findings and plans. I have also personally examined the patient with medicine team and went over assessment and plan with medical team including graphics intern and resident physician. <Statement entered by Herb Quick MD - 07/10/25 16:11> Patient seen and assessed in hospital bed denies having any concerning symptoms at this time. Patient's hypercalcemia is mildly improving, she will require endocrine surgery consultation and referral once discharged. Will monitor calcium levels overnight and consider additional denosumab administration if necessary. Expect discharge within the next 24 hours. I have personally seen and examined the patient. I agree with the resident's assessment and plan as documented below. Herb Quick DO PGY-2 Internal Medicine - GME Documentation for date of: 07/10/25 Subjective Subjective Interval history: Patient seen at bedside. No acute overnight events. Patient denies any chest pain, shortness of breath, abdominal pain, nausea, vomiting, dizziness. Patient's vitals and labs were reviewed. Ariana sided Dr. Mojica who mentioned that after zoledronic acid is given calcium nadirs in 4 to 5 days time, if calcium continues to be high at that time the next step would be denosumab. Patient is on normal saline running at 100 mL an hour, watch for volume overload. Patient's mentation is much improved today, alert and oriented x 3. Exam Vital Signs Temp Pulse Resp BP Pulse Ox O2 Del Method 97.3 F 66 17 110/68 97 Room Air 07/10/25 08:00 07/10/25 08:25 07/10/25 08:00 07/10/25 08:25 07/10/25 08:00 07/10/25 08:00 Narrative Exam General: AO x 3, Not in distress. Pale. Scleral icterus. HEENT: PERRL, No JVD, Neck supple. Resp: CTA bilaterally, no wheezing or crackles/rhonchii Cardio: Regular Rhythm. S1 +S2. No murmurs/rubs/gallops. GI: Soft. Non-tender. Distended. Soft, no organomegaly. Extr: No LE edema, ROM intact Neuro: No focal neruological deficits. Moving all 4 limbs. Objective Labs 07/10/25 04:42 07/10/25 04:42 Labs: Laboratory Results - last 24 hr 07/09/25 07/10/25 07/10/25 14:11 00:10 00:10 WBC RBC Hgb Hct MCV MCH MCHC RDW Std Deviation Plt Count Neut % (Auto) Lymph % (Auto) [place] % (Auto) Eos % (Auto) Baso % (Auto) Neut # (Auto) Lymph # (Auto) [place] # (Auto) Eos # (Auto) Baso # (Auto) Immature Gran # (Auto) Absolute Nucleated RBC Immature Gran % Nucleated RBC % Sodium Potassium Chloride Carbon Dioxide Anion Gap BUN Creatinine Estim Creat Clear Calc eGFR BUN/Creatinine Ratio Glucose Calculated Osmolality Calcium 11.3 H Corrected Calcium Phosphorus Magnesium Total Bilirubin AST ALT Alkaline Phosphatase Total Protein Albumin Globulin Albumin/Globulin Ratio 25-OH Vitamin D Total Urine Total Volume 2200 H 2200 H Ur Sodium mmol/L 74 Ur Sodium 24 Hour 163 Ur Potassium mmol/L 20 Ur Potassium 24 Hour 44 Ur Chloride mmol/L Ur Chloride 24 Hour 07/10/25 07/10/25 00:10 04:42 WBC 4.9 RBC 2.13 L Hgb 8.0 L Hct 25.1 L MCV 118 H MCH 37.6 H MCHC 31.9 RDW Std Deviation 74.5 H Plt Count 91 L Neut % (Auto) 66 Lymph % (Auto) 19 [place] % (Auto) 11 Eos % (Auto) 3 Baso % (Auto) 1 Neut # (Auto) 3.2 Lymph # (Auto) 0.9 L [place] # (Auto) 0.6 Eos # (Auto) 0.1 Baso # (Auto) 0.1 Immature Gran # (Auto) 0.02 H Absolute Nucleated RBC 0.00 Immature Gran % 0 Nucleated RBC % 0 Sodium 141 Potassium 3.1 L Chloride 110 H Carbon Dioxide 20.4 Anion Gap 11 BUN < 5 L Creatinine 0.9 Estim Creat Clear Calc 74.4 eGFR > 60 BUN/Creatinine Ratio 6 L Glucose 102 Calculated Osmolality 278 Calcium 11.3 H Corrected Calcium 12.7 H Phosphorus 2.3 L Magnesium 1.4 L Total Bilirubin 5.7 H D AST 107 H ALT 36 Alkaline Phosphatase 86 Total Protein 5.1 L Albumin 2.3 L Globulin 2.8 Albumin/Globulin Ratio 0.8 L 25-OH Vitamin D Total 53.8 H Urine Total Volume 2200 H Ur Sodium mmol/L Ur Sodium 24 Hour Ur Potassium mmol/L Ur Potassium 24 Hour Ur Chloride mmol/L 98.7 Ur Chloride 24 Hour 217 ABG Interpretation ABG results: 07/05/25 07/06/25 10:15 05:08 ABG pH 7.64 H* 7.48 H D ABG pCO2 23 L 30 L ABG pO2 109 H 78 L D ABG HCO3 24 22 ABG O2 Saturation 100 H 98 ABG Base Excess 4 H -1 Quality Measures Quality Measures none Assessment & Plan Assessment Current Active Medications: Generic Name Dose Route Start Last Admin Trade Name Freq PRN Reason Stop Dose Admin Enoxaparin Sodium 40 mg 07/08/25 16:45 07/10/25 08:23 Enoxaparin Sod Inj 40 Mg/0.4 Ml Syringe SC 07/22/25 16:44 40 mg QDAY TYRONE Administration Folic Acid 1 mg 07/06/25 15:45 07/10/25 08:21 Folic Acid 1 Mg Tablet PO 08/05/25 15:44 1 mg QDAY TYRONE Administration Ceftriaxone Sodium 2 gm/ 50 mls @ 100 mls/hr 07/07/25 11:15 07/10/25 08:21 Sodium Chloride IV 07/14/25 11:14 100 mls/hr QDAY TYRONE Administration Potassium Chloride 10 meq in 100 mls @ 100 mls/hr 07/10/25 07:45 07/10/25 10:41 Kcl Ivpb IV 07/10/25 11:44 100 mls/hr Q1H TYRONE Administration Magnesium Sulfate 4 gm in 50 mls @ 12.5 mls/hr 07/10/25 07:47 07/10/25 08:22 Magnesium Sulfate Ivpb IV 07/10/25 11:46 12.5 mls/hr X1 ONE Administration Magnesium Sulfate 4 gm in 50 mls @ 12.5 mls/hr 07/10/25 12:00 Magnesium Sulfate Ivpb IV 07/10/25 15:59 X1 ONE Lactulose 20 gm 07/06/25 14:00 07/10/25 06:11 Lactulose Syrup 20 Gm/30 Ml Udc PO 08/05/25 13:59 Not Given TID TYRONE Protocol Metoprolol Tartrate 25 mg 07/05/25 21:00 07/10/25 08:25 Metoprolol Tartrate 25 Mg Tablet PO 08/04/25 20:59 25 mg BID TYRONE Administration Pantoprazole Sodium 40 mg 07/05/25 21:00 07/10/25 08:50 Pantoprazole Inj 40 Mg Vial IVP 08/04/25 20:59 40 mg Q12HR TYRONE Administration Rifaximin 550 mg 07/08/25 11:00 07/10/25 08:21 Rifaximin 550 Mg Tablet PO 07/15/25 10:59 550 mg BID TYRONE Administration Thiamine HCl 100 mg 07/07/25 09:00 07/10/25 08:21 Thiamine 100 Mg Tablet PO 08/06/25 08:59 100 mg QDAY TYRONE Administration Plan 44-year-old female with past medical history of decompensated liver cirrhosis was admitted for acute metabolic encephalopathy and management. #Acute on chronic decompensated liver cirrhosis #Hepatic encephalopathy Child Brito score 11 points, Class C MELD-Na score 9 points, 7-10% 90 day mortality Labs revealed hyperbilirubinemia, thrombocytopenia, significantly elevated ammonia which has now improved CT abdomen revealed cirrhosis with mild 8 mm liver lesions, CBD stent is in place, mental status slightly improved after lactulose treatment, mild abdominal diffuse tenderness Plan - Continue lactulose 20 g TID, titrate to achieve 3?4 bowel movements daily. - Continue rifaximin 550mg BID - Monitor closely for signs of SBP (fever, abdominal pain, leukocytosis); obtain diagnostic paracentesis if clinically indicated. #Primary Hyperparathyroidism #Hypercalcemia #Hypophosphatemia Findings are most consistent with primary hyperparathyroidism. Common etiologies include parathyroid adenoma (most common), parathyroid hyperplasia, and less commonly, parathyroid carcinoma. Patient received two subcutaneous doses of calcitonin during admission with significant improvement in serum calcium. Labs: PTH 296, Ca 12.4, Phos 1.6 Thyroid ultrasound unremarkable NM Parathyroid neg for parathyroid adenoma Zoledronic acid 4mg x1 given on 07/09 Plan - NaCl @ 100cc/hr - Stopped lasix - Outpatient ENT referral for further evaluation and consideration of parathyroidectomy. - Monitor daily calcium, phosphorus, electrolytes, and renal function #Acute Encephalopathy, resolved Multifactorial DDx: Metabolic in a setting of hypercalcemia and hyperamonemia Per daughter mental status significantly declined past week CT head neg for hemorrhage/mass effect/midline shift Patient A/O x3 AFP 3.2 MRI brain significant for increased white matter changes, multiple punctate foci, evidence of demyelinating disease. Plan - Neuro consulted, see recs - Continue monitoring mental status - Supportive care and correction of metabolic abnormalities Health Maintenance: Diet: CLD GI prophylaxis: Protonix 40mg BID DVT prophylaxis: Lovenox Antibiotics: none CODE STATUS: FULL Disposition: MedTele Case discussed with my attending Dr. Roman, and senior resident, Dr. Ynes Michel MD PGY-1
--- NOTE | 2025-07-10 12:51 | PC.SS ---
SS has spoken to Valery from [facility] who explained pt followed up with PCP in April 07, 2025. SS has scheduled pt an appointment with PCP, Dr. Palomo at the [facility] on [facility] for Thursday July 17, 2025 at 1:45pm.
--- NOTE | 2025-07-10 14:35 | PC.SS ---
Addendum entered by Amaya Corona 07/10/25 15:18: SS spoke to dtr and provided her with SNF options to [facility], [facility], or [facility] who have accepted. [facility] declined. [facility] and [facility] have accepted. Daughter's choice is [facility]. SS spoke to Bonny from [facility] they will start insurance authorization. PASRR assessment has been sent to [facility] using [facility] [facility]. Original Note: SS has sent inquiry to the local SNF using [employer] (per daughter's request). Dtr is aware pt is ambulating 150 feet with walker and SNF placement is not guaranteed.
[2025-07-10] MEDS: SODIUM CHLORIDE 0.9% 1000 ML 1,000 ML 100 ML IV (14:36)
[2025-07-10 16:00] LABS: Calcium, Random Urine 15 mg/dL (2-18)
--- NOTE | 2025-07-10 21:19 | ESPR_ITS ---
Documentation for date of: 07/10/25 Subjective Subjective Interval history: Patient examined at bedside. Vitals stable. Calcium elevated 13, Hb 8.6, platelets downtrended 98. More arousable today. AOx2 (to self and place), follows basic commands. She was sitting up on the bed after using the restroom. Continue ceftriaxone and lacutulose for hepatic encephaopathy, continue to monitor. Exam Vital Signs Temp Pulse Resp BP Pulse Ox O2 Del Method 97.0 F 63 20 104/55 L 100 Room Air 07/10/25 16:00 07/10/25 19:47 07/10/25 16:00 07/10/25 16:00 07/10/25 16:00 07/10/25 16:00 Narrative Exam General: Middle age female, No acute distress, arousable, sitting on bed HEENT: NCAT, No JVD noted. Mucosa moist. Pupils are equal and reactive to light bilaterally, n scleral icterus Cardiovascular: Normal S1 and S2. Regular rate and rhythm. Respiratory: Lungs are clear to auscultation bilaterally. No wheezing or crackles heard. Abdomen: Soft, nontender, not distended, normal bowel sounds. Skin: Warm to touch, dry, no rashes noted, jaundice appearing Musculoskeletal: No gross injuries. Able to move all 4 extremities. No pitting edema Neuro: Alert and oriented x2.CN grossly intact, following commands. No pronator drift noted. Deep tendon reflexes: 2+ bilaterally symmetrical. Plantar reflex: Downgoing bilaterally. Sensory system: Intact to all modalities of sensation bilaterally. no dysmetria, or dysdiadochokinesia noted. No intention tremors noted. Gait: Not tested. No signs of meningeal irritation noted. Psych: Normal affect and mood Objective Labs 07/12/25 05:20 07/12/25 05:20 Labs: Laboratory Results - last 24 hr 07/10/25 07/10/25 07/10/25 00:10 00:10 00:10 WBC RBC Hgb Hct MCV MCH MCHC RDW Std Deviation Plt Count Neut % (Auto) Lymph % (Auto) [place] % (Auto) Eos % (Auto) Baso % (Auto) Neut # (Auto) Lymph # (Auto) [place] # (Auto) Eos # (Auto) Baso # (Auto) Immature Gran # (Auto) Absolute Nucleated RBC Immature Gran % Nucleated RBC % Sodium Potassium Chloride Carbon Dioxide Anion Gap BUN Creatinine Estim Creat Clear Calc eGFR BUN/Creatinine Ratio Glucose Calculated Osmolality Calcium Corrected Calcium Phosphorus Magnesium Total Bilirubin AST ALT Alkaline Phosphatase Total Protein Albumin Globulin Albumin/Globulin Ratio 25-OH Vitamin D Total Ur Random Calcium Urine Total Volume 2200 H 2200 H 2200 H Ur Sodium mmol/L 74 Ur Sodium 24 Hour 163 Ur Potassium mmol/L 20 Ur Potassium 24 Hour 44 Ur Chloride mmol/L 98.7 Ur Chloride 24 Hour 217 07/10/25 07/10/25 04:42 15:27 WBC 4.9 RBC 2.13 L Hgb 8.0 L Hct 25.1 L MCV 118 H MCH 37.6 H MCHC 31.9 RDW Std Deviation 74.5 H Plt Count 91 L Neut % (Auto) 66 Lymph % (Auto) 19 [place] % (Auto) 11 Eos % (Auto) 3 Baso % (Auto) 1 Neut # (Auto) 3.2 Lymph # (Auto) 0.9 L [place] # (Auto) 0.6 Eos # (Auto) 0.1 Baso # (Auto) 0.1 Immature Gran # (Auto) 0.02 H Absolute Nucleated RBC 0.00 Immature Gran % 0 Nucleated RBC % 0 Sodium 141 Potassium 3.1 L Chloride 110 H Carbon Dioxide 20.4 Anion Gap 11 BUN < 5 L Creatinine 0.9 Estim Creat Clear Calc 74.4 eGFR > 60 BUN/Creatinine Ratio 6 L Glucose 102 Calculated Osmolality 278 Calcium 11.3 H Corrected Calcium 12.7 H Phosphorus 2.3 L Magnesium 1.4 L Total Bilirubin 5.7 H D AST 107 H ALT 36 Alkaline Phosphatase 86 Total Protein 5.1 L Albumin 2.3 L Globulin 2.8 Albumin/Globulin Ratio 0.8 L 25-OH Vitamin D Total 53.8 H Ur Random Calcium 15 Urine Total Volume Ur Sodium mmol/L Ur Sodium 24 Hour Ur Potassium mmol/L Ur Potassium 24 Hour Ur Chloride mmol/L Ur Chloride 24 Hour ABG Interpretation ABG results: 07/05/25 07/06/25 10:15 05:08 ABG pH 7.64 H* 7.48 H D ABG pCO2 23 L 30 L ABG pO2 109 H 78 L D ABG HCO3 24 22 ABG O2 Saturation 100 H 98 ABG Base Excess 4 H -1 Quality Measures Quality Measures none Assessment & Plan Assessment Current Active Medications: Generic Name Dose Route Start Last Admin Trade Name Freq PRN Reason Stop Dose Admin Enoxaparin Sodium 40 mg 07/08/25 16:45 07/10/25 08:23 Enoxaparin Sod Inj 40 Mg/0.4 Ml Syringe SC 07/22/25 16:44 40 mg QDAY TYRONE Administration Folic Acid 1 mg 07/06/25 15:45 07/10/25 08:21 Folic Acid 1 Mg Tablet PO 08/05/25 15:44 1 mg QDAY TYRONE Administration Sodium Chloride 1,000 mls @ 100 mls/hr 07/10/25 13:24 07/10/25 14:36 Ns IV 07/11/25 09:23 100 mls/hr .Q10H TYRONE Administration Lactulose 20 gm 07/06/25 14:00 07/10/25 21:00 Lactulose Syrup 20 Gm/30 Ml Udc PO 08/05/25 13:59 Not Given TID TYRONE Protocol Pantoprazole Sodium 40 mg 07/05/25 21:00 07/10/25 20:56 Pantoprazole Inj 40 Mg Vial IVP 08/04/25 20:59 40 mg Q12HR TYRONE Administration Rifaximin 550 mg 07/08/25 11:00 07/10/25 20:58 Rifaximin 550 Mg Tablet PO 07/15/25 10:59 550 mg BID TYRONE Administration Thiamine HCl 100 mg 07/07/25 09:00 07/10/25 08:21 Thiamine 100 Mg Tablet PO 08/06/25 08:59 100 mg QDAY TYRONE Administration Plan 44-year-old female with past medical history of decompensated liver cirrhosis was admitted for acute metabolic encephalopathy and management. Neurology consulted for AMS. #Acute Encephalopathy-improving Likely hepatic encephalopathy in setting of decompensated liver cirrhosis. Patient now able to follow simple commands. CT head neg for hemorrhage/mass effect/midline shift Patient A/O x2 AFP 3.2 Ca on presentation 12.8. Ammonia on presentation 92 --> 34 MRI brain significant for increased white matter changes, multiple punctate foci, evidence of demyelinating disease. No masses noted. - Continue monitoring mental status - Supportive care and correction of metabolic abnormalities -neuro checks q4hr -continue lactulose -rifaximin 550mg BID #Acute on chronic decompensated liver cirrhosis #Hepatic encephalopathy #Primary Hyperparathyroidism #Hypercalcemia #Hypophosphatemia Primary care team to manage above conditions and ongoing care needs. The patient's management plan was discussed with my attending physician Dr. Faulkner. Francesca Navarro, PGY-2 Attending Provider Attestation/Addendum I personally have seen and examined the patient at the bedside and I agreed with resident's findings, assessment and plan of care. Likely hepatic encephalopathy in setting of decompensated liver cirrhosis. Patient now back to baseline. COntinue to monitor her closely with current mgt.
[2025-07-11] VITALS (9 sets, daily range): BP systolic 96–118; BP diastolic 44–71; PULSE 64–102; RESP 15–20; TEMP 36.4–37.1; O2SAT 94–100
[2025-07-11] MEDS: SODIUM CHLORIDE 0.9% 1000 ML 1,000 ML 100 ML IV ×2 (01:26→18:10)
[2025-07-11 06:03] LABS: Basophils # (Auto) 0.1 Thou/mm3 (0.0-0.2); Basophils % (Auto) 1 % (0-2.5); Eosinophils # (Auto) 0.1 Thou/mm3 (0.0-0.5); Eosinophils % (Auto) 3 % (0-10); Hematocrit 23.7 % (36.0-46.0); Immature Granulocytes Auto 0.01 Thou/mm3 (0.00-0.00); Lymphocytes # (Auto) 1.2 Thou/mm3 (1.0-4.8); Lymphocytes % (Auto) 28 % (10-50); Mean Corpuscular HGB Conc 32.5 g/dl (31.0-37.0); Mean Corpuscular Hemoglobin 38.3 pg (25.0-35.0); Mean Corpuscular Volume 118 fL (80-100); Monocytes # (Auto) 0.5 Thou/mm3 (0.0-0.8); Monocytes % (Auto) 11 % (0-12); Neutrophils # (Auto) 2.4 Thou/mm3 (1.8-7.7); Neutrophils % (Auto) 56 % (37-80); Nucleated Red Blood Cell # 0.00 Thou/mm3 (0.00-0.00); Nucleated Red Blood Cell % 0 /100 WBC (0); Platelet Count 85 Thou/mm3 (140-440); RDW Standard Deviation 73.6 fL (36.4-46.3); Red Blood Count 2.01 Miln/mm3 (4.00-5.20); White Blood Count 4.2 Thou/mm3 (3.6-11.0)
[2025-07-11 06:20] LABS: Alanine Aminotransferase 38 U/L (10-49); Albumin, Serum 2.3 gm/dL (3.5-5.0); Albumin/Globulin Ratio 0.7 (1.2-2.2); Alkaline Phosphatase 88 U/L (46-116); Anion Gap 7 (7-16); Aspartate Amino Transferase 99 U/L (0-34); BUN/Creatinine Ratio 6 Ratio (12-20); Bilirubin,Total 5.9 mg/dL (0.3-1.2); Blood Urea Nitrogen < 5 mg/dL (9-23); Calcium 10.5 mg/dL (8.3-10.6); Calcium (Corrected) 11.9 mg/dL (8.5-10.1); Carbon Dioxide 24.0 mMol/L (20.0-31.0); Chloride 109 mMol/L (98-107); Creatinine (Component) 0.9 mg/dL (0.6-1.3); Estimated Creatinine Clearance 74.4 mL/min (>60); Globulin 3.1 gm/dL (2.3-3.5); Glucose 86 mg/dL (74-106); Hemoglobin 7.7 g/dL (12.0-16.0); Osmolality,Calculated 275 (275-295); Potassium 3.2 mMol/L (3.4-5.1); Sodium 140 mMol/L (136-145); Total Protein 5.4 gm/dL (5.7-8.2); eGFR > 60 See Note
[2025-07-11 06:51] LABS: Magnesium 2.3 mg/dL (1.6-2.6); Phosphorous 1.9 mg/dL (2.4-5.1)
[2025-07-11] MEDS: THIAMINE 100 MG TABLET PO (09:34)
[2025-07-11] MEDS: FOLIC ACID 1 MG TABLET PO (09:34)
[2025-07-11] MEDS: NAPH,KPH MBDB 1 PACKET (1.5 GM) PO (09:34)
[2025-07-11] MEDS: ENOXAPARIN SOD INJ 40 MG/0.4 ML SYRINGE SC (09:34)
[2025-07-11] MEDS: POTASSIUM CHL 10 mEq IVPB 10 MEQ/100 ML BAG 80 MEQ IV ×4 (09:34→13:43)
--- NOTE | 2025-07-11 09:37 | PC.SS ---
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 Original Note: SS received call from Bonny at [facility] who explained patient's health insurance has declined SNF placement. SS has informed dtrZahida who is aware referral was sent for Out Patient PT.
[2025-07-11] MEDS: LACTULOSE SYRUP 20 GM/30 ML UDC PO ×2 (13:43→21:00)
--- NOTE | 2025-07-11 15:26 | ESPR_ITS ---
<Statement entered by Hallie Roman MD - 07/15/25 08:36> I reviewed above note and agree with findings and plans. I have also personally examined the patient with medicine team and went over assessment and plan with medical team including international exchange coordinator and resident physician. <Statement entered by Herb Quick MD - 07/11/25 15:55> Patient seen and assessed in hospital bed denies having any concerning symptoms at this time. Patient's calcium levels continue to downtrend and we will continue monitoring overnight for any changes. Patient understands that she will need to follow-up outpatient with endocrine surgery in [place] for parathyroid disorder, likely adenoma. Will continue monitoring and expect discharge within the next 24 hours to home with physical therapy to be completed outpatient. I have personally seen and examined the patient. I agree with the resident's assessment and plan as documented below. Herb Quick DO PGY-2 Internal Medicine - GME Documentation for date of: 07/11/25 Subjective Subjective Interval history: Patient seen at bedside. No acute overnight events. Patient denies any chest pain, shortness of breath, abdominal pain, nausea, vomiting, dizziness. Patient's vitals and labs were reviewed. Patient continues on normal saline running at 100 mL an hour, watch for volume overload. Patient's mentation is much improved today, alert and oriented x 3. Exam Vital Signs Temp Pulse Resp BP Pulse Ox O2 Del Method 98.1 F 66 20 106/63 100 Room Air 07/11/25 12:00 07/11/25 12:00 07/11/25 12:00 07/11/25 12:00 07/11/25 12:00 07/11/25 12:00 Narrative Exam General: AO x 3, Not in distress. Pale. Scleral icterus. HEENT: PERRL, No JVD, Neck supple. Resp: CTA bilaterally, no wheezing or crackles/rhonchii Cardio: Regular Rhythm. S1 +S2. No murmurs/rubs/gallops. GI: Soft. Non-tender. Distended. Soft, no organomegaly. Extr: No LE edema, ROM intact Neuro: No focal neruological deficits. Moving all 4 limbs. Objective Labs 07/11/25 05:17 07/11/25 05:17 Labs: Laboratory Results - last 24 hr 07/10/25 07/11/25 15:27 05:17 WBC 4.2 RBC 2.01 L Hgb 7.7 L Hct 23.7 L MCV 118 H MCH 38.3 H MCHC 32.5 RDW Std Deviation 73.6 H Plt Count 85 L Neut % (Auto) 56 Lymph % (Auto) 28 [place] % (Auto) 11 Eos % (Auto) 3 Baso % (Auto) 1 Neut # (Auto) 2.4 Lymph # (Auto) 1.2 [place] # (Auto) 0.5 Eos # (Auto) 0.1 Baso # (Auto) 0.1 Immature Gran # (Auto) 0.01 H Absolute Nucleated RBC 0.00 Immature Gran % 0 Nucleated RBC % 0 Sodium 140 Potassium 3.2 L Chloride 109 H Carbon Dioxide 24.0 Anion Gap 7 BUN < 5 L Creatinine 0.9 Estim Creat Clear Calc 74.4 eGFR > 60 BUN/Creatinine Ratio 6 L Glucose 86 Calculated Osmolality 275 Calcium 10.5 Corrected Calcium 11.9 H Phosphorus 1.9 L Magnesium 2.3 Total Bilirubin 5.9 H AST 99 H ALT 38 Alkaline Phosphatase 88 Total Protein 5.4 L Albumin 2.3 L Globulin 3.1 Albumin/Globulin Ratio 0.7 L Ur Random Calcium 15 ABG Interpretation ABG results: 07/05/25 07/06/25 10:15 05:08 ABG pH 7.64 H* 7.48 H D ABG pCO2 23 L 30 L ABG pO2 109 H 78 L D ABG HCO3 24 22 ABG O2 Saturation 100 H 98 ABG Base Excess 4 H -1 Quality Measures Quality Measures none Assessment & Plan Assessment Current Active Medications: Generic Name Dose Route Start Last Admin Trade Name Kylie PRN Reason Stop Dose Admin Enoxaparin Sodium 40 mg 07/08/25 16:45 07/11/25 09:34 Enoxaparin Sod Inj 40 Mg/0.4 Ml Syringe SC 07/22/25 16:44 40 mg QDAY TYRONE Administration Folic Acid 1 mg 07/06/25 15:45 07/11/25 09:34 Folic Acid 1 Mg Tablet PO 08/05/25 15:44 1 mg QDAY TYRONE Administration Lactulose 20 gm 07/06/25 14:00 07/11/25 13:43 Lactulose Syrup 20 Gm/30 Ml Udc PO 08/05/25 13:59 20 gm TID TYRONE Administration Protocol Pantoprazole Sodium 40 mg 07/11/25 21:00 Pantoprazole 40 Mg Tablet PO 08/10/25 20:59 BID TYRONE Protocol Rifaximin 550 mg 07/08/25 11:00 07/11/25 09:34 Rifaximin 550 Mg Tablet PO 07/15/25 10:59 550 mg BID TYRONE Administration Thiamine HCl 100 mg 07/07/25 09:00 07/11/25 09:34 Thiamine 100 Mg Tablet PO 08/06/25 08:59 100 mg QDAY TYRONE Administration Plan 44-year-old female with past medical history of decompensated liver cirrhosis was admitted for acute metabolic encephalopathy and management. #Primary Hyperparathyroidism #Hypercalcemia #Hypophosphatemia Findings are most consistent with primary hyperparathyroidism. Common etiologies include parathyroid adenoma (most common), parathyroid hyperplasia, and less commonly, parathyroid carcinoma. Patient received two subcutaneous doses of calcitonin during admission with significant improvement in serum calcium. Labs: PTH 296, Ca 12.4 --> 11.9 Thyroid ultrasound unremarkable NM Parathyroid neg for parathyroid adenoma Zoledronic acid 4mg x1 given on 07/09 Plan - NaCl @ 100cc/hr - Outpatient ENT referral for further evaluation and consideration of parathyroidectomy. - Monitor daily calcium, phosphorus, electrolytes, and renal function #Acute on chronic decompensated liver cirrhosis #Hepatic encephalopathy Child Brito score 11 points, Class C MELD-Na score 9 points, 7-10% 90 day mortality Labs revealed hyperbilirubinemia, thrombocytopenia, significantly elevated ammonia which has now improved CT abdomen revealed cirrhosis with mild 8 mm liver lesions, CBD stent is in place, mental status slightly improved after lactulose treatment, mild abdominal diffuse tenderness Plan - Continue lactulose 20 g TID, titrate to achieve 3?4 bowel movements daily. - Continue rifaximin 550mg BID - Monitor closely for signs of SBP (fever, abdominal pain, leukocytosis); obtain diagnostic paracentesis if clinically indicated. #Acute Encephalopathy, resolved Multifactorial DDx: Metabolic in a setting of hypercalcemia and hyperamonemia Per daughter mental status significantly declined past week CT head neg for hemorrhage/mass effect/midline shift Patient A/O x3 AFP 3.2 MRI brain significant for increased white matter changes, multiple punctate foci, evidence of demyelinating disease. Plan - Neuro consulted, see recs - Continue monitoring mental status - Supportive care and correction of metabolic abnormalities Health Maintenance: Diet: CLD GI prophylaxis: Protonix 40mg BID DVT prophylaxis: Lovenox Antibiotics: none CODE STATUS: FULL Disposition: MedTele Case discussed with my attending Dr. Roman, and senior resident, Dr. Ynes Michel MD PGY-1
--- NOTE | 2025-07-11 16:26 | PC.PT ---
Patient will be dc from PT services secondary to patient is I with transfers and S with ambulation without AD.
[2025-07-11] MEDS: PANTOPRAZOLE 40 MG TABLET PO (20:44)
--- NOTE | 2025-07-11 21:19 | PD.RESPRO ---
Documentation for date of: 07/11/25 Subjective Subjective Interval history: Patient examined at bedside. Vitals stable. Calcium downtrended to 10.5, Hb 7.7, platelets 85. More arousable today. AOx3, follows basic commands. She was more conversive today. Complained of generalized weakness. Continue ceftriaxone and lacutulose for hepatic encephaopathy, continue to monitor. Exam Vital Signs Temp Pulse Resp BP Pulse Ox O2 Del Method 97.5 F 90 18 118/71 99 Room Air 07/11/25 20:00 07/11/25 20:00 07/11/25 20:00 07/11/25 20:00 07/11/25 20:00 07/11/25 20:00 Narrative Exam General: Middle age female, No acute distress, arousable, sitting on bed HEENT: NCAT, No JVD noted. Mucosa moist. Pupils are equal and reactive to light bilaterally, n scleral icterus Cardiovascular: Normal S1 and S2. Regular rate and rhythm. Respiratory: Lungs are clear to auscultation bilaterally. No wheezing or crackles heard. Abdomen: Soft, nontender, not distended, normal bowel sounds. Skin: Warm to touch, dry, no rashes noted, jaundice appearing Musculoskeletal: No gross injuries. Able to move all 4 extremities. No pitting edema Neuro: Alert and oriented x3 .CN grossly intact, following commands. No pronator drift noted. Deep tendon reflexes: 2+ bilaterally symmetrical. Plantar reflex: Downgoing bilaterally. Sensory system: Intact to all modalities of sensation bilaterally. no dysmetria, or dysdiadochokinesia noted. No intention tremors noted. Gait: Not tested. No signs of meningeal irritation noted. Psych: Normal affect and mood Objective Labs 07/12/25 05:20 07/12/25 05:20 Labs: Laboratory Results - last 24 hr 07/11/25 05:17 WBC 4.2 RBC 2.01 L Hgb 7.7 L Hct 23.7 L MCV 118 H MCH 38.3 H MCHC 32.5 RDW Std Deviation 73.6 H Plt Count 85 L Neut % (Auto) 56 Lymph % (Auto) 28 [place] % (Auto) 11 Eos % (Auto) 3 Baso % (Auto) 1 Neut # (Auto) 2.4 Lymph # (Auto) 1.2 [place] # (Auto) 0.5 Eos # (Auto) 0.1 Baso # (Auto) 0.1 Immature Gran # (Auto) 0.01 H Absolute Nucleated RBC 0.00 Immature Gran % 0 Nucleated RBC % 0 Sodium 140 Potassium 3.2 L Chloride 109 H Carbon Dioxide 24.0 Anion Gap 7 BUN < 5 L Creatinine 0.9 Estim Creat Clear Calc 74.4 eGFR > 60 BUN/Creatinine Ratio 6 L Glucose 86 Calculated Osmolality 275 Calcium 10.5 Corrected Calcium 11.9 H Phosphorus 1.9 L Magnesium 2.3 Total Bilirubin 5.9 H AST 99 H ALT 38 Alkaline Phosphatase 88 Total Protein 5.4 L Albumin 2.3 L Globulin 3.1 Albumin/Globulin Ratio 0.7 L ABG Interpretation ABG results: 07/05/25 07/06/25 10:15 05:08 ABG pH 7.64 H* 7.48 H D ABG pCO2 23 L 30 L ABG pO2 109 H 78 L D ABG HCO3 24 22 ABG O2 Saturation 100 H 98 ABG Base Excess 4 H -1 Quality Measures Quality Measures none Assessment & Plan Assessment Current Active Medications: Generic Name Dose Route Start Last Admin Trade Name Freq PRN Reason Stop Dose Admin Enoxaparin Sodium 40 mg 07/08/25 16:45 07/11/25 09:34 Enoxaparin Sod Inj 40 Mg/0.4 Ml Syringe SC 07/22/25 16:44 40 mg QDAY TYRONE Administration Folic Acid 1 mg 07/06/25 15:45 07/11/25 09:34 Folic Acid 1 Mg Tablet PO 08/05/25 15:44 1 mg QDAY TYRONE Administration Sodium Chloride 1,000 mls @ 100 mls/hr 07/11/25 16:30 07/11/25 18:10 Ns IV 07/12/25 12:29 100 mls/hr .Q10H TYRONE Administration Lactulose 20 gm 07/06/25 14:00 07/11/25 21:00 Lactulose Syrup 20 Gm/30 Ml Udc PO 08/05/25 13:59 20 gm TID TYRONE Administration Protocol Pantoprazole Sodium 40 mg 07/11/25 21:00 07/11/25 20:44 Pantoprazole 40 Mg Tablet PO 08/10/25 20:59 40 mg BID TYRONE Administration Protocol Rifaximin 550 mg 07/08/25 11:00 07/11/25 20:44 Rifaximin 550 Mg Tablet PO 07/15/25 10:59 550 mg BID TYRONE Administration Thiamine HCl 100 mg 07/07/25 09:00 07/11/25 09:34 Thiamine 100 Mg Tablet PO 08/06/25 08:59 100 mg QDAY TYRONE Administration Plan 44-year-old female with past medical history of decompensated liver cirrhosis was admitted for acute metabolic encephalopathy and management. Neurology consulted for AMS. #Acute Encephalopathy-improving Likely hepatic encephalopathy in setting of decompensated liver cirrhosis. Patient now able to follow simple commands. CT head neg for hemorrhage/mass effect/midline shift Patient A/O x2 AFP 3.2 Ca on presentation 12.8. Ammonia on presentation 92 --> 34 MRI brain significant for increased white matter changes, multiple punctate foci, evidence of demyelinating disease. No masses noted. - Continue monitoring mental status - Supportive care and correction of metabolic abnormalities -neuro checks q4hr -continue lactulose -rifaximin 550mg BID #Acute on chronic decompensated liver cirrhosis #Hepatic encephalopathy #Primary Hyperparathyroidism #Hypercalcemia #Hypophosphatemia Primary care team to manage above conditions and ongoing care needs. The patient's management plan was discussed with my attending physician Dr. Faulkner. Francesca Navarro, PGY-2 Attending Provider Attestation/Addendum I virtually have seen the patient at the bedside and I agreed with resident's findings, assessment and plan of care. Likely hepatic encephalopathy in setting of decompensated liver cirrhosis. Patient now back to baseline. Continue to monitor her closely with current mgt.
[2025-07-12] VITALS: BP 102/52; PULSE 80; PULSE 85; RESP 15; TEMP 36.2; O2SAT 99
[2025-07-12] MEDS: SODIUM CHLORIDE 0.9% 1000 ML 1,000 ML 100 ML IV (03:47)
[2025-07-12 04:00] VITALS: BP 98/53; PULSE 90; PULSE 91; RESP 18; TEMP 36.7; O2SAT 100
[2025-07-12] MEDS: LACTULOSE SYRUP 20 GM/30 ML UDC PO (05:07)
[2025-07-12 06:20] LABS: Basophils # (Auto) 0.1 Thou/mm3 (0.0-0.2); Basophils % (Auto) 1 % (0-2.5); Eosinophils # (Auto) 0.1 Thou/mm3 (0.0-0.5); Eosinophils % (Auto) 3 % (0-10); Hematocrit 25.4 % (36.0-46.0); Immature Granulocytes Auto 0.02 Thou/mm3 (0.00-0.00); Lymphocytes # (Auto) 1.2 Thou/mm3 (1.0-4.8); Lymphocytes % (Auto) 25 % (10-50); Mean Corpuscular HGB Conc 31.9 g/dl (31.0-37.0); Mean Corpuscular Hemoglobin 37.7 pg (25.0-35.0); Mean Corpuscular Volume 118 fL (80-100); Monocytes # (Auto) 0.5 Thou/mm3 (0.0-0.8); Monocytes % (Auto) 11 % (0-12); Neutrophils # (Auto) 3.0 Thou/mm3 (1.8-7.7); Neutrophils % (Auto) 61 % (37-80); Nucleated Red Blood Cell # 0.00 Thou/mm3 (0.00-0.00); Nucleated Red Blood Cell % 0 /100 WBC (0); Platelet Count 91 Thou/mm3 (140-440); RDW Standard Deviation 73.3 fL (36.4-46.3); Red Blood Count 2.15 Miln/mm3 (4.00-5.20); White Blood Count 4.9 Thou/mm3 (3.6-11.0)
[2025-07-12 06:27] LABS: Hemoglobin 8.1 g/dL (12.0-16.0)
[2025-07-12 06:38] LABS: Alanine Aminotransferase 41 U/L (10-49); Albumin, Serum 2.7 gm/dL (3.5-5.0); Albumin/Globulin Ratio 0.8 (1.2-2.2); Alkaline Phosphatase 107 U/L (46-116); Anion Gap 8 (7-16); Aspartate Amino Transferase 112 U/L (0-34); BUN/Creatinine Ratio 5 Ratio (12-20); Bilirubin,Total 6.0 mg/dL (0.3-1.2); Blood Urea Nitrogen < 5 mg/dL (9-23); Calcium 10.3 mg/dL (8.3-10.6); Calcium (Corrected) 11.3 mg/dL (8.5-10.1); Carbon Dioxide 21.9 mMol/L (20.0-31.0); Chloride 109 mMol/L (98-107); Creatinine (Component) 1.1 mg/dL (0.6-1.3); Estimated Creatinine Clearance 60.9 mL/min (>60); Globulin 3.3 gm/dL (2.3-3.5); Glucose 95 mg/dL (74-106); Magnesium 2.1 mg/dL (1.6-2.6); Osmolality,Calculated 274 (275-295); Phosphorous 1.5 mg/dL (2.4-5.1); Potassium 3.5 mMol/L (3.4-5.1); Sodium 139 mMol/L (136-145); Total Protein 6.0 gm/dL (5.7-8.2); eGFR > 60 See Note
[2025-07-12 07:57] VITALS: BP 98/47; PULSE 88; RESP 19; TEMP 36.8; O2SAT 93
[2025-07-12 08:00] VITALS: PULSE 88
--- NOTE | 2025-07-12 08:39 | PC.CC ---
Dinesh HALL denied due to inadequate trial of lactulose outpatient.
[2025-07-12] MEDS: PANTOPRAZOLE 40 MG TABLET PO (09:01)
[2025-07-12] MEDS: THIAMINE 100 MG TABLET PO (09:01)
[2025-07-12] MEDS: FOLIC ACID 1 MG TABLET PO (09:01)
[2025-07-12] MEDS: NAPH,KPH MBDB 1 PACKET (1.5 GM) PO (09:09)
--- NOTE | 2025-07-12 09:16 | PC.SS ---
Follow up note: SS met with pt to inform her she will d/c home today. Bedside nurse is aware pt will require transportation home.
[2025-07-12 09:29] VITALS: BMI 24.7
[2025-07-12 12:00] VITALS: BP 105/69; PULSE 100; PULSE 88; RESP 17; TEMP 36.3; O2SAT 95
--- NOTE | 2025-07-12 12:55 | PC.SS ---
SS has setup wheelchair transportation with Jenni from [facility] for 1pm .? Per Jenni they will upgrade pt to [facility] due to wheelchair transportation not being available. Ref# [id number].? SS has requested [facility].? Per [facility] shared services representative [facility] is not a guaranteed transport company.? Estimated time is 3-4 hours.? SS has sent patient?s facesheet and ambulance form to [facility] using [employer]? SS has spoken to at [facility] and transportation is set for 1pm. Pt will be returning home. SS has informed patient's dtr and confirmed patient's address. Bedside nurse is aware.
--- NOTE | 2025-07-12 13:18 | ESDS_ITS ---
<Statement entered by Hallie Roman MD - 07/15/25 15:51> I reviewed above note and agree with findings and plans. I have also personally examined the patient with medicine team and went over assessment and plan with medical team including epidemiology intern and resident physician. Planned Discharge Date 07/12/25 DS: Providers Provider Date of admission: 07/05/25 15:10 Primary care physician: Physician No Primary/Family Admitting Provider: Aramis Huitron MD Attending Provider on Admission: Hallie Roman MD Consults: 07/05/25 16:49 Health Equity Referral - Knowledge Deficit Routine Comment: Positive screening for knowledge deficit needs. Health Equity Referral - Transportation Routine Comment: Positive screening for transportation needs. 07/07/25 14:37 Referral Physical Therapy Routine Comment: Physician Instructions: 07/08/25 13:30 Consult to Neurology / Tele-Neurology Routine Comment: Consulting Provider: Kais Faulkner Attending Provider on DC: Herb Quick MD Discharging Provider: Herb Quick MD DS: Diagnosis Problem List Completed Was Problem List Reviewed/Reconciled?: Yes Hospital Course Hospital Course Hospital course: 45-year-old female with past medical history of liver cirrhosis secondary to MASLD with liver lesion, hypercalcemia, asthma, migraine, anxiety/depression presenting to the ED with acute encephalopathy secondary to hepatic and metabolic abnormalities noted. In the ED patient is awake, alert but only oriented to self, notable labs included metabolic alkalosis, severe hypokalemia, hypercalcemia, hyperbilirubinemia, elevated ammonia levels. Neurology was consulted for acute encephalopathy along with MRI with and without contrast to rule out any potential malignancy or primary CHAIN CARRIER disorder. Patient was also started on lactulose with rapid improvement in mental status upon initiation. Regarding patient's hypercalcemia 2 doses of calcitonin were given and an ultrasound of the thyroid was ordered. PTH levels were markedly elevated as a result, appeals assistant was made to also obtain parathyroid sestamibi scan which was negative. MRI results showed significant white matter changes, multiple punctate foci and evidence of demyelinating disease but no masses noted. Patient continued to improve and calcium levels started to downtrend upon initiation of zoledronic acid and IV fluids. Patient will be discharged with home health with the following strict instructions. Please take folic acid and thiamine vitamins as prescribed Please take lactulose 10 g by mouth 3 times a day to achieve between 2-3 bowel movements a day Take rifaximin 550 mg by mouth twice a day and follow-up with GI as referred to by PCP Take D-Bibl-Srhmfst 250mg tablet for low phosphate Please follow-up with Dr. Martell, endocrine surgery in [place] for parathyroid and hypercalcemia Please follow-up with PCP within 1 week of discharge and asked to be referred to Dr. Martell or follow-up at the [facility] [address] [place] [address] If your symptoms worsen or if you develop new chest pain, shortness of breath, dizziness or severe weakness - please come back to the ED immediately Hospital Diagnosis: #Primary Hyperparathyroidism #Hypercalcemia #Hypophosphatemia #Acute on chronic decompensated liver cirrhosis #Hepatic encephalopathy, resolved Herb Quick DO PGY-2 Internal Medicine - GME Time Spent with Patient Time attestation: Total time spent providing and/or coordinating discharge services: 45 minutes Time spent: Greater than 30 minutes Exam Vital Signs Temp Pulse Resp BP Pulse Ox O2 Del Method 98.2 F 100 19 98/47 L 93 L Room Air 07/12/25 07:57 07/12/25 12:00 07/12/25 07:57 07/12/25 07:57 07/12/25 07:57 07/12/25 07:57 Narrative Exam General: AO x 3, Not in distress. Pale. Scleral icterus. HEENT: PERRL, No JVD, Neck supple. Resp: CTA bilaterally, no wheezing or crackles/rhonchii Cardio: Regular Rhythm. S1 +S2. No murmurs/rubs/gallops. GI: Soft. Non-tender. Distended. Soft, no organomegaly. Extr: No LE edema, ROM intact Neuro: No focal neruological deficits. Moving all 4 limbs. Discharge Plan Plan Patient Disposition: Home w/HOME HEALTH Care Plan Goals: Please take folic acid and thiamine vitamins as prescribed Please take lactulose 10 g by mouth 3 times a day to achieve between 2-3 bowel movements a day Take rifaximin 550 mg by mouth twice a day and follow-up with GI as referred to by PCP Take E-Qysw-Cuvdnup 250mg tablet for low phosphate Please follow-up with Dr. Martell, endocrine surgery in [place] for parathyroid and hypercalcemia Please follow-up with PCP within 1 week of discharge and asked to be referred to Dr. Martell or follow-up at the [address] [place] [address] If your symptoms worsen or if you develop new chest pain, shortness of breath, dizziness or severe weakness - please come back to the ED immediately Prescriptions/Referrals Prescriptions/Med Rec: New thiamine mononitrate (vit B1) 100 mg Tablet 100 mg PO QDAY 30 Days Qty: 30 0RF Xifaxan 550 mg Tablet 550 mg PO BID 30 Days Qty: 60 0RF folic acid 1 mg Tablet 1 mg PO QDAY 30 Days Qty: 30 0RF lactulose 10 gram/15 mL Solution 10 g PO TID 30 Days Qty: 1350 0RF D-Iehw-Zgqzphl 250 mg tablet 1 tab PO QDAY 14 Days Qty: 14 0RF Continued paroxetine HCl [Paxil] 30 mg tablet 30 mg PO QDAY montelukast [Singulair] 10 mg tablet 10 mg PO QDAY albuterol sulfate 90 mcg/actuation Hfa Aerosol Inhaler 2 puff INHALATION Q6H PRN (Reason: Wheezing) dicyclomine 20 mg tablet 20 mg PO QID PRN (Reason: abdominal pain) Qty: 30 0RF ondansetron 4 mg tablet,disintegrating 4 mg PO Q8H Qty: 10 0RF pantoprazole [Protonix] 40 mg tablet,delayed release (DR/EC) 40 mg PO QDAY Qty: 30 0RF potassium chloride 20 mEq tablet extended release 20 meq PO QDAY Qty: 7 0RF Discontinued pantoprazole 40 mg tablet,delayed release (DR/EC) 40 mg PO QDAY Qty: 60 0RF polyethylene glycol 3350 [ClearLax] 17 gram powder in packet 17 g PO QDAY Qty: 100 0RF dicyclomine 20 mg tablet 20 mg PO QID PRN (Reason: abdominal pain) Qty: 30 0RF Referrals: No Primary/Family,Physician [Primary Care Provider] Kory Martell MD [Referring Provider] Patient/Caregiver Discharge Instructions Other Discharge Activity Instructions:: In home Supportive Services phone number [phone] [place] [facility] phone number [phone] address: [address] [place] [address]. [phone] Follow up appointment [facility] appointment Thursday July 17, 2025 at 1:45pm with Dr. Palomo Education Materials: Parathyroid Hormone, Having Parathyroid Surgery, Hypercalcemia Dc Print Language: Beninese Stand Alone Forms: Nicole Award Info., Patient Portal Info Letter Discharge Order Discharge Orders: Discharge (Routine); Ordered 07/12/25 Ordered By: Herb Quick Quality Discharge Quality Measures VTE prophylaxis
[2025-07-17 06:24] LABS: Vitamin D,1,25 (OH)2,Total 17 pg/mL (18-72); Vitamin D2, 1,25 (OH)2 17 pg/mL; Vitamin D3, 1,25 (OH)2 <8 pg/mL
== END 2025-07-12 13:01 | disposition home or self-care (01) | DRG 280 ==
LOC: SERX 14:07 → SERHOLD 15:12 → S3SX 16:09
PROVIDERS: Admitting Provider Student in an Organized Health Care Education/Training Program; Emergency Provider Family Medicine; Visit Provider Internal Medicine
DX: K76.82 Hepatic encephalopathy (principal); K74.60 Unspecified cirrhosis of liver; E87.6 Hypokalemia; E21.0 Primary hyperparathyroidism; D64.9 Anemia, unspecified; R16.1 Splenomegaly, not elsewhere classified; D69.6 Thrombocytopenia, unspecified; F41.9 Anxiety disorder, unspecified; M19.019 Primary osteoarthritis, unspecified shoulder; F32.A Depression, unspecified; J45.909 Unspecified asthma, uncomplicated; E05.90 Thyrotoxicosis, unspecified without thyrotoxic crisis or storm; E83.39 Other disorders of phosphorus metabolism; E83.52 Hypercalcemia; E86.0 Dehydration; G37.9 Demyelinating disease of central nervous system, unspecified; E87.3 Alkalosis; D68.9 Coagulation defect, unspecified; G93.41 Metabolic encephalopathy; K70.30 Alcoholic cirrhosis of liver without ascites; Z79.899 Other long term (current) drug therapy; Z87.891 Personal history of nicotine dependence; Z91.199 Patient's noncompliance with other medical treatment and regimen due to unspecified reason
CPT/HCPCS: 36415; 36600; 70450; 70553; 71045; 74177; 76536; 76700; 76705; 78070; 80053; 80307; 80320; 80329; 81001; 82105; 82140; 82306; 82310; 82340; 82436; 82607; 82652; 82746; 82803; 83735; 83970; 84100; 84132; 84133; 84300; 84443; 84484; 85025; 85610; 86140; 87040; 93005; 97162; 99285; A4649; A9500; A9577; J0630; J0696; J1650; J1938; J2405; J2470; J3411; J3475; J3480; J3489; J3490; J7030; J7050; J7120; J7999; Q9967; A9270; G0480; J1836

== ENCOUNTER 2025-07-19 22:33 | Emergency (ER) | payer MEDICAID, SELFPAY ==
[2025-07-19 22:38] VITALS: PULSE 120; O2SAT 98
[2025-07-19 22:43] VITALS: BP 137/76; PULSE 96; RESP 16; TEMP 37.4; O2SAT 96
[2025-07-19 22:47] VITALS: BMI 32.2
--- NOTE | 2025-07-19 23:15 | EDNOTE_ITS ---
ED Abdominal Pain RME/HPI General Chief Complaint: Abdominal Pain Stated complaint: ABD PAIN Time seen by provider: 07/19/25 23:09 Arrival date/time: 07/19/25 22:33 RME / HPI RME / HPI narrative: DR. GONZALES MAIN ED EVALUATION: 44 y/o female with Hx of Liver Cirrhosis Secondary to Fatty Liver presents to ED c/o severe abdominal pain and pressure x 2 days. Patient was discharged from the hospital on 07/12/2025 for AMS. Related Data Home Medications ?Medication ?Instructions ?Recorded ?Confirmed albuterol sulfate 90 mcg/actuation 2 puff inhalation Q 6H PRN Wheezing 07/28/21 07/08/25 aerosol inhaler montelukast 10 mg tablet 10 mg PO QDAY 10/11/2307/06 (Singulair) paroxetine HCl 30 mg tablet (Paxil) 30 mg PO QDAY 09/2007/06/25 Previous Rx's ?Medication ?Instructions ?Recorded dicyclomine 20 mg tablet 20 mg PO QID PRN abdominal p ain 05/02/25 #30 tabs ondansetron 4 mg disintegrating 4 mg PO Q8H #10 tabs 0 05/26/25 tablet pantoprazole 40 mg tablet,delayed 40 mg PO QDAY #30 ta bs 06/05/25 release (Protonix) potassium chloride 20 mEq 20 meq PO QDAY #7 tabs 06/05 tablet,extended release folic acid 1 mg tablet 1 mg PO QDAY 1 month #30 tab s 07/10/25 lactulose 10 gram/15 mL oral 10 g (15 mL) PO TID 1 tue #1,350 07/10/25 solution mL rifaximin 550 mg tablet (Xifaxan) 550 mg PO BID 1 meggan h #60 tabs 07/10/25 thiamine mononitrate (vit B1) 100 100 mg PO QDAY 1 tue #30 tabs 07/10/25 mg tablet sodium di- and 1 tab PO QDAY 2 weeks #14 ta bs 07/12/25 monophosphate-potassium phos monobasic 250 mg tablet (L-Nnej-Ffyldhe) Allergies Allergy/AdvReac Type Severity Reaction Status Date / Time hydrocortisone Allergy Severe Swelling Verified 05/26/25 13:28 of the Eye Review of Systems Review of Systems Systems Reviewed: All systems reviewed, normal except as documented Past Medical History Past Medical History CARDIAC: Positive Heart Murmur and Cellulitis RESPIRATORY: Positive Asthma and Pneumonia GASTROINTESTINAL: Positive Cirrhosis, Hemorrhoids and Obesity REPRODUCTIVE: Positive Previous Pregnancies MUSCULOSKELETAL: Positive Musculoskeletal Disorders and Fractures HEMATOLOGIC: Positive Blood Disorders, Anemia and Clotting Problems PSYCHO/SOCIAL: Positive Depression and Anxiety OTHER HISTORY: Positive Hospitalization, Falls and Blood Transfusions Family History FAMILY HISTORY: Positive Family Respiratory Disorders and Family Surgery Surgical History SURGICAL: Positive Abdominal Surgery and Section Social History SMOKING STATUS: Former smoker ED Exam Narrative Physical exam: Generally patient is alert and chronically ill-appearing, eyes show icteric sclera, neck shows no JVD, heart mildly tachycardic, lungs clear to auscultation equal bilaterally, abdomen is slightly distended diffusely tender without rebound with a positive fluid wave, skin is cool pale and dry mildly jaundiced, neurologic exam Jelani Coma Scale is 15 without focal motor deficit, extremities do show pitting pedal edema. The abdominal wall also shows pitting edema. Course Quality Measures none Orders Category Date Time Status CT Screening NOW Care 07/19/25 23:16 Active Insert IV NOW Care 07/19/25 23:[address] abdomen pelvis w con Stat Exams 07/19/25 23:16 Completed Ammonia Stat Lab 07/19/25 23:55 Completed Body Fld Cult w Amy & Gram St Routine Lab 07/20/25 01:38 Received CBC Stat Lab 07/19/25 23:08 Completed CMP [Comprehensive Metabolic Panel] Stat Lab 07/19/25 23:08 Completed Lipase Stat Lab 07/19/25 23:08 Completed Magnesium Stat Lab 07/19/25 23:08 Completed PT [Prothrombin Time with INR] Stat Lab 07/19/25 23:08 Completed Peritoneal Cell Cnt/Diff Routine Lab 07/20/25 01:38 Completed Lidocaine 1% 20 ml [Xylocaine 1% 20 ML] Med 07/20/25 00:27 Discontinued 20 ml INFL X1 ONE Morphine* Inj Med 07/19/25 23:16 Discontinued 4 mg IVP X1 ONE Ondansetron Inj [Zofran Inj] Med 07/19/25 23:50 Discontinued 4 mg IVP X1 ONE Vital Signs Vital signs: Vital Signs Temperature 99.4 F 07/19/25 22:43 Pulse Rate 96 07/19/25 22:43 Respiratory Rate 16 07/19/25 22:43 Blood Pressure 137/76 H 07/19/25 22:43 Pulse Oximetry (%) 96 07/19/25 22:43 Abdominal Pain MDM MDM Narrative MDM Narrative:: Scribe Attestation: I, Carina Ellis, am scribing for and in the presence of Dr. Gonzales. Provider Notation: Although this document has been carefully reviewed, there may still be some phonetic and other typographical errors. These errors are purely grammatical due to imperfections in the software program and should not be construed in any way to compromise the substance of the patient's medical care during this visit. I interpreted all labs. CT scan done of the abdomen and pelvis with IV contrast showed a rather large amount of ascites but no evidence of acute disease process. Hemoglobin is 7.3. I do not believe the patient requires transfusion at this time. I believe the patient's abdominal pain is due to the abdominal distention secondary to ascites. Procedure note: After consent was obtained the left lower quadrant paracentesis was carried out here in the emergency room with ultrasound guidance. The skin over the left lower quadrant was cleansed with ChloraPrep and anesthetized with 1% lidocaine without epinephrine. Using a 5 [place] safety centesis catheter over needle technique the peritoneal cavity was entered and approximately 5 L of clear yellow fluid was removed from the peritoneal cavity. The fluid was sent to the lab for culture and sensitivity and cell count. The cell count was much below 500 which does not signify peritonitis. On clinical exam the patient does not have peritonitis. Patient was recently discharged from the hospital with hepatic encephalopathy. Currently right now she is alert and oriented x 4. I believe the patient is safe to be discharged. She is to continue all current medications. Follow-up with her doctor. Return to ER as needed or if condition worsens. Patient data External records reviewed:: [facility] previous records (Reviewed prior ED records from 07/05/25. Patient was seen for Altered mental status.) Clinical information provided by:: patient Social determinants that could affect healthcare access:: none Patient has the following chronic illnesses:: Heart Murmur, Cellulitis, Asthma, Cirrhosis, Hemorrhoids, Obesity, Anemia, Clotting Problems, Depression and Anxiety How is presenting disease/condition affected by chronic disease/condition?: exacerbated by Evaluation data The following diagnostics were reviewed and interpreted by me:: lab results and radiology exam(s) Lab and/or radiology exams considered but not ordered:: None Interpretation Summary: RADIOLOGY Abdomen/Pelvis CT: Findings: Cirrhosis, prominent ascites Heterogeneous radiodensities throughout the liver Significant enlargement of the spleen Esophageal and gastric varices Absent gallbladder Biliary stent satisfactory position No pancreatic mass No renal or ureteral calculi Anasarca No bowel obstruction Urinary bladder intact Severe osteopenia IMPRESSION: Cirrhosis Prominent ascites Esophageal and gastric varices Prominent splenomegaly Anasarca No bowel obstruction Normal appendix Medications / Prescriptions Medications or Prescriptions considered but not ordered:: None Medication administrations:: Medication Administration History Discontinued Medications Lidocaine HCl (Lidocaine Hcl 1% 20 Ml Vial) 20 ml INFL X1 ONE Stop: 07/20/25 00:28 Last Admin: 07/20/25 01:13 Dose: 20 ml Documented By: JOSEFINA Morphine Sulfate (Morphine Sulf Inj 4 Mg/Ml Vial) 4 mg IVP X1 ONE Stop: 07/19/25 23:17 Last Admin: 07/19/25 23:55 Dose: 4 mg Documented By: HARRY Ondansetron HCl (Ondansetron Inj 2 Mg/Ml Inj 2 Ml) 4 mg IVP X1 ONE; Protocol Stop: 07/19/25 23:51 Last Admin: 07/19/25 23:55 Dose: 4 mg Documented By: HARRY See above if any Consultations Consultation(s) initiated? (list below): No Diagnosis Differential diagnosis abdominal pain: abdominal pain, gastroenteritis, small bowel obstruction and other (IBS, Ascites) Most likely diagnosis given after review of the tests above:: none Admission Indicated Admission indicated?: not indicated Explain why admission is indicated or not indicated:: Patient does not meet admission criteria Admission Request Was there a request for admission?: No Disposition Plan Disposition Plan: Discharge Discharge Attestation Discharge Attestation: The patient and all family members were given an opportunity to ask questions and understood the discharge instructions. Discharge instructions specifically effects, indications for sooner follow up or return to the emergency department, and the expected course of current diagnosis. Patient condition: Stable Discharge Plan Plan Patient Disposition: HOME (Self Care) Prescriptions/Referrals Prescriptions/Med Rec: No Action paroxetine HCl [Paxil] 30 mg tablet 30 mg PO QDAY montelukast [Singulair] 10 mg tablet 10 mg PO QDAY albuterol sulfate 90 mcg/actuation Hfa Aerosol Inhaler 2 puff INHALATION Q6H PRN (Reason: Wheezing) dicyclomine 20 mg tablet 20 mg PO QID PRN (Reason: abdominal pain) Qty: 30 0RF ondansetron 4 mg tablet,disintegrating 4 mg PO Q8H Qty: 10 0RF pantoprazole [Protonix] 40 mg tablet,delayed release (DR/EC) 40 mg PO QDAY Qty: 30 0RF potassium chloride 20 mEq tablet extended release 20 meq PO QDAY Qty: 7 0RF thiamine mononitrate (vit B1) 100 mg Tablet 100 mg PO QDAY 30 Days Qty: 30 0RF Xifaxan 550 mg Tablet 550 mg PO BID 30 Days Qty: 60 0RF folic acid 1 mg Tablet 1 mg PO QDAY 30 Days Qty: 30 0RF lactulose 10 gram/15 mL Solution 10 g PO TID 30 Days Qty: 1350 0RF F-Zvqm-Vhxcfhv 250 mg tablet 1 tab PO QDAY 14 Days Qty: 14 0RF Problem List Clinical Impression: Liver failure, Ascites, Status post abdominal paracentesis, Anasarca Patient/Caregiver Discharge Instructions Additional Instructions: Take all of your medication as prescribed. Follow-up with your doctor. Return to ER as needed or if condition worsens. Print Language: Gabonese Stand Alone Forms: Nicole Award Info., Patient Portal Info Letter
--- NOTE | 2025-07-19 23:16 | XR_ITS ---
Examination: CT abdomen with intravenous contrast CT pelvis with intravenous contrast 2-D coronal reconstructions 2-D sagittal reconstructions Date and time of exam: July 19, 2025, 11:38 p.m. INDICATIONS: Abdominal pain beginning 3 days ago. CTDI: vol (mGy) 21.21 DLP: (mGycm) 945 Technique: Multiple axial sections of the abdomen and pelvis have been obtained. 64 slice high-resolution scanner used. 3 mm axial sections have been obtained, post intravenous injection 60 cc [id number] 2-D sagittal, coronal reconstructions obtained. Low dose protocols were performed. One or more of the following dose reduction techniques were used; automated exposure control, adjustment of the mA and/or KV according to patient size, use of iterative reconstruction technique. Findings: Cirrhosis, prominent ascites Heterogeneous radiodensities throughout the liver Significant enlargement of the spleen Esophageal and gastric varices Absent gallbladder Biliary stent satisfactory position No pancreatic mass No renal or ureteral calculi Anasarca No bowel obstruction Urinary bladder intact Severe osteopenia IMPRESSION: Cirrhosis Prominent ascites Esophageal and gastric varices Prominent splenomegaly Anasarca No bowel obstruction Normal appendix
[2025-07-19 23:35] LABS: Basophils # (Auto) 0.0 Thou/mm3 (0.0-0.2); Basophils % (Auto) 1 % (0-2.5); Eosinophils # (Auto) 0.1 Thou/mm3 (0.0-0.5); Eosinophils % (Auto) 1 % (0-10); Hematocrit 22.9 % (36.0-46.0); Immature Granulocytes Auto 0.03 Thou/mm3 (0.00-0.00); Lymphocytes # (Auto) 1.0 Thou/mm3 (1.0-4.8); Lymphocytes % (Auto) 15 % (10-50); Mean Corpuscular HGB Conc 31.9 g/dl (31.0-37.0); Mean Corpuscular Hemoglobin 37.6 pg (25.0-35.0); Mean Corpuscular Volume 118 fL (80-100); Monocytes # (Auto) 0.6 Thou/mm3 (0.0-0.8); Monocytes % (Auto) 9 % (0-12); Neutrophils # (Auto) 5.1 Thou/mm3 (1.8-7.7); Neutrophils % (Auto) 74 % (37-80); Nucleated Red Blood Cell # 0.00 Thou/mm3 (0.00-0.00); Nucleated Red Blood Cell % 0 /100 WBC (0); Platelet Count 89 Thou/mm3 (140-440); RDW Standard Deviation 71.4 fL (36.4-46.3); Red Blood Count 1.94 Miln/mm3 (4.00-5.20); White Blood Count 6.9 Thou/mm3 (3.6-11.0)
[2025-07-19 23:36] LABS: Hemoglobin 7.3 g/dL (12.0-16.0)
[2025-07-19 23:49] LABS: INR 1.6 (0.9-1.3); Prothrombin Time 16.0 Seconds (9.0-12.2)
[2025-07-19] MEDS: MORPHINE SULF INJ 4 MG/ML VIAL IVP (23:55)
[2025-07-19] MEDS: ONDANSETRON INJ 2 MG/ML INJ 2 ML 4 MG IVP (23:55)
[2025-07-20 00:02] LABS: Alanine Aminotransferase 37 U/L (10-49); Albumin, Serum 3.0 gm/dL (3.5-5.0); Albumin/Globulin Ratio 0.9 (1.2-2.2); Alkaline Phosphatase 120 U/L (46-116); Anion Gap 11 (7-16); Aspartate Amino Transferase 98 U/L (0-34); BUN/Creatinine Ratio 6 Ratio (12-20); Bilirubin,Total 5.9 mg/dL (0.3-1.2); Blood Urea Nitrogen 6 mg/dL (9-23); Calcium 11.2 mg/dL (8.3-10.6); Calcium (Corrected) 12.0 mg/dL (8.5-10.1); Carbon Dioxide 20.4 mMol/L (20.0-31.0); Chloride 107 mMol/L (98-107); Creatinine (Component) 1.0 mg/dL (0.6-1.3); Estimated Creatinine Clearance 64.9 mL/min (>60); Globulin 3.3 gm/dL (2.3-3.5); Glucose 119 mg/dL (74-106); Lipase 26 U/L (12-53); Magnesium 1.7 mg/dL (1.6-2.6); Osmolality,Calculated 274 (275-295); Potassium 3.1 mMol/L (3.4-5.1); Sodium 138 mMol/L (136-145); Total Protein 6.3 gm/dL (5.7-8.2); eGFR > 60 See Note
[2025-07-20 00:29] LABS: Ammonia 62 uMol/L (11-32)
[2025-07-20] MEDS: LIDOCAINE HCL 1% 20 ML VIAL INFL (01:13)
[2025-07-20 01:49] LABS: Peritoneal Fluid Appearance Clear; Peritoneal Fluid Color Yellow
[2025-07-20 01:58] LABS: Peritoneal Fluid WBC 45 /cmm
[2025-07-20 01:59] LABS: Peritoneal Fluid Mononuclear 58 %; Peritoneal Fluid Polynuclear 42 %
[2025-07-20 02:04] LABS: RBC,Peritoneal Fluid 11 /cmm
[2025-07-20 02:27] VITALS: BP 130/70; PULSE 110; RESP 18; TEMP 36.9; O2SAT 95
== END 2025-07-20 02:28 | disposition home or self-care (01) ==
LOC: SERX 07-20 02:31
PROVIDERS: Emergency Provider Emergency Medicine
DX: K72.90 Hepatic failure, unspecified without coma (principal); R18.8 Other ascites
CPT/HCPCS: 49083; 36415; 74177; 80053; 82140; 83690; 83735; 85025; 85610; 87070; 87075; 87205; 89051; 96374; 96375; 99283; A4649; J2270; J2405; J3490; Q9967

== ENCOUNTER 2025-07-29 17:29 | Emergency (ER) | payer MEDICAID, SELFPAY ==
[2025-07-29 17:45] VITALS: BP 128/64; PULSE 98; RESP 18; TEMP 36.6; O2SAT 99; BMI 35.2
--- NOTE | 2025-07-29 18:32 | XR_ITS ---
Examination: Knee, left, 3 views Technique: Knee AP, lateral, oblique 3 views Date and time of exam: July 29, 2025, 1838 hours INDICATIONS: Patient fell 3 days ago with into the knee, knee pain. FINDINGS: No fracture or dislocation. No foreign body IMPRESSION: No fracture or dislocation
--- NOTE | 2025-07-29 18:32 | XR_ITS ---
Examination: CT brain head without contrast. 2-D sagittal coronal reconstructions Date and time of exam: July 29, 2025, 1858 hours INDICATIONS: Patient fell today with injury to the head, head pain COMPARISON: July 05, 2025 CTDI: vol (mGy): 48.3 DLP: (mGycm): 972 Technique: Multiple CT axial sections of the brain have been obtained, 5 mm slice thickness. Contrast has not been administered. 2-D sagittal, coronal reconstructions have been obtained Low dose protocols were performed. One or more of the following dose reduction techniques were used; automated exposure control, adjustment of the mA and/or KV according to patient size, use of iterative reconstruction technique. Findings: No significant ventricular enlargement. Intra-axial or extra-axial hemorrhage density is not seen. No mass effect or midline shift Basal cisterns are not remarkable. Fourth ventricle is midline. Cranial vault intact. Impression: Negative for acute hemorrhage, mass effect or midline shift
--- NOTE | 2025-07-29 18:32 | XR_ITS ---
Examination: Tibia-Fibula, left, 2 views Technique: Tibia-fibula AP lateral 2 views Date and time of exam: July 29, 2025, 1838 hours INDICATIONS: Patient fell 2 days ago with injury to the lower leg, lower leg pain. FINDINGS: No acute fracture Old fracture is healed distal fibula and distal tibia IMPRESSION: No acute fracture
--- NOTE | 2025-07-29 18:32 | PD.EDFALL ---
ED Fall Injury RME/HPI General Chief Complaint: Fall Stated Complaint: MULTIPLE COMPLAINTS Time Seen by Provider: 07/29/25 18:24 Arrival date/time: 07/29/25 17:29 44-year-old female with a history of liver failure reports with complaints of multiple injuries after falling 1 week ago. Patient states that she hit her head and banged her left knee. Patient is noted some bruising and swelling in the head but she denies any loss of consciousness dizziness blurry vision ringing in ears weakness or fatigue secondary to the fall. Patient also reports a large bruise of the left knees extending down to the left lower leg with pain and difficulty walking. Patient states that she has not taken any medications for as she has a bad liver Limitations: no limitations Related Data Home Medications ?Medication ?Instructions ?Recorded ?Confirmed albuterol sulfate 90 mcg/actuation 2 puff inhalation Q6H PRN Wheezing 07/28/21 07/08/25 aerosol inhaler montelukast 10 mg tablet 10 mg PO QDAY 10/11/23 07/06/25 (Singulair) paroxetine HCl 30 mg tablet (Paxil) 30 mg PO QDAY 10/11/23 07/06/25 Previous Rx's ?Medication ?Instructions ?Recorded dicyclomine 20 mg tablet 20 mg PO QID PRN abdominal pain 05/02/25 #30 tabs ondansetron 4 mg disintegrating 4 mg PO Q8H #10 tabs 05/26/25 tablet pantoprazole 40 mg tablet,delayed 40 mg PO QDAY #30 tabs 06/05/25 release (Protonix) potassium chloride 20 mEq 20 meq PO QDAY #7 tabs 06/05/25 tablet,extended release folic acid 1 mg tablet 1 mg PO QDAY 1 month #30 tabs 07/10/25 lactulose 10 gram/15 mL oral 10 g (15 mL) PO TID 1 month #1,350 07/10/25 solution mL rifaximin 550 mg tablet (Xifaxan) 550 mg PO BID 1 month #60 tabs 07/10/25 thiamine mononitrate (vit B1) 100 100 mg PO QDAY 1 month #30 tabs 07/10/25 mg tablet Allergies Allergy/AdvReac Type Severity Reaction Status Date / Time hydrocortisone Allergy Severe Swelling Verified 07/29/25 17:36 of the Eye Review of Systems Constitutional Constitutional: Denies frequent falls and Denies headache(s) Eyes Eyes: Denies blind spots and Denies diplopia ENT Ears, Nose, Mouth, and Throat: Denies headache(s) and Denies vertigo Cardiovascular Cardiovascular: Denies chest pain, Denies diaphoresis, Denies dyspnea and Denies syncope Respiratory Respiratory: Denies cough and Denies dyspnea Gastrointestinal Gastrointestinal: Denies nausea and Denies vomiting Musculoskeletal Musculoskeletal: Reports arthralgias, Denies deformity and Reports joint swelling Integumentary/Breasts Skin/Breast: Reports unusual bruising and Reports wounds Neurologic Neurologic: Denies frequent falls, Denies headache(s), Denies syncope and Denies vertigo Past Medical History Past Medical History NEUROLOGIC: Negative Neurological Disorders or Seizures CARDIAC: Positive Heart Murmur and Cellulitis; Negative Cardiac Disorders, Hypercholesterolemia, Congestive Heart Failure, Edema, Hypertension or Varicose Veins RESPIRATORY: Positive Pneumonia; Negative Chronic Obstructive Pulmonary Disease (COPD), Asthma, Tuberculosis or Sleep Apnea GASTROINTESTINAL: Positive Gastrointestinal Disorders, Cirrhosis, Hemorrhoids and Obesity; Negative Hepatitis, Gall Bladder Disease, Gastrointestinal Bleed, Esophageal Varices, Colorectal Cancer or Gastroesophageal Reflux Disease GENITOURINARY: Negative Genitourinary Disorders or Renal Disease REPRODUCTIVE: Positive Previous Pregnancies; Negative Breast Cancer, Endometriosis or Pelvic Inflammatory Disease MUSCULOSKELETAL: Positive Musculoskeletal Disorders and Fractures; Negative Bone Cancer or Arthritis ENDOCRINE: Negative Endocrine Disorders, Diabetes Mellitus Type 1, Diabetes Mellitus Type 2 or Hyperthyroidism HEMATOLOGIC: Positive Blood Disorders, Anemia and Clotting Problems; Negative Sickle Cell Disease PSYCHO/SOCIAL: Positive Depression and Anxiety OTHER HISTORY: Positive Hospitalization, Falls and Blood Transfusions; Negative Autoimmune Disease, Down Syndrome, Developmental Delay, Shingles, Blood Transfusion Reaction, Anesthesia Reactions, Organ Transplant, MRSA, VRSA, Vancomycin-Resistant Enterococci, Human Immunodeficiency Virus (HIV), Chicken Pox, Measles, Mumps, Rubella (Burkinan Measles), Pertussis, Clostridium Difficile, Cancer, Breast Cancer, Cervical Cancer, Colorectal Cancer, Lung Cancer or Ovarian Cancer Family History FAMILY HISTORY: Positive Family Respiratory Disorders and Family Surgery; Negative Family Psychiatric Problems, Family Cardiac Disorders, Family Gastrointestinal Problems, Family Cancer or Family Anesthesia Reaction Surgical History SURGICAL: Positive Abdominal Surgery, Tubal Ligation and Section; Negative Cardiac Surgery, Pacemaker, Endocrine Surgery, Ear Surgery, Nephrectomy, Joint Replacement, Neurologic Surgery, Mastectomy, Lumpectomy, Hysterectomy or Organ Transplant Social History SMOKING STATUS: Never smoker SECOND HAND EXPOSURE: No (quit 2013) SUBSTANCE USE: does not use ED Exam General Limitations: Present no limitations General appearance: Present alert and in no apparent distress Head Head exam: Absent atraumatic (small contusion to right forehead, no stepdown or indentations noted ) Eye Eye exam: Present normal appearance, PERRL and EOMI ENT ENT exam: Present normal exam, normal oropharynx and mucous membranes moist Neck Neck exam: Present normal inspection, full ROM and trachea midline Chest Chest inspection: Present normal inspection and symmetric chest wall rise Respiratory Respiratory exam: Present normal lung sounds bilaterally Cardiovascular Cardiovascular exam: Present regular rate, normal rhythm and normal heart sounds Abdominal Exam Abdominal exam: Present distention, diminished bowel sounds and ascites Extremities Exam Extremities exam: Present normal inspection, full ROM and other (left leg with small healed abrasion to knee and diffuse ecchymosis extending to ankle and diffuse ttp ) Back Exam Back exam: Present normal inspection and full ROM Neurological Exam Neurological exam: Present alert, oriented X3 and CN II-XII intact Psychiatric Psychiatric exam: Present normal affect and normal mood Skin Skin exam: Present warm, dry, intact and normal color Course Quality Measures none Orders Category Date Time Status CT head/brain wo con Stat Exams 07/29/25 18:32 Completed XR knee LT 3V Stat Exams 07/29/25 18:32 Completed XR tibia fibula LT 2V Stat Exams 07/29/25 18:32 Completed Vital Signs Vital signs: Vital Signs Temperature 97.8 F 07/29/25 17:45 Pulse Rate 98 07/29/25 17:45 Respiratory Rate 18 07/29/25 17:45 Blood Pressure 128/64 07/29/25 17:45 Pulse Oximetry (%) 99 07/29/25 17:45 Oxygen Delivery Method Room Air 07/29/25 17:45 Fall Patient data External records reviewed:: None Clinical information provided by:: patient Social determinants that could affect healthcare access:: none Patient has the following chronic illnesses:: liver failure How is presenting disease/condition affected by chronic disease/condition?: uneffected by Evaluation data The following diagnostics were reviewed and interpreted by me:: radiology exam(s) Lab and/or radiology exams considered but not ordered:: none Interpretation Summary: Head CT negative for bleeds, knee x-ray and tib-fib x-ray negative for evidence of fractures Medications / Prescriptions Medications or Prescriptions considered but not ordered:: None Medication administrations:: None Consultations Consultation(s) initiated? (list below): No Diagnosis Fall Differential Diagnosis: other (Patella fracture versus patella contusion versus patella strain versus concussion versus scalp contusion) Most likely diagnosis given after review of the tests above:: Contusions of head and knee Admission Indicated Admission indicated?: not indicated Admission Request Was there a request for admission?: No Disposition Plan Disposition Plan: Discharge Discharge Attestation Discharge Attestation: The patient and all family members were given an opportunity to ask questions and understood the discharge instructions. Discharge instructions specifically effects, indications for sooner follow up or return to the emergency department, and the expected course of current diagnosis. Patient condition: Stable Discharge Plan Plan Patient Disposition: HOME (Self Care) Prescriptions/Referrals Prescriptions/Med Rec: No Action paroxetine HCl [Paxil] 30 mg tablet 30 mg PO QDAY montelukast [Singulair] 10 mg tablet 10 mg PO QDAY albuterol sulfate 90 mcg/actuation Hfa Aerosol Inhaler 2 puff INHALATION Q6H PRN (Reason: Wheezing) dicyclomine 20 mg tablet 20 mg PO QID PRN (Reason: abdominal pain) Qty: 30 0RF ondansetron 4 mg tablet,disintegrating 4 mg PO Q8H Qty: 10 0RF pantoprazole [Protonix] 40 mg tablet,delayed release (DR/EC) 40 mg PO QDAY Qty: 30 0RF potassium chloride 20 mEq tablet extended release 20 meq PO QDAY Qty: 7 0RF thiamine mononitrate (vit B1) 100 mg Tablet 100 mg PO QDAY 30 Days Qty: 30 0RF Xifaxan 550 mg Tablet 550 mg PO BID 30 Days Qty: 60 0RF folic acid 1 mg Tablet 1 mg PO QDAY 30 Days Qty: 30 0RF lactulose 10 gram/15 mL Solution 10 g PO TID 30 Days Qty: 1350 0RF Referrals: Mohsen Chavis MD [Primary Care Provider, Family Practice] - In 1 week Problem List Clinical Impression: Contusion of head, Contusion of knee Patient/Caregiver Discharge Instructions Discharge Activity: activity as tolerated Education Materials: Bruises (Contusions), ED Head Injury (Adult) Additional Instructions: Your x-ray showed no fractures or dislocations your CAT scan is normal use [id number] medications such as ibuprofen for pain. Hydrate well follow-up with your primary care provider if symptoms does not resolve in 3 to 5 days Print Language: Divehi Stand Alone Forms: Nicole Award Info., Patient Portal Info Letter
[2025-07-29 22:22] VITALS: BP 118/76; PULSE 72; RESP 18; TEMP 36.8; O2SAT 98
== END 2025-07-29 22:24 | disposition home or self-care (01) ==
PROVIDERS: Emergency Provider Emergency Medicine; PCP Family Medicine
DX: S00.93XA Contusion of unspecified part of head, initial encounter (principal); S80.00XA Contusion of unspecified knee, initial encounter; W19.XXXA Unspecified fall, initial encounter
CPT/HCPCS: 70450; 73562; 73590; 99283

== ENCOUNTER 2025-07-31 09:42 | Emergency (ER) | payer MEDICAID, SELFPAY ==
[2025-07-31 09:43] VITALS: PULSE 103; RESP 20; O2SAT 98; BMI 32.2
[2025-07-31 09:49] VITALS: BP 112/72; PULSE 101; RESP 20; TEMP 37.1; O2SAT 97
--- NOTE | 2025-07-31 10:37 | XR_ITS ---
Examination: Ultrasound-guided paracentesis Abdominal sonogram limited Date and time of exam: July 31, 2025, 1142 hours INDICATIONS: Cirrhosis, increasing ascites abdominal distention history Informed consent provided. A timeout was completed verifying correct patient, procedure, site, positioning, and special adequate movement if applicable. Technique: Multiple sonographic images of the abdomen have been obtained. Appropriate area for paracentesis was marked. Local anesthesia is obtained with 1% lidocaine. Yueh catheter is successfully introduced. Findings: Abdominal sonographic images demonstrate sufficient ascitic fluid for paracentesis. After placing the Yueh catheter, 2400 cc of fluid were successfully removed. During and after completion of the procedure the patient appear in satisfactory and stable condition with no complications observed. Estimated blood loss 0 cc Impression: Abdominal ascites Successful ultrasound-guided paracentesis as described above
--- NOTE | 2025-07-31 10:38 | XR_ITS ---
EXAMINATION: PA lateral chest 2 views TECHNIQUE: Upright PA lateral chest 2 views Date and time: July 31, 2025, 1215 hours INDICATIONS: Coughing congestion today FINDINGS: Early pneumonia right middle lobe right lower lobe Normal heart size Intact osseous structures IMPRESSION: Early pneumonia right middle and right lower lobe
--- NOTE | 2025-07-31 10:38 | EKG_ITS ---
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
--- NOTE | 2025-07-31 10:38 | PD.EDRME ---
Rapid Medical Screening Exam RME Arrival date/time: 07/31/25 09:42 44-year-old female with history of cirrhosis presents to the emergency department via EMS today for complaints of lower extremity swelling abdominal swelling Chief Complaint: Abdominal Pain Time Seen by Provider: 07/31/25 10:33 Vital signs: Vital Signs Temperature 98.7 F 07/31/25 09:49 Pulse Rate 101 H 07/31/25 09:49 Respiratory Rate 20 07/31/25 09:49 Blood Pressure 112/72 07/31/25 09:49 Pulse Oximetry (%) 97 07/31/25 09:49 Oxygen Delivery Method Room Air 07/31/25 09:49 Vital signs reviewed by provider: Yes Exam: On exam patient hemodynamically stable Clinical Impression: Labs and imaging and EKG obtained
[2025-07-31 10:59] LABS: Basophils # (Auto) 0.1 Thou/mm3 (0.0-0.2); Basophils % (Auto) 1 % (0-2.5); Eosinophils # (Auto) 0.1 Thou/mm3 (0.0-0.5); Eosinophils % (Auto) 3 % (0-10); Hematocrit 22.3 % (36.0-46.0); Immature Granulocytes Auto 0.05 Thou/mm3 (0.00-0.00); Lymphocytes # (Auto) 0.7 Thou/mm3 (1.0-4.8); Lymphocytes % (Auto) 13 % (10-50); Mean Corpuscular HGB Conc 32.3 g/dl (31.0-37.0); Mean Corpuscular Hemoglobin 37.7 pg (25.0-35.0); Mean Corpuscular Volume 117 fL (80-100); Monocytes # (Auto) 0.9 Thou/mm3 (0.0-0.8); Monocytes % (Auto) 17 % (0-12); Neutrophils # (Auto) 3.3 Thou/mm3 (1.8-7.7); Neutrophils % (Auto) 65 % (37-80); Nucleated Red Blood Cell # 0.00 Thou/mm3 (0.00-0.00); Nucleated Red Blood Cell % 0 /100 WBC (0); Platelet Count 86 Thou/mm3 (140-440); RDW Standard Deviation 63.1 fL (36.4-46.3); Red Blood Count 1.91 Miln/mm3 (4.00-5.20); White Blood Count 5.1 Thou/mm3 (3.6-11.0)
[2025-07-31 11:06] LABS: Hemoglobin 7.2 g/dL (12.0-16.0)
[2025-07-31 11:14] LABS: INR 1.5 (0.9-1.3); Partial Thromboplastin Time 29.3 Seconds (22.0-36.0); Prothrombin Time 15.6 Seconds (9.0-12.2)
[2025-07-31 11:19] LABS: B-Type Natriuretic Peptide 25 pg/mL (0-100)
[2025-07-31 11:20] LABS: Alanine Aminotransferase 39 U/L (10-49); Albumin, Serum 2.8 gm/dL (3.5-5.0); Albumin/Globulin Ratio 0.8 (1.2-2.2); Alkaline Phosphatase 132 U/L (46-116); Anion Gap 7 (7-16); Aspartate Amino Transferase 119 U/L (0-34); BUN/Creatinine Ratio 8 Ratio (12-20); Bilirubin,Total 5.3 mg/dL (0.3-1.2); Blood Urea Nitrogen 10 mg/dL (9-23); Calcium 11.3 mg/dL (8.3-10.6); Calcium (Corrected) 12.3 mg/dL (8.5-10.1); Carbon Dioxide 21.6 mMol/L (20.0-31.0); Chloride 104 mMol/L (98-107); Creatinine (Component) 1.3 mg/dL (0.6-1.3); Estimated Creatinine Clearance 49.9 mL/min (>60); Globulin 3.4 gm/dL (2.3-3.5); Glucose 114 mg/dL (74-106); Magnesium 1.7 mg/dL (1.6-2.6); Osmolality,Calculated 266 (275-295); Potassium 3.8 mMol/L (3.4-5.1); Sodium 133 mMol/L (136-145); Total Protein 6.2 gm/dL (5.7-8.2); Troponin I < 0.002 ng/mL (0.0-0.045); eGFR 52 See Note
--- NOTE | 2025-07-31 12:17 | PC.NURSE ---
NAx2 @ 0627, 4006 for xray
[2025-07-31 12:32] LABS: Collection Type, Urine Clean Catch
[2025-07-31 12:52] LABS: Amphetamine/Methamp Scrn,U Negative (Negative); Barbiturate Screen,Urine Negative (Negative); Benzodiazepines Screen,Urine Negative (Negative); Benzoylecgonine Screen, Ur Negative (Negative); Fentanyl Screen,Urine Negative (Negative); Opiate Screen,Urine Negative (Negative); THC Screen,Urine Negative (Negative)
[2025-07-31 12:58] LABS: Bacteria,Urine Rare; Bilirubin,Urine Negative (Negative); Blood,Urine Negative (Negative); Clarity,Urine Turbid (Clear/Hazy); Color,Urine Yellow (Lt Yel-Yel); Culture Indicated,Urine Not Indicated; Glucose, Urine Negative (Negative); HCG Qualitative,Urine Negative; Hyaline Casts,Urine < 1 /hpf (0-1); Ketones,Urine Negative (Negative); Leukocyte Esterase,Urine Negative (Negative); Nitrite,Urine Negative (Negative); PH,Urine 6.0 (5.0-7.0); Protein,Urine Negative (Neg - Trace); RBC,Urine 2 /hpf (0-3); Specific Gravity,Urine 1.011 (1.001-1.035); Squamous Epithelial Cell,Urine 5 /hpf (0-5); Urobilinogen,Urine Negative mg/dL (0.0-1.0); WBC,Urine 5 /hpf (0-5)
--- NOTE | 2025-07-31 14:16 | EDNOTE_ITS ---
ED General RME/HPI General Chief complaint: Abdominal Pain Stated complaint: ABDOMINAL PAIN Time Seen by Provider: 07/31/25 10:33 Arrival date/time: 07/31/25 09:42 RME / HPI RME / HPI narrative: 07/31/25 09:42 44-year-old female with history of cirrhosis presents to the emergency department via EMS today for complaints of lower extremity swelling abdominal swelling DR. DYSON MAIN ED EVALUATION, 1417h: 44 year old female with history of asthma, liver cirrhosis, hypercalcemia presents to the ED requesting paracentesis today. Patient reports abdominal distention and discomfort beginning 07/22/2025. Accompanied by chills. Reportedly attempted to get a paracentesis during ED visit 2 days ago though was unable to. Additionally reports difficulty walking due to painful swelling of lower extremities, L>R, beginning ~ 1 week ago. Patient additionally reports the leg pain is worse after ground level mechanical fall 3-4 days ago in her restroom. No other associated symptoms reported. Denies fevers, chest pain, cough, vomiting, change in bowel habits, or urinary symptoms. Exam: On exam patient hemodynamically stable Impression: Labs and imaging and EKG obtained Related Data Home Medications ?Medication ?Instructions ?Recorded ?Confirmed albuterol sulfate 90 mcg/actuation 2 puff inhalation Q 6H PRN Wheezing 07/28/21 07/08/25 aerosol inhaler montelukast 10 mg tablet 10 mg PO QDAY 10/11/2307/06 (Singulair) paroxetine HCl 30 mg tablet (Paxil) 30 mg PO QDAY 09/2007/06/25 Previous Rx's ?Medication ?Instructions ?Recorded dicyclomine 20 mg tablet 20 mg PO QID PRN abdominal p ain 05/02/25 #30 tabs ondansetron 4 mg disintegrating 4 mg PO Q8H #10 tabs 0 05/26/25 tablet pantoprazole 40 mg tablet,delayed 40 mg PO QDAY #30 ta bs 06/05/25 release (Protonix) potassium chloride 20 mEq 20 meq PO QDAY #7 tabs 06/05 tablet,extended release folic acid 1 mg tablet 1 mg PO QDAY 1 month #30 tab s 07/10/25 lactulose 10 gram/15 mL oral 10 g (15 mL) PO TID 1 tue #1,350 07/10/25 solution mL rifaximin 550 mg tablet (Xifaxan) 550 mg PO BID 1 meggan h #60 tabs 07/10/25 thiamine mononitrate (vit B1) 100 100 mg PO QDAY 1 tue #30 tabs 07/10/25 mg tablet Allergies Allergy/AdvReac Type Severity Reaction Status Date / Time hydrocortisone Allergy Severe Swelling Verified 07/29/25 17:36 of the Eye Review of Systems Review of Systems Systems Reviewed: All systems reviewed, normal except as documented Past Medical History Past Medical History CARDIAC: Positive Heart Murmur and Cellulitis RESPIRATORY: Positive Pneumonia GASTROINTESTINAL: Positive Gastrointestinal Disorders, Cirrhosis, Hemorrhoids and Obesity REPRODUCTIVE: Positive Previous Pregnancies MUSCULOSKELETAL: Positive Musculoskeletal Disorders and Fractures HEMATOLOGIC: Positive Blood Disorders, Anemia and Clotting Problems PSYCHO/SOCIAL: Positive Depression and Anxiety OTHER HISTORY: Positive Hospitalization, Falls and Blood Transfusions Family History FAMILY HISTORY: Positive Family Respiratory Disorders and Family Surgery Surgical History SURGICAL: Positive Abdominal Surgery, Tubal Ligation and Section Social History SMOKING STATUS: Never smoker SECOND HAND EXPOSURE: No (quit 2013) SUBSTANCE USE: does not use ED Exam Narrative Physical exam: Constitutional: Awake, alert, nontoxic, anasarca, chronically ill appearing HEENT: Normocephalic, atraumatic, extraocular movements intact, scleral icterus Neck: Supple CV: Regular rate and rhythm, no murmurs/rubs/gallops Lungs: Clear to auscultation BL, no respiratory distress. Abd: Soft, pitting edema to lower abdomen, mildly tender abdomen, no rebound, no guarding, no HSM noted to palpation Extremities: No deformities, anasarca, bruising in the left lower extremity from just below the knee down, tenderness to bilateral calves Neuro: AAOx3, CN 2-12 GIBL, no acute neuro deficit noted. Skin: Warm, dry, intact Course Quality Measures none Orders Category Date Time Status EKG (ED ONLY) *Do not use* NOW Care 07/31/25 10:38 Completed EKG (ED Only) Stat Exams 07/31/25 10:38 Draft US paracentesis abd w/image Stat Exams 07/31/25 10:37 Completed US venous duplex LE BI Stat Exams 07/31/25 14:37 Completed XR chest 2V Stat Exams 07/31/25 10:38 Completed B-Type Natriuretic Peptide Stat Lab 07/31/25 10:48 Completed CBC Stat Lab 07/31/25 10:48 Completed Comprehensive Metabolic Panel Stat Lab 07/31/25 10:48 Completed Drug Screen,Urine Stat Lab 07/31/25 12:25 Completed HCG Qualitative,Urine Stat Lab 07/31/25 12:25 Completed Magnesium Stat Lab 07/31/25 10:48 Completed Partial Thromboplastin Time Stat Lab 07/31/25 10:48 Completed Prothrombin Time with INR Stat Lab 07/31/25 10:48 Completed Troponin I Stat Lab 07/31/25 10:48 Completed Urinalysis, C/S if Indicated Stat Lab 07/31/25 12:25 Completed Lidocaine 1% Pf 30 ml [Xylocaine 1% Pf 30 ml] Med 07/31/25 11:42 Discontinued 30 ml .ROUTE .STK-MED ONE Vital Signs Vital signs: Vital Signs Temperature 98.7 F 07/31/25 09:49 Pulse Rate 101 H 07/31/25 09:49 Respiratory Rate 20 07/31/25 09:49 Blood Pressure 112/72 07/31/25 09:49 Pulse Oximetry (%) 97 07/31/25 09:49 Oxygen Delivery Method Room Air 07/31/25 09:49 Pulse ox is 97% on room air which is adequate. Discharge Plan Plan Patient Disposition: HOME (Self Care) Patient condition on transfer: Stable Prescriptions/Referrals Prescriptions/Med Rec: No Action paroxetine HCl [Paxil] 30 mg tablet 30 mg PO QDAY montelukast [Singulair] 10 mg tablet 10 mg PO QDAY albuterol sulfate 90 mcg/actuation Hfa Aerosol Inhaler 2 puff INHALATION Q6H PRN (Reason: Wheezing) dicyclomine 20 mg tablet 20 mg PO QID PRN (Reason: abdominal pain) Qty: 30 0RF ondansetron 4 mg tablet,disintegrating 4 mg PO Q8H Qty: 10 0RF pantoprazole [Protonix] 40 mg tablet,delayed release (DR/EC) 40 mg PO QDAY Qty: 30 0RF potassium chloride 20 mEq tablet extended release 20 meq PO QDAY Qty: 7 0RF thiamine mononitrate (vit B1) 100 mg Tablet 100 mg PO QDAY 30 Days Qty: 30 0RF Xifaxan 550 mg Tablet 550 mg PO BID 30 Days Qty: 60 0RF folic acid 1 mg Tablet 1 mg PO QDAY 30 Days Qty: 30 0RF lactulose 10 gram/15 mL Solution 10 g PO TID 30 Days Qty: 1350 0RF Referrals: Mohsen Chavis MD [Primary Care Provider, Family Practice] - In 1 week Problem List Clinical Impression: Abdominal pain, Ascites, Left knee sprain Patient/Caregiver Discharge Instructions Education Materials: Paracentesis Dc Additional Instructions: Some general health principles that can help you are the NEW START principles: Nutrition (eat a plant-based diet, avoiding meats in general, avoiding highly processed foods) Exercise (Daily exercise/walks as tolerated) Water (Drink adequate fresh water to maintain hydration, concentrating on water rather than on soda, coffee, tea, juice, etc for hydration) [place] (Spend time - 15-20 minutes or so with skin exposed in the automotive glass specialist and late evening sun for Vitamin D health benefits) [place] (Avoid alcohol, illicit drugs, caffeinated beverages, smoking, etc) Air (Deep breathing exercises in the early mornings in fresh air) Rest (Adequate rest at night, going to bed a few hours before midnight and avoiding all screens/television/loud music in the time right before going to bed, also avoiding heavy meals just prior to going to bed) Trust in God (Spend time daily in Bible study and prayer - health benefits in contemplation of God's true character) Additional resources that can benefit: www.[employer], look under resources and seminars. Another good website is [email or web address].[email or web address] Print Language: Ecuadorean Stand Alone Forms: Nicole Award Info., Patient Portal Info Letter MDM Narrative MDM hospital course (for use when minimal MDM required): Evy Cheung am scribing for and in the presence of Dr. Dyson. Clinical Information Provided by: patient Medical Records reviewed [facility] [place] Meds/Rx considered, not ordered None Labs/Rad/Tests considered, not ordered None Chronic Illness/Social Conditions which may negatively complicate care or outcome(s)-explain: Liver disease EKG Interpretation EKG #1: EKG Interpretation: EKG @ 10:39h, interpreted by me, sinus rhythm with short VT interval, rate 99, no STEMI. Labs Labs: see narrative above Imaging Imaging Interpretation(s): Ordering Physician: Armando SHANKAR)Renzo NP Date of Service: 07/31/25 Procedure(s): US paracentesis abd w/image Accession Number(s): [id number] cc: Armando SHANKAR),Renzo TIRADO; Mohsen Chavis MD; Seng Van MD~ Examination: Ultrasound-guided paracentesis Abdominal sonogram limited Date and time of exam: July 31, 2025, 1142 hours INDICATIONS: Cirrhosis, increasing ascites abdominal distention history Informed consent provided. A timeout was completed verifying correct patient, procedure, site, positioning, and special adequate movement if applicable. Technique: Multiple sonographic images of the abdomen have been obtained. Appropriate area for paracentesis was marked. Local anesthesia is obtained with 1% lidocaine. Yueh catheter is successfully introduced. Findings: Abdominal sonographic images demonstrate sufficient ascitic fluid for paracentesis. After placing the Yueh catheter, 2400 cc of fluid were successfully removed. During and after completion of the procedure the patient appear in satisfactory and stable condition with no complications observed. Estimated blood loss 0 cc Impression: Abdominal ascites Successful ultrasound-guided paracentesis as described above Dictated By: Seng Van MD Signed By: <Electronically signed by Seng Van MD in OV> 07/31/25 1253 Ordering Physician: Renzo Roberts NP, NP Date of Service: 07/31/25 Procedure(s): XR chest 2V Accession Number(s): [id number] cc: Renzo Roberts NP, NP; Mohsen Chavis MD; Seng Van MD~ EXAMINATION: PA lateral chest 2 views TECHNIQUE: Upright PA lateral chest 2 views Date and time: July 31, 2025, 1215 hours INDICATIONS: Coughing congestion today FINDINGS: Early pneumonia right middle lobe right lower lobe Normal heart size Intact osseous structures IMPRESSION: Early pneumonia right middle and right lower lobe Dictated By: Seng Van MD Signed By: <Electronically signed by Seng Van MD in OV> 07/31/25 1241 Ordering Physician: Allie Dyson MD Date of Service: 07/31/25 Procedure(s): US venous duplex LE BI Accession Number(s): [id number] cc: Mohsen Chavis MD; Seng Van MD; Allie Dyson MD~ COMPARISON: Examination: Venous duplex lower extremity sonogram, bilateral. Date and time of exam: July 31, 2025, 1531 hours INDICATIONS: Bilateral leg swelling and pain beginning 1 week ago Technique: Multiple sonographic images of the deep venous system have been obtained. B-mode/2-D grayscale imaging of vascular structures and Doppler spectral analysis (waveforms) and color performed Both legs are examined. Findings: Deep venous systems do not demonstrate abnormal echogenicity. No diagnostic visualization left posterior tibial vein All visualized deep veins exhibit compressibility. All visualized deep veins exhibit augmentation. Impression: Negative for deep vein thrombosis Dictated By: Seng Van MD Signed By: <Electronically signed by Seng Van MD in OV> 07/31/25 1656 Medication Administration(s) Medication Administration History Discontinued Medications Lidocaine HCl (Lidocaine Inj Pf 1% 30 Ml Vial) Confirm Administered Dose 30 ml .ROUTE .[employer] ONE Stop: 07/31/25 11:43 Last Admin: 07/31/25 15:10 Dose: Not Given Documented By: Non-Admin Reason: Not In Room See above Diagnosis Diagnoses ruled out and/or further discussions: Abdominal pain Ascites Left knee sprain
--- NOTE | 2025-07-31 14:37 | XR_ITS ---
COMPARISON: Examination: Venous duplex lower extremity sonogram, bilateral. Date and time of exam: July 31, 2025, 1531 hours INDICATIONS: Bilateral leg swelling and pain beginning 1 week ago Technique: Multiple sonographic images of the deep venous system have been obtained. B-mode/2-D grayscale imaging of vascular structures and Doppler spectral analysis (waveforms) and color performed Both legs are examined. Findings: Deep venous systems do not demonstrate abnormal echogenicity. No diagnostic visualization left posterior tibial vein All visualized deep veins exhibit compressibility. All visualized deep veins exhibit augmentation. Impression: Negative for deep vein thrombosis
[2025-07-31 17:56] VITALS: BP 120/73; PULSE 102; RESP 18; TEMP 36.8; O2SAT 100
== END 2025-07-31 18:50 | disposition home or self-care (01) ==
PROVIDERS: Nurse Practitioner Primary Care; Emergency Provider Family Medicine; PCP Family Medicine
DX: R18.8 Other ascites (principal); K74.60 Unspecified cirrhosis of liver; J18.9 Pneumonia, unspecified organism; J45.909 Unspecified asthma, uncomplicated
CPT/HCPCS: 49083; 36415; 71046; 80053; 80307; 81001; 81025; 83735; 83880; 84484; 85025; 85610; 85730; 93005; 93970; 99283; C1729

== ENCOUNTER 2025-08-01 22:16 | Inpatient (IN) | payer MEDICAID, SELFPAY ==
[2025-08-01 22:22] VITALS: PULSE 98; RESP 18; O2SAT 98; BMI 35.6
[2025-08-01 22:29] VITALS: BP 116/50; PULSE 98; RESP 18; TEMP 36.6; O2SAT 96
--- NOTE | 2025-08-01 22:38 | EKG_ITS ---
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
[2025-08-01 22:39] VITALS: BP 116/50; PULSE 98
[2025-08-01] MEDS: FUROSEMIDE INJ 10 MG/ML 4ML VIAL 40 MG IVP (22:39)
--- NOTE | 2025-08-01 22:42 | PD.EDADULT ---
ED General RME/HPI General Chief complaint: General Adult/Misc Complain Stated complaint: FOOT PAIN Time Seen by Provider: 08/01/25 22:24 Arrival date/time: 08/01/25 22:16 RME / HPI RME / HPI narrative: Patient is a 44-year-old female with a past medical decompensated cirrhosis secondary to alcohol use disorder with history of esophageal varices grade 2 (02/14/2025) and ascites, anxiety/depression, history of asthma, history of migraines, who presented to the emergency room with a chief complaint of swelling of her legs. Patient denied alcohol use or drug use. Patient stated she continues to take Lasix as a home medication. Patient denied hematochezia or melena. Patient denied melena. Patient denied confusion. Last para on 07/31/2025-2400cc. Denied abdominal pain. Related Data Home Medications ?Medication ?Instructions ?Recorded ?Confirmed albuterol sulfate 90 mcg/actuation 2 puff inhalation Q6H PRN Wheezing 07/28/21 07/08/25 aerosol inhaler montelukast 10 mg tablet 10 mg PO QDAY 10/11/23 07/06/25 (Singulair) paroxetine HCl 30 mg tablet (Paxil) 30 mg PO QDAY 10/11/23 07/06/25 Previous Rx's ?Medication ?Instructions ?Recorded dicyclomine 20 mg tablet 20 mg PO QID PRN abdominal pain 05/02/25 #30 tabs ondansetron 4 mg disintegrating 4 mg PO Q8H #10 tabs 05/26/25 tablet pantoprazole 40 mg tablet,delayed 40 mg PO QDAY #30 tabs 06/05/25 release (Protonix) potassium chloride 20 mEq 20 meq PO QDAY #7 tabs 06/05/25 tablet,extended release folic acid 1 mg tablet 1 mg PO QDAY 1 month #30 tabs 07/10/25 lactulose 10 gram/15 mL oral 10 g (15 mL) PO TID 1 month #1,350 07/10/25 solution mL rifaximin 550 mg tablet (Xifaxan) 550 mg PO BID 1 month #60 tabs 07/10/25 thiamine mononitrate (vit B1) 100 100 mg PO QDAY 1 month #30 tabs 07/10/25 mg tablet Allergies Allergy/AdvReac Type Severity Reaction Status Date / Time hydrocortisone Allergy Severe Swelling Verified 07/29/25 17:36 of the Eye Course Quality Measures none Orders Category Date Time Status Bedside COVID-19 Antigen Test NOW Care 08/01/25 22:42 Active Plunger Scoop Operator Q4H START 00 Care 08/01/25 22:25 Active EKG (ED ONLY) *Do not use* NOW Care 08/01/25 22:38 Completed Guallpa [Urinary Catheter] QS Care 08/01/25 22:30 Active Insert IV NOW Care 08/01/25 22:25 Active MRI Screening NOW Care 08/02/25 06:28 Active NPO NOW Care 08/02/25 04:03 Active Vital Signs, Non-Routine Q4H Care 08/01/25 22:30 Ordered Diet NPO (NOW) Diet 08/02/25 04:03 Active EKG (ED Only) Stat Exams 08/01/25 22:38 Draft MR MRCP Stat Exams 08/02/25 Ordered NM HIDA w pharm Urgent Exams 08/02/25 07:00 Stop Req US gall bladder Stat Exams 08/02/25 00:31 Taken XR chest 1V portable Stat Exams 08/01/25 22:43 Completed Alcohol, Blood Medical Stat Lab 08/01/25 22:39 Completed Ammonia Stat Lab 08/01/25 22:39 Completed BNP [B-Type Natriuretic Peptide] Stat Lab 08/01/25 22:39 Completed Bilirubin,Direct Stat Lab 08/01/25 22:39 Completed CBC Routine Lab 08/02/25 06:00 Received CBC Stat Lab 08/01/25 22:39 Completed CMP [Comprehensive Metabolic Panel] Routine Lab 08/02/25 06:00 Received CMP [Comprehensive Metabolic Panel] Stat Lab 08/01/25 22:39 Completed Drug Screen,Urine Stat Lab 08/01/25 22:45 Ordered HCG Qualitative,Urine Stat Lab 08/01/25 22:37 Completed Influenza A & B Rapid Panel Stat Lab 08/01/25 22:42 Ordered Lactic Acid [Lactate (Lactic Acid)] Stat Lab 08/01/25 22:39 Completed Lactic Acid, 3 HR Stat Lab 08/02/25 02:23 Completed Lipase Stat Lab 08/01/25 22:39 Completed Mag [Magnesium] Stat Lab 08/01/25 22:39 Completed PT [Prothrombin Time with INR] Stat Lab 08/01/25 22:39 Completed PTT [Partial Thromboplastin Time] Stat Lab 08/01/25 22:39 Completed Phosphorous Stat Lab 08/01/25 22:39 Completed TSH [Thyroid Stimulating Hormone] Stat Lab 08/01/25 22:39 Completed Troponin I Stat Lab 08/01/25 22:39 Completed Type and Screen Routine Lab 08/02/25 06:00 Received Furosemide Inj [Lasix Inj] Med 08/01/25 22:30 Discontinued 40 mg IVP X1 ONE Lactulose Syrup [Enulose Syrup] Med 08/02/25 00:09 Discontinued 20 gm PO X1 ONE Vital Signs Vital signs: Vital Signs Temperature 98 F 08/01/25 22:29 Pulse Rate 98 08/01/25 22:29 Respiratory Rate 18 08/01/25 22:29 Blood Pressure 116/50 L 08/01/25 22:29 Pulse Oximetry (%) 96 08/01/25 22:29 Oxygen Delivery Method Room Air 08/01/25 22:29 Discharge Plan Plan Patient condition on transfer: Stable Prescriptions/Referrals Prescriptions/Med Rec: No Action paroxetine HCl [Paxil] 30 mg tablet 30 mg PO QDAY montelukast [Singulair] 10 mg tablet 10 mg PO QDAY albuterol sulfate 90 mcg/actuation Hfa Aerosol Inhaler 2 puff INHALATION Q6H PRN (Reason: Wheezing) dicyclomine 20 mg tablet 20 mg PO QID PRN (Reason: abdominal pain) Qty: 30 0RF ondansetron 4 mg tablet,disintegrating 4 mg PO Q8H Qty: 10 0RF pantoprazole [Protonix] 40 mg tablet,delayed release (DR/EC) 40 mg PO QDAY Qty: 30 0RF potassium chloride 20 mEq tablet extended release 20 meq PO QDAY Qty: 7 0RF thiamine mononitrate (vit B1) 100 mg Tablet 100 mg PO QDAY 30 Days Qty: 30 0RF Xifaxan 550 mg Tablet 550 mg PO BID 30 Days Qty: 60 0RF folic acid 1 mg Tablet 1 mg PO QDAY 30 Days Qty: 30 0RF lactulose 10 gram/15 mL Solution 10 g PO TID 30 Days Qty: 1350 0RF Referrals: Mohsen Chavis MD [Primary Care Provider, Family Practice] - In 1 week Problem List Clinical Impression: Decompensated cirrhosis, Abdominal pain Patient/Caregiver Discharge Instructions Print Language: Macedonian MDM Narrative Sign Out note: Signed out DR. Vela, ER attending Pending HIDA Labs/Rad/Tests considered, not ordered None Chronic Illness/Social Conditions which may negatively complicate care or outcome(s)-explain: ETOH/drugs/substance abuse (Cirrhosis secondary to hx of alcohol ) Imaging Imaging interpretation: other (Pending images US gallbladder ) Medication Administration(s) Medication Administration History Discontinued Medications Furosemide (Furosemide Inj 10 Mg/Ml 4ml Vial) 40 mg IVP X1 ONE Stop: 08/01/25 22:31 Last Admin: 08/01/25 22:39 Dose: 40 mg Documented By: EE Lactulose (Lactulose Syrup 20 Gm/30 Ml Udc) 20 gm PO X1 ONE; Protocol Stop: 08/02/25 00:10 Last Admin: 08/02/25 00:29 Dose: 20 gm Documented By: CVL same as above Diagnosis Differential Diagnosis ED Complaint MDM: Decompensated Cirrhosis w/ ascites and varices vs biliary obstructionvs cho Diagnoses ruled out and/or further discussions: Pending images Signed out Dr. Vela - The patient's plan was discussed with attending Dr. Dagmar Sanders MD PGY2 Internal Medicine
--- NOTE | 2025-08-01 22:43 | XR_ITS ---
EXAMINATION: AP chest single view TECHNIQUE: AP portable upright chest single view Date and time: August 01, 2025, 11:40 p.m., comparison July 31, 2025 INDICATIONS: Shortness of breath today. FINDINGS: Again noted mild pneumonia right base Mild prominence left ventricle No pulmonary edema Mild osteopenia IMPRESSION: Again noted pneumonia right base
[2025-08-01 22:50] LABS: Lactate (Lactic Acid) 2.2 mMol/L (0.4-2.0)
[2025-08-01 22:51] LABS: Basophils # (Auto) 0.1 Thou/mm3 (0.0-0.2); Basophils % (Auto) 1 % (0-2.5); Eosinophils # (Auto) 0.2 Thou/mm3 (0.0-0.5); Eosinophils % (Auto) 4 % (0-10); Hematocrit 22.6 % (36.0-46.0); Immature Granulocytes Auto 0.03 Thou/mm3 (0.00-0.00); Lymphocytes # (Auto) 0.8 Thou/mm3 (1.0-4.8); Lymphocytes % (Auto) 17 % (10-50); Mean Corpuscular HGB Conc 31.9 g/dl (31.0-37.0); Mean Corpuscular Hemoglobin 36.7 pg (25.0-35.0); Mean Corpuscular Volume 115 fL (80-100); Monocytes # (Auto) 0.9 Thou/mm3 (0.0-0.8); Monocytes % (Auto) 18 % (0-12); Neutrophils # (Auto) 2.8 Thou/mm3 (1.8-7.7); Neutrophils % (Auto) 59 % (37-80); Nucleated Red Blood Cell # 0.00 Thou/mm3 (0.00-0.00); Nucleated Red Blood Cell % 0 /100 WBC (0); Platelet Count 92 Thou/mm3 (140-440); RDW Standard Deviation 60.5 fL (36.4-46.3); Red Blood Count 1.96 Miln/mm3 (4.00-5.20); White Blood Count 4.8 Thou/mm3 (3.6-11.0)
[2025-08-01 22:54] LABS: Hemoglobin 7.2 g/dL (12.0-16.0)
[2025-08-01 22:55] LABS: HCG Qualitative,Urine Negative
[2025-08-01 23:10] LABS: Ammonia 84 uMol/L (11-32)
[2025-08-01 23:11] LABS: INR 1.4 (0.9-1.3); Partial Thromboplastin Time 29.3 Seconds (22.0-36.0); Prothrombin Time 14.9 Seconds (9.0-12.2)
[2025-08-01 23:22] LABS: B-Type Natriuretic Peptide 35 pg/mL (0-100)
[2025-08-01 23:42] LABS: Alanine Aminotransferase 37 U/L (10-49); Albumin, Serum 2.7 gm/dL (3.5-5.0); Albumin/Globulin Ratio 0.8 (1.2-2.2); Alcohol, Blood Medical < 3.0 mg/dL (0-10.0); Alkaline Phosphatase 164 U/L (46-116); Anion Gap 8 (7-16); Aspartate Amino Transferase 114 U/L (0-34); BUN/Creatinine Ratio 12 Ratio (12-20); Bilirubin,Direct 2.9 mg/dL (0.0-0.3); Bilirubin,Total 4.4 mg/dL (0.3-1.2); Blood Urea Nitrogen 14 mg/dL (9-23); Calcium 11.0 mg/dL (8.3-10.6); Calcium (Corrected) 12.0 mg/dL (8.5-10.1); Carbon Dioxide 19.6 mMol/L (20.0-31.0); Chloride 106 mMol/L (98-107); Creatinine (Component) 1.2 mg/dL (0.6-1.3); Estimated Creatinine Clearance 59.4 mL/min (>60); Globulin 3.6 gm/dL (2.3-3.5); Glucose 95 mg/dL (74-106); Lipase 40 U/L (12-53); Magnesium 1.7 mg/dL (1.6-2.6); Osmolality,Calculated 268 (275-295); Phosphorous 2.5 mg/dL (2.4-5.1); Potassium 3.7 mMol/L (3.4-5.1); Sodium 134 mMol/L (136-145); Thyroid Stimulating Hormone 2.22 uIU/mL (0.55-4.78); Total Protein 6.3 gm/dL (5.7-8.2); Troponin I < 0.002 ng/mL (0.0-0.045); eGFR 57 See Note
[2025-08-02] VITALS (21 sets, daily range): BP systolic 91–125; BP diastolic 53–81; PULSE 90–115; RESP 12–24; TEMP 36.6–37; O2SAT 95–100
--- NOTE | 2025-08-02 | XR_ITS ---
MRI abdomen, without contrast. MRCP Date and time of exam: August 02, 2025, 11:21 a.m., comparison April 02, 2025 INDICATIONS: Abdominal pain beginning 2 weeks ago, cirrhosis diagnosis, gallbladder sonogram August 02, 2025 cholelithiasis moderate ascites Technique: Multiple axial and coronal images of the abdomen have been obtained with the Siemens 1.5T MRI scanner. Images obtained included T1 weighted transverse images, T2-weighted transverse images, T2-weighted transverse images fat-suppressed, T2 weighted haste fat suppressed transverse images, T1 weighted images, in and out of phase images, T2-weighted coronal images, breath hold, T2 weighted haze coronal images as well as T2 weighted coronal thick slab images, MRCP. Findings: Liver is irregular in contour and decreased in size, no focal liver lesions Significant ascites Moderate splenomegaly Gallstones Gallbladder wall does not appear thickened , Patient's breathing degrades image quality no common hepatic or common bile duct stones are noted No bowel obstruction No hydronephrosis Aorta normal size IMPRESSION: Cirrhosis Significant ascites Moderate splenomegaly Cholelithiasis, negative for cholecystitis No common hepatic or common bile duct stones
[2025-08-02] MEDS: LACTULOSE SYRUP 20 GM/30 ML UDC PO (00:29)
--- NOTE | 2025-08-02 00:31 | XR_ITS ---
Examination: Abdomen sonogram, Limited Date and time of exam: August 02, 2025, 0142 hours INDICATIONS: Abdominal pain beginning 2 weeks ago, history cirrhosis paracentesis Technique: Real-time doe scale transabdominal sonographic images of the upper abdomen obtained. Findings: Cholelithiasis Gallbladder wall 0.3 cm Common bile duct 0.4 cm Pancreas obscured by bowel gas Liver 15.3 cm irregular contour moderate ascites Normal hepatopetal portal venous flow Patent IVC IMPRESSION: Cholelithiasis Cirrhosis Moderate ascites Common bile duct is not enlarged
[2025-08-02 01:45] LABS: Reflex Lactate? Y
[2025-08-02 02:28] LABS: Lactic Acid, 3 HR 1.6 mMol/L (0.4-2.0)
--- NOTE | 2025-08-02 03:28 | PRELIM_ITS ---
Gallbladder ultrasound with Doppler and wave Doppler spectral analysis. August 02, 2025 at 0142 hours Clinical history: Rule out obstruction of CBC. Comparison: None available at the time of this report. Findings: Irregular liver margins. No intrahepatic biliary duct dilation. Ascites. Gallstones. Gallbladder wall thickening. The common duct is within normal limits measuring 3.5 mm. No free fluid is demonstrated on the submitted images. The portal vein is patent with hepatopetal flow and normal wave Doppler spectral analysis. The hepatic veins are patent. Impression: Gallstones and gallbladder wall thickening suspicious for acute cholecystitis. Consider correlation with HIDA scan. Cirrhosis associated with ascites. Report Electronically Signed By: Jesús Shepherd 08/02/2025 3:27:23 AM [EST]
[2025-08-02 06:44] LABS: Basophils # (Auto) 0.0 Thou/mm3 (0.0-0.2); Basophils % (Auto) 1 % (0-2.5); Eosinophils # (Auto) 0.1 Thou/mm3 (0.0-0.5); Eosinophils % (Auto) 4 % (0-10); Immature Granulocytes Auto 0.03 Thou/mm3 (0.00-0.00); Lymphocytes # (Auto) 0.7 Thou/mm3 (1.0-4.8); Lymphocytes % (Auto) 21 % (10-50); Mean Corpuscular HGB Conc 32.8 g/dl (31.0-37.0); Mean Corpuscular Hemoglobin 37.6 pg (25.0-35.0); Mean Corpuscular Volume 115 fL (80-100); Monocytes # (Auto) 0.5 Thou/mm3 (0.0-0.8); Monocytes % (Auto) 15 % (0-12); Neutrophils # (Auto) 2.0 Thou/mm3 (1.8-7.7); Neutrophils % (Auto) 59 % (37-80); Nucleated Red Blood Cell # 0.00 Thou/mm3 (0.00-0.00); Nucleated Red Blood Cell % 0 /100 WBC (0); RDW Standard Deviation 59.7 fL (36.4-46.3); Red Blood Count 1.65 Miln/mm3 (4.00-5.20); White Blood Count 3.4 Thou/mm3 (3.6-11.0)
[2025-08-02 06:50] LABS: Hematocrit 18.9 % (36.0-46.0); Hemoglobin 6.2 g/dL (12.0-16.0); Platelet Count 79 Thou/mm3 (140-440)
[2025-08-02 06:56] LABS: Alanine Aminotransferase 31 U/L (10-49); Albumin, Serum 2.4 gm/dL (3.5-5.0); Albumin/Globulin Ratio 0.8 (1.2-2.2); Alkaline Phosphatase 140 U/L (46-116); Anion Gap 8 (7-16); Aspartate Amino Transferase 102 U/L (0-34); BUN/Creatinine Ratio 16 Ratio (12-20); Bilirubin,Total 3.7 mg/dL (0.3-1.2); Blood Urea Nitrogen 18 mg/dL (9-23); Calcium 10.9 mg/dL (8.3-10.6); Calcium (Corrected) 12.2 mg/dL (8.5-10.1); Carbon Dioxide 21.0 mMol/L (20.0-31.0); Chloride 107 mMol/L (98-107); Creatinine (Component) 1.1 mg/dL (0.6-1.3); Estimated Creatinine Clearance 64.8 mL/min (>60); Globulin 3.0 gm/dL (2.3-3.5); Glucose 92 mg/dL (74-106); Osmolality,Calculated 273 (275-295); Potassium 3.8 mMol/L (3.4-5.1); Sodium 136 mMol/L (136-145); Total Protein 5.4 gm/dL (5.7-8.2); eGFR > 60 See Note
[2025-08-02 06:57] LABS: Path Review Blood Smear Sent to Pathologist; Slide Review Platelets confirmed
[2025-08-02 08:30] LABS: Amphetamine/Methamp Scrn,U Negative (Negative); Barbiturate Screen,Urine Negative (Negative); Benzodiazepines Screen,Urine Negative (Negative); Benzoylecgonine Screen, Ur Negative (Negative); Fentanyl Screen,Urine Negative (Negative); Opiate Screen,Urine Negative (Negative); THC Screen,Urine Positive (Negative)
[2025-08-02 08:38] LABS: Influenza A Ag Negative; Influenza B Ag Negative
--- NOTE | 2025-08-02 12:17 | PD.EDADDENDU ---
Emergency Room Addendum Addendum Narrative: 0600: Care assumed from resident Dr. Sanders working with Dr. Leavitt, the previous shift emergency physician. Past medical, surgical, social and family history reviewed. Vitals and home medications reviewed. I will assume the care of the patient at this time, pending MRCP and final disposition. Please refer to the emergency department record for history and examination from initial visit.?The following addendum documentation note is intended to reflect any pending information, findings, or radiology results not included in the patient?s initial chart. I spoke with hospitalist Dr. Moulton. Discussed patients PMHx, HPI, ED course, exam findings, labs, and radiology results. The hospitalist agree to accept the patient for admission. RADIOLOGY Ordering Physician: Donavan Vela MD Date of Service: 08/02/25 Procedure(s): MR MRCP Accession Number(s): [id number] cc: Donavan Vela MD; Mohsen Chavis MD; Seng Van MD~ MRI abdomen, without contrast. MRCP Date and time of exam: August 02, 2025, 11:21 a.m., comparison April 02, 2025 INDICATIONS: Abdominal pain beginning 2 weeks ago, cirrhosis diagnosis, gallbladder sonogram August 02, 2025 cholelithiasis moderate ascites Technique: Multiple axial and coronal images of the abdomen have been obtained with the Siemens 1.5T MRI scanner. Images obtained included T1 weighted transverse images, T2-weighted transverse images, T2-weighted transverse images fat-suppressed, T2 weighted haste fat suppressed transverse images, T1 weighted images, in and out of phase images, T2-weighted coronal images, breath hold, T2 weighted haze coronal images as well as T2 weighted coronal thick slab images, MRCP. Findings: Liver is irregular in contour and decreased in size, no focal liver lesions Significant ascites Moderate splenomegaly Gallstones Gallbladder wall does not appear thickened , Patient's breathing degrades image quality no common hepatic or common bile duct stones are noted No bowel obstruction No hydronephrosis Aorta normal size IMPRESSION: Cirrhosis Significant ascites Moderate splenomegaly Cholelithiasis, negative for cholecystitis No common hepatic or common bile duct stones Dictated By: Seng Van MD Signed By: <Electronically signed by Seng Van MD in [place]>08/02/25 1154
--- NOTE | 2025-08-02 13:22 | PC.CC ---
Patient is a 44 year-old female who presents to the hospital for foot pain. FILAMENT COIL WINDERKarly made [id number] contact with patient introduced self, role, and reason for visit. Patient appeared alert and oriented to self, location, and situation. FILAMENT COIL WINDER, discussed limits of confidentiality. Patient made appropriate eye contact and engaged in initial assessment. ? Patient confirmed information on demographics and reports to living at home with her daughters. Patient reports her medical decision maker in the event she is unable to make her own medical decisions is her daughter, Shruthi Corral . Per patient, prior to admission she was able to ambulate independently and complete her own ADLs. Patient reports that now she does not believe she could ambulate independently. She does not have any DME at home and does not require any oxygen. Patient's primary provider is Mohsen Chavis and uses [facility] for prescription medications. Upon discharge patient plans to return home. school services officer to follow up with any discharge needs.
[2025-08-02 16:26] LABS: Hematocrit 26.5 % (36.0-46.0)
[2025-08-02 16:34] LABS: Hemoglobin 8.7 g/dL (12.0-16.0)
--- NOTE | 2025-08-02 16:36 | ESHP_ITS ---
Documentation for date of: 08/02/25 HPI History of Present Illness History of present illness: HPI: * 44-year-old female with a past medical decompensated cirrhosis secondary to alcohol use disorder with history of esophageal varices grade 2 (02/14/2025) and ascites, anxiety/depression, asthma, and migraines who presented to the emergency room on 08/01/2025 with a chief complaint of swelling in her feet. She denied syncope, chest pain, hematemesis, hematochezia or melena. * She was found to have a hemoglobin of 6.2 and was transfused 2 units of RBCs, posttransfusion hemoglobin was 8.7. * She was also found to have an ammonia level of 84. * The patient was admitted for hepatic encephalopathy secondary to decompensated cirrhosis. ED course: * Vitals: Most significant on arrival for a BP of 116/50 * Labs: Labs on arrival were significant for WBC 3.4, RBC 1.65, hemoglobin 6.2, hematocrit 18.9, MCV 115, blood chemistry was stable, corrected calcium 12.2, total bilirubin 3.7, AST 302, alk phos 140, albumin 2.4. U tox positive for marijuana. * Imaging: MRCP showed cirrhosis, significant ascites, moderate splenomegaly, cholelithiasis negative for cholecystitis. No common hepatic or common bile duct stones. Gallbladder ultrasound showed cholelithiasis. EKG showed a sinus rhythm. * Patient was transfused 2 units of PRBCs, given a one-time dose of 40 mg furosemide, 20 of lactulose. History: * Past medical history: As above * Surgical history: Gallbladder stent, unspecified bilateral ankle fracture repairs * Social history: History of alcohol abuse disorder, denied recent alcohol or drug use. * Allergies: No known drug allergies * Home medications per chart review: Albuterol, montelukast, paroxetine, Lasix Review of Systems Review of Systems Narrative Review of Systems: Review of Systems: * General: Denies fevers, chills. * HEENT: Denies headache, congestion, or sore throat. * Cardiac: Denies chest pain or palpitations. * Pulmonary: Mild shortness of breath. Denies cough. * GI: Denies nausea, vomiting, diarrhea, constipation, melena, or hematochezia. * : Denies dysuria, hematuria, frequency, or urgency. * MSK: Admits to swelling in the bilateral lower extremities * Neuro: Denies weakness, numbness, vision changes, or speech difficulty. Exam Vital Signs Temp Pulse Resp BP Pulse Ox O2 Del Method 98.6 F 101 H 19 103/64 98 Room Air 08/02/25 16:06 08/02/25 16:06 08/02/25 16:06 08/02/25 16:06 08/02/25 16:06 08/02/25 16:06 Narrative Exam General: Obese, ill-appearing woman. Awake and in no acute distress. Neurologic: GCS 15. Alert and oriented x3, no gross neurological deficit, and patient able to move all 4 extremities. HEENT: Normocephalic, atraumatic, mucous membranes moist. Pupils reactive to light. Heart: Regular rate and rhythm, normal S1 and S2, no murmurs. Lungs: Clear to auscultation bilaterally with no wheezing or crackles. Abdomen: Soft, nondistended, diffusely tender to palpation, positive bowel sounds. No guarding or rebound tenderness. Extremities: Left lower extremity has a large area of erythema on the anterior davies, nontender, warm but not warmer compared to the right. 2+ pitting edema in the feet bilaterally. 2+ radial and dorsalis pedis pulses bilaterally. Skin: Warm. Dry. No rash or ecchymoses. Results: Labs 08/02/25 16:01 08/02/25 06:00 Labs: Short CBC 08/01/25 08/02/25 08/02/25 Range/Units 22:39 06:00 16:01 WBC 4.8 3.4 L (3.6-11.0) Thou/mm3 Hgb 7.2 L 6.2 L* 8.7 L D (12.0-16.0) g/dL Hct 22.6 L 18.9 L* 26.5 L (36.0-46.0) % Plt Count 92 L 79 L (140-440) Thou/mm3 BMP 08/01/25 08/02/25 22:39 06:00 Sodium 134 L 136 Potassium 3.7 3.8 Chloride 106 107 Carbon Dioxide 19.6 L 21.0 BUN 14 18 Creatinine 1.2 1.1 Glucose 95 92 Calcium 11.0 H 10.9 H Cardiac Enzymes 08/01/25 Range/Units 22:39 Troponin I < 0.002 (0.0-0.045) ng/mL Liver Function 08/01/25 08/02/25 Range/Units 22:39 06:00 Total Bilirubin 4.4 H D 3.7 H D (0.3-1.2) mg/dL Direct Bilirubin 2.9 H (0.0-0.3) mg/dL AST 114 H 102 H (0-34) U/L ALT 37 31 (10-49) U/L Alkaline Phosphatase 164 H D 140 H D (46-116) U/L Albumin 2.7 L 2.4 L (3.5-5.0) gm/dL Quality Measures Quality Measures none Medications Home Medications and Allergies Home Medications ?Medication ?Instructions ?Recorded ?Confirmed ?Type albuterol sulfate 90 mcg/actuation 2 puff inhalation Q 6H PRN Wheezing 07/28/21 07/08/25 History aerosol inhaler montelukast 10 mg tablet 10 mg PO QDAY 10/11/2307/06 History (Singulair) paroxetine HCl 30 mg tablet (Paxil) 30 mg PO QDAY 09/2007/06/25 History Allergies Allergy/AdvReac Type Severity Reaction Status Date / Time hydrocortisone Allergy Severe Swelling Verified 07/29/25 17:36 of the Eye Visit Medications Heparin Sodium (Porcine) (Heparin Sod Inj 5000 Unit/Ml Vial) 5,000 unit SC Q8HR TYRONE Stop: 08/16/25 21:59 Ibuprofen (Ibuprofen Tab 400 Mg Tablet) 400 mg PO Q6HR PRN PRN Reason: Fever > 100.4 Stop: 09/01/25 15:04 Ondansetron HCl (Ondansetron Inj 2 Mg/Ml Inj 2 Ml) 4 mg IVP Q6H PRN; Protocol PRN Reason: NAUSEA OR VOMITING Stop: 09/01/25 15:09 Pantoprazole Sodium (Pantoprazole Inj 40 Mg Vial) 40 mg IVP Q12HR TYRONE Stop: 09/01/25 20:59 Discontinued Medications Furosemide (Furosemide Inj 10 Mg/Ml 4ml Vial) 40 mg IVP X1 ONE Stop: 08/01/25 22:31 Last Admin: 08/01/25 22:39 Dose: 40 mg Lactulose (Lactulose Syrup 20 Gm/30 Ml Udc) 20 gm PO X1 ONE; Protocol Stop: 08/02/25 00:10 Last Admin: 08/02/25 00:29 Dose: 20 gm Assessment & Plan Plan Summary: 44-year-old female with a past medical decompensated cirrhosis secondary to alcohol use disorder with history of esophageal varices grade 2 (02/14/2025) and ascites, anxiety/depression, asthma, and migraines who presented to the emergency room on 08/01/2025 with a chief complaint of swelling in her feet. She received 2 units of PRBCs in the ED and was started on lactulose due to elevated ammonia. She was admitted for hepatic encephalopathy secondary to decompensated cirrhosis. #Hepatic encephalopathy secondary to #Acute on chronic decompensated liver cirrhosis #Hyperammonemia * Ammonia 84 on arrival * MRCP showed cirrhosis, significant ascites, moderate splenomegaly, cholelithiasis negative for cholecystitis * Patient is lethargic on exam, slowed speech * Chest x-ray on 08/01/2025 showed right basilar pneumonia, consider this as a precipitant for clinical diagnosis of attic encephalopathy secondary to acute on chronic decompensated liver cirrhosis * PT 14.9, INR 1.4 Plan: * Lactulose 20 GM 3 times daily Reassessment: * Titrate lactulose to 2-3 soft bowel movements a day * Trend ammonia * Monitor for improvement in lethargy * Repeat PT/INR #Community-acquired pneumonia * Chest x-ray on 08/01/2025 showed right basilar pneumonia * Patient endorsed mild shortness of breath * Patient is afebrile, no leukocytosis Plan: * Azithromycin 5 mg IV daily #Macrocytic anemia * MCV 115 * Hemoglobin on arrival 6.2, received 2 units PRBCs, posttransfusion hemoglobin 8.7 * No suspicion for active bleed at this time * B12 and folate levels normal on 07/07/2025 * Normal folate and B12 levels may reinforce 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, as well the patient's reticulocyte count is 89.6 appropriately Plan: * Treating underlying cause of acute on chronic decompensated liver cirrhosis Reassessment: * Follow-up iron panel #Hyperbilirubinemia * Total bilirubin 3.7 * Likely secondary to acute on chronic decompensated liver cirrhosis Plan: * Treating underlying cause #Primary hyperparathyroidism #Hypercalcemia * Corrected calcium 12.2 * PTH 296 on 07/07/2025 Plan: * Will repeat calcium in a.m., consider Cinacalcet * Follow-up PTH #Cholelithiasis * MRCP showed cholelithiasis with no cholecystitis * Watson sign positive on exam but patient did have diffuse abdominal pain as well * Patient is not febrile, no leukocytosis Plan: * No direct intervention at this time #History of grade 2 esophageal varices * Per patient history Plan: * Pantoprazole 40 mg every 12 hours #Asthma * Per patient history Plan: * Pending med rec, consider restarting home montelukast #Anxiety/depression * Per patient history Plan: * Pending med rec, consider restarting home paroxetine #Lactic acidosis (Resolved) * Lactic acid 08/01/2025 2.2, resolved Hospital Maintenance: DVT ppx: Subcu heparin 5000 units every 8 hours GI ppx: Metoprolol 40 mg every 12 hours Diet: N.p.o. IV lines: Peripheral IVs Code status: Full code Dispo: Admitted to telemetry floor acute hepatic encephalopathy secondary to acute on chronic decompensated liver cirrhosis. Started lactulose and azithromycin. Patient was seen and discussed with my attending physician Dr. Tai CARMONA and my senior resident Dr. Zana CARMONA PGY-3. Kermit Edwards DO PGY-1. Attending Provider Attestation/Addendum Patient was seen and examined in the emergency room. She was admitted for acute anemia, hyperammonemia with encephalopathy. The patient has underlying liver cirrhosis. She had previous episode of SBP. She said she is not drinking alcohol anymore. The patient will receive blood transfusion as ordered. She will receive lactulose. Antibiotics started for pneumonia.I discussed with and supervised the resident physician who took care of this patient. I agree with the assessment and plan as above.
[2025-08-02] MEDS: AZITHROMYCIN INJ 500 MG in SODIUM CHLORIDE 0.9% 250 ML 250 ML 250 MG IV (18:37)
[2025-08-02] MEDS: HEPARIN SOD INJ 5000 UNIT/ML VIAL SC (21:19)
[2025-08-02] MEDS: ONDANSETRON INJ 2 MG/ML INJ 2 ML 4 MG IVP (21:19)
--- NOTE | 2025-08-02 22:18 | PC.NURSE ---
Attempted to do med rec, however, patient is unsure on medication dosages/frequencies. She stated she would ask daughter to bring in home meds tomorrow.
[2025-08-03] VITALS (9 sets, daily range): BP systolic 102–123; BP diastolic 65–78; PULSE 75–118; RESP 13–21; TEMP 36.3–37.1; O2SAT 93–100; BMI 36.8
[2025-08-03] MEDS: HEPARIN SOD INJ 5000 UNIT/ML VIAL SC ×2 (05:40→13:43)
[2025-08-03] MEDS: ONDANSETRON INJ 2 MG/ML INJ 2 ML 4 MG IVP ×2 (05:46→18:30)
[2025-08-03] MEDS: LACTULOSE SYRUP 20 GM/30 ML UDC 100 GM PR (05:57)
[2025-08-03 06:27] LABS: INR 1.6 (0.9-1.3); Partial Thromboplastin Time 32.4 Seconds (22.0-36.0); Prothrombin Time 16.4 Seconds (9.0-12.2)
[2025-08-03 06:33] LABS: Basophils # (Auto) 0.0 Thou/mm3 (0.0-0.2); Basophils % (Auto) 1 % (0-2.5); Eosinophils # (Auto) 0.1 Thou/mm3 (0.0-0.5); Eosinophils % (Auto) 1 % (0-10); Hematocrit 23.6 % (36.0-46.0); Immature Granulocytes Auto 0.04 Thou/mm3 (0.00-0.00); Lymphocytes # (Auto) 0.8 Thou/mm3 (1.0-4.8); Lymphocytes % (Auto) 16 % (10-50); Mean Corpuscular HGB Conc 33.9 g/dl (31.0-37.0); Mean Corpuscular Hemoglobin 34.6 pg (25.0-35.0); Mean Corpuscular Volume 102 fL (80-100); Monocytes # (Auto) 0.7 Thou/mm3 (0.0-0.8); Monocytes % (Auto) 13 % (0-12); Neutrophils # (Auto) 3.7 Thou/mm3 (1.8-7.7); Neutrophils % (Auto) 69 % (37-80); Nucleated Red Blood Cell # 0.00 Thou/mm3 (0.00-0.00); Nucleated Red Blood Cell % 0 /100 WBC (0); Platelet Count 81 Thou/mm3 (140-440); Red Blood Count 2.31 Miln/mm3 (4.00-5.20); White Blood Count 5.3 Thou/mm3 (3.6-11.0)
[2025-08-03 06:42] LABS: Alanine Aminotransferase 28 U/L (10-49); Albumin, Serum 2.4 gm/dL (3.5-5.0); Albumin/Globulin Ratio 0.9 (1.2-2.2); Alkaline Phosphatase 105 U/L (46-116); Anion Gap 9 (7-16); Aspartate Amino Transferase 87 U/L (0-34); BUN/Creatinine Ratio 22 Ratio (12-20); Bilirubin,Total 5.8 mg/dL (0.3-1.2); Blood Urea Nitrogen 22 mg/dL (9-23); Calcium 10.3 mg/dL (8.3-10.6); Calcium (Corrected) 11.6 mg/dL (8.5-10.1); Carbon Dioxide 20.8 mMol/L (20.0-31.0); Cardiac Risk Estimate 10.0 RATIO (3.7-5.6); Chloride 109 mMol/L (98-107); Cholesterol 107 mg/dL (132-200); Creatinine (Component) 1.0 mg/dL (0.6-1.3); Estimated Creatinine Clearance 71.3 mL/min (>60); Globulin 2.8 gm/dL (2.3-3.5); Glucose 94 mg/dL (74-106); HDL Cholesterol < 10 mg/dL (40-60); LDL Cholesterol,Calculated 86 mg/dL (0-130); Magnesium 1.6 mg/dL (1.6-2.6); Osmolality,Calculated 280 (275-295); Phosphorous 2.2 mg/dL (2.4-5.1); Potassium 4.6 mMol/L (3.4-5.1); Sodium 139 mMol/L (136-145); Total Protein 5.2 gm/dL (5.7-8.2); Triglycerides 57 mg/dL (30-150); eGFR > 60 See Note
[2025-08-03 07:03] LABS: Hemoglobin 8.0 g/dL (12.0-16.0)
[2025-08-03] MEDS: Magnesium Sulfate 4 GM Ivpb 4 GM/50 ML BAG IV (09:38)
--- NOTE | 2025-08-03 09:44 | XR_ITS ---
Examination: Abdomen sonogram, complete Date and time of exam: August 03, 2025, 1525 hours INDICATIONS: Abdominal pain beginning 5 days ago. Technique: Multiple real-time grayscale transabdominal sonographic images of the abdomen have been obtained. Findings: 13 mm gallstone Gallbladder wall 0.4 cm, the patient has ascites which thickens the gallbladder wall Common bile duct 0.5 cm poorly visualized Pancreatic head 3.5 cm Aorta proximally is visualized mid and distal obscured by gas Cirrhosis, liver 14.1 cm lobular contour fatty infiltration, significant ascites, no focal liver lesions Normal hepatopetal portal venous flow Patent IVC Right kidney 11.2 cm renal cortex 1.3 cm Left kidney 10.7 cm renal cortex 1.6 cm Mild renal scar formation, no hydronephrosis Spleen 13.2 cm IMPRESSION: Cirrhosis Mild splenomegaly Significant ascites Cholelithiasis
--- NOTE | 2025-08-03 09:49 | ESPR_ITS ---
<Statement entered by Guilherme Huitron MD - 08/03/25 16:44> pt is seen at bedside. Pt underwent paracenthesis on 07/31 however pt is largely distended again and feels uncomfortable with SOB. Repeat abdominal US shows large ascites. Will consult ICU tomorrow for paracenthesis. Patient was seen and examined by me personally. I have directly supervised and reviewed documentation by the team resident and agree with its findings. ------- Plan of care was discussed with the attending, Dr. Kenney Huitron, PGY-2 Documentation for date of: 08/03/25 Subjective Subjective Interval history: * Patient was seen and examined at bedside. * PT INR still elevated. * Corrected calcium still elevated. * Ammonia down trended from 84 to 67. * T. bili 5.8. * Stopped lactulose-patient had BM. * Posttransfusion hemoglobin was 8.7, trended to 8.0, FOBT positive, GI consulted. * Patient has ascites on exam, paracentesis on 07/31/2025 yielded 2.4 L, abdominal ultrasound ordered. * Lasix 40 IV daily started. Exam Vital Signs Temp Pulse Resp BP Pulse Ox O2 Del Method 98.1 F 108 H 20 103/66 97 Room Air 08/03/25 04:00 08/03/25 07:57 08/03/25 07:57 08/03/25 04:00 08/03/25 07:57 08/03/25 04:00 Narrative Exam General: Obese, ill-appearing woman. Awake and in no acute distress. Neurologic: GCS 15. Alert and oriented x3, no gross neurological deficit, and patient able to move all 4 extremities. HEENT: Normocephalic, atraumatic, mucous membranes moist. Pupils reactive to light. Heart: Regular rate and rhythm, normal S1 and S2, no murmurs. Lungs: Clear to auscultation bilaterally with no wheezing or crackles. Abdomen: Ascites, distended, fluid wave present, striations, diffusely tender to palpation. Extremities: Left lower extremity has a large area of erythema on the anterior davies, nontender, warm but not warmer compared to the right. 2+ pitting edema in the feet bilaterally. 2+ radial and dorsalis pedis pulses bilaterally. Skin: Warm. Dry. No rash or ecchymoses. Objective Labs 08/03/25 05:19 08/03/25 05:19 Labs: Laboratory Results - last 24 hr 08/02/25 08/02/25 08/03/25 06:00 16:01 05:19 WBC 5.3 D RBC 2.31 L Hgb 8.7 L D 8.0 L Hct 26.5 L 23.6 L MCV 102 H MCH 34.6 MCHC 33.9 RDW Std Deviation TNP Plt Count 81 L Neut % (Auto) 69 Lymph % (Auto) 16 Castro % (Auto) 13 H Eos % (Auto) 1 Baso % (Auto) 1 Neut # (Auto) 3.7 Lymph # (Auto) 0.8 L Castro # (Auto) 0.7 Eos # (Auto) 0.1 Baso # (Auto) 0.0 Immature Gran # (Auto) 0.04 H Absolute Nucleated RBC 0.00 Immature Gran % 1 H Nucleated RBC % 0 PT 16.4 H INR 1.6 H APTT 32.4 Sodium 139 Potassium 4.6 D Chloride 109 H Carbon Dioxide 20.8 Anion Gap 9 BUN 22 Creatinine 1.0 Estim Creat Clear Calc 71.3 eGFR > 60 BUN/Creatinine Ratio 22 H Glucose 94 Calculated Osmolality 280 Calcium 10.3 Corrected Calcium 11.6 H Phosphorus 2.2 L Magnesium 1.6 Total Bilirubin 5.8 H D AST 87 H ALT 28 Alkaline Phosphatase 105 D Total Protein 5.2 L Albumin 2.4 L Globulin 2.8 Albumin/Globulin Ratio 0.9 L Triglycerides 57 Cholesterol 107 L LDL Cholesterol, Calc 86 HDL Cholesterol < 10 L Cholesterol/HDL Ratio 10.0 H Blood Type O Positive Antibody Screen NEGATIVE Crossmatch See Detail Blood Bank Wristband ID Yes Quality Measures Quality Measures none Assessment & Plan Assessment Current Active Medications: Generic Name Dose Route Start Last Admin Trade Name Freq PRN Reason Stop Dose Admin Heparin Sodium (Porcine) 5,000 unit 08/02/25 22:00 08/03/25 05:40 Heparin Sod Inj 5000 Unit/Ml Vial SC 08/16/25 21:59 5,000 unit Q8HR TYRONE Administration Azithromycin 500 mg/ Sodium 250 mls @ 250 mls/hr 08/03/25 14:00 Chloride IV 08/10/25 13:59 QDAY@1400 TYRONE Magnesium Sulfate 4 gm in 50 mls @ 12.5 mls/hr 08/03/25 07:38 08/03/25 09:38 Magnesium Sulfate Ivpb IV 08/03/25 11:37 12.5 mls/hr X1 ONE Administration Ibuprofen 400 mg 08/02/25 15:05 Ibuprofen Tab 400 Mg Tablet PO 09/01/25 15:04 Q6HR PRN Fever > 100.4 Lactulose 20 gm 08/03/25 14:00 Lactulose Syrup 20 Gm/30 Ml Udc PO 09/02/25 13:59 TID TYRONE Protocol Ondansetron HCl 4 mg 08/02/25 15:10 08/03/25 05:46 Ondansetron Inj 2 Mg/Ml Inj 2 Ml IVP 09/01/25 15:09 4 mg Q6H PRN Administration NAUSEA OR VOMITING Protocol Pantoprazole Sodium 40 mg 08/02/25 21:00 08/03/25 09:38 Pantoprazole Inj 40 Mg Vial IVP 09/01/25 20:59 40 mg Q12HR TYRONE Administration Plan Summary: 44-year-old female with a past medical decompensated cirrhosis secondary to alcohol use disorder with history of esophageal varices grade 2 (02/14/2025) and ascites, anxiety/depression, asthma, and migraines who presented to the emergency room on 08/01/2025 with a chief complaint of swelling in her feet. She received 2 units of PRBCs in the ED and was started on lactulose due to elevated ammonia. She was admitted for hepatic encephalopathy secondary to decompensated cirrhosis. #Hepatic encephalopathy secondary to #Acute on chronic decompensated liver cirrhosis #Hyperammonemia * Ammonia 84 on arrival * MRCP showed cirrhosis, significant ascites, moderate splenomegaly, cholelithiasis negative for cholecystitis * Patient is lethargic on exam, slowed speech * Chest x-ray on 08/01/2025 showed right basilar pneumonia, consider this as a precipitant for clinical diagnosis of attic encephalopathy secondary to acute on chronic decompensated liver cirrhosis * PT 14.9, INR 1.4 * MELD Score 19, 3-4% 90-day mortality * Maddrey's Discriminate Function for alcoholic hepatitis 25.1 * Child-Brito score for cirrhosis mortality 11, Class C Plan: * Stopped lactulose Reassessment: * Patient had BM * Ammonia downtrending, 67 * Repeat PT/INR still elevated: PT 16.4, INR 1.6 #Ascites #Abdominal fluid wave * Physical exam findings showed abdominal ascites with striations and positive fluid wave * Paracentesis on 07/31/2025 yielded 2.4 L of fluid * Likely in the setting of acute on chronic decompensated liver cirrhosis Plan: * Abdominal ultrasound ordered * Lasix 40 IV daily #Community-acquired pneumonia * Chest x-ray on 08/01/2025 showed right basilar pneumonia * Patient endorsed mild shortness of breath * Patient is afebrile, no leukocytosis Plan: * Continue azithromycin 5 mg IV daily #Macrocytic anemia * MCV 115 on arrival * Hemoglobin on arrival 6.2, received 2 units PRBCs, posttransfusion hemoglobin 8.7 * No suspicion for active bleed at this time * B12 and folate levels normal on 07/07/2025 * Normal folate and B12 levels may reinforce 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 * This may reinforce anemia of chronic disease in the setting of chronic liver cirrhosis, as being in a chronic inflammatory state with increased hepcidin traps iron inside of macrophages which may explain elevated ferritin #Hyperbilirubinemia * Total bilirubin 3.7 on arrival, increasing * Likely secondary to acute on chronic decompensated liver cirrhosis Plan: * Treating underlying cause #Primary hyperparathyroidism #Hypercalcemia * Corrected calcium 12.2 * PTH 296 on 07/07/2025 Plan: * Will repeat calcium in a.m., consider Cinacalcet * Follow-up PTH Reassessment: * Corrected calcium 11.6 * PTH pending * Will hold Cinacalcet for now #Cholelithiasis * MRCP showed cholelithiasis with no cholecystitis * Watson sign positive on exam but patient did have diffuse abdominal pain as well * Patient is not febrile, no leukocytosis Plan: * No direct intervention at this time #History of grade 2 esophageal varices * Per patient history Plan: * Pantoprazole 40 mg every 12 hours * GI consulted #Asthma * Per patient history * Patient admitted to mild shortness of breath on hospital day 1 Plan: * Pending med rec #Anxiety/depression * Per patient history Plan: * Pending med rec * Consider restarting home paroxetine #Lactic acidosis (Resolved) * Lactic acid 08/01/2025 2.2, resolved Hospital Maintenance: DVT ppx: Subcu heparin 5000 units every 8 hours GI ppx: Metoprolol 40 mg every 12 hours Diet: N.p.o. IV lines: Peripheral IVs Code status: Full code Dispo: Admitted to telemetry floor acute hepatic encephalopathy secondary to acute on chronic decompensated liver cirrhosis. Stopped lactulose, continuing azithromycin. Patient had ascites and fluid wave on exam, pending abdominal ultrasound. GI consulted, FOBT positive. Patient was seen and discussed with my attending physician Dr. Tai CARMONA and my senior resident Dr. Tomy CARMONA PGY-2. Kermit Edwards DO PGY-1 Attending Provider Attestation/Addendum 44-year-old female with cirrhosis, ESTRADA history of obesity. The patient was admitted for leg and ankle swelling, ascites, anemia and hyperammonemia Patient states she used to be obese. She denies EtOH use. She has significant ascites based on ultrasound report. The patient was referred to GI for evaluation of her anemia. I discussed with and supervised the resident physician who took care of this patient. I agree with the assessment and plan as above.
[2025-08-03 10:23] LABS: Ammonia 67 uMol/L (11-32)
[2025-08-03 10:33] LABS: Ferritin 316 ng/mL (7.3-270.7); Iron 143 mcg/dL (50-170)
[2025-08-03] MEDS: FUROSEMIDE INJ 10 MG/ML 4ML VIAL 40 MG IVP (13:43)
[2025-08-03 14:24] LABS: OBS Performed By RAMOJ11; OBS QC OK? Yes; Occult Blood, Stool Positive (Negative)
[2025-08-03] MEDS: AZITHROMYCIN INJ 500 MG in SODIUM CHLORIDE 0.9% 250 ML 250 ML 250 MG IV (15:02)
--- NOTE | 2025-08-03 17:18 | ECHO_ITS ---
Patient Info Name: Raj Peralta Age: 44 years : 1980 Gender: Female Ht: 155 cm Wt: 88 kg BSA: 2.00 m2 BP: 132 / 87 mmHg HR: 93 bpm Exam Date: 08/05/2025 1:51 PM Admit Date: 08/02/2025 Site: [facility] Room Number: [id number] Patient Status: I Exam Type: CA echo doppler complete Behavioral Health Associate: Winter Carmichael Ordering Physician: Kermit Edwards Study Info Indications Fluid overload - Primary Location: S2NX Left Ventricular Outflow Tract Name Value Normal LVOT 2D LVOT Diameter 1.9 cm LVOT Doppler LVOT Peak Velocity 179 cm/s LVOT Mean Gradient 8 mmHg LVOT VTI 39 cm LVOT VTI/AV VTI Ratio 1.0 LVOT Stroke Volume 110 ml Pulmonic Valve Name Value Normal PV Doppler PV Peak Velocity 170 cm/s Mitral Valve Name Value Normal MV Doppler MV Decel Beadle 1,385 cm/s2 MV PHT 18 ms MV Area (PHT) 12.0 cm2 4.0-5.0 MV Diastolic Function MV E Peak Velocity 88 cm/s MV A Peak Velocity 108 cm/s MV E/A 0.8 MV Annular TDI MV Lateral e' Velocity 9.9 cm/s MV E/e' (Lateral) 8.9 Tricuspid Valve Name Value Normal TV Regurgitation Doppler TR Peak Velocity 315 cm/s Estimated PAP/RSVP RA Pressure 3 mmHg <=5 PA Systolic Pressure 43 mmHg <36 RV Systolic Pressure 43 mmHg <36 Aortic Valve Name Value Normal AV 2D/MM AV Cusp Sep (MM) 1.2 cm AV Doppler AV Peak Velocity 190 cm/s AV Mean Gradient 8 mmHg AV VTI 39 cm AV Area (Cont Eq VTI) 2.9 cm2 >=3.0 AV Area (Cont Eq Ian) 2.7 cm2 AV DI (Ian) 0.94 AV Regurgitation 2D LVOT Area 2.8 cm2 Ventricles Name Value Normal LV Dimensions 2D/MM IVS Diastolic Thickness (2D) 0.9 cm 0.6-0.9 LVID Diastole (2D) 4.1 cm 3.8-5.2 LVIW Diastolic Thickness (2D) 0.9 cm 0.6-0.9 LVID Systole (2D) 2.5 cm 2.2-3.5 LVOT Diameter 1.9 cm LV Mass (2D Cubed) 114.13 g 67.00-162.00 LV Mass Index (2D Cubed) 57 g/m2 43-95 Relative Wall Thickness (2D) 0.44 <=0.42 IVS/LVIW Diastolic Thickness (2D) 1.00 0.00-1.50 LV Fractional Shortening/Ejection Fraction 2D/MM LV Fractional Shortening (2D) 39 % 27-45 LV EF (2D Teichholz) 70 % Atria Name Value Normal LA Dimensions LA Volume (4C A-L) 67 ml LA Volume (BP A-L) 61 ml Left Ventricle Left ventricular chamber dimension is normal. Left ventricular systolic function is normal with visually estimated ejection fraction of 65-70%. There is concentric remodeling noted in the left ventricle. Left ventricular segmental wall motion is normal. There is grade I diastolic dysfunction in the left ventricle. Right Ventricle Right ventricular chamber dimension is normal. Right ventricular systolic function is normal. Left Atrium Left atrial chamber dimension is mildly enlarged. Right Atrium Right atrial chamber dimension is normal. Aortic Valve The aortic valve is trileaflet. There is no aortic valve sclerosis. There is no aortic valve stenosis with a peak velocity of 190 cm/s, mean gradient of 8 mmHg, and aortic valve area of 2.9 cm2. There is no aortic valve regurgitation. Pulmonic Valve The pulmonic valve is normal. There is no pulmonic valve stenosis. There is mild pulmonic regurgitation. Mitral Valve The mitral valve has normal leaflets. There is no mitral valve stenosis. There is mild to moderate mitral valve regurgitation. Tricuspid Valve The tricuspid valve leaflets are normal. There is no tricuspid valve stenosis. There is mild to moderate tricuspid valve regurgitation. Pulmonary hypertension, estimated pulmonary arterial systolic pressure is 43 mmHg and systemic blood pressure of 132 mmHg in systole. Pericardium/Pleural The pericardium appears normal. There is no pericardial effusion. No pleural effusion visualized. Inferior Vena Cava Normal inferior vena cava with >50% collapse upon inspiration consistent with normal right atrial pressure, 3 mmHg. Aorta The aortic measurements are indexed to age and body surface area. The aortic root at the sinus of Valsalva is not well visualized. The prox ascending aorta is not well visualized. Summary 1. Left ventricle size is normal and systolic function appears hyperdynamic. Estimated ejection fraction is 65-70%. Grade 1 diastolic dysfunction. 2. Right ventricle chamber size is normal and systolic function is normal. Estimated RVSP mildly elevated at 43 mmHg. Probably underestimated. 3. There is mild to moderate eccentric anteriorly directed mitral valve regurgitation. Etiology unclear. 4. There is mild to moderate tricuspid valve regurgitation. Mild pulmonary valve regurgitation. 5. The left atrium is mildly enlarged. The right atrium is normal. 6. Normal IVC with estimated RA pressure 3 mmHg. Report Signatures Finalized by Stanton Vinson on 08/05/2025 06:14 PM
[2025-08-03] MEDS: cefTRIAXone/D5w 1gm IV premix 1 GM/50 ML BAG IV (17:44)
[2025-08-03] MEDS: OCTREOTIDE ACET INJ 1,000 MCG in SODIUM CHLORIDE 0.9% 100 ML 5.1 MCG IV (17:45)
[2025-08-03] MEDS: OCTREOTIDE ACET INJ 50 mCg/ML VIAL IV (17:45)
[2025-08-03] MEDS: HYDROmorphone INJ 2 MG/ML VIAL 0.5 MG IVP (18:29)
--- NOTE | 2025-08-03 20:37 | PD.IMCONS ---
HPI Data of Consult Requesting Physician: Alireza Moulton MD Primary Care Provider: Mohsen Chavis MD Consult Narrative Reason for consult: ALOC,H/H 6.2 and 18.4 requiring blood transfusion History of present illness: 44-year-old female admitted to the hospital when she presented with increasing abdominal girth as well as swelling of the lower extremities and confusion She had an elevated ammonia level on admission as well as presenting hemoglobin hematocrit 7.2 and 22.3 which subsequently dropped down to 6.2 and 18.9 requiring 2 units of PRBCs and current hemoglobin hematocrit 8.0 and 23.6 Total bilirubin initially 3.7 AST ALT 102 and 31 and alk phos of 140 currently at total bilirubin 5.8 AST ALT 87 and 28 and alk phos of 105 CT scan of the abdomen pelvis with contrast on 07/19/2025 showed cirrhosis ascites esophageal and gastric varices splenomegaly and anasarca Abdominal ultrasound done yesterday showed cholelithiasis ascites splenomegaly MRCP is negative for Isha Alejandro cholelithiasis Patient has alcohol-related chronic liver disease and says that she has not drank for months now cc:: cc: Alireza Moulton MD Review of Systems Review of Systems Systems Reviewed: All systems reviewed, normal except as documented Past Medical History Surgical History OTHER SURGICAL HX: As in the history of present illness Meds Home Medications and Allergies Home Medications ?Medication ?Instructions ?Recorded ?Confirmed ?Type albuterol sulfate 90 mcg/actuation 2 puff inhalation Q6H PRN Wheezing 07/28/21 08/03/25 History aerosol inhaler montelukast 10 mg tablet 10 mg PO QDAY 10/11/23 08/03/25 History (Singulair) paroxetine HCl 30 mg tablet (Paxil) 30 mg PO QDAY 10/11/23 08/03/25 History Allergies Allergy/AdvReac Type Severity Reaction Status Date / Time hydrocortisone Allergy Severe Swelling Verified 07/29/25 17:36 of the Eye Exam Vital Signs Temp Pulse Resp BP Pulse Ox O2 Del Method 98.3 F 75 18 102/65 100 Room Air 08/03/25 16:00 08/03/25 18:34 08/03/25 18:34 08/03/25 16:00 08/03/25 18:34 08/03/25 16:00 Constitutional Comments: Oriented to name Routine Respiratory Exam Comments: Normal to auscultation Routine Abdominal Exam Comments: Positive for ascites Results Labs 08/03/25 05:19 08/03/25 05:19 Labs: Short CBC 08/03/25 Range/Units 05:19 WBC 5.3 D (3.6-11.0) Thou/mm3 Hgb 8.0 L (12.0-16.0) g/dL Hct 23.6 L (36.0-46.0) % Plt Count 81 L (140-440) Thou/mm3 BMP 08/03/25 05:19 Sodium 139 Potassium 4.6 D Chloride 109 H Carbon Dioxide 20.8 BUN 22 Creatinine 1.0 Glucose 94 Calcium 10.3 Liver Function 08/03/25 Range/Units 05:19 Total Bilirubin 5.8 H D (0.3-1.2) mg/dL AST 87 H (0-34) U/L ALT 28 (10-49) U/L Alkaline Phosphatase 105 D (46-116) U/L Albumin 2.4 L (3.5-5.0) gm/dL Assessment and Plan Additional Assessment & Plan Additional Plan: # Anemia blood loss requiring blood transfusion Recommend fiberoptic esophagogastroduodenoscopy with possible band ligation of the esophageal varices possible therapeutic intervention Consent obtained N.p.o. midnight tonight except p.o. meds Continue current management # Hepatic/metabolic encephalopathy improving Continue current management # Cirrhotic liver disease secondary to alcohol but total bilirubin at the moment at 5.8 we will continue to monitor Thank you very much for the opportunity to participate in care of this patient
[2025-08-03] MEDS: LACTULOSE SYRUP 20 GM/30 ML UDC PO (21:16)
[2025-08-04] VITALS (16 sets, daily range): BP systolic 107–166; BP diastolic 61–95; PULSE 71–118; RESP 14–25; TEMP 36.1–37; O2SAT 93–100; BMI 36.8
[2025-08-04] MEDS: LACTULOSE SYRUP 20 GM/30 ML UDC PO ×3 (05:06→21:04)
[2025-08-04] MEDS: HYDROmorphone INJ 2 MG/ML VIAL 0.5 MG IVP (05:06)
[2025-08-04 06:11] LABS: Alanine Aminotransferase 34 U/L (10-49); Albumin, Serum 2.7 gm/dL (3.5-5.0); Albumin/Globulin Ratio 0.8 (1.2-2.2); Alkaline Phosphatase 98 U/L (46-116); Anion Gap 12 (7-16); Aspartate Amino Transferase 93 U/L (0-34); BUN/Creatinine Ratio 17 Ratio (12-20); Bilirubin,Total 6.4 mg/dL (0.3-1.2); Blood Urea Nitrogen 22 mg/dL (9-23); Calcium 10.8 mg/dL (8.3-10.6); Calcium (Corrected) 11.8 mg/dL (8.5-10.1); Carbon Dioxide 19.0 mMol/L (20.0-31.0); Chloride 106 mMol/L (98-107); Creatinine (Component) 1.3 mg/dL (0.6-1.3); Estimated Creatinine Clearance 55.9 mL/min (>60); Globulin 3.3 gm/dL (2.3-3.5); Glucose 146 mg/dL (74-106); Osmolality,Calculated 280 (275-295); Potassium 4.0 mMol/L (3.4-5.1); Sodium 137 mMol/L (136-145); Total Protein 6.0 gm/dL (5.7-8.2); eGFR 52 See Note
[2025-08-04 07:19] LABS: Basophils # (Auto) 0.0 Thou/mm3 (0.0-0.2); Basophils % (Auto) 1 % (0-2.5); Eosinophils # (Auto) 0.1 Thou/mm3 (0.0-0.5); Eosinophils % (Auto) 2 % (0-10); Hematocrit 24.5 % (36.0-46.0); Immature Granulocytes Auto 0.08 Thou/mm3 (0.00-0.00); Lymphocytes # (Auto) 0.9 Thou/mm3 (1.0-4.8); Lymphocytes % (Auto) 17 % (10-50); Mean Corpuscular HGB Conc 32.2 g/dl (31.0-37.0); Mean Corpuscular Hemoglobin 33.6 pg (25.0-35.0); Mean Corpuscular Volume 104 fL (80-100); Monocytes # (Auto) 0.7 Thou/mm3 (0.0-0.8); Monocytes % (Auto) 14 % (0-12); Neutrophils # (Auto) 3.5 Thou/mm3 (1.8-7.7); Neutrophils % (Auto) 66 % (37-80); Nucleated Red Blood Cell # 0.00 Thou/mm3 (0.00-0.00); Nucleated Red Blood Cell % 0 /100 WBC (0); Platelet Count 85 Thou/mm3 (140-440); RDW Standard Deviation 87.0 fL (36.4-46.3); Red Blood Count 2.35 Miln/mm3 (4.00-5.20); White Blood Count 5.4 Thou/mm3 (3.6-11.0)
[2025-08-04 07:20] LABS: Hemoglobin 7.9 g/dL (12.0-16.0)
[2025-08-04] MEDS: THIAMINE 100 MG TABLET PO (08:08)
[2025-08-04] MEDS: FOLIC ACID 1 MG TABLET PO (08:09)
[2025-08-04] MEDS: FUROSEMIDE INJ 10 MG/ML 4ML VIAL 40 MG IVP (08:09)
--- NOTE | 2025-08-04 08:13 | ESPR_ITS ---
<Statement entered by Guilherme Huitron MD - 08/04/25 20:07> Pt is seen at bedside, is scheduled for EGD today with Dr. Ward. Repeat paracenthesis is ordered for tuesday. Pt continues to complain abdominal discomfort due to distension. Patient was seen and examined by me personally. I have directly supervised and reviewed documentation by the team resident and agree with its findings. ------- Plan of care was discussed with the attending, Dr. Marco Huitron, PGY-2 Documentation for date of: 08/04/25 Subjective Subjective Interval history: * Patient seen and examined at bedside. * Patient was vomiting evening before, had severe pain, started on as needed Dilaudid. * GI plans for EGD today, stool occult blood positive yesterday. * Hemoglobin 7.9 and stable. * Abdominal ultrasound significant for ascites, paracentesis planned for tomorrow 08/05/2025. * Ceftriaxone azithromycin for spontaneous bacterial peritonitis prophylaxis. Exam Vital Signs Temp Pulse Resp BP Pulse Ox O2 Del Method 97.0 F 94 16 120/72 98 Room Air 08/04/25 04:00 08/04/25 08:09 08/04/25 04:00 08/04/25 08:09 08/04/25 04:00 08/04/25 04:00 Narrative Exam General: Ill-appearing woman. Awake and in no acute distress. Neurologic: GCS 15. Alert and oriented x3, no gross neurological deficit, and patient able to move all 4 extremities. HEENT: Normocephalic, atraumatic, mucous membranes moist. Pupils reactive to light. Heart: Regular rate and rhythm, normal S1 and S2, no murmurs. Lungs: Clear to auscultation bilaterally with no wheezing or crackles. Abdomen: Ascites, distended, fluid wave present, striations, diffusely tender to palpation. Extremities: Left lower extremity has a large area of erythema on the anterior davies, nontender, warm but not warmer compared to the right. 2+ pitting edema in the feet bilaterally. 2+ radial and dorsalis pedis pulses bilaterally. Skin: Warm. Dry. No rash or ecchymoses. Objective Labs 08/05/25 04:56 08/05/25 04:56 Labs: Laboratory Results - last 24 hr 08/03/25 08/03/25 08/04/25 09:39 11:23 04:25 WBC RBC Hgb Hct MCV MCH MCHC RDW Std Deviation Plt Count Neut % (Auto) Lymph % (Auto) [place] % (Auto) Eos % (Auto) Baso % (Auto) Neut # (Auto) Lymph # (Auto) [place] # (Auto) Eos # (Auto) Baso # (Auto) Immature Gran # (Auto) Absolute Nucleated RBC Immature Gran % Nucleated RBC % Sodium 137 Potassium 4.0 D Chloride 106 Carbon Dioxide 19.0 L Anion Gap 12 BUN 22 Creatinine 1.3 Estim Creat Clear Calc 55.9 L eGFR 52 L BUN/Creatinine Ratio 17 Glucose 146 H D Calculated Osmolality 280 Calcium 10.8 H Corrected Calcium 11.8 H Iron 143 Ferritin 316 H Total Bilirubin 6.4 H D AST 93 H ALT 34 Alkaline Phosphatase 98 Ammonia 67 H Total Protein 6.0 Albumin 2.7 L Globulin 3.3 Albumin/Globulin Ratio 0.8 L Stool Occult Blood Positive A 08/04/25 06:47 WBC 5.4 RBC 2.35 L Hgb 7.9 L Hct 24.5 L MCV 104 H MCH 33.6 MCHC 32.2 RDW Std Deviation 87.0 H Plt Count 85 L Neut % (Auto) 66 Lymph % (Auto) 17 [place] % (Auto) 14 H Eos % (Auto) 2 Baso % (Auto) 1 Neut # (Auto) 3.5 Lymph # (Auto) 0.9 L [place] # (Auto) 0.7 Eos # (Auto) 0.1 Baso # (Auto) 0.0 Immature Gran # (Auto) 0.08 H Absolute Nucleated RBC 0.00 Immature Gran % 2 H Nucleated RBC % 0 Sodium Potassium Chloride Carbon Dioxide Anion Gap BUN Creatinine Estim Creat Clear Calc eGFR BUN/Creatinine Ratio Glucose Calculated Osmolality Calcium Corrected Calcium Iron Ferritin Total Bilirubin AST ALT Alkaline Phosphatase Ammonia Total Protein Albumin Globulin Albumin/Globulin Ratio Stool Occult Blood Quality Measures Quality Measures none Assessment & Plan Assessment Current Active Medications: Generic Name Dose Route Start Last Admin Trade Name Freq PRN Reason Stop Dose Admin Albuterol 2 puff 08/03/25 16:44 Albuterol Inh 8 Gm INH 09/02/25 16:43 Q6H PRN WHEEZING Folic Acid 1 mg 08/04/25 09:00 08/04/25 08:09 Folic Acid 1 Mg Tablet PO 09/03/25 08:59 1 mg QDAY TYRONE Administration Furosemide 40 mg 08/03/25 13:15 08/04/25 08:09 Furosemide Inj 10 Mg/Ml 4ml Vial IVP 09/02/25 13:14 40 mg QDAY TYRONE Administration Hydromorphone HCl 0.5 mg 08/03/25 22:30 08/04/25 05:06 Hydromorphone Inj 2 Mg/Ml Vial IVP 08/08/25 22:29 0.5 mg Q4HR PRN Administration PAIN Azithromycin 500 mg/ Sodium 250 mls @ 250 mls/hr 08/03/25 14:00 08/03/25 15:02 Chloride IV 08/10/25 13:59 250 mls/hr QDAY@1400 TYRONE Administration Octreotide Acetate 1,000 mcg/ 102 mls @ 5.1 mls/hr 08/03/25 18:00 08/03/25 17:45 Sodium Chloride IV 08/08/25 17:59 50 mcg/hr .Q20H TYRONE 5.1 mls/hr Protocol Administration 50 MCG/HR Ceftriaxone Sodium/Dextrose 1 gm in 50 mls @ 100 mls/hr 08/03/25 17:14 08/03/25 17:44 Rocephin/D5w 1gm Iv Premix IV 08/10/25 17:13 100 mls/hr QDAY@1400 TYRONE Administration Lactulose 20 gm 08/03/25 16:45 08/04/25 05:06 Lactulose Syrup 20 Gm/30 Ml Udc PO 09/02/25 16:44 20 gm TID TYRONE Administration Protocol Ondansetron HCl 4 mg 08/02/25 15:10 08/03/25 18:30 Ondansetron Inj 2 Mg/Ml Inj 2 Ml IVP 09/01/25 15:09 4 mg Q6H PRN Administration NAUSEA OR VOMITING Protocol Pantoprazole Sodium 40 mg 08/02/25 21:00 08/04/25 08:09 Pantoprazole Inj 40 Mg Vial IVP 09/01/25 20:59 40 mg Q12HR TYRONE Administration Paroxetine HCl 30 mg 08/04/25 09:00 08/04/25 08:09 Paroxetine Hcl 10 Mg Tablet PO 09/03/25 08:59 30 mg QDAY TYRONE Administration Thiamine HCl 100 mg 08/04/25 09:00 08/04/25 08:08 Thiamine 100 Mg Tablet PO 09/03/25 08:59 100 mg QDAY TYRONE Administration Plan Summary: 44-year-old female with a past medical decompensated cirrhosis secondary to alcohol use disorder with history of esophageal varices grade 2 (02/14/2025) and ascites, anxiety/depression, asthma, and migraines who presented to the emergency room on 08/01/2025 with a chief complaint of swelling in her feet. She received 2 units of PRBCs in the ED and was started on lactulose due to elevated ammonia. She was admitted for hepatic encephalopathy secondary to decompensated cirrhosis. #Hepatic encephalopathy secondary to #Acute on chronic decompensated liver cirrhosis #Hyperammonemia * Ammonia 84 on arrival * MRCP showed cirrhosis, significant ascites, moderate splenomegaly, cholelithiasis negative for cholecystitis * Patient is lethargic on exam, slowed speech * Chest x-ray on 08/01/2025 showed right basilar pneumonia, consider this as a precipitant for clinical diagnosis of hepatic encephalopathy secondary to acute on chronic decompensated liver cirrhosis * MELD Score 32, 52.6% estimated 3-month mortality * Maddrey's Discriminate Function for alcoholic hepatitis 25.7 * Child-Brito score for cirrhosis mortality 11, Class C Plan: * Lactulose 20 GM p.o. 3 times daily Reassessment: * Patient had 2 bowel movements in the past 24 hours #Ascites #Abdominal fluid wave * Physical exam findings showed abdominal ascites with striations and positive fluid wave * Paracentesis on 07/31/2025 yielded 2.4 L of fluid * Likely in the setting of acute on chronic decompensated liver cirrhosis * Abdominal ultrasound showed significant ascites, cholelithiasis Plan: * Paracentesis ordered for 08/05/2025 * Lasix 40 IV daily #Community-acquired pneumonia * Chest x-ray on 08/01/2025 showed right basilar pneumonia * Patient endorsed mild shortness of breath * Patient is afebrile, no leukocytosis Plan: * Continue azithromycin 5 mg IV daily * Ceftriaxone 1 g daily #Macrocytic anemia * MCV 115 on arrival * Hemoglobin on arrival 6.2, received 2 units PRBCs, posttransfusion hemoglobin 8.7 * No suspicion for active bleed at this time * B12 and folate levels normal on 07/07/2025 * Normal folate and B12 levels may reinforce 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 * This may reinforce anemia of chronic disease in the setting of chronic liver cirrhosis, as being in a chronic inflammatory state with increased hepcidin traps iron inside of macrophages which may explain elevated ferritin * Patient being treated for pneumonia, unable to treat with iron supplementation Venofer at this time #Hyperbilirubinemia * Total bilirubin 3.7 on arrival, increasing * Likely secondary to acute on chronic decompensated liver cirrhosis Plan: * Treating underlying cause #Primary hyperparathyroidism #Hypercalcemia * Corrected calcium elevated on arrival * PTH 296 on 07/07/2025 Plan: * Holding Cinacalcet for now, corrected calcium stable Reassessment: * Corrected calcium stable * PTH pending #Cholelithiasis * MRCP showed cholelithiasis with no cholecystitis * Watson sign positive on exam but patient did have diffuse abdominal pain as well * Patient is not febrile, no leukocytosis Plan: * No direct intervention at this time #History of grade 2 esophageal varices * Per patient history Plan: * Pantoprazole 40 mg every 12 hours * GI consulted #Asthma * Per patient history * Patient admitted to mild shortness of breath on hospital day 1 Plan: * Pending med rec #Anxiety/depression * Per patient history Plan: * Resumed home paroxetine #Lactic acidosis (Resolved) * Lactic acid 08/01/2025 2.2, resolved Hospital Maintenance: DVT ppx: Subcu heparin 5000 units every 8 hours GI ppx: Pantoprazole 40 mg every 12 hours Diet: N.p.o. IV lines: Peripheral IVs Code status: Full code Dispo: Admitted to telemetry floor acute hepatic encephalopathy secondary to acute on chronic decompensated liver cirrhosis. GI plans for EGD today. Patient was seen and discussed with my attending physician Dr. Marco CARMONA and my senior resident Dr. Tomy CARMONA PGY-2. Kermit Edwards DO PGY-1 Attending Provider Attestation/Addendum I have examined the patient, reviewed labs and imaging findings, discussed the case with the resident(s), and reviewed entered orders. I agree with the plan of care as outlined in this note, with these additional summaries/recommendations: Patient currently pending EGD today. Hemoglobin stable. She will also require paracentesis in the next 1 to 2 days if she has worsening abdominal distention and ascites. Patient states she previously was getting once monthly paracentesis but just recently had 1 this last week and again will likely require additional. Will need Lasix and Aldactone once procedure is completed. Herve Lara MD
[2025-08-04] MEDS: cefTRIAXone/D5w 1gm IV premix 1 GM/50 ML BAG IV (14:17)
[2025-08-04] MEDS: AZITHROMYCIN INJ 500 MG in SODIUM CHLORIDE 0.9% 250 ML 250 ML 250 MG IV (14:18)
[2025-08-04] MEDS: OCTREOTIDE ACET INJ 1,000 MCG in SODIUM CHLORIDE 0.9% 100 ML 5.1 MCG IV (14:22)
[2025-08-04] MEDS: ONDANSETRON INJ 2 MG/ML INJ 2 ML 4 MG IVP (15:39)
--- NOTE | 2025-08-04 17:41 | SUR.PHASEI ---
1741: Pt. wakes to name then drifts back to sleep, vitals stable, breathing unlabored, no signs of distress, no dressing in place, no active bleed noted, report received from Zuleima GRIGSBY.
--- NOTE | 2025-08-04 18:02 | SUR.PHASEI ---
1802: Pt. wakes to name and follow commands, vitals stable, breathing unlabored, no complaint of pain or nausea, no dressing in place, no active bleed noted, report given to Becky Vanegas RN prior to transfer to room.
[2025-08-05] VITALS (10 sets, daily range): BP systolic 107–145; BP diastolic 65–95; PULSE 82–106; RESP 16–98; TEMP 36.1–37.1; O2SAT 95–99; BMI 36.5
[2025-08-05] MEDS: LACTULOSE SYRUP 20 GM/30 ML UDC PO (05:41)
[2025-08-05 06:15] LABS: Basophils # (Auto) 0.1 Thou/mm3 (0.0-0.2); Basophils % (Auto) 1 % (0-2.5); Eosinophils # (Auto) 0.1 Thou/mm3 (0.0-0.5); Eosinophils % (Auto) 1 % (0-10); Hematocrit 25.7 % (36.0-46.0); Immature Granulocytes Auto 0.06 Thou/mm3 (0.00-0.00); Lymphocytes # (Auto) 0.8 Thou/mm3 (1.0-4.8); Lymphocytes % (Auto) 15 % (10-50); Mean Corpuscular HGB Conc 31.9 g/dl (31.0-37.0); Mean Corpuscular Hemoglobin 33.7 pg (25.0-35.0); Mean Corpuscular Volume 106 fL (80-100); Monocytes # (Auto) 0.6 Thou/mm3 (0.0-0.8); Monocytes % (Auto) 11 % (0-12); Neutrophils # (Auto) 3.7 Thou/mm3 (1.8-7.7); Neutrophils % (Auto) 71 % (37-80); Nucleated Red Blood Cell # 0.00 Thou/mm3 (0.00-0.00); Nucleated Red Blood Cell % 0 /100 WBC (0); Platelet Count 87 Thou/mm3 (140-440); RDW Standard Deviation 85.9 fL (36.4-46.3); Red Blood Count 2.43 Miln/mm3 (4.00-5.20); White Blood Count 5.2 Thou/mm3 (3.6-11.0)
[2025-08-05 06:23] LABS: Vitamin D 25 Hydroxy Total 58.7 ng/mL (7.3-40.2)
[2025-08-05 06:26] LABS: Alanine Aminotransferase 53 U/L (10-49); Albumin, Serum 2.7 gm/dL (3.5-5.0); Albumin/Globulin Ratio 0.8 (1.2-2.2); Alkaline Phosphatase 96 U/L (46-116); Anion Gap 12 (7-16); Aspartate Amino Transferase 164 U/L (0-34); BUN/Creatinine Ratio 18 Ratio (12-20); Bilirubin,Total 6.1 mg/dL (0.3-1.2); Blood Urea Nitrogen 23 mg/dL (9-23); Calcium 10.6 mg/dL (8.3-10.6); Calcium (Corrected) 11.6 mg/dL (8.5-10.1); Carbon Dioxide 22.3 mMol/L (20.0-31.0); Chloride 107 mMol/L (98-107); Creatinine (Component) 1.3 mg/dL (0.6-1.3); Estimated Creatinine Clearance 55.6 mL/min (>60); Globulin 3.4 gm/dL (2.3-3.5); Glucose 129 mg/dL (74-106); Osmolality,Calculated 286 (275-295); Potassium 3.4 mMol/L (3.4-5.1); Sodium 141 mMol/L (136-145); Total Protein 6.1 gm/dL (5.7-8.2); eGFR 52 See Note
[2025-08-05 06:47] LABS: Hemoglobin 8.2 g/dL (12.0-16.0)
--- NOTE | 2025-08-05 08:08 | ESPR_ITS ---
<Statement entered by Guilherme Huitron MD - 08/05/25 17:48> Pt is seen at bedside, pt had EGD yesterday with no evidence of esophageal variceal bleed. Pt underwent paracenthesis and 4L fluid was removed, sent to cytology. Pt is give 25g albumin post parathecenthesis. Pt denies SOB, saturating on room air. Pt will likely get discharged tomorrow and will need clsoe follow up with marketing account manager and GI specialist outpatient. Patient was seen and examined by me personally. I have directly supervised and reviewed documentation by the team resident and agree with its findings. ------- Plan of care was discussed with the attending, Dr. Marco Huitron, PGY-2 Documentation for date of: 08/05/25 Subjective Subjective Interval history: NAEO. Patient evaluated at bedside. Reports abdominal distension and diffuse abdominal pain. Denies shortness of breath, chest pain. Has had some nausea and nonbloody nonbilious vomiting. Exam Vital Signs Temp Pulse Resp BP Pulse Ox O2 Del Method O2 Flow Rate 98.3 F 102 H 16 132/87 H 97 Room Air 3 08/05/25 04:00 08/05/25 04:00 08/05/25 04:00 08/05/25 04:00 08/05/25 04:00 08/05/25 04:00 08/04/25 17:29 Narrative Exam General: Awake and in no acute distress. Neurologic: GCS 15. Alert and oriented x3, no gross neurological deficit, and patient able to move all 4 extremities. HEENT: Normocephalic, atraumatic, mucous membranes moist. Pupils reactive to light. Heart: Regular rate and rhythm, normal S1 and S2, no murmurs. Lungs: Clear to auscultation bilaterally with no wheezing or crackles. Abdomen: Ascites, distended, fluid wave present, striations, diffusely tender to palpation. Extremities: Left lower extremity has a large area of erythema on the anterior davies, nontender, warm but not warmer compared to the right. 2+ pitting edema in the feet bilaterally. 2+ radial and dorsalis pedis pulses bilaterally. Skin: Warm. Dry. No rash or ecchymoses. Objective Labs 08/05/25 04:56 08/05/25 04:56 Labs: Laboratory Results - last 24 hr 08/05/25 04:56 WBC 5.2 RBC 2.43 L Hgb 8.2 L Hct 25.7 L MCV 106 H MCH 33.7 MCHC 31.9 RDW Std Deviation 85.9 H Plt Count 87 L Neut % (Auto) 71 Lymph % (Auto) 15 [place] % (Auto) 11 Eos % (Auto) 1 Baso % (Auto) 1 Neut # (Auto) 3.7 Lymph # (Auto) 0.8 L [place] # (Auto) 0.6 Eos # (Auto) 0.1 Baso # (Auto) 0.1 Immature Gran # (Auto) 0.06 H Absolute Nucleated RBC 0.00 Immature Gran % 1 H Nucleated RBC % 0 Sodium 141 Potassium 3.4 D Chloride 107 Carbon Dioxide 22.3 Anion Gap 12 BUN 23 Creatinine 1.3 Estim Creat Clear Calc 55.6 L eGFR 52 L BUN/Creatinine Ratio 18 Glucose 129 H Calculated Osmolality 286 Calcium 10.6 Corrected Calcium 11.6 H Total Bilirubin 6.1 H AST 164 H ALT 53 H Alkaline Phosphatase 96 Total Protein 6.1 Albumin 2.7 L Globulin 3.4 Albumin/Globulin Ratio 0.8 L 25-OH Vitamin D Total 58.7 H Quality Measures Quality Measures none Assessment & Plan Assessment Current Active Medications: Generic Name Dose Route Start Last Admin Trade Name Freq PRN Reason Stop Dose Admin Albuterol 2 puff 08/03/25 16:44 Albuterol Inh 8 Gm INH 09/02/25 16:43 Q6H PRN WHEEZING Folic Acid 1 mg 08/04/25 09:00 08/04/25 08:09 Folic Acid 1 Mg Tablet PO 09/03/25 08:59 1 mg QDAY TYRONE Administration Furosemide 40 mg 08/03/25 13:15 08/04/25 08:09 Furosemide Inj 10 Mg/Ml 4ml Vial IVP 09/02/25 13:14 40 mg QDAY TYRONE Administration Hydromorphone HCl 0.5 mg 08/03/25 22:30 08/04/25 05:06 Hydromorphone Inj 2 Mg/Ml Vial IVP 08/08/25 22:29 0.5 mg Q4HR PRN Administration PAIN Azithromycin 500 mg/ Sodium 250 mls @ 250 mls/hr 08/03/25 14:00 08/04/25 14:18 Chloride IV 08/10/25 13:59 250 mls/hr QDAY@1400 TYRONE Administration Ceftriaxone Sodium/Dextrose 1 gm in 50 mls @ 100 mls/hr 08/03/25 17:14 08/04/25 14:17 Rocephin/D5w 1gm Iv Premix IV 08/10/25 17:13 100 mls/hr QDAY@1400 TYRONE Administration Lactulose 20 gm 08/03/25 16:45 08/05/25 05:41 Lactulose Syrup 20 Gm/30 Ml Udc PO 09/02/25 16:44 20 gm TID TYRONE Administration Protocol Ondansetron HCl 4 mg 08/02/25 15:10 08/04/25 15:39 Ondansetron Inj 2 Mg/Ml Inj 2 Ml IVP 09/01/25 15:09 4 mg Q6H PRN Administration NAUSEA OR VOMITING Protocol Pantoprazole Sodium 40 mg 08/02/25 21:00 08/04/25 21:04 Pantoprazole Inj 40 Mg Vial IVP 09/01/25 20:59 40 mg Q12HR TYRONE Administration Paroxetine HCl 30 mg 08/04/25 09:00 08/04/25 08:09 Paroxetine Hcl 10 Mg Tablet PO 09/03/25 08:59 30 mg QDAY TYRONE Administration Thiamine HCl 100 mg 08/04/25 09:00 08/04/25 08:08 Thiamine 100 Mg Tablet PO 09/03/25 08:59 100 mg QDAY TYRONE Administration Plan 44-year-old female with a past medical decompensated cirrhosis secondary to alcohol use disorder with history of esophageal varices grade 2 (02/14/2025) and ascites, anxiety/depression, asthma, and migraines who presented to the emergency room on 08/01/2025 with a chief complaint of swelling in her feet. She received 2 units of PRBCs in the ED and was started on lactulose due to elevated ammonia. She was admitted for hepatic encephalopathy secondary to decompensated cirrhosis. 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 Bx gastric antrum taken Paracentesis 08/05: 4L drained Plan: - Lactulose 20 g PO TID - Lasix 40 mg IV daily - Pantoprazole 40 mg IV BID - Ceftriaxone 1 g IV daily for SBP ppx (08/03-08/09) - Albumin 25g IV x1 after 08/05 paracentesis - Pending cytology from peritoneal fluids - F/U gastric bx results - Consulted GI, appreciate recs #c/f Community-acquired pneumonia Initial presentation: mild shortness of breath, afebrile, no leukocytosis CXR: right basilar consolidation (mild blunting CV angle) Plan: - Ceftriaxone 1 g IV daily (08/03-08/09) - Azithromycin 5 mg IV daily (08/03-08/05) #Lactic acidosis - resolved On admit: 2.2 Plan: - CTM fever curve #Macrocytic anemia s/p 2U RBC transfusion On admit: hgb 6.2 --> 2U pRBC --> hgb 8.7 --> hgb has remained stable B12, folate WNL Plan: - CTM with daily CBC #Primary hyperparathyroidism #Hypercalcemia PTH 296 (high) on 07/07/25 Ca consistently mildly elevated - 25OH vit D high 58.7 Plan: - Pending PTH ? Vitamin D level stable, goal vitamin D greater than 30. -Recommend patient take at least 1000 mg of dietary calcium daily - Recommend DEXA scan on outpatient basis #Cholelithiasis Seen on MRCP, no cholecystits Afebrile, no leukocytosis Plan: - f/u outpatient #Asthma Plan: - Albuterol q6h PRN #Anxiety/depression Plan: - Paroxetine 30 mg PO daily (home med) Checklist Dispo: Plan to d/c in next 24-48 hrs Lines: PIV Diet: low Na 2g Bowel Reg: Lactulose 20 g PO TID VTE ppx: heparin subQ GI ppx: Pantoprazole 40 mg IV BID Pain mgmt: Code status: full Plan discussed with Dr. Kelley Huitron and Dr. Marco Lamas MD PGY1 Attending Provider Attestation/Addendum I have examined the patient, reviewed labs and imaging findings, discussed the case with the resident(s), and reviewed entered orders. I agree with the plan of care as outlined in this note, with these additional summaries/recommendations: Patient undergoing paracentesis today, will replace albumin after procedure and restart diet as tolerated. Recommend initiating Aldactone 50 mg and Lasix 20 mg daily. If hb is stable and mental status continues to improve, can consider DC tomorrow. Herve Lara MD
--- NOTE | 2025-08-05 09:00 | XR_ITS ---
Examination: Ultrasound-guided paracentesis Abdominal sonogram limited Date and time of exam: August 05, 2025, 1248 hours INDICATIONS: Cirrhosis increasing ascites abdominal distention this week Informed consent provided. A timeout was completed verifying correct patient, procedure, site, positioning, and special adequate movement if applicable. Technique: Multiple sonographic images of the abdomen have been obtained. Appropriate area for paracentesis was marked. Local anesthesia is obtained with 1% lidocaine. Yueh catheter is successfully introduced. Findings: Abdominal sonographic images demonstrate sufficient ascitic fluid for paracentesis. After placing the Yueh catheter, 4050 cc of fluid were successfully removed. During and after completion of the procedure the patient appear in satisfactory and stable condition with no complications observed. Estimated blood loss 0 cc Impression: Abdominal ascites Successful ultrasound-guided paracentesis as described above
[2025-08-05] MEDS: THIAMINE 100 MG TABLET PO (09:41)
[2025-08-05] MEDS: FUROSEMIDE INJ 10 MG/ML 4ML VIAL 40 MG IVP (09:42)
[2025-08-05] MEDS: FOLIC ACID 1 MG TABLET PO (09:42)
--- NOTE | 2025-08-05 11:33 | PC.SS ---
rounding note: Patient pending EGD and paracentesis. D/c plan is to return home. Not medically ready for discharge.
[2025-08-05] MEDS: cefTRIAXone/D5w 1gm IV premix 1 GM/50 ML BAG IV (13:57)
[2025-08-05] MEDS: AZITHROMYCIN INJ 500 MG in SODIUM CHLORIDE 0.9% 250 ML 250 ML 250 MG IV (13:57)
[2025-08-05] MEDS: HYDROmorphone INJ 2 MG/ML VIAL 0.5 MG IVP (14:15)
[2025-08-05] MEDS: ALBUMIN HUMAN-KJDA 25% IVPB 25 GM/100 ML BTL IV (14:16)
--- NOTE | 2025-08-05 17:45 | PD.IMPROG ---
Documentation for date of: 08/05/25 Subjective Subjective Interval history: Patient evaluated Upper endoscopy showed gastritis esophagitis and duodenitis Hemoglobin hematocrit 8.2 and 26.5 Exam Vital Signs Temp Pulse Resp BP Pulse Ox O2 Del Method O2 Flow Rate 97.9 F 91 21 H 114/66 97 Room Air 3 08/05/25 16:00 08/05/25 16:00 08/05/25 16:00 08/05/25 16:00 08/05/25 16:00 08/05/25 16:00 08/05/25 16:00 Objective Labs 08/05/25 04:56 08/05/25 04:56 Labs: Laboratory Results - last 24 hr 08/05/25 04:56 WBC 5.2 RBC 2.43 L Hgb 8.2 L Hct 25.7 L MCV 106 H MCH 33.7 MCHC 31.9 RDW Std Deviation 85.9 H Plt Count 87 L Neut % (Auto) 71 Lymph % (Auto) 15 [place] % (Auto) 11 Eos % (Auto) 1 Baso % (Auto) 1 Neut # (Auto) 3.7 Lymph # (Auto) 0.8 L [place] # (Auto) 0.6 Eos # (Auto) 0.1 Baso # (Auto) 0.1 Immature Gran # (Auto) 0.06 H Absolute Nucleated RBC 0.00 Immature Gran % 1 H Nucleated RBC % 0 Sodium 141 Potassium 3.4 D Chloride 107 Carbon Dioxide 22.3 Anion Gap 12 BUN 23 Creatinine 1.3 Estim Creat Clear Calc 55.6 L eGFR 52 L BUN/Creatinine Ratio 18 Glucose 129 H Calculated Osmolality 286 Calcium 10.6 Corrected Calcium 11.6 H Total Bilirubin 6.1 H AST 164 H ALT 53 H Alkaline Phosphatase 96 Total Protein 6.1 Albumin 2.7 L Globulin 3.4 Albumin/Globulin Ratio 0.8 L 25-OH Vitamin D Total 58.7 H Impressions Impression: Esophagitis Gastritis Duodenitis Continue current management Assessment & Plan A&P Narrative # Anemia blood loss requiring blood transfusion Recommend fiberoptic esophagogastroduodenoscopy with possible band ligation of the esophageal varices possible therapeutic intervention Consent obtained N.p.o. midnight tonight except p.o. 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
[2025-08-05] MEDS: HEPARIN SOD INJ 5000 UNIT/ML VIAL SC (21:23)
[2025-08-06] VITALS (9 sets, daily range): BP systolic 105–114; BP diastolic 54–74; PULSE 79–87; RESP 16–98; TEMP 36.5–37.2; O2SAT 92–98
--- NOTE | 2025-08-06 05:03 | PC.NURSE ---
MD Navarro made aware that pt is on Heparin SC for VTE prophylaxis, pt platelet is 87,per it's okay to admin this meds.
[2025-08-06] MEDS: HEPARIN SOD INJ 5000 UNIT/ML VIAL SC (05:07)
[2025-08-06] MEDS: LACTULOSE SYRUP 20 GM/30 ML UDC PO ×2 (05:07→14:44)
[2025-08-06 05:45] LABS: Basophils # (Auto) 0.0 Thou/mm3 (0.0-0.2); Basophils % (Auto) 1 % (0-2.5); Eosinophils # (Auto) 0.1 Thou/mm3 (0.0-0.5); Eosinophils % (Auto) 4 % (0-10); Hematocrit 21.2 % (36.0-46.0); Immature Granulocytes Auto 0.03 Thou/mm3 (0.00-0.00); Lymphocytes # (Auto) 0.8 Thou/mm3 (1.0-4.8); Lymphocytes % (Auto) 28 % (10-50); Mean Corpuscular HGB Conc 32.1 g/dl (31.0-37.0); Mean Corpuscular Hemoglobin 34.3 pg (25.0-35.0); Mean Corpuscular Volume 107 fL (80-100); Monocytes # (Auto) 0.5 Thou/mm3 (0.0-0.8); Monocytes % (Auto) 17 % (0-12); Neutrophils # (Auto) 1.5 Thou/mm3 (1.8-7.7); Neutrophils % (Auto) 50 % (37-80); Nucleated Red Blood Cell # 0.00 Thou/mm3 (0.00-0.00); Nucleated Red Blood Cell % 0 /100 WBC (0); RDW Standard Deviation 83.7 fL (36.4-46.3); Red Blood Count 1.98 Miln/mm3 (4.00-5.20); White Blood Count 2.9 Thou/mm3 (3.6-11.0)
[2025-08-06 06:08] LABS: Hemoglobin 6.8 g/dL (12.0-16.0); Platelet Count 69 Thou/mm3 (140-440)
[2025-08-06 06:16] LABS: Alanine Aminotransferase 50 U/L (10-49); Albumin, Serum 2.5 gm/dL (3.5-5.0); Albumin/Globulin Ratio 1.0 (1.2-2.2); Alkaline Phosphatase 75 U/L (46-116); Anion Gap 8 (7-16); Aspartate Amino Transferase 153 U/L (0-34); BUN/Creatinine Ratio 15 Ratio (12-20); Bilirubin,Total 4.0 mg/dL (0.3-1.2); Blood Urea Nitrogen 18 mg/dL (9-23); Calcium 9.8 mg/dL (8.3-10.6); Calcium (Corrected) 11.0 mg/dL (8.5-10.1); Carbon Dioxide 24.6 mMol/L (20.0-31.0); Chloride 109 mMol/L (98-107); Creatinine (Component) 1.2 mg/dL (0.6-1.3); Estimated Creatinine Clearance 57.7 mL/min (>60); Globulin 2.5 gm/dL (2.3-3.5); Glucose 87 mg/dL (74-106); Osmolality,Calculated 284 (275-295); Potassium 3.0 mMol/L (3.4-5.1); Sodium 142 mMol/L (136-145); Total Protein 5.0 gm/dL (5.7-8.2); eGFR 57 See Note
[2025-08-06 06:17] LABS: Path Review Blood Smear Sent to Pathologist
--- NOTE | 2025-08-06 08:25 | PD.RESPRO ---
Documentation for date of: 08/06/25 Exam Vital Signs Temp Pulse Resp BP Pulse Ox O2 Del Method O2 Flow Rate 98.9 F 81 18 111/60 96 Room Air 3 08/06/25 07:31 08/06/25 07:31 08/06/25 07:31 08/06/25 07:31 08/06/25 07:31 08/06/25 07:31 08/05/25 16:00 Narrative Exam General: No acute distress, well nourished Eye: PERRL, EOMI, normal conjunctiva, no scleral icterus HENT: Normocephalic, atraumatic, normal hearing, moist oral mucosa Neck: Supple, non-tender, no JVD, no lymphadenopathy Lungs: Clear to auscultation bilaterally, non-labored respirations, symmetric chest rise, no use of accessory muscles Heart: Normal S1 and S2, no S3 or S4 appreciated. Normal rate and regular rhythm, no murmurs, rubs gallops. 2+ pitting edema in the feet bilaterally Abdomen: Ascites, distended, fluid wave present, striations, diffusely tender to palpation. Musculoskeletal: Normal range of motion and strength, no tenderness or swelling Skin: Skin is warm, dry, no rashes or lesions. Left lower extremity has a large area of erythema on the anterior davies, nontender, warm Neurologic: Alert, awake and oriented x3. CN II-XII grossly intact. No focal neuro deficits. No signs of meningeal irritation noted. Psychiatric: Cooperative, appropriate mood and affect Objective Labs 08/06/25 04:23 08/06/25 04:23 Labs: Laboratory Results - last 24 hr 08/06/25 04:23 WBC 2.9 L D RBC 1.98 L* Hgb 6.8 L* Hct 21.2 L* MCV 107 H MCH 34.3 MCHC 32.1 RDW Std Deviation 83.7 H Plt Count 69 L D Neut % (Auto) 50 Lymph % (Auto) 28 [place] % (Auto) 17 H Eos % (Auto) 4 Baso % (Auto) 1 Neut # (Auto) 1.5 L Lymph # (Auto) 0.8 L [place] # (Auto) 0.5 Eos # (Auto) 0.1 Baso # (Auto) 0.0 Immature Gran # (Auto) 0.03 H Absolute Nucleated RBC 0.00 Immature Gran % 1 H Nucleated RBC % 0 Smear Path Review Sent to Pathologist Sodium 142 Potassium 3.0 L Chloride 109 H Carbon Dioxide 24.6 Anion Gap 8 BUN 18 Creatinine 1.2 Estim Creat Clear Calc 57.7 L eGFR 57 L BUN/Creatinine Ratio 15 Glucose 87 Calculated Osmolality 284 Calcium 9.8 Corrected Calcium 11.0 H Total Bilirubin 4.0 H D AST 153 H ALT 50 H Alkaline Phosphatase 75 D Total Protein 5.0 L Albumin 2.5 L Globulin 2.5 Albumin/Globulin Ratio 1.0 L Misc Test Result See comment Quality Measures Quality Measures none Assessment & Plan Assessment Current Active Medications: Generic Name Dose Route Start Last Admin Trade Name Freq PRN Reason Stop Dose Admin Albuterol 2 puff 08/03/25 16:44 Albuterol Inh 8 Gm INH 09/02/25 16:43 Q6H PRN WHEEZING Folic Acid 1 mg 08/04/25 09:00 08/05/25 09:42 Folic Acid 1 Mg Tablet PO 09/03/25 08:59 1 mg QDAY TYRONE Administration Furosemide 40 mg 08/03/25 13:15 08/05/25 09:42 Furosemide Inj 10 Mg/Ml 4ml Vial IVP 09/02/25 13:14 40 mg QDAY TYRONE Administration Heparin Sodium (Porcine) 5,000 unit 08/05/25 22:00 08/06/25 05:07 Heparin Sod Inj 5000 Unit/Ml Vial SC 08/19/25 21:59 5,000 unit Q8HR TYRONE Administration Hydromorphone HCl 0.5 mg 08/03/25 22:30 08/05/25 14:15 Hydromorphone Inj 2 Mg/Ml Vial IVP 08/08/25 22:29 0.5 mg Q4HR PRN Administration PAIN Ceftriaxone Sodium/Dextrose 1 gm in 50 mls @ 100 mls/hr 08/03/25 17:14 08/05/25 13:57 Rocephin/D5w 1gm Iv Premix IV 08/10/25 01:00 100 mls/hr QDAY@1400 TYRONE Administration Lactulose 20 gm 08/03/25 16:45 08/06/25 05:07 Lactulose Syrup 20 Gm/30 Ml Udc PO 09/02/25 16:44 20 gm TID TYRONE Administration Protocol Ondansetron HCl 4 mg 08/02/25 15:10 08/04/25 15:39 Ondansetron Inj 2 Mg/Ml Inj 2 Ml IVP 09/01/25 15:09 4 mg Q6H PRN Administration NAUSEA OR VOMITING Protocol Pantoprazole Sodium 40 mg 08/06/25 09:00 Pantoprazole 40 Mg Tablet PO 09/05/25 08:59 Q12HR TYRONE Paroxetine HCl 30 mg 08/04/25 09:00 08/05/25 09:41 Paroxetine Hcl 10 Mg Tablet PO 09/03/25 08:59 30 mg QDAY TYRONE Administration Thiamine HCl 100 mg 08/04/25 09:00 08/05/25 09:41 Thiamine 100 Mg Tablet PO 09/03/25 08:59 100 mg QDAY TYRONE Administration Plan 44-year-old female with a past medical decompensated cirrhosis secondary to alcohol use disorder with history of esophageal varices grade 2 (02/14/2025) and ascites, anxiety/depression, asthma, and migraines who presented to the emergency room on 08/01/2025 with a chief complaint of swelling in her feet. She received 2 units of PRBCs in the ED and was started on lactulose due to elevated ammonia. She was admitted for hepatic encephalopathy secondary to decompensated cirrhosis. 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 Bx gastric antrum taken Paracentesis 08/05: 4L drained --> - Albumin 25g IV x1 after 08/05 paracentesis Plan: - Lactulose 20 g PO TID - Lasix 20 mg IV daily - Spironolactone 50 mg IV daily - Pantoprazole 40 mg IV BID - Ceftriaxone 1 g IV daily for SBP ppx (08/03-08/09) - Pending cytology from peritoneal fluids - F/U gastric bx results - Consulted GI, appreciate recs #c/f Community-acquired pneumonia Initial presentation: mild shortness of breath, afebrile, no leukocytosis CXR: right basilar consolidation (mild blunting CV angle) Plan: - Ceftriaxone 1 g IV daily (08/03-08/09) - Azithromycin 5 mg IV daily (08/03-08/05) #Lactic acidosis - resolved On admit: 2.2 Plan: - CTM fever curve #Macrocytic anemia s/p 2U RBC transfusion On admit: hgb 6.2 --> 2U pRBC --> hgb 8.7 --> hgb 6.8 on 08/06 B12, folate WNL Plan: - CTM with daily CBC #Primary hyperparathyroidism #Hypercalcemia PTH 296 (high) on 07/07/25 Ca consistently mildly elevated - 25OH vit D high 58.7 Plan: - Pending PTH ? Vitamin D level stable, goal vitamin D greater than 30. - Recommend patient take at least 1000 mg of dietary calcium daily - Recommend DEXA scan on outpatient basis #Cholelithiasis Seen on MRCP, no cholecystits Afebrile, no leukocytosis Plan: - f/u outpatient #Asthma Plan: - Albuterol q6h PRN #Anxiety/depression Plan: - Paroxetine 30 mg PO daily (home med) Checklist Dispo: Plan to d/c in next 24-48 hrs Lines: PIV Diet: low Na 2g Bowel Reg: Lactulose 20 g PO TID VTE ppx: heparin subQ GI ppx: Pantoprazole 40 mg IV BID Pain mgmt: Code status: full Plan discussed with Dr. Kelley Huitron and Dr. Jessie Lamas MD PGY1
[2025-08-06 09:03] LABS: Hematocrit 23.3 % (36.0-46.0)
[2025-08-06] MEDS: PANTOPRAZOLE 40 MG TABLET PO (09:16)
[2025-08-06] MEDS: SPIRONOLACTONE 25 MG TABLET 50 MG PO (09:16)
[2025-08-06] MEDS: HYDROmorphone INJ 2 MG/ML VIAL 0.5 MG IVP (09:17)
[2025-08-06] MEDS: FOLIC ACID 1 MG TABLET PO (09:17)
[2025-08-06] MEDS: THIAMINE 100 MG TABLET PO (09:17)
[2025-08-06] MEDS: FUROSEMIDE INJ 10 MG/ML 4ML VIAL 20 MG IVP (09:18)
[2025-08-06 09:44] LABS: Hemoglobin 7.4 g/dL (12.0-16.0)
[2025-08-06 10:07] LABS: Magnesium 1.8 mg/dL (1.6-2.6); Phosphorous 1.7 mg/dL (2.4-5.1)
[2025-08-06 10:35] LABS: Parathyroid Hormone Intact 273.9 pg/ml (18.5-88.0)
--- NOTE | 2025-08-06 11:25 | ESDS_ITS ---
<Statement entered by Hallie Roman MD - 08/12/25 15:20> I reviewed above note and agree with findings and plans. I have also personally examined the patient with medicine team and went over assessment and plan with medical team including internet specialist and resident physician. Planned Discharge Date 08/06/25 DS: Providers Provider Date of admission: 08/02/25 15:05 Primary care physician: Mohsen Chavis MD Admitting Provider: Alireza Moulton MD Attending Provider on Admission: Alireza Moulton MD Consults: 08/03/25 07:48 Referral Speech Therapy Routine Comment: Patient failed swallow screen. 08/03/25 08:14 Consult to Gastroenterology Routine Comment: History of varices. Consulting Provider: Elena Ward Attending Provider on DC: Dr. Hallie Roman Discharging Provider: Silvia Lamas MD DS: Diagnosis Problem List Completed Was Problem List Reviewed/Reconciled?: Yes Hospital Course Hospital Course Hospital course: Hospital Course Ms. 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 Admitted for acute decompensation of cirrhosis. Initial presentation c/w hepatic encephaloapthy with hyperammonemia 84, managed with Lactulose 20 g PO TID. Ascites managed with lasix 40 mg IV daily, paracentesis performed on 07/31, draining 2.4L with repeat paracentesis on 08/05 draining 4 L with subsequent administration of albumin 25 g IV. Pending cytology report from peritoneal fluid. SBP prophylaxis with Ceftriaxone 1 g IV daily (08/03-08/06). Over the course of the hospitalization, patient's mentation improved with return to baseline. In the ED, patient's hgb was 6.2, received 2U pRBC, with repeat hgb 8.7. Hgb remained stable throughout hospitalization. EGD was performed by Dr. Ward on 08/04, resulting in esophagitis, gastritis, and no source of bleeding identified. Patient to follow up with gastric antrum biopsy results outpatient. Patient also presented with shortness of breath with imaging evidence of mild right basilar consolidation. Patient received Ceftriaxone 1 g IV daily (08/03- 08/06) and Azithromycin 500 mg IV daily (08/03-08/06). Shortness of breath improved, no cough appreciated. Total bilirubin was elevated on admission, peaked at 6.4, now downtrending. Cholelithiasis was seen on MRCP, without cholecystitis. Patient remained afebrile without leukocytosis or RUQ pain. Patient can follow up outpatient. Patient hemodynamically stable. Labs reviewed and stable. Patient stable and medically cleared for discharge. Diagnoses #Hepatic encephalopathy #Acutely decompensated liver cirrhosis 2/2 MASLD #Ascites #History of grade 2 esophageal varices #c/f Community-acquired pneumonia #Lactic acidosis - resolved #Macrocytic anemia #Primary hyperparathyroidism #Hypercalcemia #Cholelithiasis #Asthma #Anxiety/depression Discharge Instructions - Follow up with PCP within 1 week of discharge, if you do not have a primary care physician you can come see us at the [facility] by calling [phone] - Please take lasix 20 mg daily and spironolactone 50 mg daily - Take Lactulose 20 g three times daily - Continue to take pantoprazole 40 mg daily - Continue rest of medications as previously prescribed - Return to the ED or call EMS if symptoms return and/or worsens Silvia Lamas MD PGY1 Time Spent with Patient Time attestation: Total time spent providing and/or coordinating discharge services: Time spent: Greater than 30 minutes Exam Vital Signs Temp Pulse Resp BP Pulse Ox O2 Del Method O2 Flow Rate 97.8 F 86 16 112/65 96 Room Air 3 08/06/25 11:02 08/06/25 11:08/06/25 11:08/06/25 11:08/06/25 11:08/06/25 11:02 08/05/25 16:00 Narrative Exam General: No acute distress, well nourished Eye: PERRL, EOMI, normal conjunctiva, no scleral icterus HENT: Normocephalic, atraumatic, normal hearing, moist oral mucosa Neck: Supple, non-tender, no JVD, no lymphadenopathy Lungs: Clear to auscultation bilaterally, non-labored respirations, symmetric chest rise, no use of accessory muscles Heart: Normal S1 and S2, no S3 or S4 appreciated. Normal rate and regular rhythm, no murmurs, rubs gallops. 2+ pitting edema in the feet bilaterally Abdomen: Ascites, distended, fluid wave present, striations, diffusely tender to palpation. Musculoskeletal: Normal range of motion and strength, no tenderness or swelling Skin: Skin is warm, dry, no rashes or lesions. Left lower extremity has a large area of erythema on the anterior davies, nontender, warm Neurologic: Alert, awake and oriented x3. CN II-XII grossly intact. No focal neuro deficits. No signs of meningeal irritation noted. Psychiatric: Cooperative, appropriate mood and affect Discharge Plan Plan Patient Disposition: HOME (Self Care) Patient condition on transfer: Stable Care Plan Goals: - Follow up with PCP within 1 week of discharge, if you do not have a primary care physician you can come see us at the [facility] by calling [phone] - Please take lasix 20 mg daily and spironolactone 50 mg daily - Take Lactulose 20 g three times daily - Continue to take pantoprazole 40 mg daily - Continue rest of medications as previously prescribed - Return to the ED or call EMS if symptoms return and/or worsens Prescriptions/Referrals Prescriptions/Med Rec: New furosemide [Lasix] 20 mg tablet 20 mg PO QDAY 30 Days Qty: 30 0RF spironolactone 50 mg tablet 50 mg PO DAILY 30 Days Qty: 30 0RF lactulose 10 gram/15 mL solution 20 g PO TID Qty: 473 0RF Rx Instructions: HOLD if more than 3 bowel movements in 24 hours Continued paroxetine HCl [Paxil] 30 mg tablet 30 mg PO QDAY montelukast [Singulair] 10 mg tablet 10 mg PO QDAY albuterol sulfate 90 mcg/actuation Hfa Aerosol Inhaler 2 puff INHALATION Q6H PRN (Reason: Wheezing) dicyclomine 20 mg tablet 20 mg PO QID PRN (Reason: abdominal pain) Qty: 30 0RF pantoprazole [Protonix] 40 mg tablet,delayed release (DR/EC) 40 mg PO QDAY Qty: 30 0RF thiamine mononitrate (vit B1) 100 mg Tablet 100 mg PO QDAY 30 Days Qty: 30 0RF folic acid 1 mg Tablet 1 mg PO QDAY 30 Days Qty: 30 0RF Discontinued ondansetron 4 mg tablet,disintegrating 4 mg PO Q8H Qty: 10 0RF lactulose 10 gram/15 mL Solution 10 g PO TID 30 Days Qty: 1350 0RF Referrals: Mohsen Chavis MD [Primary Care Provider, Family Practice] Patient/Caregiver Discharge Instructions Education Materials: Paracentesis Dc Print Language: Cypriot Stand Alone Forms: Nicole Award Info., Patient Portal Info Letter Discharge Order Discharge Orders: Discharge (Routine); Ordered 08/06/25 Ordered By: Guilherme Huitron Quality Discharge Quality Measures VTE prophylaxis
--- NOTE | 2025-08-06 13:52 | PC.SS ---
Follow up note: SS spoke to patient to confirm that she's going home today. Patient resides with her daughters. Patient states she uses a wheelchair at home. She ambulates short distances. She can take a medivan home. Patient will follow up with p.c.p. at [facility]. Physician to speak with patient as she is wanting to stay another day.
[2025-08-06] MEDS: cefTRIAXone/D5w 1gm IV premix 1 GM/50 ML BAG IV (14:44)
[2025-08-06] MEDS: ONDANSETRON INJ 2 MG/ML INJ 2 ML 4 MG IVP (15:12)
--- NOTE | 2025-08-06 19:00 | PD.IMPROG ---
Documentation for date of: 08/06/25 Subjective Subjective Interval history: Late entry for the note Case discussed with internal medicine team Patient can be discharged home on a PPI 2 g sodium diet 1 L p.o. fluid restriction Exam Vital Signs Temp Pulse Resp BP Pulse Ox O2 Del Method O2 Flow Rate 97.8 F 85 18 114/74 97 Room Air 3 08/06/25 16:00 08/06/25 16:00 08/06/25 16:00 08/06/25 16:00 08/06/25 16:00 08/06/25 16:00 08/05/25 16:00 Objective Labs 08/06/25 08:48 08/06/25 04:23 Labs: Laboratory Results - last 24 hr 08/06/25 08/06/25 04:23 08:48 WBC 2.9 L D RBC 1.98 L* Hgb 6.8 L* 7.4 L Hct 21.2 L* 23.3 L MCV 107 H MCH 34.3 MCHC 32.1 RDW Std Deviation 83.7 H Plt Count 69 L D Neut % (Auto) 50 Lymph % (Auto) 28 [place] % (Auto) 17 H Eos % (Auto) 4 Baso % (Auto) 1 Neut # (Auto) 1.5 L Lymph # (Auto) 0.8 L [place] # (Auto) 0.5 Eos # (Auto) 0.1 Baso # (Auto) 0.0 Immature Gran # (Auto) 0.03 H Absolute Nucleated RBC 0.00 Immature Gran % 1 H Nucleated RBC % 0 Smear Path Review Sent to Pathologist Sodium 142 Potassium 3.0 L Chloride 109 H Carbon Dioxide 24.6 Anion Gap 8 BUN 18 Creatinine 1.2 Estim Creat Clear Calc 57.7 L eGFR 57 L BUN/Creatinine Ratio 15 Glucose 87 Calculated Osmolality 284 Calcium 9.8 Corrected Calcium 11.0 H Phosphorus 1.7 L Magnesium 1.8 Total Bilirubin 4.0 H D AST 153 H ALT 50 H Alkaline Phosphatase 75 D Total Protein 5.0 L Albumin 2.5 L Globulin 2.5 Albumin/Globulin Ratio 1.0 L PTH Intact 273.9 H Misc Test Result See comment Blood Type O Positive Antibody Screen NEGATIVE Crossmatch See Detail Blood Bank Wristband ID Yes Impressions Impression: Gastritis Esophagitis Okay to discharge patient home to be followed by the PCP Assessment & Plan A&P Narrative # Anemia blood loss requiring blood transfusion Recommend fiberoptic esophagogastroduodenoscopy with possible band ligation of the esophageal varices possible therapeutic intervention Consent obtained N.p.o. midnight tonight except p.o. 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
== END 2025-08-06 16:57 | disposition home or self-care (01) | DRG 280 ==
LOC: SERX 08-02 13:11 → SERHOLD 08-02 15:42 → S2NX 08-02 20:35 → S3NX 08-05 23:17
PROVIDERS: Emergency Medicine; Specialist; Student in an Organized Health Care Education/Training Program; Admitting Provider Internal Medicine; Emergency Provider Family Medicine; PCP Family Medicine; Visit Provider Internal Medicine
PROC: (CPT 43239; principal; 2025-08-04 17:00)
DX: K70.31 Alcoholic cirrhosis of liver with ascites (principal); K76.82 Hepatic encephalopathy; J18.9 Pneumonia, unspecified organism; E21.0 Primary hyperparathyroidism; D53.9 Nutritional anemia, unspecified; K80.20 Calculus of gallbladder without cholecystitis without obstruction; J45.909 Unspecified asthma, uncomplicated; F32.A Depression, unspecified; F41.9 Anxiety disorder, unspecified; D50.0 Iron deficiency anemia secondary to blood loss (chronic); E83.52 Hypercalcemia; I86.4 Gastric varices; Z79.899 Other long term (current) drug therapy; Z88.8 Allergy status to other drugs, medicaments and biological substances; K20.90 Esophagitis, unspecified without bleeding; K29.70 Gastritis, unspecified, without bleeding; I85.10 Secondary esophageal varices without bleeding; K29.80 Duodenitis without bleeding; R79.1 Abnormal coagulation profile
CPT/HCPCS: 36415; 51702; 71045; 74181; 76700; 76705; 80053; 80061; 80307; 80320; 81025; 82140; 82248; 82270; 82306; 82728; 83540; 83605; 83690; 83735; 83880; 83970; 84100; 84443; 84484; 85014; 85018; 85025; 85379; 85610; 85730; 86850; 86900; 86901; 86923; 87081; 87502; 87635; 92610; 93005; 93306; 96365; 96366; 96375; 99285; A4314; A4649; C1729; J0456; J0696; J1171; J1200; J1644; J1938; J2250; J2354; J2405; J2470; J3010; J3475; J7050; P9016; P9047; A9270; G0480

== ENCOUNTER 2025-09-09 16:03 | Emergency (ER) | payer MEDICAID, SELFPAY ==
[2025-09-09] VITALS (14 sets, daily range): BP systolic 112–136; BP diastolic 61–79; PULSE 89–108; RESP 17–28; TEMP 36.6–37.2; O2SAT 96–100; BMI 37.0
--- NOTE | 2025-09-09 16:08 | EKG_ITS ---
[facility] Test Date: 2025-09-09 Pat Name: LAURA ASTUDILLO Department: Room: - Gender: Female [employer]: : [id number] Requested By: Bakari Babcock Order Number: [id number] Reading MD: Bakari Babcock Measurements Intervals [place] Rate: 97 P: 7 ND: 158 QRS: 54 QRSD: 96 T: 91 QT: 373 QTc: 475 Interpretive Statements SINUS RHYTHM LOW QRS VOLTAGE IN PRECORDIAL LEADS [QRS DEFLECTION < 1.0 mV IN CHEST LEADS] NONSPECIFIC ST & T-WAVE ABNORMALITY Compared to ECG 08/01/2025 22:54:18 Low QRS voltage now present T-wave abnormality still present /store/S0/[id number].pdf
--- NOTE | 2025-09-09 16:09 | PD.EDADULT ---
ED General RME/HPI General Chief complaint: Urogenital-Female Stated complaint: PAINFUL URINATION Time Seen by Provider: 09/09/25 16:07 Arrival date/time: 09/09/25 16:03 CC: Painful urination HPI ongoing for the past 2 weeks, EMS report mild tachycardia but otherwise stable vital signs. Patient is cirrhotic, who takes lactulose on a regular basis. States that she last her abdominal tapped 2 weeks ago. Patient's abdomen is now distended. Patient denies fever chills chest pain or shortness of breath. Related Data Home Medications ?Medication ?Instructions ?Recorded ?Confirmed albuterol sulfate 90 mcg/actuation 2 puff inhalation Q6H PRN Wheezing 07/28/21 08/03/25 aerosol inhaler montelukast 10 mg tablet 10 mg PO QDAY 10/11/23 08/03/25 (Singulair) paroxetine HCl 30 mg tablet (Paxil) 30 mg PO QDAY 10/11/23 08/03/25 Previous Rx's ?Medication ?Instructions ?Recorded dicyclomine 20 mg tablet 20 mg PO QID PRN abdominal pain 05/02/25 #30 tabs pantoprazole 40 mg tablet,delayed 40 mg PO QDAY #30 tabs 06/05/25 release (Protonix) lactulose 10 gram/15 mL oral 20 g (30 mL) PO TID #473 mL 08/06/25 solution Allergies Allergy/AdvReac Type Severity Reaction Status Date / Time hydrocortisone Allergy Severe Swelling Verified 07/29/25 17:36 of the Eye Review of Systems Review of Systems Narrative Review of Systems: GEN: No fever, no chills, no weight loss EYES: No discharge, no visual changes, no pain HEENT: No ear pain, no congestion, no sore throat PULM: No shortness of breath, no cough, no congestion CV: No chest pain, no dyspnea on exertion, no palpitations GI: No nausea, no vomiting, no diarrhea, + pain, no constipation : No frequency, no urgency, no dysuria MUSC/SKEL: No joint pain, no back pain SKIN: No rash PSYCH: No hallucinations, no depression HEME/LYMPH: No easy bleeding or bruising tendencies NEURO: No weakness, no headache Past Medical History Past Medical History NEUROLOGIC: Negative Neurological Disorders or Seizures CARDIAC: Positive Heart Murmur and Cellulitis; Negative Cardiac Disorders, Hypercholesterolemia, Congestive Heart Failure, Edema, Hypertension or Varicose Veins RESPIRATORY: Positive Pneumonia; Negative Chronic Obstructive Pulmonary Disease (COPD), Asthma, Tuberculosis or Sleep Apnea GASTROINTESTINAL: Positive Gastrointestinal Disorders, Cirrhosis, Hemorrhoids and Obesity; Negative Hepatitis, Gall Bladder Disease, Gastrointestinal Bleed, Esophageal Varices, Colorectal Cancer or Gastroesophageal Reflux Disease GENITOURINARY: Negative Genitourinary Disorders or Renal Disease REPRODUCTIVE: Positive Previous Pregnancies; Negative Breast Cancer, Endometriosis or Pelvic Inflammatory Disease MUSCULOSKELETAL: Positive Musculoskeletal Disorders and Fractures; Negative Bone Cancer or Arthritis ENDOCRINE: Negative Endocrine Disorders, Diabetes Mellitus Type 1, Diabetes Mellitus Type 2 or Hyperthyroidism HEMATOLOGIC: Positive Blood Disorders, Anemia and Clotting Problems; Negative Sickle Cell Disease PSYCHO/SOCIAL: Positive Depression and Anxiety OTHER HISTORY: Positive Hospitalization, Falls and Blood Transfusions; Negative Autoimmune Disease, Down Syndrome, Developmental Delay, Shingles, Blood Transfusion Reaction, Anesthesia Reactions, Organ Transplant, MRSA, VRSA, Vancomycin-Resistant Enterococci, Human Immunodeficiency Virus (HIV), Chicken Pox, Measles, Mumps, Rubella (Japanese Measles), Pertussis, Clostridium Difficile, Cancer, Breast Cancer, Cervical Cancer, Colorectal Cancer, Lung Cancer or Ovarian Cancer Family History FAMILY HISTORY: Positive Family Respiratory Disorders and Family Surgery; Negative Family Psychiatric Problems, Family Cardiac Disorders, Family Gastrointestinal Problems, Family Cancer or Family Anesthesia Reaction Surgical History SURGICAL: Positive Abdominal Surgery, Tubal Ligation and Section; Negative Cardiac Surgery, Pacemaker, Endocrine Surgery, Ear Surgery, Nephrectomy, Joint Replacement, Neurologic Surgery, Mastectomy, Lumpectomy, Hysterectomy or Organ Transplant Social History SMOKING STATUS: Never smoker SECOND HAND EXPOSURE: No (quit 2013) SUBSTANCE USE: does not use ED Exam Narrative Physical exam: [General: Obese not in any acute distress Head normocephalic HEENT: Eyes pupils are PERRLA sclera's are icteric mouth: Icteric dry membranes. Swallow symmetrical phonation is normal all the subsystems of HEENT are within acceptable limits Neck is supple nontender, no JVD Chest equal chest rise nontender to palpation Respiratory: Clear to auscultation no wheezes crackles or rubs CV: Rate rhythm is regular no murmurs rubs or clicks Abdomen is grossly distended secondary to ascites soft , diffuse tenderness throughout. positive bowel sounds all 4 quadrants Back: No CVA tenderness no spinous process tenderness from cervical spine thoracic and lumbar spine Skin: Icteric, intact no petechiae rash induration ulceration or crepitus Extremities: Moving all extremity against resistance cap refill less than 2 seconds neurosensory intact Neuro: Awake alert oriented x2, person and place, Glascow coma 15 no focal deficits] Course Course Course Narrative: Review the laboratory results with the patient has a significant increase in her T. bili. Review of the chart shows that she has a biliary stent in place. Patient's case was discussed with the hospitalist who declined admission stating the patient needs the MRCP as well as a paracentesis in the morning to determine if there is an obstruction in the CBD. Quality Measures none Orders Category Date Time Status EKG (ED ONLY) *Do not use* NOW Care 09/09/25 16:08 Completed MRI Screening NOW Care 09/09/25 21:34 Active EKG (ED Only) Stat Exams 09/09/25 16:08 Draft MR MRCP Stat Exams 09/10/25 Completed US gall bladder Stat Exams 09/09/25 19:00 Completed US paracentesis abd w/image Stat Exams 09/10/25 12:00 Ordered Ammonia Stat Lab 09/09/25 17:03 Completed B-Type Natriuretic Peptide Stat Lab 09/09/25 17:03 Completed CBC Stat Lab 09/09/25 17:03 Completed Comprehensive Metabolic Panel Stat Lab 09/09/25 17:03 Completed Drug Screen,Urine Stat Lab 09/09/25 18:05 Completed Lipase Stat Lab 09/09/25 17:03 Completed Magnesium Stat Lab 09/09/25 17:03 Completed Partial Thromboplastin Time Stat Lab 09/09/25 17:03 Completed Path Review Blood Smear Stat Lab 09/09/25 17:03 Completed Prothrombin Time with INR Stat Lab 09/09/25 17:03 Completed Type and Screen Stat Lab 09/09/25 18:15 Completed Urinalysis, C/S if Indicated Stat Lab 09/09/25 18:05 Completed prbc [Red Blood Cells] Stat Lab 09/09/25 18:15 Completed Furosemide [Lasix Inj] Med 09/09/25 22:52 Discontinued 20 mg IVP X1 ONE Lactulose Syrup [Enulose Syrup] Med 09/09/25 18:57 Discontinued 40 gm PO X1 ONE POTASSIUM CHL 10% Liq 15 ML Med 09/10/25 00:15 Discontinued 40 meq PO X1 ONE Vital Signs Vital signs: Vital Signs Temperature 98.0 F 09/09/25 16:04 Pulse Rate 103 H 09/09/25 16:04 Respiratory Rate 18 09/09/25 16:04 Blood Pressure 112/61 09/09/25 16:04 Pulse Oximetry (%) 99 09/09/25 16:04 Oxygen Delivery Method Room Air 09/09/25 16:04 Discharge Plan Plan Patient condition on transfer: Stable Prescriptions/Referrals Prescriptions/Med Rec: No Action paroxetine HCl [Paxil] 30 mg tablet 30 mg PO QDAY montelukast [Singulair] 10 mg tablet 10 mg PO QDAY albuterol sulfate 90 mcg/actuation Hfa Aerosol Inhaler 2 puff INHALATION Q6H PRN (Reason: Wheezing) dicyclomine 20 mg tablet 20 mg PO QID PRN (Reason: abdominal pain) Qty: 30 0RF pantoprazole [Protonix] 40 mg tablet,delayed release (DR/EC) 40 mg PO QDAY Qty: 30 0RF lactulose 10 gram/15 mL solution 20 g PO TID Qty: 473 0RF Rx Instructions: HOLD if more than 3 bowel movements in 24 hours Referrals: No Primary/Family,Physician [Referring Provider] - In 1 week Problem List Clinical Impression: Severe anemia, Cholelithiasis, Common bile duct dilation, Cirrhosis, Ascites, LFT elevation, Hypokalemia, Hypercalcemia Patient/Caregiver Discharge Instructions Education Materials: Paracentesis Dc Print Language: Turkmen [facility] Clinical Information Provided by: patient and EMS Medical [facility] and [facility] Meds/Rx considered, not ordered None Labs/Rad/Tests considered, not ordered None Chronic Illness/Social Conditions Explain: Cirrhosis Labs Labs: interpreted by me Lab(s) Interpretation(s): CBC shows no leukocytosis and H&H of 6.7 and 21.6 respectively. Mild thrombocytopenia Coags show PT of 20.2 INR 2.0 with a PTT of 28.8. CMP shows a potassium of 3.0. Glucose of 132 calcium at 11.2 no other electrolyte imbalances. T. bili at 13.8 this is significant increase from the last draw. AST at 64. No other transaminitis Ammonia level at 48. Urine is dark turbid 1+ protein 1+ blood 3+ bilirubin WBCs at 1616 squamous is a contaminated urine UDS is positive for THC. Medication Administration(s) Medication Administration History Discontinued Medications Furosemide (Furosemide Inj 10 Mg/Ml Vial 2 Ml) 20 mg IVP X1 ONE Stop: 09/09/25 22:53 Last Admin: 09/10/25 00:21 Dose: 20 mg Documented By: SCOTT Lactulose (Lactulose Syrup 20 Gm/30 Ml Udc) 40 gm PO X1 ONE; Protocol Stop: 09/09/25 18:58 Last Admin: 09/09/25 20:09 Dose: 40 gm Documented By: SCOTT Potassium Chloride (Potassium Chloride 10% 20 Meq/15 Ml Udc) 40 meq PO X1 ONE Stop: 09/10/25 00:16 Last Admin: 09/10/25 00:24 Dose: 40 meq Documented By: SCOTT
[2025-09-09 17:40] LABS: Basophils # (Auto) 0.1 Thou/mm3 (0.0-0.2); Basophils % (Auto) 1 % (0-2.5); Eosinophils # (Auto) 0.1 Thou/mm3 (0.0-0.5); Eosinophils % (Auto) 1 % (0-10); Hematocrit 21.6 % (36.0-46.0); Immature Granulocytes Auto 0.11 Thou/mm3 (0.00-0.00); Lymphocytes # (Auto) 1.0 Thou/mm3 (1.0-4.8); Lymphocytes % (Auto) 10 % (10-50); Mean Corpuscular HGB Conc 31.0 g/dl (31.0-37.0); Mean Corpuscular Hemoglobin 36.4 pg (25.0-35.0); Mean Corpuscular Volume 117 fL (80-100); Monocytes # (Auto) 1.6 Thou/mm3 (0.0-0.8); Monocytes % (Auto) 15 % (0-12); Neutrophils # (Auto) 7.9 Thou/mm3 (1.8-7.7); Neutrophils % (Auto) 73 % (37-80); Nucleated Red Blood Cell # 0.02 Thou/mm3 (0.00-0.00); Nucleated Red Blood Cell % 0 /100 WBC (0); Platelet Count 126 Thou/mm3 (140-440); RDW Standard Deviation 81.4 fL (36.4-46.3); Red Blood Count 1.84 Miln/mm3 (4.00-5.20); White Blood Count 10.8 Thou/mm3 (3.6-11.0)
[2025-09-09 17:47] LABS: INR 2.0 (0.9-1.3); Partial Thromboplastin Time 28.8 Seconds (22.0-36.0); Prothrombin Time 20.2 Seconds (9.0-12.2)
[2025-09-09 17:49] LABS: Hemoglobin 6.7 g/dL (12.0-16.0)
[2025-09-09 17:55] LABS: Ammonia 48 uMol/L (11-32)
[2025-09-09 17:58] LABS: Alanine Aminotransferase 22 U/L (10-49); Albumin, Serum 2.8 gm/dL (3.5-5.0); Albumin/Globulin Ratio 0.7 (1.2-2.2); Alkaline Phosphatase 99 U/L (46-116); Anion Gap 14 (7-16); Aspartate Amino Transferase 64 U/L (0-34); BUN/Creatinine Ratio 13 Ratio (12-20); Bilirubin,Total 13.8 mg/dL (0.3-1.2); Blood Urea Nitrogen 13 mg/dL (9-23); Calcium 11.2 mg/dL (8.3-10.6); Calcium (Corrected) 12.2 mg/dL (8.5-10.1); Carbon Dioxide 20.9 mMol/L (20.0-31.0); Chloride 104 mMol/L (98-107); Creatinine (Component) 1.0 mg/dL (0.6-1.3); Estimated Creatinine Clearance 69.3 mL/min (>60); Globulin 3.9 gm/dL (2.3-3.5); Glucose 132 mg/dL (74-106); Lipase 33 U/L (12-53); Magnesium 1.7 mg/dL (1.6-2.6); Osmolality,Calculated 279 (275-295); Potassium 3.0 mMol/L (3.4-5.1); Sodium 139 mMol/L (136-145); Total Protein 6.7 gm/dL (5.7-8.2); eGFR > 60 See Note
[2025-09-09 18:09] LABS: B-Type Natriuretic Peptide 46 pg/mL (0-100)
[2025-09-09 18:10] LABS: Collection Type, Urine Clean Catch
[2025-09-09 18:18] LABS: Amorphous Crystals,Urine Present (Absent); Bacteria,Urine Rare; Bilirubin,Urine 3+ (Negative); Blood,Urine 1+ (Negative); Color,Urine Drk-Yellow (Lt Yel-Yel); Culture Indicated,Urine Contaminated; Glucose, Urine Negative (Negative); Hyaline Casts,Urine 2 /hpf (0-1); Ketones,Urine Negative (Negative); Leukocyte Esterase,Urine Positive (Negative); Nitrite,Urine Negative (Negative); PH,Urine 6.0 (5.0-7.0); Protein,Urine 1+ (Neg - Trace); RBC,Urine 5 /hpf (0-3); Specific Gravity,Urine 1.020 (1.001-1.035); Squamous Epithelial Cell,Urine 16 /hpf (0-5); Urobilinogen,Urine OVER mg/dL (0.0-1.0); WBC,Urine 16 /hpf (0-5)
[2025-09-09 18:19] LABS: Clarity,Urine Turbid (Clear/Hazy)
[2025-09-09 18:23] LABS: Amphetamine/Methamp Scrn,U Negative (Negative); Barbiturate Screen,Urine Negative (Negative); Benzodiazepines Screen,Urine Negative (Negative); Benzoylecgonine Screen, Ur Negative (Negative); Fentanyl Screen,Urine Negative (Negative); Opiate Screen,Urine Negative (Negative); THC Screen,Urine Positive (Negative)
[2025-09-09 18:43] LABS: Path Review Blood Smear Sent to Pathologist
--- NOTE | 2025-09-09 19:00 | XR_ITS ---
Examination: Abdomen sonogram, Limited Date and time of exam: September 09, 2025, 1950 hours INDICATIONS: Cirrhosis, elevated liver function tests on laboratory examination today. Technique: Real-time doe scale transabdominal sonographic images of the upper abdomen obtained. Findings: Gallbladder sludge 14 mm gallstone Gallbladder wall 0.5 cm however the patient has ascites Common bile duct 0.6 cm Pancreatic head 2.9 cm Liver 12.4 cm lobular contour Moderate ascites Normal hepatopetal portal venous flow Patent IVC IMPRESSION: Cholelithiasis Gallbladder wall is thickened however the patient has ascites,. The common bile duct is mildly prominent for a patient of this age, if biliary colic is a clinical consideration, suggest MRCP follow-up
[2025-09-09] MEDS: LACTULOSE SYRUP 20 GM/30 ML UDC 40 GM PO (20:09)
--- NOTE | 2025-09-09 23:09 | PD.EDADDENDU ---
Emergency Room Addendum Addendum Narrative: I took over the care from Bakari Curran NP at _11PM_ on _09/09/25_. See previous notes for complete H & P and ED course. I reviewed all diagnostic test results. Diagnoses include: Severe anemia needing transfusion Cholelithiasis CBD dilation Cirrhosis Ascites LFT elevation Hypokalemia Hypercalcemia MRCP and paracentesis pending. At 6 AM on 09/10/2025, the care of the patient was transferred to Dr. Vela. During my watch, the patient remained stable. Micha Leavitt MD
[2025-09-10] VITALS (10 sets, daily range): BP systolic 120–146; BP diastolic 66–81; PULSE 99–112; RESP 17–35; TEMP 36.6–37; O2SAT 97–100
--- NOTE | 2025-09-10 | XR_ITS ---
MRI abdomen, without contrast. MRCP Date and time of exam: 09/10/2025 at 7:38 a.m. CLINICAL HISTORY: Abdominal distention for 2 weeks, abnormal laboratory data, history of cirrhosis, recent MRCP showing mildly prominent common bile duct with no stone Technique: Multiple axial and coronal images of the abdomen have been obtained with the Siemens 1.5T MRI scanner. Images obtained included T1 weighted transverse images, T2-weighted transverse images, T2-weighted transverse images fat-suppressed, T2 weighted haste fat suppressed transverse images, T1 weighted images, in and out of phase images, T2-weighted coronal images, breath hold, T2 weighted haze coronal images as well as T2 weighted coronal thick slab images, MRCP. Findings: The peripheral margins of the liver are markedly irregular, there is major shrinkage of the liver, all these findings indicative of it very advanced cirrhosis there is major splenomegaly. There is an enormous amount of ascites in the peritoneal cavity, the amount of ascites has increased very significantly since the recent comparison MRCP There are at least 2 common bile duct stones, the largest is 3.5 mm in diameter. On the previous study the gallbladder size was normal, the gallbladder is markedly distended on today's study measuring 3.3 mm in diameter. Common bile duct was normal in size on the previous MRCP, it is now significantly increased in diameter, measuring 11.5 mm in diameter. The pancreas appears normal. No significant abnormalities are seen in either right or left kidney there is no abnormal distention of the small bowel loops anywhere. IMPRESSION: 1. End-stage cirrhosis, major splenomegaly, unchanged. 2. Since the recent previous MRCP the gallbladder and the common bile duct have now both enlarged significantly. 3. There is at least 1 gallstone in the gallbladder, and there are multiple 4. There is major very extensive ascites this is increased definitely since the recent MRCP. I would recommend paracentesis. Gallstones within the common bile duct.
[2025-09-10] MEDS: FUROSEMIDE INJ 10 MG/ML VIAL 2 ML 20 MG IVP (00:21)
[2025-09-10] MEDS: POTASSIUM CHLORIDE 10% 20 MEQ/15 ML UDC 40 MEQ PO (00:24)
--- NOTE | 2025-09-10 08:30 | PC.NURSE ---
Pt. here from home to room 8, pt. back from MRI pt. is short of breath and has labored breathing, pt. abdomen is very large distended and firm in the middle, pt. states she usually gets tapped every month. Pt. lower extremities are swollen and +3 pitting edema. Pt. is not in distress but is labored breathing, 2 warm blankets given. Pt. states thank you.
--- NOTE | 2025-09-10 10:49 | PD.EDADDENDU ---
Emergency Room Addendum Addendum Narrative: 0600: Care assumed from Dr. Leavitt, the previous shift emergency physician. Past medical, surgical, social and family history reviewed. Vitals and home medications reviewed. I will assume the care of the patient at this time, pending MRCP, paracentesis, blood transfusion, and final disposition. Please refer to the emergency department record for history and examination from initial visit.?The following addendum documentation note is intended to reflect any pending information, findings, or radiology results not included in the patient?s initial chart. 1722: The patient reports feeling much improved after paracentesis and transfusion. Patient remains clinically stable throughout the emergency department visit. We reviewed all the results, analysis, and treatment plans. Patient is amenable to discharge. Strict return precautions were outlined. RADIOLOGY Ordering Physician: Bakari Curran NP Date of Service: 09/10/25 Procedure(s): MR MRCP Accession Number(s): [id number] cc: Mohsen Chavis MD; Seng Eaton MD; Bakari Curran NP~ MRI abdomen, without contrast. MRCP Date and time of exam: 09/10/2025 at 7:38 a.m. CLINICAL HISTORY: Abdominal distention for 2 weeks, abnormal laboratory data, history of cirrhosis, recent MRCP showing mildly prominent common bile duct with no stone Technique: Multiple axial and coronal images of the abdomen have been obtained with the Siemens 1.5T MRI scanner. Images obtained included T1 weighted transverse images, T2-weighted transverse images, T2-weighted transverse images fat-suppressed, T2 weighted haste fat suppressed transverse images, T1 weighted images, in and out of phase images, T2-weighted coronal images, breath hold, T2 weighted haze coronal images as well as T2 weighted coronal thick slab images, MRCP. Findings: The peripheral margins of the liver are markedly irregular, there is major shrinkage of the liver, all these findings indicative of it very advanced cirrhosis there is major splenomegaly. There is an enormous amount of ascites in the peritoneal cavity, the amount of ascites has increased very significantly since the recent comparison MRCP There are at least 2 common bile duct stones, the largest is 3.5 mm in diameter. On the previous study the gallbladder size was normal, the gallbladder is markedly distended on today's study measuring 3.3 mm in diameter. Common bile duct was normal in size on the previous MRCP, it is now significantly increased in diameter, measuring 11.5 mm in diameter. The pancreas appears normal. No significant abnormalities are seen in either right or left kidney there is no abnormal distention of the small bowel loops anywhere. IMPRESSION: 1. End-stage cirrhosis, major splenomegaly, unchanged. 2. Since the recent previous MRCP the gallbladder and the common bile duct have now both enlarged significantly. 3. There is at least 1 gallstone in the gallbladder, and there are multiple 4. There is major very extensive ascites this is increased definitely since the recent MRCP. I would recommend paracentesis. Gallstones within the common bile duct. Dictated By:Seng Eaton MD Signed By:<Electronically signed by Seng Eaton MD in [place]>09/10/25 0846 Ordering Physician: Bakari Curran NP Date of Service: 09/10/25 Procedure(s): US paracentesis abd w/image Accession Number(s): [id number] cc: Mohsen Chavis MD; Bakari Curran NP; Seng Van MD~ Examination: Ultrasound-guided paracentesis Abdominal sonogram limited Date and time of exam: September 10, 2025, 12 0 3:00 p.m. INDICATIONS: Cirrhosis, increasing in size abdominal distention this week Informed consent provided. A timeout was completed verifying correct patient, procedure, site, positioning, and special adequate movement if applicable. Technique: Multiple sonographic images of the abdomen have been obtained. Appropriate area for paracentesis was marked. Local anesthesia is obtained with 1% lidocaine. Yueh catheter is successfully introduced. Findings: Abdominal sonographic images demonstrate sufficient ascitic fluid for paracentesis. After placing the Yueh catheter, 5825 cc of fluid were successfully removed. During and after completion of the procedure the patient appear in satisfactory and stable condition with no complications observed. Estimated blood loss 0 cc Impression: Abdominal ascites Successful ultrasound-guided paracentesis as described above Dictated By: Seng Van MD Signed By: <Electronically signed by Seng Van MD in [place]> 09/10/25 1414
--- NOTE | 2025-09-10 12:00 | XR_ITS ---
Examination: Ultrasound-guided paracentesis Abdominal sonogram limited Date and time of exam: September 10, 2025, 12 0 3:00 p.m. INDICATIONS: Cirrhosis, increasing in size abdominal distention this week Informed consent provided. A timeout was completed verifying correct patient, procedure, site, positioning, and special adequate movement if applicable. Technique: Multiple sonographic images of the abdomen have been obtained. Appropriate area for paracentesis was marked. Local anesthesia is obtained with 1% lidocaine. Yueh catheter is successfully introduced. Findings: Abdominal sonographic images demonstrate sufficient ascitic fluid for paracentesis. After placing the Yueh catheter, 5825 cc of fluid were successfully removed. During and after completion of the procedure the patient appear in satisfactory and stable condition with no complications observed. Estimated blood loss 0 cc Impression: Abdominal ascites Successful ultrasound-guided paracentesis as described above
--- NOTE | 2025-09-10 15:18 | PC.NURSE ---
Pt. resting, pt. cleaned and resting comfortably.
[2025-09-10] MEDS: ONDANSETRON ODT 4 MG TABRAP PO (19:59)
== END 2025-09-10 20:08 | disposition home or self-care (01) ==
PROVIDERS: Registered Nurse General Practice; Emergency Provider Family Medicine; PCP Family Medicine
DX: K74.60 Unspecified cirrhosis of liver (principal); R18.8 Other ascites; D64.9 Anemia, unspecified; K83.8 Other specified diseases of biliary tract; K80.20 Calculus of gallbladder without cholecystitis without obstruction; E87.6 Hypokalemia; E83.52 Hypercalcemia; R94.31 Abnormal electrocardiogram [ECG] [EKG]
CPT/HCPCS: 49083; 36415; 36430; 74181; 76705; 80053; 80307; 81001; 82140; 83690; 83735; 83880; 85025; 85610; 85730; 86850; 86900; 86901; 86923; 93005; 96374; 99284; C1729; J1938; P9016; Q0162; A9270